=== PATIENT | female | born 1985 | race Caucasian/White ===

== ENCOUNTER → 2025-03-11 | Outpatient (CLI) | payer OTHER, SELFPAY ==
--- OUTSIDE RECORDS SUMMARY | 2025-03-11 12:30 | XMS RPT_ITS | CCD ---
Author Organization [facility] Care Team Providers Care Rating Examiner Name Role Phone STAINBROOK JR., AURORA Unavailable Unavailabl e ROYAL, ANETA S Unavailable Unavailable STAINBROOK JR., [place] Unavailable Unavailabl e STAINBROOK JR., [place]A Unavailable Unavailabl e STAINBROOK JR., [place]UR[place]A Unavailable Unavailabl e STAINBROOK JR., AURORA Unavailable Unavailabl e STAINBROOK JR., [place]UR[place]A Unavailable Unavailabl e STAINBROOK JR., AURORA Unavailable Unavailabl e STAINBROOK JR., AUR[place]A Unavailable Unavailabl e STAINBROOK JR., AURORA Unavailable Unavailabl e STAINBROOK JR., AURORA Unavailable Unavailabl e STAINBROOK JR., AURORA Unavailable Unavailabl e STAINBROOK JR., AURORA Unavailable Unavailabl e STAINBROOK JR., AURORA Unavailable Unavailabl e STAINBROOK JR., AURORA Unavailable Unavailabl e STAINBROOK JR., AUR[place]A Unavailable Unavailabl e Samuel Gamez Unavailable Unavailable [place], Aneta Unavailable Unavailable [place], Aneta S Unavailable Unavailable [place], Aneta Unavailable Libby Frias Unavailable Samuel Gamez Unavailable [place], Aneta S Unavailable Unavailable Unavailable Everett Cutler Unavailable [phone] Derik DEAN, Everett Tirado Primary Care Provider Derik, Dr. Everett Tirado Attending Unav ailable Derik, Dr. Everett Tirado Referring Unav ailcheri Cutler, Dr. Everett Tirado Primary Care Unav ailable Derik, Dr. Everett Tirado Attending Unav ailable Derik, Dr. Everett Tirado Referring Unav ailable Derik, Dr. Everett Tirado Primary Care Unav ailable Cutler, Dr. Everett Tirado Attending Unav ailable Cutler, Dr. Everett Tirado Referring Unav ailable Cutler, Dr. Everett Tirado Primary Care Unav ailable Cutler, Dr. Everett Tirado Primary Care Unav ailable Cutler, Dr. Everett Tirado Referring Unav ailable Cutler, Dr. Everett Tirado Attending Unav ailable Cutler, Dr. Everett Tirado Primary Care Unav ailable Cutler, Dr. Everett Tirado Referring Unav ailable Cutler, Dr. Everett Tirado Attending Unav ailable Cutler, Dr. Everett Tirado Primary Care Unav ailable Cutler, Dr. Everett Tirado Referring Unav ailable Cutler, Dr. Everett Tirado Attending Unav ailable Cutler, Dr. Everett Tirado Primary Care Unav ailable Samuel Gamez Referring Unavailable Franco, Samuel Attending Unavailable Cutler, Dr. Everett Tirado Primary Care Unav ailable Samuel Gamez Attending Unavailable Cutler, Dr. Everett Tirado Primary Care Unav ailable Cutler, Dr. Everett Tirado Referring Unav ailable Cutler, Dr. Everett Tirado Attending Unav ailable Cutler, Dr. Everett Tirado Attending Unav ailable Cutler, Dr. Everett Tirado Primary Care Unav ailable Cutler, Dr. Everett Tirado Referring Unav ailable Cutler, Dr. Everett Tirado Attending Unav ailable Cutler, Dr. Everett Tirado Primary Care Unav ailable Cutler, Dr. Everett Tirado Referring Unav ailable Cutler, Dr. Everett Tirado Attending Unav ailable Cutler, Dr. Everett Tirado Primary Care Unav ailable Cutler, Dr. Everett Tirado Referring Unav ailable Cutler Everett DEAN Primary Care Provider [phone] Aneta Collins DO Unavailable Everett Cutler MD Unavailable Everett Cutler MD Primary Care Provider [phone] EVERETT CUTLER Primary Care Unavaila KIMBERLY Lynn Attending Unava ilable CUTLER, CHRISTOPHER AURORA Primary Care UnavailKIMBERLY Gonzalez Attending Unava ilable Everett Cutler MD Primary Care Provider LUZ MARIA CUTLERER Stalin Primary Care Unavailable CUTLER, CHRISTOPHER D Primary Care Unavailable CUTLER, CHRISTOPHER D Primary Care Unavailable Everett Cutler MD Unavailable Everett Cutler MD Unavailable GEOVANY YORK Referring Unavailable CUTLER, CHRISTOPHER D Primary Care Unavailable GEOVANY YORK Referring Unavailable CUTLER, CHRISTOPHER D Primary Care Unavailable BEV ENRIQUEZ Referring Unavailable CUTLER, MARCYOPHER Stalin Primary Care Unavailable VIRGINIA JOAQUIN Attending Unavailable VIRGINIA JOAQUIN Referring Unavailable CUTLER, CHRISTOPHER D Primary Care Unavailable VIRGINIA JOAQUIN Attending Unavailable VIRGINIA JOAQUIN R Referring Unavailable CUTLER, CHRISTOPHER Stalin Primary Care Unavailable Derik DEAN, Dr. Luther Primary Care Physician Dr. Ashkan Cutler MD Referring Provider Dr. Katharina Rubio MD Attending Physician Everett Cutler MD Primary Care Provider [phone] Everett Cutler MD Unavailable [phone] EVERETT CUTLER Attending Unavailable CUTLER, CHRISTOPHER D Primary Care Unavailable TRI SUAREZ Attending Unavailable CUTLER, CHRISTOPHER Stalin Primary Care Unavailable CUTLERMARCYOPHER Stalin Attending Unavailable CUTLER, CHRISTOPHER D Primary Care Unavailable CUTLER, CHRISTOPHER D Attending Unavailable CUTLER, CHRISTOPHER D Primary Care Unavailable CUTLER, CHRISTOPHER D Attending Unavailable CUTLER, CHRISTOPHER D Primary Care Unavailable VIRGINIA JOAQUIN Attending Unavailable CUTLER, CHRISTOPHER D Primary Care Unavailable SAMUEL GAMEZ Attending Unavailable CUTLER, CHRISTOPHER D Primary Care Unavailable SAMUEL GAMEZ Attending Unavailable CUTLER, CHRISTOPHER D Primary Care Unavailable GEOVANY YORK Attending Unavailable CUTLER, CHRISTOPHER D Primary Care Unavailable Kathairna Rubio Attending Unavailable Cutler, Ashkan Primary Care Unavailable Cutler, Ashkan Referring Unavailable Cutler, Ashkan Primary Care Unavailable Ashkan Cutler Attending Unavailable Katharina Rubio Attending Unavailable Ashkan Cutler Primary Care Unavailable Allergies Allergy Classification Reported Allergen(s) Allergy Type Date of Onset Reaction(s) Facility Cephalosporins (antibiotic) (1 source) ceFAZolin Drug Allergy Unknown [facility] Nitroimidazoles (antibiotic) (1 source) metroNIDAZOLE Drug Allergy Unknown [facility] (19 sources) ceFAZolin; Translations: [Ancef] Drug Allergy Hives [facility] Work Phone: (19 sources) metroNIDAZOLE; Translations: [Flagyl] Drug Allergy Nausea, Palpitations, Vomiting [facility] Work Phone: (20 sources) ceFAZolin; Translations: [CEFAZOLIN] Drug Allergy 3 Hives, Unknown [facility] (20 sources) metroNIDAZOLE; Translations: [METRONIDAZOLE] Drug Allergy 3 Nausea Only, Palpitations, Unknown, Other [facility] Work Phone: (1 source) ceFAZolin Drug Allergy 5 [facility] (1 source) metroNIDAZOLE Drug Allergy 5 [facility] Medications Current Medications Medication Drug Class(es) Dates Sig (Normalized) Sig (Original) dicyclomine hydrochloride 10 mg oral capsule (12 sources) Anticholinergic Start: 05-01-2024 take 1 capsule by mouth every six hours dicyclomine (Bentyl) 10 mg capsule 1 CAPSULE BY MOUTH EVERY 6 HOURS X 10 DAYS 05/01/2024 Active drospirenone, contraceptive, (Slynd) 4 mg (28) tablet (1 source) Start: 07-19-2022 End: 07-23-2023 take 1 tablet by mouth once daily drospirenone, contraceptive, (Slynd) 4 mg (28) tablet Take 1 tablet by mouth once daily. 0 07/19/2022 07/23/2023 Discontinued (Duplicate order) Ethinyl Estradiol / Levonorgestrel (9 sources) Progestin, Estrogen, Progestin-containing Intrauterine Device Start: 06-15-2020 End: 04-10-2024 take 1 tablet by mouth once daily levonorgestreL-et hinyl estrad (Seasonale) 0.15 mg-30 mcg (91) tablet Take 1 tablet by mouth once daily. 06/15/2020 04/10/2024 Discontinued (Med List Cleanup) Start: 06-15-2020 take 1 tablet by porfirio th once daily levonorgestreL-ethinyl estrad (Seasonale ) 0.15 mg-30 mcg (91) tablet Take 1 tablet by mouth once daily. 0 06/15/2020 Active End: 06-18-2024 take 1 tablet by mouth once daily levonorgestreL-ethinyl estrad (Jolessa) 0.15 mg-30 mcg (91) tablet Take by mouth once daily. 06/18/2024 Discontinued (Med List Cleanup) take 1 tablet by porfirio th once daily levonorgestreL-ethinyl estrad (Jolessa) 0.15 mg-30 mcg (91) tablet Take by mouth once daily. Active take 1 tablet by porfirio th once daily Jolessa 0.15-0.03 MG Oral Tablet TAKE 1 TABLET DAILY. Quantity: 1 Refills: 3 Franco DEAN, Samuel Active 91 Tablet Pack nitrofurantoin, macrocrystals 25 mg / nitrofurantoin, monohydrate 75 mg oral capsule (1 source) Nitrofuran Antibacterial Start: 02-25-2025 End: 03-02-2025 take 1 capsule by mouth twice daily nitrofurantoin, macrocrystal-monohydrate, (Macrobid) 100 mg capsule Indications: Acute cystitis with hematuria Take 1 capsule (100 mg) by mouth 2 times a day for 5 days. 10 capsule 02/25/2025 03/02/2025 Active Linthicum (Nk) (1 source) Start: 01-26-2025 Linthicum (Nk) Active January 26, 2025 12:00am rifAXIMin 550 mg oral tablet (3 sources) Rifamycin Antibacterial Start: 01-26-2025 take 1 tablet by mouth three times daily Rifaximin (Xifaxan) 550 mg tablet Active 550 mg PO THREE TIMES A DAY 42 14 0 January 26, 2025 12:00am February 08, 2025 12:00am Complies with drug therapy Start: 06-05-2024 End: 07-03-2024 take 1 tablet by mouth three times daily rifAXIMin (Xifaxan) 550 mg tablet Indications: Irritable bowel syndrome with diarrhea Take 1 tablet (550 mg) by mouth 3 times a day for 28 days. 42 tablet 1 06/05/2024 07/03/2024 Active Completed/Discontinued Medications Medication Drug Class(es) Dates Sig (Normalized) Sig (Original) cholestyramine resin 4000 mg powder for oral suspension (3 sources) Bile Acid Sequestrant Start: 05-20-2024 End: 05-20-2025 cholestyramine (Questran) 4 gram powder Indications: Functional diarrhea Take 0.5 packets (2 g) by mouth 2 times daily (morning and late afternoon). Dissolve in 8 oz of liquid and drink before a meal 30 packet 5 05/20/2024 05/26/2024 Discontinued (Therapy completed) colestipol hydrochloride 5000 mg granules for oral suspension (2 sources) Bile Acid Sequestrant Start: 05-26-2024 End: 06-05-2024 colestipol (Colestid) 5 gram granules Indications: Chronic fatigue , Diarrhea, unspecified type Take at least 1 hour after or 4 hours before other medications. 30 g 11 05/26/2024 06/05/2024 Discontinued (Other) diclofenac sodium 0.01 mg/mg topical gel (10 sources) Nonsteroidal Anti-inflammatory Drug Start: 08-19-2021 Diclofenac Sodium 1 % External Gel 1 CAMELIA, TOPICAL, QID FOR PAIN Quantity: 1 Refills: 11 Ordered: 19-Aug-2021 Everett Cutler MD Start : 19-Aug-2021 Active diphenhydrAMINE (2 sources) Histamine-1 Receptor Antagonist Start: 05-20-2024 End: 05-20-2024 intravenous, As needed, Starting on Sun05/20/24 at 1419, Intraprocedure glucagon (rdna) 1 mg injection (2 sources) Antihypoglycemic Agent Start: 05-20-2024 End: 05-20-2024 intravenous, As needed, Starting on Sun05/20/24 at 1414, Intraprocedure Levonorgest-Eth Estrad 91-Day 0.15-0.03 MG Oral Tablet (17 sources) Start: 06-15-2020 take 1 tablet by mouth once daily Levonorgest-Eth Estrad 91-Day 0.15-0.03 MG Oral Tablet TAKE 1 TABLET BY MOUTH EVERY DAY Quantity: 91 Refills: 3 Ordered: 27-Jul-2022 Samuel Gamez MD Start : 15-Jun-2020 Active Start: 06-15-2020 take 1 tablet by porfirio th once daily Levonorgest-Eth Estrad 91-Day 0.15-0.03 MG Oral Tablet TAKE 1 TABLET BY MOUTH EVERY DAY Quantity: 91 Refills: 3 Ordered: 18-Jul-2021 Samuel Gamez MD Start : 15-Jun-2020 Active Meperidine (2 sources) Opioid Agonist Start: 05-20-2024 End: 05-20-2024 intravenous, As needed, Starting on Sun05/20/24 at 1412, Intraprocedure 5 ml midazolam 1 mg/ml injection (2 sources) Benzodiazepine Start: 05-20-2024 End: 05-20-2024 intravenous, As needed, Starting on Sun05/20/24 at 1412, Intraprocedure norethindrone 0.35 mg oral tablet (14 sources) Start: 08-26-2024 End: 01-26-2025 take 1 tablet by mouth once daily Norethindrone (Contraceptive) (Jencycla) 0.35 mg tablet Discontinued 0.35 mg PO daily August 26, 2024 12:00am January 26, 2025 2:29pm Start: 07-23-2023 End: 07-28-2025 norethindrone (Micronor) 0.3 5 mg tablet Indications: Encounter for surveillance of contraceptive pills Take 1 tablet (0.35 mg) over 28 days by mouth once daily. 28 tablet 11 07/28/2024 02/17/2025 Discontinued (Therapy completed) predniSONE 10 mg oral tablet (6 sources) Start: 08-19-2021 predniSONE 10 MG Oral Tablet TAKE 4 TABLETS DAILY FOR 3 DAYS,3 TABLETS DAILY FOR 3 DAYS, 2 TABLETS DAILY FOR 3 DAYS AND 1 TABLET DAILY FOR 3 DAYS, THEN STOP. Quantity: 30 Refills: 0 Ordered: 19-Aug-2021 Everett Cutler MD Start : 19-Aug-2021 Active Start: 11-25-2020 End: 11-29-2020 take 2 tablets by mouth once daily at mealtime predniSONE 20 mg oral tablet ; 2 tab(s) orally once a day Quantity: 10 Refills: 0 Ordered: 24-Nov-2020 RodriguezLexie gomezstalin Li Start: 24-Nov-2020 End: 28-Nov-2020 Generic Substitution Allowed Comments: It is very important that you take or use this exactly as directed. Do not skip doses or discontinue unless directed by your doctor.Obtain medical advice before taking any non-prescription drugs as some may affect the action of this medication.Take with food or milk. Comment on above: It is very important that you take or use this exactly as directed. Do not skip doses or discontinue unless directed by your doctor.Obtain medical advice before taking any non-prescription drugs as some may affect the action of this medication.Take with food or milk. Slynd 4 MG Oral Tablet (2 sources) Start: 2022 take 1 tablet by mouth once daily Slynd 4 MG Oral Tablet 1 TABLET BY MOUTH DAILY Quantity: 1 Refills: 11 Ordered: 19-Jul-2022 Samuel Gamez MD Start : 19-Jul-2022 Active vitamin b12 1 mg/ml injectable solution (9 sources) Vitamin B12 Start: 2021 inject 1 mL by intramuscular injection every month Cyanocobalamin 1000 MCG/ML Injection Solution INJECT 1 ML INTRAMUSCULARLY ONCE A MONTH Quantity: 0 Refills: 0 Ordered: 21-Mar-2022 Everett Cutler MD Start : 21-Mar-2022 Complete Start: 12-29-2021 inject 1 mL by intra muscular injection every month Cyanocobalamin 1000 MCG/ML Injection Solution INJECT 1 ML INTRAMUSCULARLY ONCE A MONTH Quantity: 0 Refills: 0 Ordered: 30-Jan-2022 Everett Cutler MD Start : 30-Jan-2022 Complete Start: 10-18-2021 inject 1 mL by intra muscular injection every month Cyanocobalamin 1000 MCG/ML Injection Solution INJECT 1 ML INTRAMUSCULARLY ONCE A MONTH Quantity: 0 Refills: 0 Ordered: 18-Oct-2021 Everett Cutler MD Start : 18-Oct-2021 Complete Start: 09-09-2021 inject 1 mL by intra muscular injection every week Cyanocobalamin 1000 MCG/ML Injection Solution INJECT 1ML INTRAMUSCULARLY WEEKLY. Quantity: 0 Refills: 0 Ordered: 09-Sep-2021 Everett Cutler MD Start : 09-Sep-2021 Complete Start: 09-02-2021 inject 1 mL by intra muscular injection every week Cyanocobalamin 1000 MCG/ML Injection Solution INJECT 1ML INTRAMUSCULARLY WEEKLY. Quantity: 0 Refills: 0 Ordered: 02-Sep-2021 Everett Cutler MD Start : 02-Sep-2021 Complete Start: 08-26-2021 inject 1 mL by intra muscular injection every week Cyanocobalamin 1000 MCG/ML Injection Solution INJECT 1ML INTRAMUSCULARLY WEEKLY. Quantity: 0 Refills: 0 Ordered: 26-Aug-2021 Everett Cutler MD Start : 26-Aug-2021 Complete Problems Active Problems Problem Classification Problem Date Documented Da te Episodic/Chronic Conditions associated with dizziness or vertigo (2 sources) Dizziness and giddiness; Translations: [Dizziness and giddiness] Onset: 8 Episodic Esophageal disorders (20 sources) Gastroesophageal reflux disease; Translations: [Esophageal reflux] Onset: 3 09-14-2022 Chronic Fluid and electrolyte disorders (2 sources) Hypo-osmolality and hyponatremia; Translations: [Hypo-osmolality and hyponatremia] Onset: 8 Episodic Genitourinary symptoms and ill-defined conditions (9 sources) Microscopic hematuria; Translations: [Other microscopic hematuria] Onset: 5 08-21-2024 Episodic Immunizations and screening for infectious disease (2 sources) Other specified abnormal immunological findings in serum; Translations: [Other specified abnormal immunological findings in serum] Onset: 8 Episodic Malaise and fatigue (6 sources) Fatigue; Translations: [Chronic fatigue, unspecified] Onset: 3 04-10-2024 Chronic Menstrual disorders (20 sources) Menorrhagia; Translations: [Excessive or frequent menstruation] Onset: 3 09-14-2022 Chronic Comment on above: plan diagnostic lapa rosocpy. obtain us report from [facility]. failed progestin pill. 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 non-steroidal anti-inflammatories (NSAID); Translations: [care home (current) use of non-steroidal anti-inflammatories (nsaid)] Onset: 8 Episodic Other bone disease and musculoskeletal deformities (4 sources) Disorder of bone, unspecified; Translations: [Disorder of cartilage, unspecified] Onset: 8 Episodic Other bone disease and musculoskeletal deformities (2 sources) Hypertrophy of bone; Translations: [Osteophyte of hip] Episodic Other circulatory disease (2 sources) Other specified symptoms and signs involving the circulatory and respiratory systems; Translations: [Other specified symptoms and signs involving the circulatory and respiratory systems] Onset: 8 Episodic Other complications of ; puerperium affecting management of mother (17 sources) Deliveries by ; Translations: [ delivery, without mention of indication, unspecified as to episode of care or not applicable] Episodic Comment on above: 05/2011; 38 WEEKS; C- SECTION; MALE; 6LBS 12OZ; Other connective tissue disease (20 sources) Trochanteric bursitis, left hip; Translations: [Pain in right foot] Onset: 8 Episodic Other connective tissue disease (4 sources) Pain in right foot; Translations: [Pain in right foot] 04-10-2024 Episodic Other endocrine disorders (6 sources) Polycystic ovarian syndrome; Translations: [Polycystic ovarian syndrome] Onset: 8 Chronic Other endocrine disorders (2 sources) Menarche; Translations: [History of Menarche] Chronic Other endocrine disorders (20 sources) Polycystic ovary syndrome; Translations: [Polycystic ovaries] Onset: 3 09-14-2022 Chronic Other endocrine disorders (2 sources) Carcinoid syndrome; Translations: [Carcinoid syndrome] 05-20-2024 Chronic Other female genital disorders (2 sources) Abnormal uterine bleeding; Translations: [Abnormal uterine and vaginal bleeding, unspecified] 01-26-2025 Chronic Comment on above: obtain records from [facility]. plan d ad c hysteroscopy Other female genital disorders (2 sources) Vaginal bleeding; Translations: [Vaginal Bleeding] Onset: 5 Chronic Other female genital disorders (2 sources) Chronic pelvic pain of female; Translations: [Chronic pelvic pain in female] 01-26-2025 Episodic Comment on above: nl cystoscopy with Isabela pérez. d and c hysteroscopy diagnostic laparoscopy. trial of Xifaxan for IBS D Other gastrointestinal disorders (20 sources) Irritable bowel syndrome; Translations: [Irritable bowel syndrome] Onset: 3 09-14-2022 Chronic Comment on above: Xifaxin trial. Other gastrointestinal disorders (5 sources) Irritable bowel syndrome with diarrhea; Translations: [Irritable bowel syndrome with diarrhea] Onset: 5 05-05-2024 Chronic Other gastrointestinal disorders (1 source) Irritable bowel syndrome with diarrhea; Translations: [Irritable bowel syndrome with diarrhea] Onset: 3 Chronic Other gastrointestinal disorders (4 sources) Functional diarrhea; Translations: [Functional diarrhea] 05-20-2024 Episodic Other gastrointestinal disorders (1 source) Diarrhea; Translations: [Diarrhea, unspecified] 05-26-2024 Episodic Other nervous system disorders (4 sources) Other chronic pain; Translations: [Brachial plexus disorders] Onset: 8 Chronic Other nervous system disorders (2 sources) Paresthesia of skin; Translations: [Paresthesia of skin] Onset: 8 Episodic Other non-traumatic joint disorders (8 sources) Pain in right shoulder; Translations: [Pain in left shoulder] Onset: 8 Episodic Other skin disorders (2 sources) Rash and other nonspecific skin eruption; Translations: [Rash and other nonspecific skin eruption] Onset: 8 Episodic Peripheral and visceral atherosclerosis (2 sources) Peripheral vascular disease, unspecified; Translations: [Peripheral vascular disease, unspecified] Onset: 8 Chronic Residual codes; unclassified (2 sources) H/O: ; Translations: [History of ] Episodic Residual codes; unclassified (17 sources) Finding of menstrual bleeding; Translations: [Other specified conditions influencing health status] Episodic Comment on above: 09/17/2017; Residual codes; unclassified (4 sources) Flushing; Translations: [Flushing] Onset: 5 05-20-2024 Episodic Spondylosis; intervertebral disc disorders; other back problems (20 sources) Sacroiliitis, not elsewhere classified; Translations: [Inflammation of sacroiliac joint] Onset: 8 09-14-2022 Chronic Unclassified (2 sources) Other general symptoms and signs; Translations: [Other general symptoms and signs] Onset: 8 Episodic Unclassified (1 source) New Patient / [id number]() Onset: 8 Unclassified (2 sources) COUGH SNEEZE RUNNY NOSE 11-24-2020 Comment on above: COUGH SNEEZE RUNNY N OSE Unclassified (1 source) Viral illness 11-25-2020 Unclassified (2 sources) Carcinoid syndrome, unspecified; Translations: [Carcinoid syndrome, unspecified] Onset: 5 Urinary tract infections (5 sources) Acute cystitis with hematuria; Translations: [Acute cystitis] Onset: 4 Episodic Viral infection (1 source) Viral disease; Translations: [Unspecified viral infection] 11-25-2020 Episodic Past or Other Problems Problem Classification Problem Date Documented Da te Episodic/Chronic Abdominal pain (16 sources) Left lower quadrant pain; Translations: [Lower abdominal pain] Onset: 5 Episodic Contraceptive and procreative management (20 sources) Patient encounter status; Translations: [Unspecified contraceptive management] Onset: 5 07-23-2023 Episodic Diabetes mellitus without complication (20 sources) Hyperglycemia; Translations: [Other abnormal glucose] Onset: 3 09-14-2022 Episodic Gastrointestinal hemorrhage (20 sources) Rectal hemorrhage; Translations: [Hemorrhage of rectum and anus] Onset: 3 09-14-2022 Episodic Intestinal infection (20 sources) Diarrhea of presumed infectious origin; Translations: [Clostridium difficile colitis] Onset: 3 Resolved: 3 09-14-2022 Episodic Malaise and fatigue (20 sources) Other fatigue; Translations: [Fatigue] Onset: 8 09-14-2022 Episodic Nausea and vomiting (20 sources) Nausea; Translations: [Nausea and vomiting] Onset: 07-18-201 8 Resolved: 3 09-14-2022 Episodic Other and unspecified benign neoplasm (20 sources) Adenomyoma of gallbladder; Translations: [Benign neoplasm of liver and biliary passages] Onset: 3 09-14-2022 Episodic Other connective tissue disease (20 sources) Fibromyalgia; Translations: [Myalgia and myositis, unspecified] Onset: 3 09-14-2022 Episodic Other connective tissue disease (3 sources) Pain in left foot; Translations: [Pain in left foot] Onset: 4 04-14-2024 Episodic Other connective tissue disease (1 source) Pain in left foot; Translations: [Pain in left foot] Onset: 4 Episodic Other connective tissue disease (4 sources) Pain in right foot; Translations: [Pain in right foot] Onset: 4 Episodic Other gastrointestinal disorders (19 sources) H/O: gastrointestinal disease; Translations: [Personal history of other diseases of digestive system] Resolved: 0 Episodic Comment on above: C. DIff; Other gastrointestinal disorders (6 sources) Diarrhea, unspecified; Translations: [Diarrhea, unspecified] Onset: 5 Episodic Other gastrointestinal disorders (2 sources) Functional diarrhea; Translations: [Functional diarrhea] Onset: 5 Episodic Other nervous system disorders (20 sources) Paresthesia of upper limb; Translations: [Disturbance of skin sensation] Onset: 3 Episodic Other non-traumatic joint disorders (20 sources) Hip pain; Translations: [Pain in joint, pelvic region and thigh] Onset: 3 09-14-2022 Episodic Other non-traumatic joint disorders (20 sources) Disorder of hip; Translations: [Enthesopathy of hip region] Onset: 3 09-14-2022 Episodic Other non-traumatic joint disorders (20 sources) Joint pain; Translations: [Pain in joint, site unspecified] Onset: 3 09-14-2022 Episodic Other skin disorders (20 sources) Sebaceous cyst of skin; Translations: [Sebaceous cyst] Onset: 3 09-14-2022 Episodic Residual codes; unclassified (20 sources) Insomnia; Translations: [Insomnia, unspecified] Onset: 3 09-14-2022 Episodic Residual codes; unclassified (2 sources) Flushing; Translations: [Flushing] Onset: 5 Episodic Spondylosis; intervertebral disc disorders; other back problems (20 sources) Dorsalgia, unspecified; Translations: [Chronic low back pain] Onset: 8 09-14-2022 Episodic Unclassified (20 sources) Elevated C-reactive protein (CRP); Translations: [Cancer cervix - screening done] Onset: 8 Episodic Unclassified (1 source) New Patient; Translations: [New Patient] Onset: 8 Unclassified (19 sources) Finding of menstrual bleeding; Translations: [Menstruation] Comment on above: 1995-AGE 12; Unclassified (6 sources) Patient encounter status; Translations: [Contraception management] Unclassified (2 sources) Sebaceous cyst of skin; Translations: [Sebaceous cyst] Unclassified (2 sources) Carcinoid syndrome, unspecified; Translations: [Carcinoid syndrome, unspecified] Onset: 5 Unclassified (6 sources) Onset: 5 Resolved: 5 07-28-2024 NEGATED: Highlighted row has not occurred!Residual codes; unclassified (16 sources) Disease Episodic Results Test Name Value Interpretation Reference Range Facility POCT UA Automated manually r esultedon 02-25-2025 Appearance (U) Clear Clear [facility] Work Phone: Glucose Test strip (U) [Mass/Vol] Negative NEGATIVE mg/dl [facility] Work Phone: Hemoglobin Ql (U) LARGE (3+) Abnormal NEGATIVE [facility] Work Phone: Interpretation and review of laboratory results Abnormal [facility] Work Phone: Leukocyte esterase Test strip Ql (U) LARGE (3+) Abnormal NEGATIVE [facility] Work Phone: Nitrite Ql (U) Negative NEGATIVE [facility] Work Phone: pH (U) 6.5 [pH] No Reference Range Established [facility] Work Phone: POC Bilirubin, Urine SMALL (1+) Abnormal NEGATIVE [facility] Work Phone: POC Color, Urine Yellow Straw, Yellow, Light-Yellow [facility] Work Phone: POC Ketones, Urine Negative NEGATIVE mg/dl [facility] Work Phone: POC Protein, Urine 30 (1+) Abnormal NEGATIVE mg/dl [facility] Work Phone: POC Specific Flora, Urine 1.020 1.005 - 1.035 [facility] Work Phone: POC Urobilinogen, Urine 0.2 0.2, 1.0 EU/DL [facility] Work Phone: [facility] Work Phone: [facility] Office Visit Reporton 01-26-2025 [facility] Office Visit Report [facility] [address], [address] [place] [address] OFFICE VISIT Date of Service: 01/26/25 MR#: [id number] Acct: [id number] Name: PAULA MCCORMICK [facility] Rep #: [id number] : 1985 Provider: Dr. Katharina underwood MD Age/Sex: 39/F [place] [facility] Status: Signed Intake Vital Signs 01/26/25 14:26 01/26/25 14:54 Height 5 ft 10 in 5 ft 10 in Weight: 199 lb BMI 28.5 BP 116/77 Intake Visit Reasons: IRREGULAR CYCLES/ARON-MENOPAUSE CONCERNS Allergies cefazolin (From Ancef) Allergy (Severe, Verified 01/26/25 14:29) Hives metronidazole (From Flagyl) Allergy (Intermediate, Verified 01/26/25 14:29) heart palpitations Medications ???Medication ???Instructions ???Recorded ???Confirmed ???Type NK 01/26/25 01/26/25 History rifaximin 550 mg tablet (Xifaxan) 550 mg PO TID 14 days #42 tabs 01/26/25 Rx PFSH Medical History (Updated 01/26/25 @ 15:[address] Katharina Rubio MD) Fibromyalgia Cyst of right breast PCOS (polycystic ovarian syndrome) Osteoarthritis IBS (irritable bowel syndrome) Gastrointestinal problem Bone fracture History of back problems Arthritis Surgical History (Updated 01/26/25 @ 15:[address] Katharina Rubio MD) H/O section Family History Sister Asthma Cervical cancer Seizures Mother Arthritis Father Arthritis Diabetes Myocardial infarction, Onset Age: 59 Heart disease Brother Seizures Colon cancer Social History (Updated 01/26/25 @ 14:32 by Bhavana Ray) household members: spouse and children housing: house number of children: 1 current occupational status: employed current occupation: [employer] Smoking Status: Current every day smoker tobacco type: cigarettes Smoking packs per day: 4 Smoking cigarettes per day: 80.0 alcohol intake: never substance use type: does not use what type of physical activity do you participate in: none seatbelt use: always do you feel safe at home: Yes additional social history: Maurice GERARDO IRREGULAR CYCLES/ARON-MENOPAUSE CONCERNS Details: The patient is a 39-year-old female presenting with severe abdominal pain, bowel irregularities, and abnormal menstrual bleeding. Following a section, the patient contracted Clostridioides difficile infection, which remained undiagnosed for a year and a half, causing significant bowel damage. Despite treatment, she continues to experience bowel issues, including frequent bowel movements, abdominal pain, and rectal bleeding. The patient reports daily hot flashes, vomiting, and severe bowel pain, which significantly impacts her ability to work. She has attempted various interventions, including dietary changes and cessation of medications, without relief. The patient has a history of fibromyalgia, contributing to her chronic pain symptoms. She also reports abnormal Pap tests for the past five years and microhematuria. The patient suspects endometriosis due to her symptoms and has not responded to previous hormonal treatments. She has a history of polycystic ovarian syndrome diagnosed at age 24. Attestation: Documentation on this patient encounter was supported using ambient scribe technology/ voice AI technology. The patient consented to recording for the purpose of documenting the encounter. Provider reviewed content of the generated note prior to signature. History 1 Elective abortions Hx Para 1 Spontaneous abortions Hx # Term Pregnancies Ectopic pregnancies Hx # Pregnancies Multiple births # of living children 1 Past Pregnancies Del. Date Name GA/Weeks Outcome Route Bth Weight Infant Gen Labor Lgth Anesthesia Del Locatn Provider FOB Unknown 2011 Luke live - full term ROS Const Constitutional: Reports fatigue; Denies weight gain or weight loss ENT ENT: Reports system reviewed and no additional complaints, except as documented Cardio Card: Denies chest pain Resp Resp: Denies cough or dyspnea GI GI: Reports as per HPI and nausea; Denies constipation or vomiting : Reports as per HPI and vaginal discharge; Denies nipple discharge, vaginal dryness, vaginal odor or vaginal pruritus Musc Musc: Reports arthralgias and back pain; Denies muscle weakness Skin Skin/Breast: Denies alopecia, change in hair, dry skin, breast mass, breast pain, breast skin changes or nipple discharge Neuro Neuro: Reports system reviewed and no additional complaints, except as documented Psych Psych: Reports system reviewed and no additional complaints, except as documented Endo Endo: Reports cold intolerance; Denies excessive sweating, heat intolerance or polydipsia Harvey/Lymph Hematologic/Lym (more content not included)... Normal [facility] CULTURE, URINE, ROUTINEon CULTURE, URINE, ROUTINE SEE NOTE Normal [facility] Comment on above: Result Comment: CULTURE, URINE, ROUTINE Micro Number: [id number] Test Status: Final Specimen Source: Urine Specimen Quality: Adequate Result: No Growth Performed By: #### 3 95 #### [facility] [address], [address] [place] [id number] Relationship Assoc: Austyn Dunbar MD US PELVIS TRANSABDOMINAL WIT H TRANSVAGINALon 08-22-2024 US PELVIS TRANSABDOMINAL WITH TRANSVAGINAL Interpreted By: Judd Mckee, STUDY: US PELVIS TRANSABDOMINAL WITH TRANSVAGINAL; 08/22/2024 12:06 pm INDICATION: Signs/Symptoms:lower abd pain. COMPARISON: None. ACCESSION NUMBER(S): [id number] ORDERING CLINICIAN: GEOVANY YORK TECHNIQUE: Multiple multiplanar static latif scale, color and spectral waveform sonographic images of the pelvis were obtained. Transabdominal and transvaginal ultrasound was performed. FINDINGS: Limited assessment due to body habitus and overlying bowel gas. UTERUS: The uterus measures 8 x 3.1 x 5.3 cm. No uterine masses. ENDOMETRIUM: The endometrium measures 0.9 cm. There is a 1 x 3 mm echogenic focus in the central aspect of the uterus potentially an endometrial calcification. RIGHT OVARY: 2.2 x 2.4 x 2.2 cm. No solid mass. Arterial and venous flow present. LEFT OVARY: 3.3 x 2.3 x 2.4 cm. No solid mass. Arterial and venous flow present. OTHER: No significant pelvic free fluid. IMPRESSION: No worrisome abnormality. Signed by: Judd Mckee 08/23/2024 1:50 PM Dictation workstation: [id number] [facility] XR ABDOMEN 2 VIEWS SUPINE AN D ERECT OR DECUBon 08-22-2024 XR ABDOMEN 2 VIEWS SUPINE AND ERECT OR DECUB Interpreted By: Aden Morales, STUDY: XR ABDOMEN 2 VIEWS SUPINE AND ERECT OR DECUB INDICATION: Signs/Symptoms:lower abd pain. COMPARISON: None ACCESSION NUMBER(S): [id number] ORDERING CLINICIAN: GEOVANY YORK FINDINGS: Moderate stool in the colon. Bowel-gas pattern unremarkable. No air-fluid levels or free air. No pathologic calcifications. IMPRESSION: No acute abdominal radiographic findings. Signed by: Aden Morales 08/23/2024 9:39 AM Dictation workstation: [id number] [facility] POCT UA Automated manually r esultedon 08-21-2024 Appearance (U) Clear Clear [facility] Work Phone: Glucose Test strip (U) [Mass/Vol] Negative NEGATIVE mg/dl [facility] Work Phone: Hemoglobin Ql (U) SMALL (1+) Abnormal NEGATIVE [facility] Work Phone: Interpretation and review of laboratory results Abnormal [facility] Work Phone: Leukocyte esterase Test strip Ql (U) Negative NEGATIVE [facility] Work Phone: Nitrite Ql (U) Negative NEGATIVE [facility] Work Phone: pH (U) 7.5 [pH] No Reference Range Established [facility] Work Phone: POC Bilirubin, Urine Negative NEGATIVE [facility] Work Phone: POC Color, Urine Yellow Straw, Yellow, Light-Yellow [facility] Work Phone: POC Ketones, Urine Negative NEGATIVE mg/dl [facility] Work Phone: [phone] POC Protein, Urine Negative NEGATIVE mg/dl [facility] Work Phone: [phone] POC Specific Flora, Urine 1.020 1.005 - 1.035 [facility] Work Phone: POC Urobilinogen, Urine 0.2 0.2, 1.0 EU/DL [facility] Work Phone: [facility] Work Phone: Cervicalon 07-28-2024 Cytology Cervical or vaginal smear or scraping study Pathology report.total SEE COMMENT Gynecologic Cytology Case: [id number] Authorizing Provider: Samuel Gamez MD Collected: 07/28/2024916 Ordering Location: [facility] Received: 07/28/2024916 First Screen: STACY Puentes Rescreen: STACY Vázquez Specimen: ThinPrep Liquid-Based Pap-Imaging System Screen, CERVIX, SCREENING Cytology study comment SEE COMMENT A. THINPREP PAP CERVIX, SCREENING - Specimen Adequacy Satisfactory for evaluation; endocervical/transformation zone component is present General Categorization Negative for intraepithelial lesion or malignancy. Descriptive Interpretation Negative for intraepithelial lesion or malignancy Specimen does not meet the requisition-stated criteria for HPV testing. See Pap test interpretation above. at 0844 EDT Laboratory comment SEE COMMENT Slide(s) initially screened by STACY Puentes at [facility] [address] [facility] [id number] QC review performed by STACY Vázquez at [facility] [address] [facility] [id number] By the signature on this report, the individual or group listed as making the Final Interpretation/Diagnosis certifies that they have reviewed this case. This specimen has been analyzed by the [employer] Imaging System ([employer] an automated imaging and review system, which assists the laboratory in evaluating cells on ThinPrep Pap tests. Following automated imaging, selected ramos from every slide were reviewed by a sales correspondent and/or pathologist. Cervical cytology is a screening procedure primarily for squamous cancers and precursors and has associated false-negative and false-positives results as evidenced by published data. Your patient's test should be interpreted in this context, together with the patient's history and clinical findings. Regular sampling and follow-up of unexplained clinical signs and symptoms are recommended to minimize false negative results. LAB AP HPV HR Reflex if ASCUS only LAB AP HPV GENOTYPE QUESTION Yes Date last menstrual period 07/24/2024 LAB AP CONTRACEPTIVE HISTORY Oral Contraceptives Normal [facility] 5 HIAA, 24 HOUR URINE, W/O C REATININEon 06-11-2024 5 HIAA, 24 HOUR URINE 2.2 mg/24 h Normal < OR = 6.0 [facility] Comment on above: Order Comment: URINE VOLUME: 1450/24 Result Comment: This test was developed and its analytical performance characteristics have been determined by [facility]. It has not been cleared or approved by FDA. This assay has been validated pursuant to the CLIA regulations and is used for clinical purposes. Performed By: #### 5 23 #### [facility], [address] [place] [address] Relationship Assoc: Kala Hawkins MD,PhD,KAYA TOTAL VOLUME 1450 mL Normal [facility] Comment on above: Order Comment: URINE VOLUME: 1450/24 Performed By: #### 5 23 #### [facility], [address] [place] [address] Relationship Assoc: Kala Hawkins MD,PhD,KAYA CBC (INCLUDES DIFF/PLT)on Basophils (Bld) [#/Vol] 0.051 10*3/uL Normal 0-200 [facility] Comment on above: Performed By: #### 6 399, 69958, 809 #### [facility] [address], [address] [place] [address] Relationship Assoc: Austyn Dunbar MD #### [id number] #### [facility], [facility] [place] [address] Relationship Assoc: Kala Hawkins MD,PhD,KAYA Basophils/100 WBC (Bld) 0.8 % Normal [facility] Comment on above: Performed By: #### 6 399, 94830, 809 #### [facility] of [facility] [address], [address] [place] [address] Relationship Assoc: Austyn Dunbar MD #### [id number] #### [facility], [address] [place] [address] Relationship Assoc: Kala Hawkins MD,PhD,KAYA Eosinophils (Bld) [#/Vol] 0.051 10*3/uL Normal 15-500 [facility] Comment on above: Performed By: #### 6 399, 63639, 809 #### [facility] of [facility] [address], [address] [place] [address] Relationship Assoc: Austyn Dunbar MD #### [id number] #### [facility], [facility] [place] [address] Relationship Assoc: Kala Hawkins MD,PhD,KAYA Eosinophils/100 WBC (Bld) 0.8 % Normal [facility] Comment on above: Performed By: #### 6 399, 68081, 809 #### [facility] of [facility] [address], [address] [place] [address] Relationship Assoc: Austyn Dunbar MD #### [id number] #### [facility], [address] [place] [address] Relationship Assoc: Kala Hawkins MD,PhD,KAYA Erythrocyte distribution width (RBC) [Ratio] 11.9 % Normal 11.0-15.0 [facility] Comment on above: Performed By: #### 6 399, 11419, 809 #### [facility] of [place] [address] [address] , [address] [place] [address] Relationship Assoc: Austyn Dunbar MD #### [id number] #### [facility], [address] [place] [address] Relationship Assoc: Kala Hawkins MD,PhD,KAYA Hematocrit (Bld) [Volume fraction] 44.6 % Normal 35.0-45.0 [facility] Comment on above: Performed By: #### 6 399, 03080, 809 #### [facility] of [address], [address] [place] [address] Relationship Assoc: Austyn Dunbar MD #### [id number] #### [facility], [address] [place] [address] Relationship Assoc: Kala Hawkins MD,PhD,KAYA Hemoglobin (Bld) [Mass/Vol] 15.5 g/dL Normal 11.7-15.5 [facility] Comment on above: Performed By: #### 6 399, 66712, 809 #### [facility] of [address] , [address] [place] [address] Relationship Assoc: Austyn Dunbar MD #### [id number] #### [facility], [address] [place] [address] Relationship Assoc: Kala Hawkins MD,PhD,KAYA Lymphocytes (Bld) [#/Vol] 1.702 10*3/uL Normal 850-3900 [facility] Comment on above: Performed By: #### 6 399, 27048, 809 #### [facility] of [address], [address] [place] [address] Relationship Assoc: Austyn Dunbar MD #### [id number] #### [facility], [address] [place] [address] Relationship Assoc: Kala Hawkins MD,PhD,KAYA Lymphocytes/100 WBC (Bld) 26.6 % Normal [facility] Comment on above: Performed By: #### 6 399, 88379, 809 #### [facility] [address], [address] [place] [address] Relationship Assoc: Austyn Dunbar MD #### [id number] #### [facility], [address] [place] [address] Relationship Assoc: Kala Hawkins MD,PhD,KAYA MCH (RBC) [Entitic mass] 34.1 pg High 27.0-33.0 [facility] Comment on above: Performed By: #### 6 399, 24594, 809 #### [facility] [address], [address] [place] [address] Relationship Assoc: Austyn Dunbar MD #### [id number] #### [facility], [address] [place] [address] Relationship Assoc: Kala Hawkins MD,PhD,KAYA MCHC (RBC) [Mass/Vol] 34.8 g/dL Normal 32.0-36.0 [facility] Comment on above: Result Comment: For adults, a slight decrease in the calculated MCHC value (in the range of 30 to 32 g/dL) is most likely not clinically significant; however, it should be interpreted with caution in correlation with other red cell parameters and the patient's clinical condition. Performed By: #### 6 399, 42565, 809 #### [facility] [address], [address] [place] [address] Relationship Assoc: Austyn Dunbar MD #### [id number] #### [facility], [address] [place] [address] Relationship Assoc: Kala Hawkins MD,PhD,KAYA MCV (RBC) [Entitic vol] 98.0 fL Normal 80.0-100.0 [facility] Comment on above: Performed By: #### 6 399, 17134, 809 #### [facility] [address], [address] [place] [address] Relationship Assoc: Austyn Dunbar MD #### [id number] #### [facility], [address] [place] [address] Relationship Assoc: Kala Hawkins MD,PhD,KAYA Monocytes (Bld) [#/Vol] 0.518 10*3/uL Normal 200-950 [facility] Comment on above: Performed By: #### 6 399, 37719, 809 #### [facility] [address], [address] [place] [address] Relationship Assoc: Austyn Dunbar MD #### [id number] #### [facility], [address] [place] [address] Relationship Assoc: Kala Hawkins MD,PhD,KAYA Monocytes/100 WBC (Bld) 8.1 % Normal [facility] Comment on above: Performed By: #### 6 399, 93223, 809 #### [facility] [place] [address] [address] [place] [address] Relationship Assoc: Austyn Dunbar MD #### [id number] #### [facility], [address] [place] Relationship Assoc: Kala Hawkins MD,PhD,KAYA Neutrophils (Bld) [#/Vol] 4.077 10*3/uL Normal 1976-6806 [facility] Comment on above: Performed By: #### 6 399, 22095, 809 #### [facility] of [place] [address], [address] [place] [address] Relationship Assoc: Austyn Dunbar MD #### [id number] #### [facility], [address] [place] [address] Relationship Assoc: Kala Hawkins MD,PhD,KAYA Neutrophils/100 WBC (Bld) 63.7 % Normal [facility] Comment on above: Performed By: #### 6 399, 38004, 809 #### [facility] of [place] [address] , [address] [place] [address] Relationship Assoc: Austyn Dunbar MD #### [id number] #### [facility], [facility] [address] Relationship Assoc: Kala Hawkins MD,PhD,KAYA Platelet mean volume (Bld) [Entitic vol] 9.9 fL Normal 7.5-12.5 [facility] Comment on above: Performed By: #### 6 399, 00725, 809 #### [facility] of [place] [address] [address] , [address] [place] [address] Relationship Assoc: Austyn Dunbar MD #### [id number] #### [facility], [address] [place] [address] Relationship Assoc: Kala Hawkins MD,PhD,KAYA Platelets (Bld) [#/Vol] 292 10*3/uL Normal 140-400 [facility] Comment on above: Performed By: #### 6 399, 51804, 809 #### [facility] of [place] [address] [address] , [address] [place] [address] Relationship Assoc: Austyn Dunbar MD #### [id number] #### [facility], [address] [place] Relationship Assoc: Kala Hawkins MD,PhD,KAYA RBC (Bld) [#/Vol] 4.55 10*6/uL Normal 3.80-5.10 [facility] Comment on above: Performed By: #### 6 399, 83120, 809 #### [facility] of [address], [address] [place] [address] Relationship Assoc: Austyn Dunbar MD #### [id number] #### [facility], [address] [place] Relationship Assoc: Kala Hawkins MD,PhD,KAYA WBC (Bld) [#/Vol] 6.4 10*3/uL Normal 3.8-10.8 [facility] Comment on above: Performed By: #### 6 399, 14441, 809 #### [facility] [address], [address] [place] [address] Relationship Assoc: Austyn Dunbar MD #### [id number] #### [facility], [address] [place] Relationship Assoc: Kala Hawkins MD,PhD,KAYA COMPREHENSIVE METABOLIC PANE L W/ANION GAPon 06-01-2024 Albumin [Mass/Vol] 4.7 g/dL Normal 3.6-5.1 [facility] Comment on above: Order Comment: FASTI NG:NO FASTING: NO Performed By: #### 6 399, 50722, 809 #### [facility] [address], [address] [place] [address] Relationship Assoc: Austyn Dunbar MD #### [id number] #### [facility], [address] [place] Relationship Assoc: Kala Hawkins MD,PhD,KAYA ALP [Catalytic activity/Vol] 65 U/L Normal 31-125 [facility] Comment on above: Order Comment: FASTI NG:NO FASTING: NO Performed By: #### 6 399, 04390, 809 #### [facility] [address], [address] [place] [address] Relationship Assoc: Austyn Dunbar MD #### [id number] #### [facility], [address] [place] [address] Relationship Assoc: Kala Hawkins MD,PhD,KAYA ALT [Catalytic activity/Vol] 9 U/L Normal 6-29 [facility] Comment on above: Order Comment: FASTI NG:NO FASTING: NO Performed By: #### 6 399, 96176, 809 #### [facility] [address], [address] [place] [address] Relationship Assoc: Austyn Dunbar MD #### [id number] #### [facility], [address] [place] [address] Relationship Assoc: Kala Hawkins MD,PhD,KAYA AST [Catalytic activity/Vol] 12 U/L Normal 10-30 [facility] Comment on above: Order Comment: FASTI NG:NO FASTING: NO Performed By: #### 6 399, 32292, 809 #### [facility] [address], [address] [place] [address] Relationship Assoc: Austyn Dunbar MD #### [id number] #### [facility], [address] [place] [address] Relationship Assoc: Kala Hawkins MD,PhD,KAYA Bilirubin [Mass/Vol] 0.5 mg/dL Normal 0.2-1.2 [facility] Comment on above: Order Comment: FASTI NG:NO FASTING: NO Performed By: #### 6 399, 39712, 809 #### [facility] [address], [address] [place] [address] Relationship Assoc: Austyn Dunbar MD #### [id number] #### [facility], [address] [place] [address] Relationship Assoc: Kala Hawkins MD,PhD,KAYA Calcium [Mass/Vol] 9.1 mg/dL Normal 8.6-10.2 [facility] Comment on above: Order Comment: FASTI NG:NO FASTING: NO Performed By: #### 6 399, 89004, 809 #### [facility] [place] [id number] , [address] [place] [address] Relationship Assoc: Austyn Dunbar MD #### [id number] #### [facility], [address] [place] [address] Relationship Assoc: Kala Hawkins MD,PhD,KAYA Chloride [Moles/Vol] 106 mmol/L Normal 98-110 [facility] Comment on above: Order Comment: FASTI NG:NO FASTING: NO Performed By: #### 6 399, 19784, 809 #### [facility] [address], [address] [place] [address] Relationship Assoc: Austyn Dunbar MD #### [id number] #### [facility], [facility] [place] [address] Relationship Assoc: Kala Hawkins MD,PhD,KAYA CO2 [Moles/Vol] 29 mmol/L Normal 20-32 [facility] Comment on above: Order Comment: FASTI NG:NO FASTING: NO Performed By: #### 6 399, 13309, 809 #### [facility] [address], [address] [place] [address] Relationship Assoc: Austyn Dunbar MD #### [id number] #### [facility], [address] [place] [address] Relationship Assoc: Kala Hawkins MD,PhD,KAYA Creatinine [Mass/Vol] 0.65 mg/dL Normal 0.50-0.97 [facility] Comment on above: Order Comment: FASTI NG:NO FASTING: NO Performed By: #### 6 399, 61398, 809 #### [facility] [address], [address] [place] [address] Relationship Assoc: Austyn Dunbar MD #### [id number] #### [facility], [address] [place] [address] Relationship Assoc: Kala Hawkins MD,PhD,KAYA ELECTROLYTE BALANCE 5 mmol/L (calc) Low 7-17 [facility] Comment on above: Order Comment: FASTI NG:NO FASTING: NO Performed By: #### 6 399, 51086, 809 #### [facility] [address], [address] [place] [address] Relationship Assoc: Austyn Dunbar MD #### [id number] #### [facility], [address] [place] [address] Relationship Assoc: Kala Hawkins MD,PhD,KAYA GFR/1.73 sq M.predicted among non-blacks MDRD (S/P/Bld) [Vol rate/Area] 117 mL/min/{1.73_m2} Normal > OR = 60 [facility] Comment on above: Order Comment: FASTI NG:NO FASTING: NO Performed By: #### 6 399, 50753, 809 #### [facility] [address], [address] [place] [address] Relationship Assoc: Austyn Dunbar MD #### [id number] #### [facility], [address] [place] [address] Relationship Assoc: Kala Hawkins MD,PhD,KAYA Glucose [Mass/Vol] 95 mg/dL Normal 65-139 [facility] Comment on above: Order Comment: FASTI NG:NO FASTING: NO Result Comment: Non-fasting reference interval Performed By: #### 6 399, 96020, 809 #### [facility] [address], [address] [place] [address] Relationship Assoc: Austyn Dunbar MD #### [id number] #### [facility], [address] [place] [phone] Relationship Assoc: Kala Hawkins MD,PhD,KAYA Potassium [Moles/Vol] 4.4 mmol/L Normal 3.5-5.3 [facility] Comment on above: Order Comment: FASTI NG:NO FASTING: NO Performed By: #### 6 399, 53453, 809 #### [facility] [address], [address] [place] [address] Relationship Assoc: Austyn Dunbar MD #### [id number] #### [facility], [address] [place] [address] Relationship Assoc: Kala Hawkins MD,PhD,KAYA Protein [Mass/Vol] 6.9 g/dL Normal 6.1-8.1 [facility] Comment on above: Order Comment: FASTI NG:NO FASTING: NO Performed By: #### 6 399, 36985, 809 #### [facility] [address], [address] [place] [address] Relationship Assoc: Austyn Dunbar MD #### [id number] #### [facility], [address] [place] [phone] Relationship Assoc: Kala Hawkins MD,PhD,KAYA Sodium [Moles/Vol] 140 mmol/L Normal 135-146 [facility] Comment on above: Order Comment: FASTI NG:NO FASTING: NO Performed By: #### 6 399, 94289, 809 #### [facility] [address], [address] [place] [address] Relationship Assoc: Austyn Dunbar MD #### [id number] #### [facility], [address] [place] [address] Relationship Assoc: Kala Hawkins MD,PhD,KAYA Urea nitrogen [Mass/Vol] 6 mg/dL Low 7-25 [facility] Comment on above: Order Comment: FASTI NG:NO FASTING: NO Performed By: #### 6 399, 94492, 809 #### [facility] [address], [address] [place] [address] Relationship Assoc: Austyn Dunbar MD #### [id number] #### [facility], [address] [place] [address] Relationship Assoc: Kala Hawkins MD,PhD,KAYA SED RATE BY MODIFIED WESTERG RENon 06-01-2024 SED RATE BY MODIFIED WESTERGREN 2 mm/h Normal < OR = 20 [facility] Comment on above: Performed By: #### 6 399, 22468, 809 #### [facility] [address], [address] [place] [address] Relationship Assoc: Austyn Dunbar MD #### [id number] #### [facility], [address] [place] [address] Relationship Assoc: Kala Hawkins MD,PhD,KAYA SEROTONIN, SERUMon 5 SEROTONIN, SERUM 126 ng/mL Normal 56-244 [facility] Comment on above: Order Comment: FASTI NG:NO FASTING: NO Result Comment: This test was developed and its analytical performance characteristics have been determined by [facility]. It has not been cleared or approved by FDA. This assay has been validated pursuant to the CLIA regulations and is used for clinical purposes. Performed By: #### 2 9851 #### [facility], [address] [facility] [place] [address] Relationship Assoc: Kala Hawkins MD,PhD,KAYA SEROTONIN, SERUM 112 ng/mL Normal 56-244 [facility] Comment on above: Result Comment: This test was developed and its analytical performance characteristics have been determined by [facility]. It has not been cleared or approved by FDA. This assay has been validated pursuant to the CLIA regulations and is used for clinical purposes. Performed By: #### 6 399, 21238, 809 #### [facility] [place] [address] [facility], [address] [place] [address] Relationship Assoc: Austyn Dunbar MD #### [id number] #### [facility], [address] [place], [place] Relationship Assoc: Kala Hawkins MD,PhD,KAYA Serotonin (S) [Mass/Vol]on 0 06-01-2024 FASTING:NO FASTING: NO [facility] Serotonin, Serumon 5 Serotonin (S) [Mass/Vol] 126 ng/mL 56 - 244 ng/mL [facility] Comment on above: This test was developed and its analytical performance characteristics have been determined by [facility]. It has not been cleared or approved by FDA. This assay has been validated pursuant to the CLIA regulations and is used for clinical purposes. TSH W/REFLEX TO FT4on 2024 TSH W/REFLEX TO FT4 0.83 mIU/L Normal [facility] Comment on above: Result Comment: Refe rence Range > or = 20 Years 0.40-4.50 Ranges First trimester 0.26-2.66 Second trimester 0.55-2.73 Third trimester 0.43-2.91 Performed By: #### 6 399, 33644, 809 #### [facility] [place] [id number] , [address] [place] [phone] Relationship Assoc: Austyn Dunbar MD #### [id number] #### [facility], [address] [place] [address] Relationship Assoc: Kala Hawkins MD,PhD,KAYA Surgical pathology studyOrde red By: Elsy Barrera on 05-30-2024 Laboratory comment Lexa (Report) z1yvzLUbJMXmx8iwBWYvrTWiDoZ wMzNcZnRuYmpcdWMxIHtccnRmMV tjw0WqH7RwRwLuMIayfoByPVPmC xeyruneWRNrBQM3eqCwGOLaWRrb SMZyZGuyQv5oqGSvrLiaRcAvPFC pm1jzwvABDLehJWKOMGx2c5qeUB LtQuS2qUBoBEkyL7cdbxSklXEkA 4Vda7AfRTg1oJ55MMAkvT1biSBw LFysitJoUrQ8YAdzGHFeFcA5OOB vcDZkXVWwW8phOZQsKPbfSLJpFS yujFVaXYD6mOmnl4V6fXFpcLLbo UorAgHxGqKvLkGXm0MqBLd3eFvq O7FrOTYvSqC8nZZdYWYoHOpxIWX hPTJwpzM2xV79CJeayxI1oLPwe9 Vym56fz091sR2krJKwCGD3EFVkZ EWaiWOvYQFqZUA0UVUgbKPkE7bc MkLqpAFwJ4SvOqScvWKiK3RnFmP ecEFzV2XhCvBoiXUyNTQydTL9WR gkz872LJP6HaIgZF7hH5Bce4I2c R3mrAQlMZCdvYObPlSfMOPpyc2c dSJhXEoef0EkDSG9qjH2uSLwnML pCZTfXZ79Rmctd3AbTstmJBT2OM XrbrRmy7Jiu0epJoYrusAeX3jeD 3CuUXGdPCTsDQQfZbCiqrHzi9Xy t2EwjYDyuUh0v4vgEFQtFTLkvIq ej3naPJK0YIMbX7Q9iPFvx3dtYG sbMHCtiSI9cgS8PDthEPFadaN6m tW5GEqePLGasEC7wfG9NTdiXSFc ZgB0djW3VQyuCJUjEOY2LzRcOHJ pp1CwzskqTdJoq1DniIRqRBouO5 6tl664BPBgaiEcN6eshDNkmawef NUoebfoNIiwzxY1QPXrUTRpISoh XGYxXGZzMjBcbGFuZzEwMzNcaGl fgGasFMxyVxLnYUQrOZckF8xjAj FaBaYyBMBQvHH6vJBqc5xpzhT1q TAjWW2nPVAbcGOcwzFyp5G8ZSL9 cFUqjK1deIPfPQCrfFEwhcQkdm3 6gYFwuYZ9VJSvAMYbcOOqbJ6iQM YaVBXXgE7thBAUogNxmzOpZFBhy Yoizz6HiBGiky8pzCSsX1ZgjHva aWVzIHRoYXQgdGhleSBoYXZlIHJ ejtfoj5UsGDXliZAlY4KyDR1sLS Bhcn19 [facility] Work Phone: Pathology report Cancer Narrative Surgical Pathology Case: [id number] Authorizing Provider: [place] Joaquin DO Collected: 05/20/2024 1424 Ordering Location: [facility] Received: 05/20/[address] [place] [address] Pathologist: Elsy Barrera MD PhD Specimens: A) - COLON - RANDOM BIOPSY B) - ILEUM BIOPSY [facility] Work Phone: Pathology report final diagnosis Narrative f8gzoKKaJISlbPVhMMrjLeacuqH vPGFkrYXvG2WbflvmAIezPR4yXY 3gbZizeWKymJGkZRTfUjQwv5ehy 862wEIxc0wdWFFInyrpuCi6uAxp A14xp6R8VuoiB6lnZLHkPJmjGCG yJAiloSGhNPd4DNNqsBMmhaYqKp GlUPCcdGShhEQ1NJWjRT0fynvhA LlhCZzjHZEecrD6JBGcbNGuS6Mb SLIfVO5lrjwkWPS0FWbbBIXfPOJ 4QpPuCDPso0Jpkom0HoDnfWp1z5 nvPQFfLRZtnBqqq5hsJCK5YSEnj OVsR3hyhP7jPUBjYR5upumou0xc APieYFnyMDKhaUP9idE1LTJmuRK nF0QgvB9xVFQxPRAglqHhkWzgaG 4oOgczdkXwRQJtZTKYVT9JPHLmI PFDXmWWKORXCA1OG4j0UCWkUTIr dUPiTM1Ul8gpgkgzPB11I71pXAv jil4er1aknrkraIJxkzPteYV6eR 3yw5kwFhRqoE9lkD7mo6qcJDKdg YGlNJZnGz8nBJxGDM4lSepXVFFI OlxiMCAgXHBhclxwYXJkXGNmMSA bTUvcVCjnjCOwi0MnTUHnwzVhrW rjjGFkM0CxaSVoXEZjd3lhH9cnK GZpbmRpbmdzXHBhcn0= [facility] Work Phone: Pathology report gross observation Narrative k6viuTJdEUBgrEYQLAS8PFOtNT5 cpOmbuYt7qFpvYCMvjuH3mWHcGE sgc5qoTRF4i1wmicNWUcsyVJQaJ K1xRJerUWPmNZ0rXiLoTWKlZwZt XHBhcGVydzEyMjQwXHBhcGVyaDE 1DRXaNP6lzivmIMxqSZeqFYHbxm C4EIAktKTeI6UuSJNuZY7erkqwV VU5VSTWUwemRv8uoAGdaHNTDhos UeGkReTnTGAtWGYsUVGih6lfvkI NUTniJVFXKVu7NHw1HENrYDWbdP Jeb4H9HRcpq0hpl0DcJVOoUGf7p H2GRpzlXNL7CXUNFohyDnlvpNcw j9ZxjXUqUKPcSZtplBIhQMGfKJU yELclWlPMCsUsNdZkZqllEBm9NH TcNSq0ZUcvTmEKXXDcGzr4EXBwB Du0XPdrOUkdcMUeRDDvIRMvAERk MAgdrnM3a1qzYGUpoUMiOVA5WKo ev7hiZUnlPMQ6CWByJaVcOZEiNJ 8DSzQfMFFtOgDmGFIfLtY0UBf0D XLVJhFrRsEfOEzdAXD9KTDhALe6 MJq7NGzISwWbZhS1KIt4VVM4ILT 9Vly0SXopivwbXBf3FSYcUWimis PeLTjeKfriSHfxR77ewTUrNPMRL lxwbGFpblxlcGljTmVzdERvYzEg FUqjbDFrlALlCX9SNIy5jgKyOAW pXVWsYoLnIQtgEjByCSk9KYYywF 8sMm2otNKgmH1pYXjyJrRvLOKjw 5r2mFV9bAWtxDM2hXKelBprIR7b pYTaBK4qSNzcx4BpcHQuIX83pHF knzryNBUqMC65bWFahVfsRGMpAN baGP00rxImVxG6UK9eFJFaPgUok Dsqk0CyTFQhX8OeE9C4lK1vZSOg TUTyInM3OZCtPqK7QHZwTaQcuI1 cJHfgQDIzEKTbkSEsXPgsDOY6Uh 6iiXMiZPAgyuE6y0EgGQmhEUU5x qZdDUIdAUM3LAMnGCLzpkVVHhkm JMWhYHLagPPXf3OoDJHGFftQOyU NIgzlqGlgAqTshGUeLnN3STEuxC TmCLW1OJ7fwHwhXARdBUz8ZRprX RXhX0QwA5WgLOhkWcFmVMjcXMUr YPUlDKpaJBVlQ7TTUMMqHuP5TxH 0BRAzMPl9FKa5MW1EZlGzXFYoAc K6HZfwAWTvSVu3NAovQZ8HURNcL OO1WQpiHTJmJOZgHEIxHMfacYQu XHQgMiBcXHNzIDMgXFxmbCBcXG5 qkUloWTQwVM4WTXMnJZjvKXKmmP AIFMJ2ZW0xZMCDRnxdfFEmKQUzn 9TnWfBtNJIfI1ciYqLnTYNNVejh yKMzuUgwGdzpqsNaBYM1WZJvR0L xvqEkYPrmTAGevj8goOawGPHoEH JlbGVkIHdpdGggdGhlIHBhdGllb iPbhpWhJB6wNSDxQTEre7HfbRVj vWNezL5yTZIfMGodUIRaQeMjU45 nzhGhq9EtmVBiFRQic1Q5SNMzt7 E8PQIxAXGdlDGpakjgZR19HFllU S8qMBvwZF6sHSIsHpXCvTKuy8La G4umCZ9rpYCmr3TjwBg4wIMzLTe oJYNnhQ0ajK5cu57sNJIvz3YweE RlLlxwYXIgDQpccGFyZFxsdHJwY ETty7GfOSiftQijHPKqVgHnEVuL IBfnOGglUQIrT58wx5GSh4Jvb5a qwZrgo2ZnfKDrKE25ZGWeaTJxLP E6NQ7apTbiRKMhMCennUBbMOHHY lxwbGFpbiANCn0= [facility] Work Phone: Pathology report relevant history Narrative w5lxbOIcFLSpfLGlPZrjWnxdhcW yEPObjRZhJ8AmktxmOUimOM4qZL 1doEoxuICoaNZgOVVePpKmg8qbk 409lDZkf3twJEQQhqxzmWl3iTfy Z43ld7H4XcrfW66hqSLiVPA9DAX wVUPufEJcOAQbOHN4XAUsnOXlY0 khMRFhPK3vvsoiPGznQEgmVOLvx QW3VUBfqKOlP0KgGJEsWJsfTMEa jrv1TgWqJd5xlGOlzFocMXdsCMR zJTYhXQfgYOLoNkBoEMlnX28ek6 ukJbg8LVUiDeD2HlmuGWQXiGAhd hoaXAhceA6hpYDwhLRvMEPanNjb ZSBbSUNELTEwLUNNXSBLNjIuNSA vVTPpR3AjpWBnoTFxUHirEeMcWJ NELTEwLUNNXVxwYXJ9 [facility] Work Phone: [facility] Work Phone: COLONOSCOPYon 05-20-2024 Colonoscopy Table formatting fro m the original result was not included. Impression Normal. Performed random biopsy using biopsy forceps. Medium, protruding (grade 2) hemorrhoid Findings All observed locations appeared normal. Performed random biopsy using biopsy forceps. Random biopsies were taken throughout the terminal ileum and random colon to exclude microscopic colitis or IBD. One left anterior internal medium, protruding (grade 2) hemorrhoid observed during retroflexion; no bleeding was observed Recommendation Follow up with PCP Repeat colonoscopy in 5 years, due: 05/19/2029 Indication Rectal bleeding, Diarrhea, unspecified type Staff Staff Role No Staff Documented Medications meperidine PF (Demerol) injection 50 mg midazolam (Versed) injection 10 mg glucagon (Glucagen) injection 1 mg diphenhydrAMINE (BENADryl) injection 50 mg (Totals for administrations occurring from 1407 to 1438 on 05/20/24) Preprocedure A history and physical has been performed, and patient medication allergies have been reviewed. The patient's tolerance of previous anesthesia has been reviewed. The risks and benefits of the procedure and the sedation options and risks were discussed with the patient and patient's partner. All questions were answered and informed consent obtained. Details of the Procedure The patient underwent moderate sedation, which was administered by the procedural nurse. The patient's blood pressure, ECG, ETCO2, heart rate, level of consciousness, oxygen and respirations were monitored throughout the procedure. A digital rectal exam was performed. A perianal exam was performed. The scope was introduced through the anus and advanced to the terminal ileum. Retroflexion was performed in the rectum. The quality of bowel preparation was evaluated using the Orient Bowel Preparation Scale with scores of: right colon = 3, transverse colon = 3, left colon = 3. The total BBPS score was 9. Bowel prep was adequate. The patient experienced no blood loss. The procedure was not difficult. The patient tolerated the procedure well. There were no apparent adverse events. Events Procedure Events Event Event Time ENDO SCOPE IN TIME 05/20/2024 2:23 PM ENDO CECUM REACHED 05/20/2024 2:27 PM ENDO SCOPE OUT TIME 05/20/2024 2:36 PM Specimens ID Type Source Tests Collected by Time 1 : Tissue COLON - RANDOM BIOPSY SURGICAL PATHOLOGY EXAM Pietro Kauffman RN 05/20/2024 1424 2 : Tissue ILEUM BIOPSY SURGICAL PATHOLOGY EXAM Pietro Kauffman RN 05/20/2024 1430 Procedure Location [address] [address] Referring Provider [place] Joaquin DO Procedure Provider Virginia Joaquin DO Table formatting from the original result was not included. Impression Normal. Performed random biopsy using biopsy forceps. Medium, protruding (grade 2) hemorrhoid Findings All observed locations appeared normal. Performed random biopsy using biopsy forceps. Random biopsies were taken throughout the terminal ileum and random colon to exclude microscopic colitis or IBD. One left anterior internal medium, protruding (grade 2) hemorrhoid observed during retroflexion; no bleeding was observed Recommendation Follow up with PCP Repeat colonoscopy in 5 years, due: 05/19/2029 Indication Rectal bleeding, Diarrhea, unspecified type Staff Staff Role No Staff Documented Medications meperidine PF (Demerol) injection 50 mg midazolam (Versed) injection 10 mg glucagon (Glucagen) injection 1 mg diphenhydrAMINE (BENADryl) injection 50 mg (Totals for administrations occurring from 1407 to 1438 on 05/20/24) Preprocedure A history and physical has been performed, and patient medication allergies have been reviewed. The patient's tolerance of previous anesthesia has been reviewed. The risks and benefits of the procedure and the sedation options and risks were discussed with the patient. All questions were answered and informed consent obtained. Details of the Procedure The patient underwent moderate sedation, which was administered by the procedural nurse. The patient's blood pressure, ECG, ETCO2, heart rate, level of consciousness, oxygen and respirations were monitored throughout the procedure. A digital rectal exam was performed. A perianal exam was performed. The scope was introduced through the anus and advanced to the terminal ileum. Retroflexion was performed in the rectum. The quality of bowel preparation was evaluated using the Orient Bowel Preparation Scale with scores of: right colon = 3, transverse colon = 3, left colon = 3. The total BBPS score was 9. Bowel prep was adequate. The patient experienced no blood loss. The procedure was not difficult. The patient tolerated the procedure well. There were no apparent adverse events. Events Procedure Events Event Event Time ENDO SCOPE IN TIME 05/20/2024 2:23 PM ENDO CECUM REACHED 05/20/2024 2:27 PM ENDO SCOPE OUT TIME 05/20/2024 2:36 PM Specimens (more content not included)... [facility] Comment on above: Order Comment: May 20 Surgical pathology studyon 0 05-20-2024 Surgical pathology study Pathology report.total SEE COMMENT Surgical Pathology Case: [id number] Authorizing Provider: [place] Joaquin DO Collected: 05/20/2024 1424 Ordering Location: [facility] Received: 05/20/[address] [place] [address] Pathologist: Elsy Barrera MD PhD Specimens: A) - COLON - RANDOM BIOPSY B) - ILEUM BIOPSY Path report.final diagnosis SEE COMMENT A. COLON - RANDOM BIOPSY: -Colonic mucosa, no significant pathologic findings B. ILEUM BIOPSY: -Ileal mucosa, no significant pathologic findings Laboratory comment By the signature on this report, the individual or group listed as making the Final Interpretation/Diagnosis certifies that they have reviewed this case. Path report.relevant Hx Diagnosis: R19.7 - Diarrhea, unspecified type [ICD-10-CM] K62.5 - Rectal bleeding [ICD-10-CM] Path report.gross observation SEE COMMENT A: Received in formalin, labeled with the patient's name and hospital number, are multiple fragments of lopez, soft tissue aggregating to 2.2 x 0.2 x 0.2 cm. The specimen is submitted in toto in two cassettes. ISMAEL B: Received in formalin, labeled with the patient's name and hospital number, is 1 fragment of lopez, soft tissue measuring 0.5 x 0.2 x 0.2 cm. The specimen is submitted in toto in one cassette. [facility] CLOSTRIDIOIDES DIFFICILE KEREN TINGon 05-01-2024 CLOSTRIDIOIDES DIFFICILE TESTING SPECIMEN ACCEPTABILITY Not Acceptable Test not performed on formed stool according to current guidelines [facility] Comment on above: Performed By: #### 4 [id number] ####[facility] [address] [place], [place] [address] Zachery Kauffman M.D. [id number] CT ABDOMEN PELVIS WITH IV CO NTRAST ONLYon 04-30-2024 CT ABDOMEN PELVIS WITH IV CONTRAST ONLY EXAMINATION: CT ABDOMEN PELVIS WITH IV CONTRAST ONLY HISTORY: ORDERING SYSTEM PROVIDED HISTORY: Abdominal pain, TECHNOLOGIST PROVIDED HISTORY: Illness/Other Reason for exam: pain Encounter Type: Initial Additional signs and symptoms: pain ORDERING SYSTEM PROVIDED DIAGNOSIS CODES: COMPARISON: CT abdomen and pelvis without contrast, 01/30/2024. TECHNIQUE: Dose reduction techniques were achieved by using automated exposure control and/or adjustment of mA and/or kV according to patient size and/or use of iterative reconstruction technique. Postcontrast axial CT images obtained through the abdomen and pelvis. Reconstructions obtained in the sagittal and coronal planes. CONTRAST: IOPAMIDOL 370 MG IODINE/ML (76 %) INTRAVENOUS SOLUTION - 75 mL, FINDINGS: Lung bases clear. No pleural effusion. Heart size normal. Liver unremarkable. Gallbladder is unremarkable. No abnormal bile duct dilatation. The pancreas appears normal. Spleen normal. The adrenal glands are normal. Kidneys are normal. No hydronephrosis. Stomach normal. Duodenum normal. No bowel obstruction. No bowel wall thickening. Normal appendix. No abnormal thickening or inflammation of the colon. Abdominal aorta normal. Inferior vena cava normal. No lymphadenopathy. No ascites. No free air. In the pelvis, the bladder is normal. Uterus normal. Ovaries normal. Rectum normal. No free fluid in the pelvis. No pelvic lymphadenopathy. No acute compression fracture. No suspicious osseous lesions. IMPRESSION: 1. No acute findings in the abdomen or pelvis. 2. Previously seen bladder wall thickening has improved. 3. No hydronephrosis. [employer] Workstation ID: [id number] Dictated by: FANTA DUMONT on SunApr 30, 2024 12:55:55 PM EST Transcribed by: SCOTT MCCLAIN on SunApr 30, 2024 1:26:18 PM EST Finalized by: FANTA DUMONT on SunApr 30, 2024 3:59:27 PM EST [facility] Comment on above: Order Comment: Injur y/Trauma or Illness?:Illness/Other How long have you had these symptoms (acute/chronic)?:Acute Reason for exam?:pain Type of Exam?:Initial Additional signs and symptoms?:pain ED Prov Noteon 04-30-2024 ED Prov Note ED PROVIDER NOTE [facility] EM[facility] NAME: Paula Mccormick AGE: 38 y.o. : 1985 VISIT DATE: 04/30/2024 CSN: [id number] PCP: Everett Cutler MD Chief Complaint Patient presents with Abdominal Pain Patient is a 38-year-old female with a past medical history of-year-old bowel syndrome, history of C. difficile and arthritis who presents today for concern of abdominal pain. Patient states she was placed on antibiotics in January for urinary tract infection and since has had frequent diarrhea. Patient states over the last 10 days she has developed significant left lower quadrant abdominal pain which is currently at 10 out of 10 with associated nausea and vomiting. Patient states her last 2 days she has developed bloody bright red diarrhea but denies any dark tarry stools. Patient states she typically has 6-8 episodes of copious diarrhea per day which is foul-smelling and similar in smell to her previous episodes of C. difficile. Patient is concerned about C. difficile after recent antibiotics. Patient denies any chest pain, shortness of breath, lightheadedness, dizziness or syncope. Patient denies sick contacts. Past Medical History: Diagnosis Date Arthritis C. difficile diarrhea IBS (irritable bowel syndrome) Past Surgical History: Procedure Laterality Date BREAST SURGERY Right History reviewed. No pertinent family history. Social History Socioeconomic History Marital status: Tobacco Use Smoking status: Every Day Current packs/day: 1.00 Types: Cigarettes Smokeless tobacco: Never Substance and Sexual Activity Alcohol use: Not Currently Drug use: Not Currently Previous Medications Medication Sig albuterol 90 mcg/actuation inhaler Inhale 2 (two) puffs every 6 (six) hours as needed for wheezing . ketorolac (TORADOL) 10 mg tablet Take 1 (one) tablet (10 mg total) by mouth 3 (three) times a day as needed for pain . Allergies Allergen Reactions Ancef [Cefazolin] Hives Flagyl [Metronidazole] Other (See Comments) palpitations Review of Systems Constitutional: Negative for chills and fever. Eyes: Negative for pain. Respiratory: Negative for cough, chest tightness and shortness of breath. Cardiovascular: Negative for chest pain and palpitations. Gastrointestinal: Positive for abdominal pain, blood in stool, nausea and vomiting. Genitourinary: Negative for flank pain. Musculoskeletal: Negative for arthralgias and myalgias. Skin: Negative for rash. Neurological: Negative for dizziness, syncope, light-headedness and headaches. Psychiatric/Behavioral: Negative for agitation. All other systems reviewed and are negative. Patient Vitals for the past 24 hrs: BP Temp Pulse Resp SpO2 Height Weight 04/30/24 1146 -- -- -- 18 -- -- -- 04/30/24 1101 (!) 126/92 97.8 degrees F (36.6 degrees C) (!) 100 18 100 % 5' 10 90.7 kg (200 lb) Physical Exam Vitals and nursing note reviewed. Constitutional: Appearance: Normal appearance. HENT: Head: Normocephalic. Eyes: Pupils: Pupils are equal, round, and reactive to light. Cardiovascular: Rate and Rhythm: Normal rate and regular rhythm. Pulses: Normal pulses. Heart sounds: Normal heart sounds. Musculoskeletal: Cervical back: Normal range of motion. Pulmonary: Effort: Pulmonary effort is normal. Breath sounds: Normal breath sounds. Abdominal: General: Abdomen is flat. Palpations: Abdomen is soft. Tenderness: There is abdominal tenderness in the left lower quadrant. There is no right CVA tenderness, left CVA tenderness, guarding or rebound. Negative signs include Rodríguez's sign, Rovsing's sign, McBurney's sign, psoas sign and obturator sign. Skin: General: Skin is warm. Capillary Refill: Capillary refill takes less than 2 seconds. Neurological: General: No focal deficit present. Mental Status: She is alert. Psychiatric: Mood and Affect: Mood normal. Laboratory & Radiographic Imaging (if done): Results for orders placed or performed during the hospital encounter of 04/30/24 POC CBC and Differential Result Value Ref Range WBC 8.74 4.50 - 11.00 K/mcL RBC 4.54 4.00 - 5.20 M/mcL Hemoglobin 15.5 12.0 - 16.0 g/dL Hematocrit 45.3 36.0 - 46.0 % MCV 99.8 80.0 - 100.0 fL MCH 34.1 (H) 26.0 - 34.0 pg MCHC 34.2 31.0 - 37.0 g/dL RDW - CV 12.6 11.6 - 14.8 % Platelets 294 150 - 400 K/mcL MPV 8.6 (L) 9.4 - 12.4 fL Neutrophils 66.2 % Lymphocytes 25.5 % Monocytes 7.6 % Eosinophils 0.3 % Basophils 0.3 % IG Percent 0.10 % Neutrophils Abs 5.78 1.70 - 7.00 K/mcL Lymphocytes Abs 2.23 0.90 - 4.00 K/mcL Monocytes Abs 0.66 0.30 - 0.90 K/mcL Eosinophils Abs 0.03 0.00 - 0.50 K/mcL Basophils Abs 0.03 0.00 - 0.30 K/mcL IG Absolute 0.01 0.00 - 0.30 K/mcL POC Basic Metabolic Panel Result Value Ref Range Glucose 101 (H) 65 - 99 mg/dL BUN 6 (L) 8 - 25 mg/dL Creatinine 0.67 0.40 - 1.10 mg/dL GFR 116 >=60 mL/min/1.73 m (more content not included)... Normal [facility] POC BASIC METABOLIC PANEL - Shahzad 04-30-2024 Chloride [Moles/Vol] 105 mmol/L Normal 98-108 [facility] Comment on above: Order Comment: [facility] has implemented the eGFR calculation approach that does not have a coefficient for race that conforms to the NKF-ASN Task Force Recommendations. CO2 [Moles/Vol] 27 mmol/L Normal 21-32 [facility] Comment on above: Order Comment: [facility] has implemented the eGFR calculation approach that does not have a coefficient for race that conforms to the NKF-ASN Task Force Recommendations. Creatinine [Mass/Vol] 0.67 mg/dL Normal 0.40-1.10 [facility] Comment on above: Order Comment: [facility] has implemented the eGFR calculation approach that does not have a coefficient for race that conforms to the NKF-ASN Task Force Recommendations. Glucose [Mass/Vol] 101 mg/dL High 65-99 [facility] Comment on above: Order Comment: [facility] has implemented the eGFR calculation approach that does not have a coefficient for race that conforms to the NKF-ASN Task Force Recommendations. POC GFR 116 mL/min/1.73 m2 Normal >=60 [facility] Comment on above: Order Comment: [facility] has implemented the eGFR calculation approach that does not have a coefficient for race that conforms to the NKF-ASN Task Force Recommendations. Result Comment: Raudel mated GFR was calculated using the 2020 CKD-EPI creatinine equation. POC IONIZED CALCIUM 4.8 mg/dL Normal 4.5-5.3 [facility] Comment on above: Order Comment: [facility] has implemented the eGFR calculation approach that does not have a coefficient for race that conforms to the NKF-ASN Task Force Recommendations. Potassium [Moles/Vol] 3.7 mmol/L Normal 3.5-5.1 [facility] Comment on above: Order Comment: [facility] has implemented the eGFR calculation approach that does not have a coefficient for race that conforms to the NKF-ASN Task Force Recommendations. Sodium [Moles/Vol] 142 mmol/L Normal 135-145 [facility] Comment on above: Order Comment: [facility] has implemented the eGFR calculation approach that does not have a coefficient for race that conforms to the NKF-ASN Task Force Recommendations. Urea nitrogen [Mass/Vol] 6 mg/dL Low 8-25 [facility] Comment on above: Order Comment: [facility] has implemented the eGFR calculation approach that does not have a coefficient for race that conforms to the NKF-ASN Task Force Recommendations. POC CBC AND DIFFERENTIALon 0 04-30-2024 BASOPHILS ABSOLUTE COUNT 0.03 K/mcL Normal 0.00-0.30 [facility] Basophils/100 WBC (Bld) 0.3 % Normal [facility] Eosinophils (Bld) [#/Vol] 0.03 10*3/uL Normal 0.00-0.50 [facility] Eosinophils/100 WBC (Bld) 0.3 % Normal [facility] Erythrocyte distribution width (RBC) [Ratio] 12.6 % Normal 11.6-14.8 [facility] Hematocrit (Bld) [Volume fraction] 45.3 % Normal 36.0-46.0 [facility] Hemoglobin (Bld) [Mass/Vol] 15.5 g/dL Normal 12.0-16.0 [facility] IG ABSOLUTE 0.01 K/mcL Normal 0.00-0.30 [facility] IG PERCENT 0.10 % Normal [facility] Comment on above: Result Comment: The IG parameter is the percentage of metamyelocytes, myelocytes and promyelocytes. An immature granulocyte count (IG) of 1% or more suggests the possibility of infection, an IG count of 3% is very likely related to an infection. Lymphocytes (Bld) [#/Vol] 2.23 10*3/uL Normal 0.90-4.00 [facility] Lymphocytes/100 WBC (Bld) 25.5 % Normal [facility] MCH (RBC) [Entitic mass] 34.1 pg High 26.0-34.0 [facility] MCV (RBC) [Entitic vol] 99.8 fL Normal 80.0-100.0 [facility] MEAN CORPUSCULAR HEMOGLOBIN CONC 34.2 g/dL Normal 31.0-37.0 [facility] Monocytes (Bld) [#/Vol] 0.66 10*3/uL Normal 0.30-0.90 [facility] Monocytes/100 WBC (Bld) 7.6 % Normal [facility] NEUTROPHILS ABSOLUTE COUNT 5.78 K/mcL Normal 1.70-7.00 [facility] Neutrophils/100 WBC (Bld) 66.2 % Normal [facility] Platelet mean volume (Bld) [Entitic vol] 8.6 fL Low 9.4-12.4 [facility] Platelets (Bld) [#/Vol] 294 10*3/uL Normal 150-400 [facility] RBC (Bld) [#/Vol] 4.54 10*6/uL Normal 4.00-5.20 [facility] WBC (Bld) [#/Vol] 8.74 10*3/uL Normal 4.50-11.00 [facility] POC LIVER PANEL PLUS [facility] 04-30-2024 Albumin [Mass/Vol] 4.3 g/dL Normal 3.2-5.2 [facility] ALP [Catalytic activity/Vol] 71 U/L Normal 40-140 [facility] ALT [Catalytic activity/Vol] 15 U/L Normal 0-40 [facility] Amylase [Catalytic activity/Vol] 58 U/L Normal 25-115 [facility] Amylase [Catalytic activity/Vol] 22 U/L Normal 7-33 [facility] AST [Catalytic activity/Vol] 21 U/L Normal 0-45 [facility] Bilirubin [Mass/Vol] 0.8 mg/dL Normal 0.0-1.3 [facility] Protein [Mass/Vol] 7.3 g/dL Normal 6.0-8.0 [facility] POC , URINE - [facility] 04-30-2024 Beta HCG ( test) Ql (U) Negative Normal Negative [facility] Comment on above: Order Comment: Negat cassandra: Dilute urine specimens, as indicated by a low specific gravity (<1.010) may not contain representitive levels of hCG. If is still suspected, a serum test or repeat urine test using a first morning urine specimen should be considered. POC URINALYSIS DIPSTICK,AUTO - [facility] 04-30-2024 POC BILIRUBIN, URINE Negative Normal Negative [facility] POC BLOOD, URINE Small Abnormal Negative [facility] POC GLUCOSE, URINE Negative Normal Negative [facility] POC KETONES, URINE Negative Normal Negative [facility] POC LEUKOCYTE ESTERASE, URINE Negative Normal Negative [facility] POC NITRITE, URINE Negative Normal Negative [facility] POC PH, URINE 7.0 Normal 5.0-7.0 [facility] POC PROTEIN, URINE Negative Normal Negative [facility] POC SPECIFIC GRAVITY 1.015 Normal 1.005-1.025 [facility] POC UROBILINOGEN 0.2 mg/dL Normal < 2.0 [facility] XR FOOT LEFT 3+ VIEWSon 12-2 XR FOOT LEFT 3+ VIEWS Interpreted By: Jade Keita, STUDY: Left foot, 3 views INDICATION: Signs/Symptoms:left foot pain COMPARISON: 06/27/2017. ACCESSION NUMBER(S): [id number] ORDERING CLINICIAN: BEV ENRIQUEZ FINDINGS: No acute fracture or malalignment. No significant degenerative changes. Soft tissues are within normal limits. Os peroneum noted. Plantar calcaneal spur and Achilles insertional enthesophyte which can be associated with plantar fasciitis and Achilles tendinosis respectively. These are unchanged since prior. IMPRESSION: 1. Plantar calcaneal spur and Achilles insertional enthesophyte which can be associated with plantar fasciitis and Achilles tendinosis respectively. MACRO: None. Signed by: Jade Keita 04/19/2024 12:41 PM Dictation workstation: [id number] [facility] Comment on above: Order Comment: stand ing CBC W Auto Differential pane l (Bld)on 04-10-2024 Basophils (Bld) [#/Vol] 0.05 x10*3/uL Normal 0.00-0.10 [facility] Comment on above: Performed By: #### 5 7021-8 #### JOSE F BILLINGS ([id number]) [facility] ([facility]) [address] [place] [address] 62957 Basophils/100 WBC (Bld) 0.6 % Normal 0.0-2.0 [facility] Comment on above: Performed By: #### 5 7021-8 #### JOSE F BILLINGS ([id number]) [facility] ([facility]) [address] [place] [address] 23862 Eosinophils (Bld) [#/Vol] 0.06 x10*3/uL Normal 0.00-0.70 [facility] Comment on above: Performed By: #### 5 7021-8 #### JOSE F BILLINGS ([id number]) [facility] ([facility]) [address] [place] [address] 65982 Eosinophils/100 WBC (Bld) 0.7 % Normal 0.0-6.0 [facility] Comment on above: Performed By: #### 5 7021-8 #### JOSE F BILLINGS ([id number]) [facility] ([facility]) [address] [place] [address] 72746 Erythrocyte distribution width (RBC) [Ratio] 13.0 % Normal 11.5-14.5 [facility] Comment on above: Performed By: #### 5 7021-8 #### JOSE F BILLINGS ([id number]) [facility] ([facility]) [address] [place] [address] 51412 Hematocrit (Bld) [Volume fraction] 46.7 % High 36.0-46.0 [facility] Comment on above: Performed By: #### 5 7021-8 #### JOSE F BILLINGS ([id number]) [facility] ([facility]) [address] [place] [address] 67085 Hemoglobin (Bld) [Mass/Vol] 15.5 g/dL Normal 12.0-16.0 [facility] Comment on above: Performed By: #### 5 7021-8 #### JOSE F BILLINGS ([id number]) [facility] ([facility]) [address] [place] [address] Immature granulocytes (Bld) [#/Vol] 0.02 x10*3/uL Normal 0.00-0.70 [facility] Comment on above: Performed By: #### 5 7021-8 #### JOSE F BILLINGS ([id number]) [facility] ([facility]) [address] [place], [place] [id number] Immature granulocytes/100 WBC (Bld) 0.2 % Normal 0.0-0.9 [facility] Comment on above: Result Comment: Bety ture Granulocyte Count (IG) includes promyelocytes, myelocytes and metamyelocytes but does not include bands. Percent differential counts (%) should be interpreted in the context of the absolute cell counts (cells/UL). Performed By: #### 5 7021-8 #### JOSE F BILLINGS ([id number]) [facility] ([facility]) [address] [place] [address] 91204 Lymphocytes (Bld) [#/Vol] 2.08 x10*3/uL Normal 1.20-4.80 [facility] Comment on above: Performed By: #### 5 7021-8 #### JOSE F BILLINGS ([id number]) [facility] ([facility]) [address] [place] [address] 00281 Lymphocytes/100 WBC (Bld) 23.0 % Normal 13.0-44.0 [facility] Comment on above: Performed By: #### 5 7021-8 #### JOSE F BILLINGS ([id number]) [facility] ([facility]) [address] [place] [address] 51923 MCH (RBC) [Entitic mass] 33.2 pg Normal 26.0-34.0 [facility] Comment on above: Performed By: #### 5 7021-8 #### JOSE F BILLINGS ([id number]) [facility] ([facility]) [address] [place] [address] 41917 MCHC (RBC) [Mass/Vol] 33.2 g/dL Normal 32.0-36.0 [facility] Comment on above: Performed By: #### 5 7021-8 #### JOSE F BILLINGS ([id number]) [facility] ([facility]) [address] [place] [address] 53925 MCV (RBC) [Entitic vol] 100 fL Normal 80-100 [facility] Comment on above: Performed By: #### 5 7021-8 #### JOSE F BILLINGS ([id number]) [facility] ([facility]) [address] [place] [address] 44226 Monocytes (Bld) [#/Vol] 0.60 x10*3/uL Normal 0.10-1.00 [facility] Comment on above: Performed By: #### 5 7021-8 #### JOSE F BILLINGS ([id number]) [facility] ([facility]) [address] [place] [address] 45630 Monocytes/100 WBC (Bld) 6.6 % Normal 2.0-10.0 [facility] Comment on above: Performed By: #### 5 7021-8 #### JOSE F BILLINGS ([id number]) [facility] ([facility]) [address] [place] [address] 28520 Neutrophils (Bld) [#/Vol] 6.25 x10*3/uL Normal 1.20-7.70 [facility] Comment on above: Result Comment: Perc ent differential counts (%) should be interpreted in the context of the absolute cell counts (cells/uL). Performed By: #### 5 7021-8 #### JOSE F BILLINGS ([id number]) [facility] ([facility]) [address] [place] [address] 52398 Neutrophils/100 WBC (Bld) 68.9 % Normal 40.0-80.0 [facility] Comment on above: Performed By: #### 5 7021-8 #### JOSE F BILLINGS ([id number]) [facility] ([facility]) [address] [place] [address] 45057 Nucleated RBC/100 WBC (Bld) [Ratio] 0.0 /100 WBCs Normal 0.0-0.0 [facility] Comment on above: Performed By: #### 5 7021-8 #### JOSE F BILLINGS ([id number]) [facility] ([facility]) [address] [place] [address] 46168 Platelets (Bld) [#/Vol] 324 x10*3/uL Normal 150-450 [facility] Comment on above: Performed By: #### 5 7021-8 #### JOSE F BILLINGS ([id number]) [facility] ([facility]) [address] [place] [address] 40301 RBC (Bld) [#/Vol] 4.67 x10*6/uL Normal 4.00-5.20 [facility] Comment on above: Performed By: #### 5 7021-8 #### JOSE F BILLINGS ([id number]) [facility] ([facility]) [address] [place] [address] 90416 WBC (Bld) [#/Vol] 9.1 x10*3/uL Normal 4.4-11.3 [facility] Comment on above: Performed By: #### 5 7021-8 #### JOSE F BILLINGS ([id number]) [facility] ([facility]) [address] [place] [address] 50692 Cobalaminson 04-10-2024 Cobalamin (Vitamin B12) [Mass/Vol] 353 pg/mL Normal 211-911 [facility] Comment on above: Performed By: #### 2 132-9 #### JOSE F BILLINGS ([id number]) [facility] ([facility]) [address] [place] [address] Comprehensive metabolic 2000 panelon 04-10-2024 Albumin BCP dye [Mass/Vol] 4.7 g/dL Normal 3.4-5.0 [facility] Comment on above: Performed By: #### 2 4323-8 #### JOSE F BILLINGS ([id number]) [facility] ([facility]) [address] [place], [place] [address] ALP [Catalytic activity/Vol] 63 U/L Normal 33-110 [facility] Comment on above: Performed By: #### 2 4323-8 #### JOSE F BILLINGS ([id number]) [facility] ([facility]) [address] [place] [address] 89738 ALT With P-5'-P [Catalytic activity/Vol] 16 U/L Normal 7-45 [facility] Comment on above: Result Comment: Manuela ents treated with Sulfasalazine may generate falsely decreased results for ALT. Performed By: #### 2 4323-8 #### JOSE F BILLINGS ([id number]) [facility] ([facility]) [address] [place] [address] 30956 Anion gap [Moles/Vol] 11 mmol/L Normal 10-20 [facility] Comment on above: Performed By: #### 2 4323-8 #### JOSE F BILLINGS ([id number]) [facility] ([facility]) [address] [place] [address] 88604 AST With P-5'-P [Catalytic activity/Vol] 16 U/L Normal 9-39 [facility] Comment on above: Performed By: #### 2 4323-8 #### JOSE F BILLINGS ([id number]) [facility] ([facility]) [address] [place] [address] 79365 Bilirubin [Mass/Vol] 0.6 mg/dL Normal 0.0-1.2 [facility] Comment on above: Performed By: #### 2 4323-8 #### JOSE F BILLINGS ([id number]) [facility] ([facility]) [facility] [place] [address] Calcium [Mass/Vol] 9.2 mg/dL Normal 8.6-10.3 [facility] Comment on above: Performed By: #### 2 4323-8 #### JOSE F BILLINGS ([id number]) [facility] ([facility]) [address] [place] [address] 23974 Chloride [Moles/Vol] 105 mmol/L Normal 98-107 [facility] Comment on above: Performed By: #### 2 4323-8 #### JOSE F BILLINGS ([id number]) [facility] ([facility]) [address] [place] [address] 84727 CO2 [Moles/Vol] 28 mmol/L Normal 21-[address] [facility] Comment on above: Performed By: #### 2 4323-8 #### JOSE F BILLINGS ([id number]) [facility] ([facility]) [address] [place] [address] 39240 Creatinine [Mass/Vol] 0.66 mg/dL Normal 0.50-1.05 [facility] Comment on above: Performed By: #### 2 4323-8 #### JOSE F BILLINGS ([id number]) [facility] ([facility]) [address] [place] [address] 36917 GFR/1.73 sq M.predicted MDRD (S/P/Bld) [Vol rate/Area] mL/min/{1.73_m2} Normal >60 [facility] Comment on above: Result Comment: Calc ulations of estimated GFR are performed using the 2020 CKD-EPI Study Refit equation without the race variable for the IDMS-Traceable creatinine methods. https://jasn.asnjournals.org/content//ASN.016491357 8 Performed By: #### 2 4323-8 #### JOSE F BILLINGS ([id number]) [facility] ([facility]) [address] [place] [address] 73946 Glucose [Mass/Vol] 87 mg/dL Normal 74-99 [facility] Comment on above: Performed By: #### 2 4323-8 #### JOSE F BILLINGS ([id number]) [facility] ([facility]) [facility] [place] [address] Potassium [Moles/Vol] 4.1 mmol/L Normal 3.5-5.3 [facility] Comment on above: Performed By: #### 2 4323-8 #### JOSE F BILLINGS ([id number]) [facility] ([facility]) [address] [place] [address] 98194 Protein [Mass/Vol] 6.7 g/dL Normal 6.4-8.2 [facility] Comment on above: Performed By: #### 2 4323-8 #### JOSE F BILLINGS ([id number]) [facility] ([facility]) [address] [place] [address] 25302 Sodium [Moles/Vol] 140 mmol/L Normal 136-145 [facility] Comment on above: Performed By: #### 2 4323-8 #### JOSE F BILLINGS ([id number]) [facility] ([facility]) [address] [place] [address] 83464 Urea nitrogen [Mass/Vol] 8 mg/dL Normal 6-23 [facility] Comment on above: Performed By: #### 2 4323-8 #### JOSE F BILLINGS ([id number]) [facility] ([facility]) [address] [place] [address] KIDNEY STONEon 01-30-2024 CT KIDNEY STONE EXAMINATION: CT KIDNEY STONE HISTORY: ORDERING SYSTEM PROVIDED HISTORY: Flank pain. TECHNOLOGIST PROVIDED HISTORY: Illness/Other. Reason for exam: Pt as left flank pain with painful urinating and nausea for several days and worsening, hematuria upon testing today in ED. Encounter Type: Initial. Additional signs and symptoms: N/A. COMPARISON: None. TECHNIQUE: Dose reduction techniques were achieved by using automated exposure control and/or adjustment of mA and/or kV according to patient size and/or use of iterative reconstruction technique. Noncontrast axial CT images obtained through the abdomen and pelvis. Reconstructions obtained in the sagittal and coronal planes. FINDINGS: The lung bases are clear. No pleural effusion. The liver is normal. Gallbladder normal. The pancreas is normal. Spleen normal. Adrenal glands are normal. There is a punctate 1-2 mm nonobstructing stone in the right kidney. No hydronephrosis on the right. No kidney stones on the left. No hydronephrosis on the left. No ureteral stone. No gastric wall thickening. Duodenum normal. Small bowel normal. Normal appendix. No abnormal thickening or inflammation of the colon. Abdominal aorta normal in size. Inferior vena cava normal. No lymphadenopathy. No ascites. No free air. In the pelvis, there is moderate diffuse bladder wall thickening as well as some mild stranding in the fat around the bladder. Uterus normal. Ovaries are normal. The rectum is normal. No pelvic lymphadenopathy or free fluid in the pelvis. Osseous structures are unremarkable. No acute compression fracture. IMPRESSION: 1. There is diffuse bladder wall thickening as well as mild hazy stranding in the fat around the bladder suggesting acute cystitis. Recommend correlating with urinalysis. 2. No obstructing kidney stones. No hydronephrosis. There is a punctate 1-2 mm nonobstructing stone in the right kidney. DMG/pji Workstation ID: [id number] Dictated by: FANTA DUMONT on SunJan 30, 2024 8:49:52 AM EDT Transcribed by: TONYA BRAY on SunJan 30, 2024 9:18:34 AM EDT Finalized by: FANTA DUMONT on SunJan 30, 2024 4:11:18 PM EDT Normal [facility] Comment on above: Order Comment: Injur y/Trauma or Illness?:Illness/Other How long have you had these symptoms (acute/chronic)?:Acute Reason for exam?:pain Type of Exam?:Initial Additional signs and symptoms?:pain ED Prov Noteon 01-30-2024 ED Prov Note ED PROVIDER NOTE [facility] EM[facility] NAME: Paula Mccormick AGE: 38 y.o. : 1985 VISIT DATE: 01/30/2024 CSN: [id number] PCP: Everett Cutler MD Chief Complaint Patient presents with Flank Pain Dysuria Patient is a 38-year-old female with a past medical history of-year-old bowel syndrome, C. difficile and arthritis who presents today for concern of flank pain and dysuria. Patient states the last days she has had decreased urinary output and left-sided flank pain. Patient denies additional urinary symptoms, vaginal symptoms, chest pain, shortness of breath, lightheadedness, dizziness or syncope. Patient denies additional constitutional symptoms. Patient denies fevers Past Medical History: Diagnosis Date Arthritis C. difficile diarrhea IBS (irritable bowel syndrome) Past Surgical History: Procedure Laterality Date BREAST SURGERY Right History reviewed. No pertinent family history. Social History Socioeconomic History Marital status: Tobacco Use Smoking status: Every Day Current packs/day: 1.00 Types: Cigarettes Smokeless tobacco: Never Substance and Sexual Activity Alcohol use: Not Currently Drug use: Not Currently Previous Medications Medication Sig albuterol 90 mcg/actuation inhaler Inhale 2 (two) puffs every 6 (six) hours as needed for wheezing . ketorolac (TORADOL) 10 mg tablet Take 1 (one) tablet (10 mg total) by mouth 3 (three) times a day as needed for pain . Allergies Allergen Reactions Ancef [Cefazolin] Hives Flagyl [Metronidazole] Other (See Comments) palpitations Review of Systems Constitutional: Negative for chills and fever. Eyes: Negative for pain. Respiratory: Negative for cough, chest tightness and shortness of breath. Cardiovascular: Negative for chest pain and palpitations. Gastrointestinal: Negative for abdominal pain, nausea and vomiting. Genitourinary: Positive for dysuria and flank pain. Musculoskeletal: Negative for arthralgias and myalgias. Skin: Negative for rash. Neurological: Negative for dizziness, syncope, light-headedness and headaches. Psychiatric/Behavioral: Negative for agitation. All other systems reviewed and are negative. Patient Vitals for the past 24 hrs: BP Temp Pulse Resp SpO2 Height Weight 01/30/24 0803 (!) 135/95 98.3 degrees F (36.8 degrees C) (!) 105 18 99 % 5' 10 88.5 kg (195 lb) Physical Exam Vitals and nursing note reviewed. Constitutional: Appearance: Normal appearance. HENT: Head: Normocephalic. Eyes: Pupils: Pupils are equal, round, and reactive to light. Cardiovascular: Rate and Rhythm: Normal rate and regular rhythm. Pulses: Normal pulses. Heart sounds: Normal heart sounds. Musculoskeletal: Cervical back: Normal range of motion. Pulmonary: Effort: Pulmonary effort is normal. Breath sounds: Normal breath sounds. Abdominal: General: There is no distension. Tenderness: There is no abdominal tenderness. There is left CVA tenderness. There is no right CVA tenderness, guarding or rebound. Hernia: No hernia is present. Skin: General: Skin is warm. Capillary Refill: Capillary refill takes less than 2 seconds. Neurological: General: No focal deficit present. Mental Status: She is alert. Psychiatric: Mood and Affect: Mood normal. Laboratory & Radiographic Imaging (if done): Results for orders placed or performed during the hospital encounter of 01/30/24 POC CBC and Differential Result Value Ref Range WBC 10.55 4.50 - 11.00 K/mcL RBC 4.63 4.00 - 5.20 M/mcL Hemoglobin 15.7 12.0 - 16.0 g/dL Hematocrit 45.6 36.0 - 46.0 % MCV 98.5 80.0 - 100.0 fL MCH 33.9 26.0 - 34.0 pg MCHC 34.4 31.0 - 37.0 g/dL RDW - CV 12.6 11.6 - 14.8 % Platelets 284 150 - 400 K/mcL MPV 8.8 (L) 9.4 - 12.4 fL Neutrophils 72.3 % Lymphocytes 19.1 % Monocytes 7.5 % Eosinophils 0.6 % Basophils 0.3 % IG Percent 0.20 % Neutrophils Abs 7.64 (H) 1.70 - 7.00 K/mcL Lymphocytes Abs 2.01 0.90 - 4.00 K/mcL Monocytes Abs 0.79 0.30 - 0.90 K/mcL Eosinophils Abs 0.06 0.00 - 0.50 K/mcL Basophils Abs 0.03 0.00 - 0.30 K/mcL IG Absolute 0.02 0.00 - 0.30 K/mcL POC Urinalysis Dipstick, Auto Result Value Ref Range Spec Grav, UA 1.020 1.005 - 1.025 pH, UA 8.5 (H) 5.0 - 7.0 Protein, UA 100 (A) Negative mg/dL Glucose, UA Negative Negative mg/dL Ketones, UA Negative Negative mg/dL Bilirubin, UA Negative Negative Urobilinogen, UA 0.2 <2.0 mg/dL Blood, UA Large (A) Negative Nitrite, UA Positive (A) Negative Leukocyte Esterase, UA Small (A) Negative POC , Urine Result Value Ref Range POC Preg Test, Urine Negative Negative POC Basic Metabolic Panel Result Value Ref Range Glucose 115 (H) 65 - 99 mg/dL BUN 5 (L) 8 - 25 mg/dL Creatinine 0.67 0.40 - 1.10 mg/dL GFR 116 >=60 mL/min/1.73 m2 Sodium 142 135 - 145 mmol/L Potassium 4.0 3.5 - 5.1 mmol/L Chloride 106 98 - 108 mmol/L TCO2 25 21 - 32 (more content not included)... Normal [facility] POC BASIC METABOLIC PANEL - Shahzad 01-30-2024 Chloride [Moles/Vol] 106 mmol/L Normal 98-108 [facility] Comment on above: Order Comment: [facility] has implemented the eGFR calculation approach that does not have a coefficient for race that conforms to the NKF-ASN Task Force Recommendations. CO2 [Moles/Vol] 25 mmol/L Normal 21-32 [facility] Comment on above: Order Comment: [facility] has implemented the eGFR calculation approach that does not have a coefficient for race that conforms to the NKF-ASN Task Force Recommendations. Creatinine [Mass/Vol] 0.67 mg/dL Normal 0.40-1.10 [facility] Comment on above: Order Comment: [facility] has implemented the eGFR calculation approach that does not have a coefficient for race that conforms to the NKF-ASN Task Force Recommendations. Glucose [Mass/Vol] 115 mg/dL High 65-99 [facility] Comment on above: Order Comment: [facility] has implemented the eGFR calculation approach that does not have a coefficient for race that conforms to the NKF-ASN Task Force Recommendations. POC GFR 116 mL/min/1.73 m2 Normal >=60 [facility] Comment on above: Order Comment: [facility] has implemented the eGFR calculation approach that does not have a coefficient for race that conforms to the NKF-ASN Task Force Recommendations. Result Comment: Raudel mated GFR was calculated using the 2020 CKD-EPI creatinine equation. POC IONIZED CALCIUM 4.6 mg/dL Normal 4.5-5.3 [facility] Comment on above: Order Comment: [facility] has implemented the eGFR calculation approach that does not have a coefficient for race that conforms to the NKF-ASN Task Force Recommendations. Potassium [Moles/Vol] 4.0 mmol/L Normal 3.5-5.1 [facility] Comment on above: Order Comment: [facility] has implemented the eGFR calculation approach that does not have a coefficient for race that conforms to the NKF-ASN Task Force Recommendations. Sodium [Moles/Vol] 142 mmol/L Normal 135-145 [facility] Comment on above: Order Comment: [facility] has implemented the eGFR calculation approach that does not have a coefficient for race that conforms to the NKF-ASN Task Force Recommendations. Urea nitrogen [Mass/Vol] 5 mg/dL Low 8-25 [facility] Comment on above: Order Comment: [facility] has implemented the eGFR calculation approach that does not have a coefficient for race that conforms to the NKF-ASN Task Force Recommendations. POC CBC AND DIFFERENTIALon 1 BASOPHILS ABSOLUTE COUNT 0.03 K/mcL Normal 0.00-0.30 [facility] Basophils/100 WBC (Bld) 0.3 % Normal [facility] Eosinophils (Bld) [#/Vol] 0.06 10*3/uL Normal 0.00-0.50 [facility] Eosinophils/100 WBC (Bld) 0.6 % Normal [facility] Erythrocyte distribution width (RBC) [Ratio] 12.6 % Normal 11.6-14.8 [facility] Hematocrit (Bld) [Volume fraction] 45.6 % Normal 36.0-46.0 [facility] Hemoglobin (Bld) [Mass/Vol] 15.7 g/dL Normal 12.0-16.0 [facility] IG ABSOLUTE 0.02 K/mcL Normal 0.00-0.30 [facility] IG PERCENT 0.20 % Normal [facility] Comment on above: Result Comment: The IG parameter is the percentage of metamyelocytes, myelocytes and promyelocytes. An immature granulocyte count (IG) of 1% or more suggests the possibility of infection, an IG count of 3% is very likely related to an infection. Lymphocytes (Bld) [#/Vol] 2.01 10*3/uL Normal 0.90-4.00 [facility] Lymphocytes/100 WBC (Bld) 19.1 % Normal [facility] MCH (RBC) [Entitic mass] 33.9 pg Normal 26.0-34.0 [facility] MCV (RBC) [Entitic vol] 98.5 fL Normal 80.0-100.0 [facility] MEAN CORPUSCULAR HEMOGLOBIN CONC 34.4 g/dL Normal 31.0-37.0 [facility] Monocytes (Bld) [#/Vol] 0.79 10*3/uL Normal 0.30-0.90 [facility] Monocytes/100 WBC (Bld) 7.5 % Normal [facility] NEUTROPHILS ABSOLUTE COUNT 7.64 K/mcL High 1.70-7.00 [facility] Neutrophils/100 WBC (Bld) 72.3 % Normal [facility] Platelet mean volume (Bld) [Entitic vol] 8.8 fL Low 9.4-12.4 [facility] Platelets (Bld) [#/Vol] 284 10*3/uL Normal 150-400 [facility] RBC (Bld) [#/Vol] 4.63 10*6/uL Normal 4.00-5.20 [facility] WBC (Bld) [#/Vol] 10.55 10*3/uL Normal 4.50-11.00 [facility] POC , URINE - [facility] n 01-30-2024 Beta HCG ( test) Ql (U) Negative Normal Negative [facility] Comment on above: Order Comment: Negat cassandra: Dilute urine specimens, as indicated by a low specific gravity (<1.010) may not contain representitive levels of hCG. If is still suspected, a serum test or repeat urine test using a first morning urine specimen should be considered. POC URINALYSIS DIPSTICK,AUTO - RALSon 01-30-2024 POC BILIRUBIN, URINE Negative Normal Negative [facility] POC BLOOD, URINE Large Abnormal Negative [facility] POC GLUCOSE, URINE Negative Normal Negative [facility] POC KETONES, URINE Negative Normal Negative [facility] POC LEUKOCYTE ESTERASE, URINE Small Abnormal Negative [facility] POC NITRITE, URINE Positive Abnormal Negative [facility] POC PH, URINE 8.5 High 5.0-7.0 [facility] POC SPECIFIC GRAVITY 1.020 Normal 1.005-1.025 [facility] POC UROBILINOGEN 0.2 mg/dL Normal < 2.0 [facility] Protein (U) [Mass/Vol] 100 mg/dL Abnormal Negative [facility] Laboratory - Cytologyon 06-22 Cytology report Cyto stain.thin prep Doc (Cvx/Vag) [facility] [address] Work Phone: [employer] - Office Visiton 06-22 [employer] - Office Visit Diagnoses/Problems Assessed Encounter for Papanicolaou smear of cervix (V76.2) (Z12.4) Women's annual routine gynecological examination (V72.31) (Z01.419) Contraception management (V25.9) (Z30.9) Orders Start: Slynd 4 MG Oral Tablet; 1 TABLET BY MOUTH DAILY PAP [employer], Cytology; Status:In Progress - Specimen/Data Collected,Retrospective Authorization; Done: 19Jul2022 Last Menstrual Period (LMP): : 05/23/2022 PAP - Site : CERVICAL Cytology Order : ThinPrep PAP, Screening, HPV CoTest - Include Genotyping Provider Impressions 1. Annual 2. Contraceptive counseling Since patient will be turning 37 years old in several months and that she smokes less than half a pack a day, recommend switching her to a progesterone only control pill formulation. Follow-up in 1 year or as needed. Chief Complaint Patient is here for her yearly exam and pap test. LMP: 05/23/2022. Patient does self breast exams and has no concerns at this time. History of Present IllnessPresents for annual exam. She voices no complaints and is doing well. Denies any bowel or bladder problems. Denies any breast problems. She has been doing well on the control pill formulation and having a flow every 3 months. She smokes less than a pack a day. 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) Arthralgia (719.40) (M25.50) Chronic low back pain (724.2,338.29) (M54.50,G89.29) Contraception management (V25.9) (Z30.9) Diarrhea of presumed infectious origin (009.3) (R19.7) DJD (degenerative joint disease) (715.90) (M19.90) Encounter for Papanicolaou smear of cervix (V76.2) (Z12.4) Fatigue (780.79) (R53.83) Fibromyalgia (729.1) (M79.7) GERD (gastroesophageal reflux disease) (530.81) (K21.9) Hip pain, left (719.45) (M25.552) Hyperglycemia (790.29) (R73.9) IBS (irritable bowel syndrome) (564.1) (K58.9) Inflammation of left sacroiliac joint (720.2) (M46.1) Insomnia (780.52) (G47.00) Low vitamin B12 level (266.2) (E53.8) Menorrhagia (626.2) (N92.0) Nausea and vomiting (787.01) (R11.2) Numbness and tingling of right arm (782.0) (R20.0,R20.2) Osteoarthritis (715.90) (M19.90) Osteophyte of hip (726.5) (M25.759) PCOD (polycystic ovarian disease) (256.4) (E28.2) Rectal bleeding (569.3) (K62.5) 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 DIff History of Menstruation 1995-AGE 12 History of Pap test, as part of routine gynecological examination (V76.2) (Z01.419) 07/18/2021; ASCUS, HPV NEGATIVE 07/16/2020: Negative 05/30/2019-ASCUS HPV - 11/20/2017 13:53 - Inocencia Palmer LPN Negative Surgical History Problems History of Breast biopsy 09/11/2016 (cyst) History of section 06/07/11 History of Colonoscopy 09/21/2015 Family History Mother Family history of diabetes mellitus (V18.0) (Z83.3) Father Family history of diabetes mellitus (V18.0) (Z83.3) Family history of myocardial infarction (V17.3) (Z82.49) Sister Family history of cervical cancer (V16.49) (Z80.49) Brother Family history of colonic polyps (V18.51) (Z83.71) Social History Problems Current every day smoker (305.1) (F17.200) 3/4 ppd since 17 yo Denies alcohol consumption (V49.89) (Z78.9) Does not have living will Does not use illicit drugs (V49.89) (Z78.9) Feels safe at home Sexually active Allergies Medication Ancef Hives; Hives;; Recorded By: Aneta Groves; 02/01/2019 8:55:52 AM Flagyl Nausea; Palpitations; Vomiting; Recorded By: Verona Hyde; 05/12/2019 9:36:24 AM Current Meds Medication NameInstruction Levonorgest-Eth Estrad 91-Day 0.15-0.03 MG Oral TabletTAKE 1 TABLET BY MOUTH EVERY DAY Vitals Vital Signs Recorded: 19Jul2022 10:01AM Degobinn860 Jfxxobsjc36 Height5 ft 10 in Znutti87.3 kg BMI Yqjgwnxomv81.25 kg/m2 BSA Calculated2.07 Tobacco Usea) Yes Patient encouraged to stop using tobacco productsYes PHQ-2 #1. Over the last 2 weeks have you felt down, depressed or hopeless? (If yes, answer PHQ-9 below)No PHQ-2 #2. Over the last 2 weeks have you felt little interes (more content not included)... Normal [employer] Tobacco Screening.on 023 Adult depression screening assessment No [facility] [address] Work Phone: Fall risk assessment b) One or more falls in the last year [facility] [address] Work Phone: [phone] Last menstrual period start date 23May2022 [facility] [address] Work Phone: [phone] Tobacco use status [facility] a) Yes [facility] [address] Work Phone: [phone] Tobacco Screening. Yes [facility] [address] Work Phone: [phone] CBC AND DIFFERENTIALon 03-21 % AUTOMATED IMMATURE GRAN 0.1 % Normal 0.0 - 0.9 [facility] Comment on above: Result Comment: Bety ture Granulocyte Count (IG) includes promyelocytes, myelocytes and metamyelocytes but does not include bands. Percent differential counts (%) should be interpreted in the context of the absolute cell counts (cells/L). Performed By: #### C BCDF #### [address] [address] Basophils (Bld) [#/Vol] 0.04 10*3/uL Normal 0.00 - 0.10 [facility] Comment on above: Performed By: #### C BCDF #### [address] [address] Basophils/100 WBC (Bld) 0.5 % Normal 0.0 - 2.0 [facility] Comment on above: Performed By: #### C BCDF #### [address] [address] Eosinophils (Bld) [#/Vol] 0.08 10*3/uL Normal 0.00 - 0.70 [facility] Comment on above: Performed By: #### C BCDF #### [address] [address] Eosinophils/100 WBC (Bld) 1.1 % Normal 0.0 - 6.0 [facility] Comment on above: Performed By: #### C BCDF #### [address] [address] Erythrocyte distribution width (RBC) [Ratio] 12.5 % Normal 11.5 - 14.5 [facility] Comment on above: Performed By: #### C BCDF #### [address] [address] Hematocrit (Bld) [Volume fraction] 46.1 % High 36.0 - 46.0 [facility] Comment on above: Performed By: #### C BCDF #### [address] [address] Hemoglobin (Bld) [Mass/Vol] 15.3 g/dL Normal 12.0 - 16.0 [facility] Comment on above: Performed By: #### C BCDF #### [address] [address] Lymphocytes (Bld) [#/Vol] 2.65 10*3/uL Normal 1.20 - 4.80 [facility] Comment on above: Performed By: #### C BCDF #### [address] [address] Lymphocytes/100 WBC (Bld) 35.7 % Normal 13.0 - 44.0 [facility] Comment on above: Performed By: #### C BCDF #### [address] [address] MCHC (RBC) [Mass/Vol] 33.2 g/dL Normal 32.0 - 36.0 [facility] Comment on above: Performed By: #### C BCDF #### [address] [address] MCV (RBC) [Entitic vol] 100 fL Normal 80 - 100 [facility] Comment on above: Performed By: #### C BCDF #### [address] [address] Monocytes (Bld) [#/Vol] 0.47 10*3/uL Normal 0.10 - 1.00 [facility] Comment on above: Performed By: #### C BCDF #### [address] [address] Monocytes/100 WBC (Bld) 6.3 % Normal 2.0 - 10.0 [facility] Comment on above: Performed By: #### C BCDF #### [address] [address] Neutrophils (Bld) [#/Vol] 4.18 10*3/uL Normal 1.20 - 7.70 [facility] Comment on above: Result Comment: Perc ent differential counts (%) should be interpreted in the context of the absolute cell counts (cells/L). Performed By: #### C BCDF #### [address] [address] Neutrophils/100 WBC (Bld) 56.3 % Normal 40.0 - 80.0 [facility] Comment on above: Performed By: #### C BCDF #### [address] [address] Platelets (Bld) [#/Vol] 342 10*3/uL Normal 150 - 450 [facility] Comment on above: Performed By: #### C BCDF #### [address] [address] RBC 4.61 x10E12/L Normal 4.00 - 5.20 [facility] Comment on above: Performed By: #### C BCDF #### [address] [address] WBC (Bld) [#/Vol] 7.4 10*3/uL Normal 4.4 - 11.3 [facility] Comment on above: Performed By: #### C BCDF #### [address] [address] COMPREHENSIVE PANELon 2021 Albumin [Mass/Vol] 4.4 g/dL Normal 3.4 - 5.0 [facility] Comment on above: Performed By: #### C MP #### [address] [address] ALP [Catalytic activity/Vol] 46 U/L Normal 33 - 110 [facility] Comment on above: Performed By: #### C MP #### [address] [address] ALT [Catalytic activity/Vol] 12 U/L Normal 7 - 45 [facility] Comment on above: Result Comment: Manuela ents treated with Sulfasalazine may generate falsely decreased results for ALT. Performed By: #### C MP #### [address] [address] Anion gap [Moles/Vol] 11 mmol/L Normal 10 - 20 [facility] Comment on above: Performed By: #### C MP #### [address] [address] AST [Catalytic activity/Vol] 14 U/L Normal 9 - 39 [facility] Comment on above: Performed By: #### C MP #### [address] [address] Bilirubin [Mass/Vol] 0.5 mg/dL Normal 0.0 - 1.2 [facility] Comment on above: Performed By: #### C MP #### [address] [address] Calcium [Mass/Vol] 9.3 mg/dL Normal 8.6 - 10.3 [facility] Comment on above: Performed By: #### C MP #### [address] [address] Chloride [Moles/Vol] 104 mmol/L Normal 98 - 107 [facility] Comment on above: Performed By: #### C MP #### [address] [address] Creatinine [Mass/Vol] 0.75 mg/dL Normal 0.50 - 1.05 [facility] Comment on above: Performed By: #### C MP #### [address] [address] eGFR FEMALE >90 Normal >90 [facility] Comment on above: Result Comment: CALC ULATIONS OF ESTIMATED GFR ARE PERFORMED USING THE 2020 CKD-EPI STUDY REFIT EQUATION WITHOUT THE RACE VARIABLE FOR THE IDMS-TRACEABLE CREATININE METHODS. https://jasn.asnjournals.org/content//ASN.541506447 8 Performed By: #### C MP #### [address] [address] Glucose [Mass/Vol] 81 mg/dL Normal 74 - 99 [facility] Comment on above: Performed By: #### C MP #### [address] [address] HCO3 (Bld) [Moles/Vol] 29 mmol/L Normal 21 - 32 [facility] Comment on above: Performed By: #### C MP #### [address] [address] Potassium [Moles/Vol] 3.9 mmol/L Normal 3.5 - 5.3 [facility] Comment on above: Performed By: #### C MP #### [address] [address] Protein [Mass/Vol] 6.6 g/dL Normal 6.4 - 8.2 [facility] Comment on above: Performed By: #### C MP #### [address] [address] Sodium [Moles/Vol] 140 mmol/L Normal 136 - 145 [facility] Comment on above: Performed By: #### C MP #### [address] [address] Urea nitrogen [Mass/Vol] 7 mg/dL Normal 6 - 23 [facility] Comment on above: Performed By: #### C MP #### [address] [address] Complete Blood Count + Diffsunny sher 03-21-2022 Basophils/100 WBC (Bld) 0.5 % 0.0 - 2.0 -[facility] Work Phone: [phone] Erythrocyte distribution width (RBC) [Ratio] 12.5 % See Below [facility] Work Phone: [phone] Comment on above: Reference Range: 11. 5 - 14.5 Hematocrit (Bld) [Volume fraction] 46.1 % above high threshold See Below [facility] Work Phone: [phone] Comment on above: Reference Range: 36. 0 - 46.0 Hemoglobin (Bld) [Mass/Vol] 15.3 g/dL See Below [facility] Work Phone: [phone] Comment on above: Reference Range: 12. 0 - 16.0 Lymphocytes/100 WBC (Bld) 35.7 % See Below [facility] [place] [facility] Work Phone: [phone] Comment on above: Reference Range: 13. 0 - 44.0 MCHC (RBC) [Mass/Vol] 33.2 g/dL See Below [facility] Work Phone: [phone] Comment on above: Reference Range: 32. 0 - 36.0 MCV (RBC) [Entitic vol] 100 fL 80 - 100 [facility] Work Phone: [phone] Monocytes/100 WBC (Bld) 6.3 % 2.0 - 10.0 [facility] [place] [facility] Work Phone: [phone] Neutrophils/100 WBC (Bld) 56.3 % See Below [facility] [place] [facility] Work Phone: [phone] Comment on above: Reference Range: 40. 0 - 80.0 Platelets (Bld) [#/Vol] 342 10*3/uL 150 - 450 [facility] [place] [facility] Work Phone: [phone] RBC (Bld) [#/Vol] 4.61 {x10E12/L} See Below [facility] Work Phone: [phone] Comment on above: Reference Range: 4.0 0 - 5.20 WBC (Bld) [#/Vol] 7.4 10*3/uL 4.4 - 11.3 [facility] Work Phone: Complete Blood Count + Differential 0.04 {x10E9/L} See Below [facility] Work Phone: Comment on above: Reference Range: 0.0 0 - 0.10 Complete Blood Count + Differential 0.08 {x10E9/L} See Below [facility] [place] [facility] Work Phone: [phone] Comment on above: Reference Range: 0.0 0 - 0.70 Complete Blood Count + Differential 0.47 {x10E9/L} See Below [facility] Work Phone: [phone] Comment on above: Reference Range: 0.1 0 - 1.00 Complete Blood Count + Differential 2.65 {x10E9/L} See Below [facility] Work Phone: [phone] Comment on above: Reference Range: 1.2 0 - 4.80 Complete Blood Count + Differential 4.18 {x10E9/L} See Below [facility] Work Phone: [phone] Comment on above: Reference Range: 1.2 0 - 7.70 Percent differential counts (%) should be interpreted in the context of the absolute cell counts (cells/L). Complete Blood Count + Differential 1.1 % 0.0 - 6.0 [facility] Work Phone: [phone] Complete Blood Count + Differential 0.1 % 0.0 - 0.9 [facility] Work Phone: [phone] Comment on above: Immature Granulocyte Count (IG) includes promyelocytes, myelocytes and metamyelocytes but does not include bands. Percent differential counts (%) should be interpreted in the context of the absolute cell counts (cells/L). Laboratory - Chemistry and C hemistry - challengeon 03-21-2022 Albumin BCP dye [Mass/Vol] 4.4 g/dL 3.4 - 5.0 [facility] Work Phone: [phone] ALP [Catalytic activity/Vol] 46 U/L 33 - 110 [facility] Work Phone: [phone] ALT With P-5'-P [Catalytic activity/Vol] 12 U/L 7 - 45 [facility] Work Phone: [phone] Comment on above: Patients treated wit h Sulfasalazine may generate falsely decreased results for ALT. Anion gap [Moles/Vol] 11 mmol/L 10 - 20 [facility] Work Phone: [phone] AST With P-5'-P [Catalytic activity/Vol] 14 U/L 9 - 39 [facility] Work Phone: Bilirubin [Mass/Vol] 0.5 mg/dL 0.0 - 1.2 [facility] Work Phone: Calcium [Mass/Vol] 9.3 mg/dL 8.6 - 10.3 [facility] [place] [facility] Work Phone: Chloride [Moles/Vol] 104 mmol/L 98 - 107 [facility] Work Phone: CO2 [Moles/Vol] 29 mmol/L 21 - [address] [facility] [place] [facility] Work Phone: Creatinine [Mass/Vol] 0.75 mg/dL See Below [facility] Work Phone: Comment on above: Reference Range: 0.5 0 - 1.05 Glucose [Mass/Vol] 81 mg/dL 74 - 99 [facility] Work Phone: Potassium [Moles/Vol] 3.9 mmol/L 3.5 - 5.3 [facility] Work Phone: Protein [Mass/Vol] 6.6 g/dL 6.4 - 8.2 [facility] Work Phone: Sodium [Moles/Vol] 140 mmol/L 136 - 145 [facility] [place] [facility] Work Phone: Urea nitrogen [Mass/Vol] 7 mg/dL 6 - 23 -[facility] [place] [facility] Work Phone: No Panel Informationon 03-21 >90 >90 [facility] Work Phone: Comment on above: CALCULATIONS OF RAUDEL MATED GFR ARE PERFORMED USING THE 2020 CKD-EPI STUDY REFIT EQUATION WITHOUT THE RACE VARIABLE FOR THE IDMS-TRACEABLE CREATININE METHODS.https://jasn.asnjournals.org/content/early/ASN.2 803126119 Office Visit (Primary Care T xt/Forms)on 03-21-2022 Follow-up visit Diagnoses/Problems Assessed Low vitamin B12 level (266.2) (E53.8) GERD (gastroesophageal reflux disease) (530.81) (K21.9) IBS (irritable bowel syndrome) (564.1) (K58.9) Orders Low vitamin B12 level Complete Blood Count + Differential; Status:Active; Requested for:21Mar2022; Comprehensive Metabolic Panel; Status:Active; Requested for:21Mar2022; Vitamin B12, Serum; Status:Active; Requested for:21Mar2022; Patient Discussion/Summary Follow-up in 6 months, get blood testing today Provider Impressions Provider Impressions Free Text Note Form: Patient presents to the office today with for 6-month follow-up for chronic medical issues, patient did not get blood testing done before today's office visit, will get blood testing today while she is here to check on B12 levels. Patient does have intermittent irritable bowel syndrome which sometimes will cause her to miss about 1 to 2 days of work a month, bowel movements range from anywhere from 6 up to 15 bowel movements per day. Patient was asking about [employer] papers to be filed for missing intermittent work, told the patient to drop the papers off by the office and we will fill these out for her. Otherwise follow-up again in 6 months. Chief Complaint 6 MO CK History of Present Illness No headache, chest pain, shortness of breath, dizziness, lightheadedness, or edema Did not get blood testing done prior to OV Feeling OK diarrhea improved Review of Systems Constitutional: feeling tired, but no fever and no chills. Cardiovascular: no chest pain, no palpitations, no lower extremity edema and no shortness of breath. Gastrointestinal: diarrhea and bloating, but no abdominal pain, no constipation, no heartburn, no nausea, no rectal pain, no blood in stools, no dysphagia and no vomiting. Neurological: no headache, no dizziness and no numbness or tingling. 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) Arthralgia (719.40) (M25.50) Chronic low back pain (724.2,338.29) (M54.50,G89.29) Contraception management (V25.9) (Z30.9) Diarrhea of presumed infectious origin (009.3) (R19.7) DJD (degenerative joint disease) (715.90) (M19.90) Encounter for Papanicolaou smear of cervix (V76.2) (Z12.4) Fatigue (780.79) (R53.83) Fibromyalgia (729.1) (M79.7) GERD (gastroesophageal reflux disease) (530.81) (K21.9) Hip pain, left (719.45) (M25.552) Hyperglycemia (790.29) (R73.9) IBS (irritable bowel syndrome) (564.1) (K58.9) Inflammation of left sacroiliac joint (720.2) (M46.1) Insomnia (780.52) (G47.00) Low vitamin B12 level (266.2) (E53.8) Menorrhagia (626.2) (N92.0) Nausea and vomiting (787.01) (R11.2) Numbness and tingling of right arm (782.0) (R20.0,R20.2) Osteoarthritis (715.90) (M19.90) Osteophyte of hip (726.5) (M25.759) PCOD (polycystic ovarian disease) (256.4) (E28.2) Rectal bleeding (569.3) (K62.5) 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) Sebaceous cyst (706.2) (L72.3) Women's annual routine gynecological examination (V72.31) (Z01.419) Past Medical History Problems History of Date of last menstrual period (LMP) unknown (V49.89) (Z78.9) History of Delivery of by section (669.70) (O82) History of diarrhea (V12.79) (Z87.898) History of Menstruation History of Pap test, as part of routine gynecological examination (V76.2) (Z01.419) Surgical History Problems History of Breast biopsy History of section History of Colonoscopy Family History Mother Family history of diabetes mellitus (V18.0) (Z83.3) Father Family history of diabetes mellitus (V18.0) (Z83.3) Family history of myocardial infarction (V17.3) (Z82.49) Sister Family history of Primary malignant neoplasm of female genital organ Brother Family history of colonic polyps (V18.51) (Z83.71) Social History Problems Current every day smoker (305.1) (F17.200) Denies alcohol consumption (V49.89) (Z78.9) Does not have living will Does not use illicit drugs (V49.89) (Z78.9) Feels safe at home Sexually active Current Meds Medication NameInstruction Levonorgest-Eth Estrad 91-Day 0.15-0.03 MG Oral TabletTAKE 1 TABLET BY MOUTH EVERY DAY Allergies Medication Ancef Flagyl Vitals Vital Signs Recorded: 21Mar2022 02:55PM Heart Rate: 71 Systolic: 108 Diastolic: 70 Height: 5 ft 10 in Weight: 199 lb 9 oz BMI Calculated: 28.63 kg/m2 BSA Calculated: 2.09 Tobacco Use: a) Yes Patient encouraged to stop using tobacco products: Yes PHQ-2 #1. Over the last 2 weeks have you felt down, depressed or hopeless? (If yes, answer PHQ-9 below): No PHQ-2 #2. Over the last 2 weeks have you felt little interest or pleasure in doing things? (If yes, answer PHQ-9 below): No Falls Screening (Age 18+): b) One or more falls in the last year O2 Saturation: 98 Physical Exam Constitutional - Well developed, well nourished, well hydrated and no acute distress. Vital signs revie (more content not included)... Normal [facility] Tobacco Screening.on 022 Adult depression screening assessment No [facility] Work Phone: Fall risk assessment b) One or more falls in the last year [employer] [facility] [employer] Phone: [phone] Tobacco use status CPHS a) Yes [facility] Work Phone: [phone] Tobacco Screening. Yes [employer] [facility] Work Phone: VITAMIN B12on 03-21-2022 Cobalamin (Vitamin B12) [Mass/Vol] 529 pg/mL Normal 211 - 911 [facility] Comment on above: Performed By: #### C ITAB #### [facility] [address] [place] [address] Vitamin B12, Serumon 03-21-2 022 Cobalamin (Vitamin B12) [Mass/Vol] 529 pg/mL 211 - 911 -[facility] Work Phone: GIARDIA/CRYPTOSPORIDIUM ANTI GENon 01-04-2022 CRYPTOSPORIDIUM ANTIGEN Negative Normal Negative [facility] Comment on above: Result Comment: Perf ormed By: [address] [place] [address] [employer] Operator: Zachery Foss MD, PhD Performed By: #### C ITAB #### [facility] [address] [place] [address] GIARDIA ANTIGEN Negative Normal Negative [facility] Comment on above: Result Comment: Perf ormed By: [address] [place] [address] [employer] Operator: Zachery Foss MD, PhD Performed By: #### C ITAB #### [facility] [address] [place] [address] STOOL PATHOGEN PCR PANELon 0 01-02-2022 CAMPYLOBACTER GP. Not detected Normal NOT DETECTED [facility] Comment on above: Performed By: #### S TLPP #### [facility] [address] [place] [address] NOROVIRUS GI/GII Not detected Normal NOT DETECTED [facility] Comment on above: Performed By: #### S TLPP #### [facility] [address] [place] [address] ROTAVIRUS A Not detected Normal NOT DETECTED [facility] Comment on above: Result Comment: The enteric PCR panel is a panel of sensitive and specific amplified nucleic acid tests indicated as an aid in the diagnosis of specific bacterial and viral agents of gastrointestinal illness, in conjunction with other clinical, laboratory, and epidemiological information. This test is not approved for monitoring these infections. Monitoring is available for Salmonella and Shigella infections-request test Stool PCR Follow-Up (STLPF). Monitoring tests are not available at this time for other enteric agents in this panel. Performed By: #### S TLPP #### [facility] [address] [place] [address] SALMONELLA SP. Not detected Normal NOT DETECTED [facility] Comment on above: Performed By: #### S TLPP #### [facility] [address] [place] [address] SHIGA TOXIN 1 Not detected Normal NOT DETECTED [facility] [place] Comment on above: Performed By: #### S TLPP #### [facility] [address] [place] [address] SHIGA TOXIN 2 Not detected Normal NOT DETECTED [facility] [place] Comment on above: Performed By: #### S TLPP #### [facility] [address] [place] [address] SHIGELLA SP. Not detected Normal NOT DETECTED [facility] Comment on above: Performed By: #### S TLPP #### [facility] [address] [place] [address] [employer] Not detected Normal NOT DETECTED [facility] Comment on above: Performed By: #### S TLPP #### [facility] [address] [place] [address] YERSINIA ENTEROCOLITICA Not detected Normal NOT DETECTED [facility] Comment on above: Performed By: #### S TLPP #### [facility] [address] [place] [address] C Reactive Protein, Serumon 12-31-2021 CRP [Mass/Vol] 0.45 mg/dL [facility] Work Phone: Comment on above: REF VALUE< 1.00 C-REACTIVE PROTEINon 022 C-REACTIVE PROTEIN 0.45 mg/dL Normal [facility] Comment on above: Result Comment: REF VALUE < 1.00 Performed By: #### C RP #### [address] [place] [address] CBC AND DIFFERENTIALon 12-31 Basophils (Bld) [#/Vol] 0.00 10*3/uL Normal 0.00 - 0.10 [facility] Comment on above: Performed By: #### C BCDF #### [address] [address] Basophils/100 WBC (Bld) 0.6 % Normal 0.0 - 2.0 [facility] Comment on above: Performed By: #### C BCDF #### [address] [address] Eosinophils (Bld) [#/Vol] 0.10 10*3/uL Normal 0.00 - 0.70 [facility] Comment on above: Performed By: #### C BCDF #### [address] [address] Eosinophils/100 WBC (Bld) 2.1 % Normal 0.0 - 6.0 [facility] Comment on above: Performed By: #### C BCDF #### [address] [address] Erythrocyte distribution width (RBC) [Ratio] 13.0 % Normal 11.5 - 14.5 [facility] Comment on above: Performed By: #### C BCDF #### [address] [address] Hematocrit (Bld) [Volume fraction] 44.7 % Normal 36.0 - 46.0 [facility] Comment on above: Performed By: #### C BCDF #### [address] [address] Hemoglobin (Bld) [Mass/Vol] 15.2 g/dL Normal 12.0 - 16.0 [facility] Comment on above: Performed By: #### C BCDF #### [address] [address] Lymphocytes (Bld) [#/Vol] 2.20 10*3/uL Normal 1.20 - 4.80 [facility] Comment on above: Performed By: #### C BCDF #### [address] [address] Lymphocytes/100 WBC (Bld) 36.9 % Normal 13.0 - 44.0 [facility] Comment on above: Performed By: #### C BCDF #### [address] [address] MCHC (RBC) [Mass/Vol] 34.0 g/dL Normal 32.0 - 36.0 [facility] Comment on above: Performed By: #### C BCDF #### [address] [address] MCV (RBC) [Entitic vol] 100 fL Normal 80 - 100 [facility] Comment on above: Performed By: #### C BCDF #### [address] [address] Monocytes (Bld) [#/Vol] 0.50 10*3/uL Normal 0.10 - 1.00 [facility] Comment on above: Performed By: #### C BCDF #### [address] [address] Monocytes/100 WBC (Bld) 8.9 % Normal 2.0 - 10.0 [facility] Comment on above: Performed By: #### C BCDF #### [address] [address] Neutrophils (Bld) [#/Vol] 3.10 10*3/uL Normal 1.20 - 7.70 [facility] Comment on above: Result Comment: Perc ent differential counts (%) should be interpreted in the context of the absolute cell counts (cells/L). Performed By: #### C BCDF #### [address] [address] Neutrophils/100 WBC (Bld) 51.5 % Normal 40.0 - 80.0 [facility] Comment on above: Performed By: #### C BCDF #### [address] [address] NUCLEATED RBC 0.1 /100 WBC Normal [facility] Comment on above: Performed By: #### C BCDF #### [address] [address] Platelets (Bld) [#/Vol] 342 10*3/uL Normal 150 - 450 [facility] Comment on above: Performed By: #### C BCDF #### [address] [address] RBC 4.48 x10E12/L Normal 4.00 - 5.20 [facility] Comment on above: Performed By: #### C BCDF #### [address] [address] WBC (Bld) [#/Vol] 6.0 10*3/uL Normal 4.4 - 11.3 [facility] Comment on above: Performed By: #### C BCDF #### [address] [address] CLOST DIFF. TOXIN, PCRon CLOST.DIFF.TOXIN,P CR Not detected Normal Not Detected [facility] Comment on above: Result Comment: This assay detects the presence of the tcdB (toxin B) gene via DNA amplification, and results should be interpreted in the context of the patients history and clinical findings. This test cannot be performed on formed stools or used as a test of cure, and should not be performed more than once per 7 days. Performed By: #### C ITAB #### [facility] [address] [place] [address] C. difficile toxin genes ORLY+probe Ql (Stl) Not detected See Below [facility] Work Phone: Comment on above: Reference Range: Not Detected This assay detects the presence of the tcdB (toxin B) gene via DNA amplification, and results should be interpreted in the context of the patients history and clinical findings. This test cannot be performed on formed stools or used as a test of cure, and should not be performed more than once per 7 days. COMPREHENSIVE PANELon 2021 Albumin [Mass/Vol] 4.2 g/dL Normal 3.4 - 5.0 [facility] Comment on above: Performed By: #### C MP #### [address] [address] ALP [Catalytic activity/Vol] 42 U/L Normal 33 - 110 [facility] Comment on above: Performed By: #### C MP #### [address] [place] [address] ALT [Catalytic activity/Vol] 7 U/L Normal 7 - 45 [facility] Comment on above: Result Comment: Manuela ents treated with Sulfasalazine may generate falsely decreased results for ALT. Performed By: #### C MP #### [address] [address] Anion gap [Moles/Vol] 11 mmol/L Normal 10 - 20 [facility] Comment on above: Performed By: #### C MP #### [address] [address] AST [Catalytic activity/Vol] 10 U/L Normal 9 - 39 [facility] Comment on above: Performed By: #### C MP #### [address] [address] Bilirubin [Mass/Vol] 0.6 mg/dL Normal 0.0 - 1.2 [facility] Comment on above: Performed By: #### C MP #### [address] [address] Calcium [Mass/Vol] 8.9 mg/dL Normal 8.6 - 10.3 [facility] Comment on above: Performed By: #### C MP #### [address] [address] Chloride [Moles/Vol] 106 mmol/L Normal 98 - 107 [facility] Comment on above: Performed By: #### C MP #### [address] [address] Creatinine [Mass/Vol] 0.80 mg/dL Normal 0.50 - 1.05 [facility] Comment on above: Performed By: #### C MP #### [address] [address] eGFR FEMALE >90 Normal >90 [facility] Comment on above: Result Comment: CALC ULATIONS OF ESTIMATED GFR ARE PERFORMED USING THE 2020 CKD-EPI STUDY REFIT EQUATION WITHOUT THE RACE VARIABLE FOR THE IDMS-TRACEABLE CREATININE METHODS. https://jasn.asnjournals.org/content//ASN.488851130 8 Performed By: #### C MP #### [address] [address] Glucose [Mass/Vol] 90 mg/dL Normal 74 - 99 [facility] Comment on above: Performed By: #### C MP #### [address] [address] HCO3 (Bld) [Moles/Vol] 27 mmol/L Normal 21 - 32 [facility] Comment on above: Performed By: #### C MP #### [address] [address] Potassium [Moles/Vol] 4.0 mmol/L Normal 3.5 - 5.3 [facility] Comment on above: Performed By: #### C MP #### [address] [address] Protein [Mass/Vol] 6.8 g/dL Normal 6.4 - 8.2 [facility] Comment on above: Performed By: #### C MP #### [address] [address] Sodium [Moles/Vol] 140 mmol/L Normal 136 - 145 [facility] Comment on above: Performed By: #### C MP #### [address] [address] Urea nitrogen [Mass/Vol] 6 mg/dL Normal 6 - 23 [facility] Comment on above: Performed By: #### C MP #### [address] [address] Complete Blood Count + Sandro sher 12-31-2021 Basophils/100 WBC (Bld) 0.6 % 0.0 - 2.0 -[facility] Work Phone: [phone] Erythrocyte distribution width (RBC) [Ratio] 13.0 % See Below [facility] Work Phone: [phone] Comment on above: Reference Range: 11. 5 - 14.5 Hematocrit (Bld) [Volume fraction] 44.7 % See Below [facility] Work Phone: [phone] Comment on above: Reference Range: 36. 0 - 46.0 Hemoglobin (Bld) [Mass/Vol] 15.2 g/dL See Below [facility] Work Phone: [phone] Comment on above: Reference Range: 12. 0 - 16.0 Lymphocytes/100 WBC (Bld) 36.9 % See Below [facility] [place] [facility] Work Phone: [phone] Comment on above: Reference Range: 13. 0 - 44.0 MCHC (RBC) [Mass/Vol] 34.0 g/dL See Below [facility] [place] [facility] Work Phone: [phone] Comment on above: Reference Range: 32. 0 - 36.0 MCV (RBC) [Entitic vol] 100 fL 80 - 100 [facility] [place] [facility] Work Phone: [phone] Monocytes/100 WBC (Bld) 8.9 % 2.0 - 10.0 [facility] [place] [facility] Work Phone: Neutrophils/100 WBC (Bld) 51.5 % See Below [facility] Work Phone: [phone] Comment on above: Reference Range: 40. 0 - 80.0 Platelets (Bld) [#/Vol] 342 10*3/uL 150 - 450 [facility] [place] [facility] Work Phone: [phone] RBC (Bld) [#/Vol] 4.48 {x10E12/L} See Below [facility] Work Phone: [phone] Comment on above: Reference Range: 4.0 0 - 5.20 WBC (Bld) [#/Vol] 6.0 10*3/uL 4.4 - 11.3 [facility] Work Phone: Complete Blood Count + Differential 0.00 {x10E9/L} See Below [facility] Work Phone: Comment on above: Reference Range: 0.0 0 - 0.10 Complete Blood Count + Differential 0.10 {x10E9/L} See Below [facility] Work Phone: [phone] Comment on above: Reference Range: 0.0 0 - 0.70 Complete Blood Count + Differential 0.50 {x10E9/L} See Below [facility] Work Phone: [phone] Comment on above: Reference Range: 0.1 0 - 1.00 Complete Blood Count + Differential 2.20 {x10E9/L} See Below [facility] Work Phone: [phone] Comment on above: Reference Range: 1.2 0 - 4.80 Complete Blood Count + Differential 3.10 {x10E9/L} See Below [facility] [place] [facility] Work Phone: [phone] Comment on above: Reference Range: 1.2 0 - 7.70 Percent differential counts (%) should be interpreted in the context of the absolute cell counts (cells/L). Complete Blood Count + Differential 2.1 % 0.0 - 6.0 [facility] Work Phone: [phone] Complete Blood Count + Differential 0.1 {/100_WBC} [facility] Work Phone: [phone] Laboratory - Chemistry and C hemistry - challengeon 12-31-2021 Albumin BCP dye [Mass/Vol] 4.2 g/dL 3.4 - 5.0 [facility] Work Phone: [phone] ALP [Catalytic activity/Vol] 42 U/L 33 - 110 [facility] Work Phone: ALT With P-5'-P [Catalytic activity/Vol] 7 U/L 7 - 45 [facility] Work Phone: [phone] Comment on above: Patients treated wit h Sulfasalazine may generate falsely decreased results for ALT. Anion gap [Moles/Vol] 11 mmol/L 10 - 20 [facility] Work Phone: AST With P-5'-P [Catalytic activity/Vol] 10 U/L 9 - 39 [facility] Work Phone: Bilirubin [Mass/Vol] 0.6 mg/dL 0.0 - 1.2 [facility] Work Phone: Calcium [Mass/Vol] 8.9 mg/dL 8.6 - 10.3 [employer] [place] [facility] Work Phone: Chloride [Moles/Vol] 106 mmol/L 98 - 107 [facility] [place] [facility] Work Phone: CO2 [Moles/Vol] 27 mmol/L 21 - [address] [facility] [place] [facility] Work Phone: Creatinine [Mass/Vol] 0.80 mg/dL See Below [facility] [place] [facility] Work Phone: Comment on above: Reference Range: 0.5 0 - 1.05 Glucose [Mass/Vol] 90 mg/dL 74 - 99 [facility] Work Phone: Potassium [Moles/Vol] 4.0 mmol/L 3.5 - 5.3 [facility] Work Phone: Protein [Mass/Vol] 6.8 g/dL 6.4 - 8.2 [facility] Work Phone: Sodium [Moles/Vol] 140 mmol/L 136 - 145 [facility] Work Phone: Urea nitrogen [Mass/Vol] 6 mg/dL 6 - 23 [facility] Work Phone: No Panel Informationon 12-31 >90 >90 [facility] Work Phone: Comment on above: CALCULATIONS OF RAUDEL MATED GFR ARE PERFORMED USING THE 2020 CKD-EPI STUDY REFIT EQUATION WITHOUT THE RACE VARIABLE FOR THE IDMS-TRACEABLE CREATININE METHODS.https://jasn.asnjournals.org/content//ASN.2 865961922 Negative Negative [facility] Work Phone: Comment on above: Performed By: ELROY [address] [place], [place] [address]Ssqszodzaf Director: Zachery Foss MD, PhD SOURCE: Performed By : ELROY [address] [place], [place] [address]Ydfocotlqd Director: Zachery Foss MD, PhD SEDIMENTATION RATE, ERYTHROC YTEon 12-31-2021 SEDIMENTATION RATE, ERYTHROCYTE 13 mm/h Normal 0 - 20 [facility] Comment on above: Performed By: #### E SRWS #### [facility] [address] [place] [address] STOOL PATHOGEN PCR PANELon 0 12-31-2021 Lab Specimen Source Normal [facility] Comment on above: Performed By: #### S TLPP #### [facility] [address] [place] [address] Performed By: #### C ITAB #### [facility] [address] [place] [address] Campylobacter sp DNA.diarrheagenic ORLY+probe Ql (Stl) Not detected See Below [facility] Work Phone: [phone] Comment on above: Reference Range: NOT DETECTED E. coli stx1 gene ORLY+probe Ql (Unsp spec) Not detected See Below [facility] Work Phone: Comment on above: Reference Range: NOT DETECTED E. coli stx2 gene ORLY+probe Ql (Unsp spec) Not detected See Below [facility] Work Phone: Comment on above: Reference Range: NOT DETECTED Norovirus genogroup I and II RNA ORLY+probe Nom (Stl) Not detected See Below [facility] Work Phone: Comment on above: Reference Range: NOT DETECTED Rotavirus RNA ORLY+probe Nom (Stl) Not detected See Below [facility] Work Phone: Comment on above: Reference Range: NOT DETECTED The enteric PCR panel is a panel of sensitive and specific amplified nucleic acid tests indicated as an aid in the diagnosis of specific bacterial and viral agents of gastrointestinal illness, in conjunction with other clinical, laboratory, and epidemiological information. This test is not approved for monitoring these infections. Monitoring is available for Salmonella and Shigella infections-request test Stool PCR Follow-Up (STLPF). Monitoring tests are not available at this time for other enteric agents in this panel. Shigella sp DNA ORLY+probe Ql (Unsp spec) Not detected See Below [facility] Work Phone: [phone] Comment on above: Reference Range: NOT DETECTED Vibrio sp DNA ORLY+probe Nom (Unsp spec) Not detected See Below [facility] Work Phone: Comment on above: Reference Range: NOT DETECTED Yersinia sp DNA ORLY+probe Nom (Unsp spec) Not detected See Below [facility] Work Phone: [phone] Comment on above: SOURCE: Reference Ra nge: NOT DETECTED STOOL PATHOGEN PCR PANEL Not detected See Below [facility] Work Phone: Comment on above: Reference Range: NOT DETECTED Sedimentation Rate, Erythroc yteon 12-31-2021 ESR (Bld) [Velocity] 13 mm/h 0 - 20 [facility] Work Phone: [phone] Office Visit (Primary Care T xt/Forms)on 12-29-2021 Follow-up visit Diagnoses/Problems Assessed Low vitamin B12 level (266.2) (E53.8) Rectal bleeding (569.3) (K62.5) Diarrhea of presumed infectious origin (009.3) (R19.7) Nausea and vomiting (787.01) (R11.2) Orders Diarrhea of presumed infectious origin, Nausea and vomiting, Rectal bleeding C Reactive Protein, Serum; Status:Active; Requested for:29Dec2021; Gastroenterology Referral Evaluation and Treatment Evaluate AND Treat for bloody diarreha Status: Hold For - Scheduling Requested for: 29Dec2021 CLOST DIFF. TOXIN, PCR; Status:Active; Requested for:29Dec2021; Complete Blood Count + Differential; Status:Active; Requested for:29Dec2021; Comprehensive Metabolic Panel; Status:Active; Requested for:29Dec2021; Giardia/Cryptosporidium; Status:Active; Requested for:29Dec2021; Sedimentation Rate, Erythrocyte; Status:Active; Requested for:29Dec2021; STOOL PATHOGEN PCR PANEL; Status:Active; Requested for:[id number]; Low vitamin B12 level Administered: Cyanocobalamin 1000 MCG/ML Injection Solution Patient Discussion/Summary Follow-up as needed, get stool testing done and blood testing, we will have you see GI as well Provider Impressions Provider Impressions Free Text Note Form: Patient seen today for evaluation of a 1 month history of increasing abdominal pain in the left lower quadrant, frequent bloody stools that are watery and loose, bloating cramping nausea vomiting, trouble eating things. Some chills and sweats, does have a history of C. difficile in the past and not been on antibiotics in the past 2 months. Patient has been having a hard time going to work because she does not feel well, is having hard time eating things, weight seems to be stable, examination reveals some tenderness over the left lower quadrant with some mild guarding but no rebound. We will check stool studies, check CBC CMP inflammation markers refer to GI for possible colonoscopy need, advised about diet and fluids follow-up as needed. Chief Complaint ABD PAIN DIARRHEA X1MO History of Present Illness 4 weeks, worse in the past month, having loose stools, N/V, after eating, pain in LLQ, eating only once a day BM more than 6 a day, watery, + blood in stool, some chills and sweats, no ABX in the past 2 months, Hx of C.DIff in the past (8 years ago) + burping and belching, some refux, some bad taste in mouth some pain in low back having trouble working due to diarrhea and pain Review of Systems Constitutional: NAD, no fevers, chills, sweats or fatigue Rep: no cough or shortness of breath Cardio: no chest pain, edema, or palpitations GI: no nausea, vomiting, diarrhea, constipation, or heartburn : normal urine flow and stream, no nocturia or dysuria MS: no joint pain or significant limits of function Skin: no visible rashes or suspicious lesions Neuro: alert and oriented X4, no numbness, tingling or issues with balance Psych: no anxiety or depression 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) Arthralgia (719.40) (M25.50) Chronic low back pain (724.2,338.29) (M54.50,G89.29) Contraception management (V25.9) (Z30.9) Diarrhea of presumed infectious origin (009.3) (R19.7) DJD (degenerative joint disease) (715.90) (M19.90) Encounter for Papanicolaou smear of cervix (V76.2) (Z12.4) Fatigue (780.79) (R53.83) Fibromyalgia (729.1) (M79.7) GERD (gastroesophageal reflux disease) (530.81) (K21.9) Hip pain, left (719.45) (M25.552) Hyperglycemia (790.29) (R73.9) IBS (irritable bowel syndrome) (564.1) (K58.9) Inflammation of left sacroiliac joint (720.2) (M46.1) Insomnia (780.52) (G47.00) Low vitamin B12 level (266.2) (E53.8) Menorrhagia (626.2) (N92.0) Numbness and tingling of right arm (782.0) (R20.0,R20.2) Osteoarthritis (715.90) (M19.90) Osteophyte of hip (726.5) (M25.759) PCOD (polycystic ovarian disease) (256.4) (E28.2) Rectal bleeding (569.3) (K62.5) 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) Sebaceous cyst (706.2) (L72.3) Women's annual routine gynecological examination (V72.31) (Z01.419) Past Medical History Problems History of Date of last menstrual period (LMP) unknown (V49.89) (Z78.9) History of Delivery of by section (669.70) (O82) History of diarrhea (V12.79) (Z87.898) History of Menstruation History of Pap test, as part of routine gynecological examination (V76.2) (Z01.419) Surgical History Problems History of Breast biopsy History of section History of Colonoscopy Family History Mother Family history of diabetes mellitus (V18.0) (Z83.3) Father Family history of diabetes mellitus (V18.0) (Z83.3) Family history of myocardial infarction (V17.3) (Z82.49) Sister Family history of Primary malignant neoplasm of female genital organ Brother Family history of colonic polyps (V18.51) (Z83.71) Social History Problems Current every day smoker (305.1) (F17.200) Denies alcohol consumption (V49.89) (Z78.9) (more content not included)... Normal [facility] Tobacco Screening.on 022 Adult depression screening assessment No [facility] Work Phone: Fall risk assessment b) One or more falls in the last year [facility] Work Phone: Tobacco use status CPHS a) Yes [facility] Work Phone: Tobacco Screening. Yes [facility] Work Phone: Office Visit (Primary Care T xt/Forms)on 09-16-2021 Follow-up visit Diagnoses/Problems Assessed Low vitamin B12 level (266.2) (E53.8) Orders Low vitamin B12 level Administered: Cyanocobalamin 1000 MCG/ML Injection Solution Complete Blood Count + Differential; Status:Active; Requested for:[id number]; Comprehensive Metabolic Panel; Status:Active; Requested for:[id number]; Vitamin B12, Serum; Status:Active; Requested for:[id number]; Patient Discussion/Summary Follow-up in 6 months with blood testing prior for B12 deficiency Provider Impressions Provider Impressions Free Text Note Form: Patient arrives to the office today for follow-up and chronic medical issues. Laboratory testing was reviewed with patient, everything seems normal except very low vitamin B12 level. Patient is felt much much better since starting B12 replacement, will continue with B12 replacement and recheck in 6 months. Patient's joint pain, fatigue and GI issues have all since resolved. Some numbness and tingling in her right hand was advised to use a cock up wrist splint at night, she has an EMG test that is pending, x-ray of the cervical spine was negative. Patient was advised about smoking cessation follow-up in 6 months. Chief Complaint 1 MO F/U ELBOW PAIN FATIGUE History of Present Illness No headache, chest pain, shortness of breath, dizziness, lightheadedness, or edema B12 injections have helped reduce aches, pains, diarrhea has improved, right arm N/T improved, tolerable pain not needing to use diclofenac gel or NSAIDs Review of Systems Constitutional: NAD, no fevers, chills, sweats or fatigue Rep: no cough or shortness of breath Cardio: no chest pain, edema, or palpitations GI: no nausea, vomiting, diarrhea, constipation, or heartburn : normal urine flow and stream, no nocturia or dysuria MS: no joint pain or significant limits of function Skin: no visible rashes or suspicious lesions Neuro: alert and oriented X4, no numbness, tingling or issues with balance Psych: no anxiety or depression 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) Arthralgia (719.40) (M25.50) Chronic low back pain (724.2,338.29) (M54.50,G89.29) Contraception management (V25.9) (Z30.9) Diarrhea of presumed infectious origin (009.3) (R19.7) DJD (degenerative joint disease) (715.90) (M19.90) Encounter for Papanicolaou smear of cervix (V76.2) (Z12.4) Fatigue (780.79) (R53.83) Fibromyalgia (729.1) (M79.7) GERD (gastroesophageal reflux disease) (530.81) (K21.9) Hip pain, left (719.45) (M25.552) Hyperglycemia (790.29) (R73.9) IBS (irritable bowel syndrome) (564.1) (K58.9) Inflammation of left sacroiliac joint (720.2) (M46.1) Insomnia (780.52) (G47.00) Low vitamin B12 level (266.2) (E53.8) Menorrhagia (626.2) (N92.0) Numbness and tingling of right arm (782.0) (R20.0,R20.2) Osteoarthritis (715.90) (M19.90) Osteophyte of hip (726.5) (M25.759) PCOD (polycystic ovarian disease) (256.4) (E28.2) Rectal bleeding (569.3) (K62.5) 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) Sebaceous cyst (706.2) (L72.3) Women's annual routine gynecological examination (V72.31) (Z01.419) Past Medical History Problems History of Date of last menstrual period (LMP) unknown (V49.89) (Z78.9) History of Delivery of by section (669.70) (O82) History of diarrhea (V12.79) (Z87.898) History of Menstruation History of Pap test, as part of routine gynecological examination (V76.2) (Z01.419) Surgical History Problems History of Breast biopsy History of section History of Colonoscopy Family History Mother Family history of diabetes mellitus (V18.0) (Z83.3) Father Family history of diabetes mellitus (V18.0) (Z83.3) Family history of myocardial infarction (V17.3) (Z82.49) Sister Family history of Primary malignant neoplasm of female genital organ Brother Family history of colonic polyps (V18.51) (Z83.71) Social History Problems Current every day smoker (305.1) (F17.200) Denies alcohol consumption (V49.89) (Z78.9) Does not have living will Does not use illicit drugs (V49.89) (Z78.9) Feels safe at home Sexually active Current Meds Medication NameInstruction Diclofenac Sodium 1 % External Gel1 CAMELIA, TOPICAL, QID FOR PAIN Levonorgest-Eth Estrad -Day 0.15-0.03 MG Oral TabletTAKE 1 TABLET BY MOUTH EVERY DAY Allergies Medication Ancef Flagyl Vitals Vital Signs Recorded: 16Sep2021 02:48PM Heart Rate: 70 Systolic: 100 Diastolic: 60 Height: 5 ft 10 in Weight: 198 lb 2 oz BMI Calculated: 28.43 kg/m2 BSA Calculated: 2.08 O2 Saturation: 98 Physical Exam Gen: Alert and oriented, no acute distress HEENT: normal TMs/external ear, conjunctiva normal, PERRLA/EOMI, neck supple, no lymphadenopathy or thyromegaly Resp: clear to auscultation, no audible wheezes, rales, or rhonchi, normal chest movement Cardio: regular rate and rhythm, no murmur, clicks or gallops heard, normal peripheral pulses, no (more content not included)... Normal [facility] Radiologyon 09-12-2021 XR Cervical spine 4 Views Normal [facility] Work Phone: SPINE, CERVICAL MIN 4 VIEWSo n 09-12-2021 SPINE, CERVICAL MIN 4 VIEWS Patient Name: PAULA MCCORMICK STUDY: Cervical spine, 6 views. INDICATION: right arm pain R20.0: Numbness and tingling of right arm R20.2:. COMPARISON: Cervical spine CT dated 01/29/2020 2. ACCESSION NUMBER(S): [id number] ORDERING CLINICIAN: EVERETT CUTLER FINDINGS: Alignment is within normal limits. Disc heights are well preserved. Vertebral body heights are preserved. Posterior elements are intact. No significant osseous foraminal stenosis. Open-mouth odontoid views unremarkable. Prevertebral soft tissues are unremarkable. IMPRESSION: 1. Unremarkable cervical spine radiographs. Electronically signed by: JADE KEITA MD Normal [facility] MAIDA-WITH REFLEX TO ENAon MAIDA WITH REFLEX TO URSULA Negative Normal NEGATIVE [facility] Comment on above: Result Comment: The Antinuclear Antibody (MAIDA) test was performed using indirect immunofluorescence assay with HEp-2 cells slide. Performed By: #### C ITAB #### [facility] [address] [place] [address] CITRULLINE ANTIBODYon 2021 CITRULLINE ANTIBODY <1 Normal [facility] Comment on above: Result Comment: THE TEST FOR ANTIBODIES SPECIFIC FOR CYCLIC CITRULLINATED PEPTIDE (CCP) HAS SHOWN TO BE VALUABLE IN THE DIAGNOSIS OF RHEUMATOID ARTHRITIS. THE DIAGNOSTIC VALUE OF ANTIBODIES TO CCP IN JUVENILE RHEUMATOID ARTHRITIS PATIENTS HAS NOT BEEN DETERMINED. ANTIBODIES TO CENTROMERE OR SS-A AND MYELOMA IGG MAY BE REACTIVE IN THIS ASSAY. REF VALUES NEGATIVE < 3 U/ML POSITIVE >=3 U/ML Performed By: #### C ITAB #### [facility] [address] [place] [address] RHEUMATOID FACTORon 08-21-19 RHEUMATOID FACTOR <10 Normal 0 - 15 [facility] [place] Comment on above: Performed By: #### C ITAB #### [facility] [address] [place] [address] CBC AND DIFFERENTIALon 08-19 Basophils (Bld) [#/Vol] 0.00 10*3/uL Normal 0.00 - 0.10 [facility] Comment on above: Performed By: #### C ITAB #### [facility] [address] [place] [address] Basophils/100 WBC (Bld) 0.6 % Normal 0.0 - 2.0 [facility] Comment on above: Performed By: #### C ITAB #### [facility] [address] [place] [address] Eosinophils (Bld) [#/Vol] 0.10 10*3/uL Normal 0.00 - 0.70 [facility] Comment on above: Performed By: #### C ITAB #### [facility] [address] [place] [address] Eosinophils/100 WBC (Bld) 1.5 % Normal 0.0 - 6.0 [facility] Comment on above: Performed By: #### C ITAB #### [facility] [address] [place] [address] Erythrocyte distribution width (RBC) [Ratio] 13.3 % Normal 11.5 - 14.5 [facility] Comment on above: Performed By: #### C ITAB #### [facility] [address] [place] [address] Hematocrit (Bld) [Volume fraction] 45.9 % Normal 36.0 - 46.0 [facility] Comment on above: Performed By: #### C ITAB #### [facility] [address] [place] [address] Hemoglobin (Bld) [Mass/Vol] 15.3 g/dL Normal 12.0 - 16.0 [facility] Comment on above: Performed By: #### C ITAB #### [facility] [address] [place] [address] Lymphocytes (Bld) [#/Vol] 2.30 10*3/uL Normal 1.20 - 4.80 [facility] Comment on above: Performed By: #### C ITAB #### [facility] [address] [place] [address] Lymphocytes/100 WBC (Bld) 33.0 % Normal 13.0 - 44.0 [facility] Comment on above: Performed By: #### C ITAB #### [facility] [address] [place] [address] MCHC (RBC) [Mass/Vol] 33.4 g/dL Normal 32.0 - 36.0 [facility] Comment on above: Performed By: #### C ITAB #### [facility] [address] [place] [address] MCV (RBC) [Entitic vol] 100 fL Normal 80 - 100 [facility] Comment on above: Performed By: #### C ITAB #### [facility] [address] [place] [address] Monocytes (Bld) [#/Vol] 0.50 10*3/uL Normal 0.10 - 1.00 [facility] Comment on above: Performed By: #### C ITAB #### [facility] [address] [place] [address] Monocytes/100 WBC (Bld) 6.9 % Normal 2.0 - 10.0 [facility] Comment on above: Performed By: #### C ITAB #### [facility] [address] [place] [address] Neutrophils (Bld) [#/Vol] 4.00 10*3/uL Normal 1.20 - 7.70 [facility] Comment on above: Result Comment: Perc ent differential counts (%) should be interpreted in the context of the absolute cell counts (cells/L). Performed By: #### C ITAB #### [facility] [address] [place] [address] Neutrophils/100 WBC (Bld) 58.0 % Normal 40.0 - 80.0 [facility] Comment on above: Performed By: #### C ITAB #### [facility] [address] [place], [place] NUCLEATED RBC 0.1 /100 WBC Normal [facility] Comment on above: Performed By: #### C ITAB #### [facility] [address] [place] [address] Platelets (Bld) [#/Vol] 330 10*3/uL Normal 150 - 450 [facility] Comment on above: Performed By: #### C ITAB #### [facility] [address] [place] [address] RBC 4.61 x10E12/L Normal 4.00 - 5.20 [facility] Comment on above: Performed By: #### C ITAB #### [facility] [address] [place] [address] WBC (Bld) [#/Vol] 6.9 10*3/uL Normal 4.4 - 11.3 [facility] Comment on above: Performed By: #### C ITAB #### [facility] [address] [place] [address] COMPREHENSIVE PANELon 2021 Albumin [Mass/Vol] 4.5 g/dL Normal 3.4 - 5.0 [facility] Comment on above: Performed By: #### C ITAB #### [facility] [address] [place] [address] ALP [Catalytic activity/Vol] 42 U/L Normal 33 - 110 [facility] Comment on above: Performed By: #### C ITAB #### [facility] [address] [place] [address] ALT [Catalytic activity/Vol] 6 U/L Low 7 - 45 [facility] Comment on above: Result Comment: Manuela ents treated with Sulfasalazine may generate falsely decreased results for ALT. Performed By: #### C ITAB #### [facility] [address] [place] [address] Anion gap [Moles/Vol] 10 mmol/L Normal 10 - 20 [facility] Comment on above: Performed By: #### C ITAB #### [facility] [address] [place] [address] AST [Catalytic activity/Vol] 12 U/L Normal 9 - 39 [facility] Comment on above: Performed By: #### C ITAB #### [facility] [address] [place] [address] Bilirubin [Mass/Vol] 0.4 mg/dL Normal 0.0 - 1.2 [facility] Comment on above: Performed By: #### C ITAB #### [facility] [address] [place] [address] Calcium [Mass/Vol] 9.1 mg/dL Normal 8.6 - 10.3 [facility] Comment on above: Performed By: #### C ITAB #### [facility] [address] [place] [address] Chloride [Moles/Vol] 106 mmol/L Normal 98 - 107 [facility] Comment on above: Performed By: #### C ITAB #### [facility] [address] [place] [address] Creatinine [Mass/Vol] 0.66 mg/dL Normal 0.50 - 1.05 [facility] Comment on above: Performed By: #### C ITAB #### [facility] [address] [place] [address] eGFR FEMALE >90 Normal >90 [facility] Comment on above: Result Comment: CALC ULATIONS OF ESTIMATED GFR ARE PERFORMED USING THE 2020 CKD-EPI STUDY REFIT EQUATION WITHOUT THE RACE VARIABLE FOR THE IDMS-TRACEABLE CREATININE METHODS. https://jasn.asnjournals.org/content/early//ASN.500694296 8 Performed By: #### C ITAB #### [facility] [address] [place] [address] Glucose [Mass/Vol] 85 mg/dL Normal 74 - 99 [facility] Comment on above: Performed By: #### C ITAB #### [facility] [address] [place] [address] HCO3 (Bld) [Moles/Vol] 28 mmol/L Normal 21 - 32 [facility] Comment on above: Performed By: #### C ITAB #### [facility] [address] [place] [address] Potassium [Moles/Vol] 4.0 mmol/L Normal 3.5 - 5.3 [facility] Comment on above: Performed By: #### C ITAB #### [facility] [address] [place] [address] Protein [Mass/Vol] 6.9 g/dL Normal 6.4 - 8.2 [facility] Comment on above: Performed By: #### C ITAB #### [facility] [address] [place] [address] Sodium [Moles/Vol] 140 mmol/L Normal 136 - 145 [facility] Comment on above: Performed By: #### C ITAB #### [facility] [address] [place] [address] Urea nitrogen [Mass/Vol] 6 mg/dL Normal 6 - 23 [facility] Comment on above: Performed By: #### C ITAB #### [facility] [address] [place] [address] Citrulline Antibodyon 2021 Cyclic citrullinated peptide IgG Qn <1 -[facility] Work Phone: [phone] Comment on above: THE TEST FOR ANTIBOD IES SPECIFIC FOR CYCLICCITRULLINATED PEPTIDE (CCP) HAS SHOWN TO BEVALUABLE IN THE DIAGNOSIS OF RHEUMATOIDARTHRITIS. THE DIAGNOSTIC VALUE OFANTIBODIES TO CCP IN JUVENILE RHEUMATOIDARTHRITIS PATIENTS HAS NOT BEEN DETERMINED.ANTIBODIES TO CENTROMERE OR SS-A AND MYELOMA IGG MAY BE REACTIVE IN THIS ASSAY. REF VALUES NEGATIVE < 3 U/ML POSITIVE >=3 U/ML Complete Blood Count + Diffe rentialon 08-19-2021 Basophils/100 WBC (Bld) 0.6 % 0.0 - 2.0 [facility] Work Phone: [phone] Erythrocyte distribution width (RBC) [Ratio] 13.3 % See Below [facility] Work Phone: [phone] Comment on above: Reference Range: 11. 5 - 14.5 Hematocrit (Bld) [Volume fraction] 45.9 % See Below [facility] Work Phone: [phone] Comment on above: Reference Range: 36. 0 - 46.0 Hemoglobin (Bld) [Mass/Vol] 15.3 g/dL See Below [facility] Work Phone: [phone] Comment on above: Reference Range: 12. 0 - 16.0 Lymphocytes/100 WBC (Bld) 33.0 % See Below [facility] Work Phone: [phone] Comment on above: Reference Range: 13. 0 - 44.0 MCHC (RBC) [Mass/Vol] 33.4 g/dL See Below [facility] Work Phone: [phone] Comment on above: Reference Range: 32. 0 - 36.0 MCV (RBC) [Entitic vol] 100 fL 80 - 100 [facility] Work Phone: [phone] Monocytes/100 WBC (Bld) 6.9 % 2.0 - 10.0 [facility] [place] Work Phone: Neutrophils/100 WBC (Bld) 58.0 % See Below [facility] Work Phone: [phone] Comment on above: Reference Range: 40. 0 - 80.0 Platelets (Bld) [#/Vol] 330 10*3/uL 150 - 450 [facility] Work Phone: [phone] RBC (Bld) [#/Vol] 4.61 {x10E12/L} See Below [facility] [place] Work Phone: [phone] Comment on above: Reference Range: 4.0 0 - 5.20 WBC (Bld) [#/Vol] 6.9 10*3/uL 4.4 - 11.3 [facility] Work Phone: [phone] Complete Blood Count + Differential 0.00 {x10E9/L} See Below [facility] [place] [facility] Work Phone: [phone] Comment on above: Reference Range: 0.0 0 - 0.10 Complete Blood Count + Differential 0.10 {x10E9/L} See Below [facility] Work Phone: [phone] Comment on above: Reference Range: 0.0 0 - 0.70 Complete Blood Count + Differential 0.50 {x10E9/L} See Below [facility] [place] [facility] Work Phone: [phone] Comment on above: Reference Range: 0.1 0 - 1.00 Complete Blood Count + Differential 2.30 {x10E9/L} See Below [facility] Work Phone: [phone] Comment on above: Reference Range: 1.2 0 - 4.80 Complete Blood Count + Differential 4.00 {x10E9/L} See Below [facility] Work Phone: [phone] Comment on above: Reference Range: 1.2 0 - 7.70 Percent differential counts (%) should be interpreted in the context of the absolute cell counts (cells/L). Complete Blood Count + Differential 1.5 % 0.0 - 6.0 [facility] Work Phone: [phone] Complete Blood Count + Differential 0.1 {/100_WBC} [facility] Work Phone: [phone] Laboratory - Chemistry and C hemistry - challengeon 08-19-2021 Albumin BCP dye [Mass/Vol] 4.5 g/dL 3.4 - 5.0 [facility] Work Phone: [phone] ALP [Catalytic activity/Vol] 42 U/L 33 - 110 [facility] Work Phone: [phone] ALT With P-5'-P [Catalytic activity/Vol] 6 U/L below low threshold 7 - 45 [facility] Work Phone: [phone] Comment on above: Patients treated wit h Sulfasalazine may generate falsely decreased results for ALT. Anion gap [Moles/Vol] 10 mmol/L 10 - 20 [facility] Work Phone: AST With P-5'-P [Catalytic activity/Vol] 12 U/L 9 - 39 [facility] Work Phone: Bilirubin [Mass/Vol] 0.4 mg/dL 0.0 - 1.2 [facility] Work Phone: Calcium [Mass/Vol] 9.1 mg/dL 8.6 - 10.3 [facility] [place] [facility] Work Phone: Chloride [Moles/Vol] 106 mmol/L 98 - 107 [facility] Work Phone: CO2 [Moles/Vol] 28 mmol/L 21 - [address] [facility] Work Phone: Creatinine [Mass/Vol] 0.66 mg/dL See Below [facility] [place] [facility] Work Phone: [phone] Comment on above: Reference Range: 0.5 0 - 1.05 Glucose [Mass/Vol] 85 mg/dL 74 - 99 [facility] [place] [facility] Work Phone: [phone] Potassium [Moles/Vol] 4.0 mmol/L 3.5 - 5.3 [facility] [place] [facility] Work Phone: Protein [Mass/Vol] 6.9 g/dL 6.4 - 8.2 [facility] Work Phone: Sodium [Moles/Vol] 140 mmol/L 136 - 145 [facility] Work Phone: Urea nitrogen [Mass/Vol] 6 mg/dL 6 - 23 [facility] Work Phone: [phone] Laboratory - Serology - non- microon 08-19-2021 Nuclear Ab Hep2 substrate Ql (S) Negative NEGATIVE [facility] Work Phone: Comment on above: The Antinuclear Anti body (MAIDA) test was performed using indirect immunofluorescence assay with HEp-2 cells slide. No Panel Informationon 08-19 >90 >90 [facility] Work Phone: Comment on above: CALCULATIONS OF RAUDEL MATED GFR ARE PERFORMED USING THE 2020 CKD-EPI STUDY REFIT EQUATION WITHOUT THE RACE VARIABLE FOR THE IDMS-TRACEABLE CREATININE METHODS.https://jasn.asnjournals.org/content//ASN.2 151878229 Office Visit (Primary Care T xt/Forms)on 08-19-2021 Follow-up visit Diagnoses/Problems Assessed Numbness and tingling of right arm (782.0) (R20.0,R20.2) GERD (gastroesophageal reflux disease) (530.81) (K21.9) IBS (irritable bowel syndrome) (564.1) (K58.9) PCOD (polycystic ovarian disease) (256.4) (E28.2) Arthralgia (719.40) (M25.50) Fatigue (780.79) (R53.83) Orders Arthralgia, PCOD (polycystic ovarian disease) MAIDA-WITH REFLEX TO URSULA; Status:Active; Requested for:19Aug2021; Citrulline Antibody; Status:Active; Requested for:[id number]; Rheumatoid Factor, Serum or Plasma; Status:Active; Requested for:19Aug2021; Sedimentation Rate, Erythrocyte; Status:Active; Requested for:04Mhr2680; Fatigue, PCOD (polycystic ovarian disease) Complete Blood Count + Differential; Status:Active; Requested for:19Aug2021; Comprehensive Metabolic Panel; Status:Active; Requested for:[id number]; TSH - Thyroid Stimulating Hormone, Serum; Status:Active; Requested for:[id number]; Vitamin B12, Serum; Status:Active; Requested for:24Dfy0345; Numbness and tingling of right arm Start: Diclofenac Sodium 1 % External Gel; 1 CAMELIA, TOPICAL, QID FOR PAIN EMG and Nerve Conduction; Status:Hold For - Scheduling; Requested for:19Aug2021; Electrodiagnostic Physician to determine whether Neuromuscular Ultrasound to be performed for optimal study : Yes Electrodiagnostic Physician to determine optimal study : Yes Patient is unable to stand or is >300lbs? : No Additional Clinical Information: : right arm N/T Laterality : Right EMG Indication : Cervical Radiculopathy Start: predniSONE 10 MG Oral Tablet; TAKE 4 TABLETS DAILY FOR 3 DAYS,3 TABLETS DAILY FOR 3 DAYS, 2 TABLETS DAILY FOR 3 DAYS AND 1 TABLET DAILY FOR 3 DAYS, THEN STOP Xray Cervical Spine Min 4 View; Status:Hold For - Scheduling; Requested for:[id number]; Radiologist to Determine Optimal Study : Y What are the patient's signs and symptoms? : right arm pain SocHx: Current every day smoker Tobacco Use Screening; Status:Complete; Done: [id number] Unlinked Temporarily Stop: Influenza, seasonal, injectable Patient Discussion/Summary Follow-up in 1 month for elbow pain and fatigue, use Prednisone in AM with food and diclofenac gel to elbow as needed, use your brace and get x-ray of neck and nerve testing of the arm done. Provider Impressions Provider Impressions Free Text Note Form: Patient presents to the office today to reestablish as a new patient, had been seen several years ago transferred care due to insurance issues. Patient has chronic issues with aches and pains and was seen by talent consultant several years ago was given a diagnosis of fibromyalgia, presents today with specific pain in her right arm describes numbness and tingling involving the arm, keeping her up at night. We will check an x-ray of her cervical spine along with an EMG nerve conduction study of the right arm, is given a prednisone prescription for the next 10 days to taper along with diclofenac gel to use as needed. We will go ahead and get a set of rheumatologic blood tests along with other baseline blood test, has chronic GI issues including nausea vomiting intermittent diarrhea and bloating, had history of difficult to treat C. difficile colitis in the past. Does have formed stools at times, had a colonoscopy done several years ago, will need to reevaluate for GI issues at follow-up but was advised about probiotics and fiber.'s up-to-date on health screening testing, advised about tobacco use, recheck again in 1 month. Chief Complaint NPV, R ELBOW PAIN WORSENING X 2 MO History of Present Illness Had pap in June No headache, chest pain, shortness of breath, dizziness (prior to emises), lightheadedness, or edema some bloating and gas, no diarrhea, some IBS issues, some nausea gets HF often and dizzy at times right arm N/T mid arm to fingers, sensitive to touch, some swelling at elbow, using a brace, has been an issue for years, worse in the past 2 months, + weakness at times Review of Systems Constitutional: NAD, no fevers, chills, sweats or fatigue Rep: no cough or shortness of breath Cardio: no chest pain, edema, or palpitations GI: no nausea, vomiting, diarrhea, constipation, or heartburn : normal urine flow and stream, no nocturia or dysuria MS: no joint pain or significant limits of function Skin: no visible rashes or suspicious lesions Neuro: alert and oriented X4, no numbness, tingling or issues with balance Psych: no anxiety or depression 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 Normal [facility] Rheumatoid Factor, Serum or Plasmaon 08-19-2021 Rheumatoid factor Nephelometry Qn (S) <10 0 - 15 [facility] Work Phone: SEDIMENTATION RATE, ERYTHROC YTEon 08-19-2021 SEDIMENTATION RATE, ERYTHROCYTE 8 mm/h Normal 0 - 20 [facility] Comment on above: Performed By: #### C ITAB #### [facility] [address] [place] [address] Sedimentation Rate, Erythroc yteon 08-19-2021 ESR (Bld) [Velocity] 8 mm/h 0 - 20 [facility] Work Phone: TSHon 08-19-2021 TSH Qn 1.22 m[IU]/L Normal 0.44 - 3.98 [facility] [place] Comment on above: Result Comment: TSH testing is performed using different testing methodology at [facility] than at other [facility]. Direct result comparisons should only be made within the same method. Performed By: #### T SH2 #### [address] [address] TSH - Thyroid Stimulating Ho rmone, Serumon 08-19-2021 TSH Qn 1.22 m[IU]/L See Below [employer] [employer] [place] [facility] Work Phone: [phone] Comment on above: Reference Range: 0.4 4 - 3.98 TSH testing is performed using different testing methodology at [facility] than at other [facility]. Direct result comparisons should only be made within the same method. Tobacco Screening.on Adult depression screening assessment No [facility] Work Phone: [phone] Fall risk assessment a) No falls within the last year [facility] Work Phone: [phone] Tobacco use status CPHS a) Yes [facility] Work Phone: [phone] Tobacco Screening. Yes [employer] [facility] [place] [facility] Work Phone: VITAMIN B12on 08-19-2021 Cobalamin (Vitamin B12) [Mass/Vol] 126 pg/mL Low 211 - 911 [facility] Comment on above: Performed By: #### V TB12 #### [address] [address] Vitamin B12, Serumon 022 Cobalamin (Vitamin B12) [Mass/Vol] 126 pg/mL below low threshold 211 - 911 [facility] Work Phone: Laboratory - Cytologyon 06-22 Cytology report Cyto stain.thin prep Doc (Cvx/Vag) [facility] [employer] Work Phone: [phone] Tobacco Screening.on Last menstrual period start date 24May2021 [facility] Work Phone: [phone] Tobacco use status CPHS a) Yes [facility] [employer] Work Phone: Tobacco Screening. Yes [facility] Work Phone: Covid 19 Resultson 1 SARS-CoV-2 (COVID-19) RNA ORLY+probe Ql (Unsp spec) NEGATIVE COVID-19 Test Coronaviruses are common world-wide and are the cause of many common colds. SARS-COV2 is a new coronavirus that began circulating worldwide in 2019 so we are calling it COVID-19. It has been estimated that four out of five patients with COVID-19 will recover at home without the need for medical attention. Symptoms of COVID-19 may include cough, fever, shortness of breath, loss of taste or smell and other flu-like symptoms including chills, sore muscles, sore throat, and headache. Severe illness is more common in older people and people with other health problems such as high blood pressure, obesity, and immune system problems. If the test is positive, you have COVID-19. You will be contacted by the ordering physicians office and instructed to remain on home isolation, in accordance with CDC guidelines. You may also be contacted by the [facility] to see if any of your close contacts may have been exposed to the virus and need to quarantine. If the test is negative, you likely do not have COVID-19 at this time, but you still may have a different illness that can spread to other people (like Influenza, or the Flu) and could still be at risk for getting COVID-19. We recommend that you stay away from other people to limit the spread of illness until your symptoms are improving and you are fever-free for 24 hours without the use of fever lowering medications such as acetaminophen or ibuprofen. No test is 100% accurate so if you are still concerned you may have COVID-19, talk to your doctor about the need to continue to stay away from others. Medicines Unless your provider told you not to use the following: Acetaminophen (Tylenol and others) is generally safe. Anti-inflammatory medications, such as Ibuprofen (Advil or Motrin) or Naproxen (Aleve) can also be used. Ouwf-enz-cslxizy cough and cold medicines can be used according to the instructions on the package. Some mcnb-osd-vfyjogn medicines also contain acetaminophen. Make sure you are not taking more than your recommended dose. For those not hospitalized, there is no specific treatment available for this illness. Antibiotics do not treat Coronaviruses. Follow-Up Follow up with your doctor by scheduling a virtual visit or consider follow-up at one of our urgent care fever clinics. If you are having difficulty breathing, or are very weak and having difficulty standing, this is a medical emergency. Call 911 or have someone take you to the nearest emergency room immediately. If possible, wear a facemask. Additional guidance from the CDC for patients who tested POSITIVE for COVID-19 How to isolate: Isolate yourself in a specific room at home and limit your contact with others. Use a separate bathroom from other members of the household, when possible. Leave home only to get essential medical care. Do not go to work, school or public areas. Avoid using public transportation, ride-sharing, or taxis. Restrict contact with pets and other animals. If you must care for your pet or be around animals while you are sick, wash your hands before and after your interaction and wear a facemask. Make sure that shared spaces in the home have good airflow, such as by an air conditioner or an opened window, weather permitting. Personal Hygiene Procedures: Wear a face mask when in the same room as other people or pets. If a face mask interferes with your breathing, others should wear a mask when sharing space with you. Frequent hand-washing: wash your hands with soap and water for at least 20 seconds. If soap and water are not available, use alcohol-based hand gym instructor. Avoid touching your eyes, nose, and mouth with unwashed hands. Household Hygiene Procedures: Avoid sharing personal household items such as dishes, glassware, cups, eating utensils, towels or bedding with other people or pets in your home. After use, these items should be washed with soap and hot water. Disinfect all high-touch surfaces every day with antibacterial cleaning solutions such as Lysol wipes, bleach, cleansers, etc. High-touch surfaces include tabletops, doorknobs, bathroom fixtures, toilets, phones, keyboards, tablets and bedside tables. Immediately clean any surfaces that may have blood, poop or body fluids on them, using antibacterial cleaning solutions such as Lysol wipes, bleach, cleansers, etc. If clothing or bedding come into contact with blood, poop or body fluids, they should be washed immediately. Follow the directions on the laundry detergent and clothing labels but hot water is recommended when possible. Stopping home isolation precautions: If possible, consult your doctor before stopping home isolation precautions. According to the CDC, you can discontinue home isolation precautions when you have met both of these criteria: Your fever and respiratory symptoms have been gone for 24 gal (more content not included)... Normal [facility] CHEST 1 VIEWon 11-24-2020 CHEST 1 VIEW Patient Name: PAULA MCCORMICK STUDY: Chest x-ray INDICATION: sob COMPARISON: 02/05/2013 ACCESSION NUMBER(S): [id number] ORDERING CLINICIAN: LIBBY FRIAS TECHNIQUE: Frontal view of the chest FINDINGS: HARDWARE: None. CARDIOMEDIASTINAL SILHOUETTE: Within normal limits. LUNGS AND COSTOPHRENIC ANGLES: Clear. No pneumothorax. BONES/SOFT TISSUES: No acute abnormality. UPPER ABDOMEN: Unremarkable. IMPRESSION: 1. No acute finding. Electronically signed by: VIDAL STEELE MD Normal [facility] CORONAVIRUS 2019 BY PCRon SARS-CoV-2 (COVID-19) RNA ORLY+probe Ql (Unsp spec) Not detected Normal Not Detected [facility] Comment on above: Result Comment: . This test has received FDA Emergency Use Authorization (EUA) and has been verified by [facility]. This test is only authorized for the duration of time that circumstances exist to justify the authorization of the emergency use of in vitro diagnostic tests for the detection of SARS-CoV-2 virus and/or diagnosis of COVID-19 infection under section 564(b)(1) of the Act, 21 U.S.C. 360bbb-3(b)(1), unless the authorization is terminated or revoked sooner. [facility] is certified under CLIA-88 as qualified to perform high complexity testing. Testing is performed in the [facility] laboratory located at [address] [place] [address]. SARS-CoV-2/Flu/RSV Multiplex Test: Fact sheet for providers: https://www.fda.gov/media/271580/download Fact sheet for patients: https://www.fda.gov/media/593276/download Performed By: #### C OV19 #### [place] [address] Lab Specimen Source Nasal, Nasopharyngeal Normal [facility] Comment on above: Performed By: #### C OV19 #### [place] [address] DATE OF SYMPTOM ONSET [YYYYMMDD]? 20201122 Normal [facility] Comment on above: Performed By: #### C OV19 #### [place] [address] GROUP A STREP,PCRon 11-25-19 GROUP A STREP,PCR Not detected Normal Not Detected [facility] Comment on above: Result Comment: This test was performed utilizing an FDA- cleared rapid nucleic acid amplification by PCR to qualitatively detect Group A Streptococci from throat swab specimens without the need for culture confirmation of negative results. Performed By: #### G APC1 #### [place] [address] Lab Specimen Source Throat Normal [facility] Comment on above: Performed By: #### G APC1 #### [place] [address] Provider Note - ED v2on Provider Note - ED v2 Provider Note - ED v2: Chart Review: ED NOTES ED NOTES: HPI: Patient is a 35-year-old female chief complaint of sore throat cough shortness of breath chills since yesterday. Nausea vomiting yesterday but not today. Does not currently feel nauseous. Has not been vaccinated for COVID-19. Denies any chest pain or radiating symptoms. No known fevers. No abdominal pain or change in bowel bladder habits. No neurologic complaints. ROS: All systems are negative other than as noted in HPI. Physical Exam I have reviewed the triage vital signs. Const: Well nourished, well developed, appears stated age, no acute distress Eyes: PERRL, EOM intact, no conjunctival injection, vision grossly normal HENT: Neck supple without meningismus , Moist mucous membranes, no pharyengeal swelling or exudate CV: Regular rate and rhythm, Warm, well-perfused extremities. Chest non tender RESP: Lungs clear bilaterally, Unlabored respiratory effort GI: soft, non-tender, non-distended, no masses : MSK: No gross deformities appreciated Skin: Warm, dry. No rashes Neuro: Alert and oriented x4, GCS 15 , educational consultant II-XII grossly intact. Sensation and motor function of extremities grossly intact. Psych: Appropriate mood and affect. HISTORY OF PRESENTING ILLNESS PAULA is a 35 year old Female and was seen by me at 24-Nov-2020 20:37 for a chief complaint of multiple medical complaints (pt reports runny nose, sore throat, cough with clear/green sputum, chills, nausea, vomiting x1 yesterday, lightheadedness x 1 day.)(1). Triage Information: Most recent Vital Sign Value Date Temp (F): 98.3 11-24-2020 20:01 Temp (C): 36.8 11-24-2020 20:01 Heart Rate (beats/min): 85 11-24-2020 20:01 Respirations (breaths/min): 16 11-24-2020 20:01 SpO2 (%): 97 11-24-2020 20:01 BP Systolic (mm Hg): 112 11-24-2020 20:01 BP Diastolic (mm Hg): 68 11-24-2020 20:01 PAST MEDICAL HISTORY ATTESTATION: I have reviewed and confirmed nurse's/medic's notes for patient's medications, allergies, and medical, surgical, family and social history ALLERGIES/INTOLERANCES: Allergy Allergen: Ancef Type: Drug Reaction: Unknown Allergen: Flagyl Type: Drug Reaction: Unknown HEALTH HISTORY: No documented data. OUTPATIENT MEDICATIONS: Home Medications Review Status for Reconciliation: N/A Med Status: N/A No documented data. 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 This test has received FDA Emergency Use Authorization (EUA) and has been verified by [facility]. This test is only authorized for the duration of time that circum Date of Symptom Onset 20201122 Radiology Results: Impression: 1. No acute finding. Xray Chest 1 View [Nov 24 2020 9:54PM] VITAL SIGNS: T PRBP SpO2O2(LPM) %FiO2 Method 24-Nov-2020 20:01:[id number] 97 room air, no respiratory support MEDICAL DECISION MAKING/ED COURSE MDM/ED COURSE: Aunts with flulike symptoms. Strep Covid and chest x-ray unremarkable for acute findings. Likely viral process. She did feel some relief with the breathing treatment. Will discharge with prescription for steroids and inhaler. CLINICAL IMPRESSION Diagnosis/Annotation: ED Dx Name:Viral illness Code:B34.9 Disposition: discharged Type: home ATTESTATION CRITICAL CARE TIME Is this a critically ill patient: no Electronic Signatures: Libby Frias () (Signed 24-Nov-2020 22:34) Authored: ED Notes, HPI, PMH, PE, Results/Vital Signs, MDM/ED Course, Clinical Impression, Attestation, Chart Review, Scores Last Updated: 24-Nov-2020 22:34 by Libby Frias () References: 1. Data Referenced From Triage - ED 24-Nov-2020 20:01 [facility] Risk Screen - Adult Emergenc yon 11-24-2020 Risk Screen - Adult Emergency Preferred Language: Preferred Language: Preferred Language for Discussing Health Care (patient/designee)[place] Advanced Directives: Advance Directive/DNRno Advance Directive Information Givenpatient/family declined Family Violence Adult: Abuse Screen: Are you or have you been threatened or abused physically, emotionally, or sexually by anyoneno Learning Assessment (Patient): Learning Assessment (Patient): Patient is Able to be Assessed for Learningyes Factors Influencing Readiness to Learnacuteness of illness; pain Factors that Impact Ability to Learnnone Devices/Methods Used to Communicatenone Learning Preferencesaudio Cultural Considerationsnone Developmental Considerationsnone Worship Considerationsnone Learning Assessment (Other Learner): Learning Assessment (Other Learner): Other learner availableno Pressure Injury/TB/Substance: Pressure Injury: Pressure Injury Present on Admissionno Do you have a coughno Smoking Statusmoderate user (uses 11-30 cig/day, OR 0.5-1.5 ppd, OR 2-3 cans/pouches loose leaf tobacco per week, OR 0.5-1.5 vape pods per day) Tobacco Cessation Education (provide if tobacco use within the last 12 mos) patient declined Alcohol Usedenies Drug Usedenies Drug 2 Usedenies Admission Risk Screen: Significant IndicatorsComplete CAGE: CAGE: Is this an injured patient at a Trauma Center ([facility]/[place]): no Electronic Signatures: Darlene Hood (RN) (Signed 24-Nov-2020 20:05) Authored: Preferred Language, Advanced Directives, Family Violence Adult, Learning Assessment (Patient), Learning Assessment (Other Learner), Pressure Injury/TB/Substance, Pressure Injury, CAGE Last Updated: 24-Nov-2020 20:05 by Darlene Hood (RN) [facility] Triage - EDon 11-24-2020 Triage - ED Quick Triage: Are You no Have You Given In The Last 6 Weeksno Are You Currently Breastfeedingno Chart Review: ARRIVAL INFORMATION Mode of Arrival: private vehicle CHIEF COMPLAINT PAULA MCCORMICK is a Female patient with a chief complaint of multiple medical complaints (pt reports runny nose, sore throat, cough with clear/green sputum, chills, nausea, vomiting x1 yesterday, lightheadedness x 1 day.). Triage Date/Time: 24-Nov-2020 20:01 LIMA: 3 Pain Rating (0-10): 7 = Severe Vital Signs: Temperature: 98.3F ( 36.8C) taken oral Blood Pressure: 112/68 Mean: Heart Rate: 85 Respiratory Rate: 16 Pulse Oximetry: 97% on room air, no respiratory support. Height: 5 feet 10 inches. 177.8 CM Weight: 200.4 pounds. Calculated 90.9 kg. (stated) Calculated BMI (kg/m2): 28.754 Calculated BSA (m2) 2.12 Peabody Coma Scale: Best Eye Response: (E4) spontaneous Best Motor Response: (M6) obeys commands Best Verbal Response: (V5) oriented Jose Manuel Score: 15 Cough lasting greater than 3 weeks: no Allergies: yes Mask applied: no Last menstrual period: 25-Aug-2020 (I am on the every 3 month pill) [employer]OVE [employer] History: control Patient has homicidal thoughts: no Symptoms Are POSITIVE For: chills, headache and nausea Symptoms Are Negative For: anxiety, diaphoresis, dyspnea, loss of consciousness, numbness, pain, tingling and weakness Risk Screens Suicide Risk Screen In the Past Month: Have you wished you were or wished you could go to sleep and not wake up no In the Past Month: Have you had any actual thoughts of killing yourself no In Your Lifetime: Have you ever done anything, started to do anything, or prepared to do anything to end your life no Jones Fall Scale Screening Has the patient fallen before (or is the patient in the ED as a result of a fall) has not had a fall Does the patient have an impaired gait does not have impaired gait Is the patient cognitively impaired not cognitively impaired Interventions: Jones Fall Interventions: LOW INTERVENTIONS: *patient oriented to surroundings and call system, * patient/family falls education completed and documented, *patients fall status communicated during bedside handoff, *whiteboard updated, *mode of toileting discussed with patient, *bed in low position with brakes locked, *call light in reach, * non-skid footwear TRAVEL HISTORY Travel History Coronavirus Screening: positive for symptoms Travel Exposure History: NO travel to International locations in the past 30 days PAIN Pain Scale Used: SHREYA Pain Rating (0-10): 7 = Severe Past Medical History: Past Medical History Reviewedyes Fibromyalgia: Past Medical History, Active Electronic Signatures: Darlene Hood (CANDELARIA) (Signed 24-Nov-2020 20:05) Entered: Risk Screens, Pain, Travel History, Chart Review, Scores, Past Medical History Authored: Quick Triage, Risk Screens, Pain, Travel History, Chart Review, Scores, Past Medical History Last Updated: 24-Nov-2020 20:05 by Darlene Hood) [facility] CLOST DIFF. TOXIN, PCRon C. difficile toxin genes ORLY+probe Ql (Stl) NOT DETECTED See Below [facility] Work Phone: Comment on above: Reference Range: Not Detected This assay detects the presence of the tcdB (toxin B) gene via DNA amplification, and results should be interpreted in the context of the patients history and clinical findings. This test cannot be performed on formed stools or used as a test of cure, and should not be performed more than once per 7 days. IGP W/hpv Rfx [id number] 11-16 Diagnosis: See Ref Lab Report Normal [facility] Comment on above: Order Comment: Thin Prep. LMP 09-17-2017 Performed By: #### 1 [id number] #### [place] [address] HLA B27on 11-14-2017 HLA-B27 Negative Normal [facility]3] Comment on above: Result Comment: (NOT E)HLA-B*27 PfwbiizyR54 allele interpretation for all loci based on IMGT/HLAdatabase version 3.27This test was developed and its performance characteristicsdetermined by [facility]. It has not been cleared or approvedby the Food and Drug Administration.HLA Lab CLIA ID Number [id number] test was performed using PCR (Polymerase Chain Reaction)/SSOP(Sequence Specific Oligonucleotide Probes) technique. SBT(Sequence Based Typing) and/or SSP (Sequence Specific Primers) may beused as supplemental methods when necessary. Please contact HLACustomer Service at if you have any questions.Director of HLA LaboratoryDr Jeffrey Mantilla, PhDPERFORMED AT [facility] DNA Performed By: #### L VD125, LVB1, LACCGA, LVB6 ####Testing performed at [facility]#### LC4, LCYRO, LACEZ, LLWB, LIMEL, LC3, LTTG ####Testing performed at [address] [address]#### ESR, CREACT, CMPF, MG, HEMOG, TSH2, CPK, B12, URIC ####Testing performed at [address] [address]#### LANCA ####Testing performed at [address], [place] [address]Sijscpk performed at [facility] VITAMIN B6on 11-14-2017 VITAMIN B6 LVL 2.8 ug/L Normal 2.0-32.8 [facility]3] Comment on above: Result Comment: PERF ORMED AT [facility] Performed By: #### L VD125, LVB1, LACCGA, LVB6 ####Testing performed at [facility]#### LC4, LCYRO, LACEZ, LLWB, LIMEL, LC3, LTTG ####Testing performed at [address] [place] [address]#### ESR, CREACT, CMPF, MG, HEMOG, TSH2, CPK, B12, URIC ####Testing performed at [address] [address]#### LANCA ####Testing performed at [address], [place] [address]Rptqchp performed at [facility] ANCA PANELon 11-12-2017 3 (CA-3) ABS <3.5 Normal 0.0-3.5 [facility]3] Comment on above: Result Comment: PERF ORMED AT [facility] Performed By: #### L VD125, LVB1, LACCGA, LVB6 ####Testing performed at [facility]#### LC4, LCYRO, LACEZ, LLWB, LIMEL, LC3, LTTG ####Testing performed at [address] [place] [address]#### ESR, CREACT, CMPF, MG, HEMOG, TSH2, CPK, B12, URIC ####Testing performed at [address] [address]#### LANCA ####Testing performed at [address], [place] [address]Sfvcqye performed at [facility] MPO ABS <9.0 Normal 0.0-9.0 [facility]3] Comment on above: Result Comment: PERF ORMED AT [facility] Performed By: #### L VD125, LVB1, LACCGA, LVB6 ####Testing performed at [facility]#### LC4, LCYRO, LACEZ, LLWB, LIMEL, LC3, LTTG ####Testing performed at [address] [address]#### ESR, CREACT, CMPF, MG, HEMOG, TSH2, CPK, B12, URIC ####Testing performed at [place] [id number]#### LANCA ####Testing performed at [address] [address]Hrwtlfj performed at [facility] CCP AB IGG IGAon 11-12-2017 ACC AB IGG IGA 5 units Normal 0-19 [facility]3] Comment on above: Result Comment: (NOT E) Negative <20 Weak positive 20 - 39 Moderate positive 40 - 59 Strong positive >59PER[facility]MED AT [facility] Performed By: #### L VD125, LVB1, LACCGA, LVB6 ####Testing performed at [facility]#### LC4, LCYRO, LACEZ, LLWB, LIMEL, LC3, LTTG ####Testing performed at [address] [place] [address]#### ESR, CREACT, CMPF, MG, HEMOG, TSH2, CPK, B12, URIC ####Testing performed at [place] [id number]#### LANCA ####Testing performed at [address], [place] [address]Lnsjzno performed at [facility] CRYOGLOBULIN QLon 11-12-2017 CRYOGLOBULIN, QL Comment Normal None detected [facility]3] Comment on above: Result Comment: (NOT E)None Detected at 72 hoursThis test was developed and its performance characteristicsdetermined by [facility]. It has not been cleared or approvedby the Food and Drug Administration.PERFORMED AT [facility] Performed By: #### L VD125, LVB1, LACCGA, LVB6 ####Testing performed at [facility]#### LC4, LCYRO, LACEZ, LLWB, LIMEL, LC3, LTTG ####[place] [address]#### ESR, CREACT, CMPF, MG, HEMOG, TSH2, CPK, B12, URIC ####[place] [address]#### LANCA ####Testing performed at [place], [place] [address]Testing performed at [facility] VIT D, 1,25 DIHYDROXon 11-12 VIT. D 1,25 70.5 pg/mL Normal 19.9-79.3 [facility]3] Comment on above: Result Comment: PERF [facility]MED AT [facility] Performed By: #### L VD125, LVB1, LACCGA, LVB6 ####Testing performed at [facility]#### LC4, LCYRO, LACEZ, LLWB, LIMEL, LC3, LTTG ####[place] [address]#### ESR, CREACT, CMPF, MG, HEMOG, TSH2, CPK, B12, URIC ####[place] [address]#### LANCA ####Testing performed at [place], [place] [address]Testing performed at [facility] VIT.B1 THIAMINE-BLDon 2017 VIT.B1 THIAMINE-BLD 115.9 nmol/L Normal 66.5-200.0 [facility]3] Comment on above: Result Comment: PERF ORMED AT [facility] Performed By: #### L VD125, LVB1, LACCGA, LVB6 ####Testing performed at [facility]#### LC4, LCYRO, LACEZ, LLWB, LIMEL, LC3, LTTG ####Testing performed [address] [facility] [place] [address]#### ESR, CREACT, CMPF, MG, HEMOG, TSH2, CPK, B12, URIC ####Testing performed at [address] [address]#### LANCA ####Testing performed at [address], [place] [address]Nztkgsg performed at [facility] ANCA PANELon 11-09-2017 ATYPICAL PANCA <1:20 Normal Neg:<1:20 [facility]3] Comment on above: Result Comment: (NOT E)The atypical pANCA pattern has been observed in a significantpercentage of patients with ulcerative colitis, primary sclerosingcholangitis and autoimmune hepatitis.PERFORMED AT [facility] Performed By: #### L VD125, LVB1, LACCGA, LVB6 ####Testing performed at [facility]#### LC4, LCYRO, LACEZ, LLWB, LIMEL, LC3, LTTG ####Testing performed [address] [place] [address]#### ESR, CREACT, CMPF, MG, HEMOG, TSH2, CPK, B12, URIC ####Testing performed at [address] [address]#### LANCA ####Testing performed at [address], [place] [address]Haoyibb performed at [facility] CYTOPLASMIC (C-ANCA) <1:20 Normal Neg:<1:20 [facility]3] Comment on above: Performed By: #### L VD125, LVB1, LACCGA, LVB6 ####Testing performed at [facility]#### LC4, LCYRO, LACEZ, LLWB, LIMEL, LC3, LTTG ####Testing performed at [facility] [place] [address]#### ESR, CREACT, CMPF, MG, HEMOG, TSH2, CPK, B12, URIC ####Testing performed at [address] [address]#### LANCA ####Testing performed at [address] [address]Mgbejwm performed at [facility] PERINUCLEAR (P-ANCA) <1:20 Normal Neg:<1:20 [facility]3] Comment on above: Result Comment: (NOT E)The presence of positive fluorescence exhibiting P-ANCA or C-ANCApatterns alone is not specific for the diagnosis of Josr'sGranulomatosis (WG) or microscopic polyangiitis. Decisions abouttreatment should not be based solely on ANCA IFA results. TheInternational ANCA Group Consensus recommends follow up testing ofpositive sera with both CA-3 and MPO-ANCA enzyme immunoassays. Asmany as 5% serum samples are positive only by EIA.Ref. AM J Clin Pathol 1999;111:507-513. Performed By: #### L VD125, LVB1, LACCGA, LVB6 ####Testing performed at [facility]#### LC4, LCYRO, LACEZ, LLWB, LIMEL, LC3, LTTG ####Testing performed at [address] [address]#### ESR, CREACT, CMPF, MG, HEMOG, TSH2, CPK, B12, URIC ####Testing performed at [address] [address]#### LANCA ####Testing performed at [address] [address]Cbosvsb performed at [facility] ANGIO-CONVERTING ENZon 11-09 TONNY 31 U/L Normal 14-82 [facility]3] Comment on above: Result Comment: PERF ORMED AT [facility] Performed By: #### L VD125, LVB1, LACCGA, LVB6 ####Testing performed at [facility]#### LC4, LCYRO, LACEZ, LLWB, LIMEL, LC3, LTTG ####Testing performed at [facility], [address] [place] [address]#### ESR, CREACT, CMPF, MG, HEMOG, TSH2, CPK, B12, URIC ####Testing performed at [address] [place] [address]#### LANCA ####Testing performed [address] [place], [place] [address]Fmhlwdx performed at [facility] COMPLEMENT C3on 11-09-2017 C3 130 mg/dL Normal 82-167 [facility]3] Comment on above: Result Comment: PERF ORMED AT [facility] Performed By: #### L VD125, LVB1, LACCGA, LVB6 ####Testing performed at [facility]#### LC4, LCYRO, LACEZ, LLWB, LIMEL, LC3, LTTG ####Testing performed at [address] [place] [address]#### ESR, CREACT, CMPF, MG, HEMOG, TSH2, CPK, B12, URIC ####Testing performed at [address] [address]#### LANCA ####Testing performed at [address], [place] [address]Rzkzqym performed at [facility] COMPLEMENT C4on 11-09-2017 C4 30 mg/dL Normal 14-44 [facility]3] Comment on above: Result Comment: PERF ORMED AT [facility] Performed By: #### L VD125, LVB1, LACCGA, LVB6 ####Testing performed at [facility]#### LC4, LCYRO, LACEZ, LLWB, LIMEL, LC3, LTTG ####Testing performed at [place] [id number] Place[address] [place] [address]#### ESR, CREACT, CMPF, MG, HEMOG, TSH2, CPK, B12, URIC ####Testing performed at [address] [place] [address]#### LANCA ####Testing performed at [place] [address] [address] [facility], [place] [address]Mqbffll performed at [facility] ANA AND , SERUMon 11-10-19 18 Albumin 3.6 g/dL Normal 2.9-4.4 [facility]3] Comment on above: Performed By: #### L VD125, LVB1, LACCGA, LVB6 ####Testing performed at [facility]#### LC4, LCYRO, LACEZ, LLWB, LIMEL, LC3, LTTG ####Testing performed at [address] [place] [address]#### ESR, CREACT, CMPF, MG, HEMOG, TSH2, CPK, B12, URIC ####Testing performed at [place] [id number]#### LANCA ####Testing performed at [address], [place] [address]Vypsfyf performed at [facility] Albumin/Globulin Ratio 1.2 {ratio} Normal 0.7-1.7 [facility]3] Comment on above: Performed By: #### L VD125, LVB1, LACCGA, LVB6 ####Testing performed at [facility]#### LC4, LCYRO, LACEZ, LLWB, LIMEL, LC3, LTTG ####Testing performed at [address] [place] [address]#### ESR, CREACT, CMPF, MG, HEMOG, TSH2, CPK, B12, URIC ####Testing performed at [place] [id number]#### LANCA ####Testing performed at [address], [place] [address]Idawosv performed at [facility] XZBBC-2-DMHGTSOH 0.3 g/dL Normal 0.0-0.4 [facility]3] Comment on above: Performed By: #### L VD125, LVB1, LACCGA, LVB6 ####Testing performed at [facility]#### LC4, LCYRO, LACEZ, LLWB, LIMEL, LC3, LTTG ####Testing performed at [address] [place] [address]#### ESR, CREACT, CMPF, MG, HEMOG, TSH2, CPK, B12, URIC ####Testing performed at [address] [place] [address]#### LANCA ####Testing performed at [address], [place] [address]Edsconp performed at [facility] KAVWT-8-ZEFENMNT 0.9 g/dL Normal 0.4-1.0 [facility]3] Comment on above: Performed By: #### L VD125, LVB1, LACCGA, LVB6 ####Testing performed at [facility]#### LC4, LCYRO, LACEZ, LLWB, LIMEL, LC3, LTTG ####Testing performed at [address] [place] [address]#### ESR, CREACT, CMPF, MG, HEMOG, TSH2, CPK, B12, URIC ####Testing performed at [address] [address]#### LANCA ####Testing performed at [address], [place] [address]Rbujmbp performed at [facility] BETA GLOBULIN 1.1 g/dL Normal 0.7-1.3 [facility]3] Comment on above: Performed By: #### L VD125, LVB1, LACCGA, LVB6 ####Testing performed at [facility]#### LC4, LCYRO, LACEZ, LLWB, LIMEL, LC3, LTTG ####Testing performed at [address] [place] [address]#### ESR, CREACT, CMPF, MG, HEMOG, TSH2, CPK, B12, URIC ####Testing performed at [address] [address]#### LANCA ####Testing performed at [place] [address] [address] [place], [place] [address]Zniqmht performed at [facility] GAMMA GLOBULIN 0.9 g/dL Normal 0.4-1.8 [facility]3] Comment on above: Performed By: #### L VD125, LVB1, LACCGA, LVB6 ####Testing performed at [facility]#### LC4, LCYRO, LACEZ, LLWB, LIMEL, LC3, LTTG ####Testing performed at [place] [address] [address] [facility] [place] [address]#### ESR, CREACT, CMPF, MG, HEMOG, TSH2, CPK, B12, URIC ####Testing performed at [address] [address]#### LANCA ####Testing performed at [address], [place] [address]Uteuzee performed at [facility] Globulin 3.2 g/dL Normal 2.2-3.9 [facility]3] Comment on above: Performed By: #### L VD125, LVB1, LACCGA, LVB6 ####Testing performed at [facility]#### LC4, LCYRO, LACEZ, LLWB, LIMEL, LC3, LTTG ####Testing performed at [address] [place] [address]#### ESR, CREACT, CMPF, MG, HEMOG, TSH2, CPK, B12, URIC ####Testing performed at [address] [address]#### LANCA ####Testing performed at [address], [place] [address]Vqtnkai performed at [facility] IgA 109 mg/dL Normal 87-352 [facility]3] Comment on above: Performed By: #### L VD125, LVB1, LACCGA, LVB6 ####Testing performed at [facility]#### LC4, LCYRO, LACEZ, LLWB, LIMEL, LC3, LTTG ####Testing [facility] [place] [address]#### ESR, CREACT, CMPF, MG, HEMOG, TSH2, CPK, B12, URIC ####Testing performed at [address] [place] [address]#### LANCA ####Testing performed at [facility], [address] [place], [place] [address]Pmufmfy performed at [facility] IgG 786 mg/dL Normal 700-1600 [facility]3] Comment on above: Performed By: #### L VD125, LVB1, LACCGA, LVB6 ####Testing performed at [facility]#### LC4, LCYRO, LACEZ, LLWB, LIMEL, LC3, LTTG ####Testing performed at [facility], [address] [place] [place] [address]#### ESR, CREACT, CMPF, MG, HEMOG, TSH2, CPK, B12, URIC ####Testing performed at [address] [place] [address]#### LANCA ####Testing performed at [facility] [place], [place] [address]Hypxrlc performed at [facility] IgM 53 mg/dL Normal 26-217 [facility]3] Comment on above: Performed By: #### L VD125, LVB1, LACCGA, LVB6 ####Testing performed at [facility]#### LC4, LCYRO, LACEZ, LLWB, LIMEL, LC3, LTTG ####Testing performed at [facility], [address] [place] [address]#### ESR, CREACT, CMPF, MG, HEMOG, TSH2, CPK, B12, URIC ####Testing performed at [address] [place] [address]#### LANCA ####Testing performed at [facility], [address] [place], [place] [address]Ijoybti performed at [facility] IMMUNOFIX: Comment Normal [facility]3] Comment on above: Result Comment: No m onoclonality detected. Performed By: #### L VD125, LVB1, LACCGA, LVB6 ####Testing performed at [facility]#### LC4, LCYRO, LACEZ, LLWB, LIMEL, LC3, LTTG ####Testing performed at [address] [place] [address]#### ESR, CREACT, CMPF, MG, HEMOG, TSH2, CPK, B12, URIC ####Testing performed at [address] [place] [address]#### LANCA ####Testing performed [address] [facility] [place] [address]Jrywmhd performed at [facility] M-SPIKE Not Observed Normal Not Observed [facility]3] Comment on above: Performed By: #### L VD125, LVB1, LACCGA, LVB6 ####Testing performed at [facility]#### LC4, LCYRO, LACEZ, LLWB, LIMEL, LC3, LTTG ####Testing performed at [address] [place] [address]#### ESR, CREACT, CMPF, MG, HEMOG, TSH2, CPK, B12, URIC ####Testing performed at [address] [place] [address]#### LANCA ####Testing performed at [address] [facility], [place] [address]Qthgijt performed at [facility] [facility] PLEASE NOTE: Comment [facility] Comment on above: Result Comment: (NOT E)Protein electrophoresis scan will follow via computer, mail, orcourier delivery.PERFORMED AT [facility] Performed By: #### L VD125, LVB1, LACCGA, LVB6 ####Testing performed at [facility]#### LC4, LCYRO, LACEZ, LLWB, LIMEL, LC3, LTTG ####Testing performed at [facility], [address] [place] [address]#### ESR, CREACT, CMPF, MG, HEMOG, TSH2, CPK, B12, URIC ####Testing performed at [place] [id number]#### LANCA ####Testing performed at [address] [address]Mhzrkuu performed at [facility] Protein 6.8 g/dL Normal 6.0-8.5 [facility] ([facility])[3] Comment on above: Performed By: #### L VD125, LVB1, LACCGA, LVB6 ####Testing performed at [facility]#### LC4, LCYRO, LACEZ, LLWB, LIMEL, LC3, LTTG ####Testing performed at [address] [address]#### ESR, CREACT, CMPF, MG, HEMOG, TSH2, CPK, B12, URIC ####[place] [address]#### LANCA ####Testing performed at [address] [address]Npxgpdu performed at [facility] LYME AB REFLEX TO WESTERN BL OTon 11-09-2017 LYME DISEASE AB QUANT,IGM <0.80 Normal 0.00-0.79 [facility]3] Comment on above: Result Comment: (NOT E) Negative <0.80 Equivocal 0.80 - 1.19 Positive >1.19IgM levels may peak at 3-6 weeks post infection, thengradually decline.PERFORMED AT [facility] Performed By: #### L VD125, LVB1, LACCGA, LVB6 ####Testing performed at [facility]#### LC4, LCYRO, LACEZ, LLWB, LIMEL, LC3, LTTG ####Testing performed at [address] [address]#### ESR, CREACT, CMPF, MG, HEMOG, TSH2, CPK, B12, URIC ####Testing performed at [place] [id number]#### LANCA ####Testing performed at [address] [address]Gxuinsp performed at [facility] LYME IGG/IGM AB <0.91 Normal 0.00-0.90 [facility])[3] Comment on above: Result Comment: (NOT E) Negative <0.91 Equivocal 0.91 - 1.09 Positive >1.09 Performed By: #### L VD125, LVB1, LACCGA, LVB6 ####Testing performed at [facility]#### LC4, LCYRO, LACEZ, LLWB, LIMEL, LC3, LTTG ####Testing performed at [address] [address]#### ESR, CREACT, CMPF, MG, HEMOG, TSH2, CPK, B12, URIC ####[place] [address]#### LANCA ####Testing performed at [address] [address]Mfiufop performed at [facility] R-PILNWFGGW-SIP,IGAon 2017 TTG- IGA <2 Normal 0-3 [facility]3] Comment on above: Result Comment: (NOT E) Negative 0 - 3 Weak Positive 4 - 10 Positive >10Tissue Transglutaminase (tTG) has been identifiedas the endomysial antigen. Studies have demonstr-ated that endomysial IgA antibodies have over 99%specificity for gluten sensitive enteropathy.PERFORMED AT [facility] Performed By: #### L VD125, LVB1, LACCGA, LVB6 ####Testing performed at [facility]#### LC4, LCYRO, LACEZ, LLWB, LIMEL, LC3, LTTG ####Testing performed at [address] [place] [address]#### ESR, CREACT, CMPF, MG, HEMOG, TSH2, CPK, B12, URIC ####Testing performed at [place] [address] [place] [address]#### LANCA ####Testing performed at [facility], [address] [place], [place] [address]Sfoptny performed at [facility] XR SACROILIAC JOINTS MIN 3 V TRACIon 11-08-2017 XR SACROILIAC JOINTS MIN 3 VIEWS XR SPINE LUMBOSACRAL 5 VIEWS, XR SPINE THORACIC 2 VIEWS, XR SACROILIAC JOINTS MIN 3 VIEWSCLINICAL STATEMENT: Back pain. COMPARISON: None.TECHNIQUE: AP and lateral views of the thoracic spine. AP, oblique and lateral views of the lumbar spine with a lateral view of the lumbosacral junction. AP and oblique views of the sacroiliac joints.FINDINGS:THORACIC SPINE: The thoracic vertebral bodies appear normally developed, preserved in height and normally aligned. The pedicles are intact. No obvious osseous destructive lesion. No obvious paravertebral mass.LUMBAR SPINE: There are 5 lumbar type segments. The vertebral bodies and intervertebral disc spaces are maintained in height. The pedicles are intact. There is no listhesis. A few minor Schmorl's nodes are noted along the endplates at L2 through L4.SACROILIAC JOINTS: There is asymmetric sclerosis of the right sacroiliac joint predominantly along the iliac portion of the joint. No obvious osseous erosions.IMPRESSION:1. Asymmetric right-sided sacroiliitis.2. Unremarkable thoracic and lumbar spine series. Normal [facility]3] XR SPINE LUMBOSACRAL 5 VIEWS on 11-08-2017 XR SPINE LUMBOSACRAL 5 VIEWS XR SPINE LUMBOSACRAL 5 VIEWS, XR SPINE THORACIC 2 VIEWS, XR SACROILIAC JOINTS MIN 3 VIEWSCLINICAL STATEMENT: Back pain. COMPARISON: None.TECHNIQUE: AP and lateral views of the thoracic spine. AP, oblique and lateral views of the lumbar spine with a lateral view of the lumbosacral junction. AP and oblique views of the sacroiliac joints.FINDINGS:THORACIC SPINE: The thoracic vertebral bodies appear normally developed, preserved in height and normally aligned. The pedicles are intact. No obvious osseous destructive lesion. No obvious paravertebral mass.LUMBAR SPINE: There are 5 lumbar type segments. The vertebral bodies and intervertebral disc spaces are maintained in height. The pedicles are intact. There is no listhesis. A few minor Schmorl's nodes are noted along the endplates at L2 through L4.SACROILIAC JOINTS: There is asymmetric sclerosis of the right sacroiliac joint predominantly along the iliac portion of the joint. No obvious osseous erosions.IMPRESSION:1. Asymmetric right-sided sacroiliitis.2. Unremarkable thoracic and lumbar spine series. Normal [facility]3] XR SPINE THORACIC 2 VIEWSon 11-08-2017 XR SPINE THORACIC 2 VIEWS XR SPINE LUMBOSACRAL 5 VIEWS, XR SPINE THORACIC 2 VIEWS, XR SACROILIAC JOINTS MIN 3 VIEWSCLINICAL STATEMENT: Back pain. COMPARISON: None.TECHNIQUE: AP and lateral views of the thoracic spine. AP, oblique and lateral views of the lumbar spine with a lateral view of the lumbosacral junction. AP and oblique views of the sacroiliac joints.FINDINGS:THORACIC SPINE: The thoracic vertebral bodies appear normally developed, preserved in height and normally aligned. The pedicles are intact. No obvious osseous destructive lesion. No obvious paravertebral mass.LUMBAR SPINE: There are 5 lumbar type segments. The vertebral bodies and intervertebral disc spaces are maintained in height. The pedicles are intact. There is no listhesis. A few minor Schmorl's nodes are noted along the endplates at L2 through L4.SACROILIAC JOINTS: There is asymmetric sclerosis of the right sacroiliac joint predominantly along the iliac portion of the joint. No obvious osseous erosions.IMPRESSION:1. Asymmetric right-sided sacroiliitis.2. Unremarkable thoracic and lumbar spine series. Normal [facility]3] 25 0H VITAMIN D LEVELon 10-21 25 0H VITAMIN D LEVEL 30.8 NG/ML Normal >30 [facility]3] Comment on above: Result Comment: DEFI CIENT <20 NG/MLINSUFFICIENT 20-<30 NG/MLSUFFICIENT 30-100 NG/MLPOTENTIAL TOXICITY >100 NG/ML Performed By: #### L VD125, LVB1, LACCGA, LVB6 ####Testing performed at [facility]#### LC4, LCYRO, LACEZ, LLWB, LIMEL, LC3, LTTG ####Testing performed at [facility] [place] [address]#### ESR, CREACT, CMPF, MG, HEMOG, TSH2, CPK, B12, URIC ####Testing performed at [address] [address]#### LANCA ####Testing performed at [address], [place] [address]Lnxggpf performed at [facility] C REACTIVE PROTEINon 018 C reactive protein (CRP) 8.3 mg/L Normal 0-10.0 [facility]3] Comment on above: Performed By: #### L VD125, LVB1, LACCGA, LVB6 ####Testing performed at [facility]#### LC4, LCYRO, LACEZ, LLWB, LIMEL, LC3, LTTG ####Testing performed at [address] [place] [address]#### ESR, CREACT, CMPF, MG, HEMOG, TSH2, CPK, B12, URIC ####[place] [address]#### [place] ####Testing performed at [address], [place] [address]Gjhbbiq performed at [facility] CBC(NO DIFF)on 11-07-2017 Erythrocyte distribution width Auto Ratio (RBC) 13.4 % Normal 11.5-14.5 [facility])[3] Comment on above: Performed By: #### L VD125, LVB1, LACCGA, LVB6 ####Testing performed at [facility]#### LC4, LCYRO, LACEZ, LLWB, LIMEL, LC3, LTTG ####Testing performed at [address] [place] [address]#### ESR, CREACT, CMPF, MG, HEMOG, TSH2, CPK, B12, URIC ####Testing performed at [address] [address]#### LANCA ####Testing performed at [address], [place] [address]Vogpdcr performed at [facility] Erythrocytes (RBC) 4.70 /cmm Normal 4.0-5.4 [facility])[3] Comment on above: Performed By: #### L VD125, LVB1, LACCGA, LVB6 ####Testing performed at [facility]#### LC4, LCYRO, LACEZ, LLWB, LIMEL, LC3, LTTG ####Testing performed at [address] [place] [address]#### ESR, CREACT, CMPF, MG, HEMOG, TSH2, CPK, B12, URIC ####Testing performed at [place] [id number]#### LANCA ####Testing performed at [address], [place] [address]Ofkolis performed at [facility] Hematocrit (HCT) 45.4 % Normal 36.0-48.0 [facility])[3] Comment on above: Performed By: #### L VD125, LVB1, LACCGA, LVB6 ####Testing performed at [facility]#### LC4, LCYRO, LACEZ, LLWB, LIMEL, LC3, LTTG ####Testing performed at [address] [place] [address]#### ESR, CREACT, CMPF, MG, HEMOG, TSH2, CPK, B12, URIC ####Testing performed at [address] [address]#### LANCA ####Testing performed at [address], [place] [address]Llihstt performed at [facility] Hemoglobin mass conc (Bld) 15.9 g/dL Normal 12.0-16.0 [facility]3] Comment on above: Performed By: #### L VD125, LVB1, LACCGA, LVB6 ####Testing performed at [facility]#### LC4, LCYRO, LACEZ, LLWB, LIMEL, LC3, LTTG ####Testing performed [address] [facility] [place] [address]#### ESR, CREACT, CMPF, MG, HEMOG, TSH2, CPK, B12, URIC ####Testing performed at [address] [address]#### LANCA ####Testing performed at [place] [id number] [place], [place] [address]Jzullbd performed at [facility] MCH 33.8 pg Normal 26.0-35.0 [facility])[3] Comment on above: Performed By: #### L VD125, LVB1, LACCGA, LVB6 ####Testing performed at [facility]#### LC4, LCYRO, LACEZ, LLWB, LIMEL, LC3, LTTG ####Testing performed at [place] [id number] [place] [place] [address]#### ESR, CREACT, CMPF, MG, HEMOG, TSH2, CPK, B12, URIC ####Testing performed at [address] [place] [address]#### LANCA ####Testing performed at [place] [address] [address] [place], [place] [address]Xwunhgv [facility]C mass conc (RBC) 35.1 g/dL Normal 27.0-37.0 [facility])[3] Comment on above: Performed By: #### L VD125, LVB1, LACCGA, LVB6 ####Testing performed at [facility]#### LC4, LCYRO, LACEZ, LLWB, LIMEL, LC3, LTTG ####Testing performed at [place] [address] [address] [place] [address]#### ESR, CREACT, CMPF, MG, HEMOG, TSH2, CPK, B12, URIC ####Testing performed at [address] [address]#### LANCA ####Testing performed at [place] [address] [address] [place], [place] [address]Kjeukne performed at [facility] MCV 96.4 fL Normal 80.0-100.0 [facility])[3] Comment on above: Performed By: #### L VD125, LVB1, LACCGA, LVB6 ####Testing performed at [facility]#### LC4, LCYRO, LACEZ, LLWB, LIMEL, LC3, LTTG ####Testing performed at [address] [place] [address]#### ESR, CREACT, CMPF, MG, HEMOG, TSH2, CPK, B12, URIC ####Testing performed at [place] [id number]#### LANCA ####Testing performed at [address], [place] [address]Nejfxxr performed at [facility] Platelet mean volume (PMV) 7.5 fL Normal 7.4-11.0 [facility])[3] Comment on above: Performed By: #### L VD125, LVB1, LACCGA, LVB6 ####Testing performed at [facility]#### LC4, LCYRO, LACEZ, LLWB, LIMEL, LC3, LTTG ####Testing performed at [address] [place] [address]#### ESR, CREACT, CMPF, MG, HEMOG, TSH2, CPK, B12, URIC ####Testing performed at [address] [address]#### LANCA ####Testing performed at [address], [place] [address]Tlrwcqk performed at [facility] Platelets 275 /cmm Normal 130.0-400.0 [facility])[3] Comment on above: Performed By: #### L VD125, LVB1, LACCGA, LVB6 ####Testing performed at [facility]#### LC4, LCYRO, LACEZ, LLWB, LIMEL, LC3, LTTG ####Testing performed at [address] [place] [address]#### ESR, CREACT, CMPF, MG, HEMOG, TSH2, CPK, B12, URIC ####Testing performed at [address] [address]#### LANCA ####Testing performed at [place] [id number] PlaceSuite [facility] [place] [address]Pgjmvok performed at [facility] WBC (Leukocytes) 7.7 /cmm Normal 3.6-11.0 [facility]3] Comment on above: Performed By: #### L VD125, LVB1, LACCGA, LVB6 ####Testing performed at [facility]#### LC4, LCYRO, LACEZ, LLWB, LIMEL, LC3, LTTG ####Testing performed at [place] [address] [address] [place] [address]#### ESR, CREACT, CMPF, MG, HEMOG, TSH2, CPK, B12, URIC ####Testing performed at [address], [place] [address]#### LANCA ####Testing performed at [address], [place] [address]Wmepnev performed at [facility] FASTINGon 11-07-2017 A:G RATIO 1.4 RATIO Normal 1.3-2.2 [facility]3] Comment on above: Performed By: #### L VD125, LVB1, LACCGA, LVB6 ####Testing performed at [facility]#### LC4, LCYRO, LACEZ, LLWB, LIMEL, LC3, LTTG ####Testing performed [address] [place] [address]#### ESR, CREACT, CMPF, MG, HEMOG, TSH2, CPK, B12, URIC ####Testing performed at [address] [address]#### LANCA ####Testing performed [address] [facility] [place] [address]Ubimjic performed at [facility] Alanine aminotransferase (ALT) 21 U/L Normal 14-54 [facility]3] Comment on above: Performed By: #### L VD125, LVB1, LACCGA, LVB6 ####Testing performed at [facility]#### LC4, LCYRO, LACEZ, LLWB, LIMEL, LC3, LTTG ####Testing performed [address] [place] [address]#### ESR, CREACT, CMPF, MG, HEMOG, TSH2, CPK, B12, URIC ####Testing performed at [address] [address]#### LANCA ####Testing performed [address] [facility] [place] [address]Ntpsycm performed at [facility] Albumin 4.2 G/dl Normal 3.5-5.0 [facility])[3] Comment on above: Performed By: #### L VD125, LVB1, LACCGA, LVB6 ####Testing performed at [facility]#### LC4, LCYRO, LACEZ, LLWB, LIMEL, LC3, LTTG ####Testing performed at [address] [place] [address]#### ESR, CREACT, CMPF, MG, HEMOG, TSH2, CPK, B12, URIC ####Testing performed at [address] [place] [address]#### LANCA ####Testing performed at [address] [facility] [address]Zreejqm performed at [facility] Alkaline phosphatase (ALP) 44 U/L Normal 38-126 [facility]3] Comment on above: Performed By: #### L VD125, LVB1, LACCGA, LVB6 ####Testing performed at [facility]#### LC4, LCYRO, LACEZ, LLWB, LIMEL, LC3, LTTG ####Testing performed at [address] [facility] [place] [address]#### ESR, CREACT, CMPF, MG, HEMOG, TSH2, CPK, B12, URIC ####Testing performed at [address] [address]#### LANCA ####Testing performed [address] [facility] [facility], [place] [address]Jppimed performed at [facility] Aspartate aminotransferase (AST) 22 U/L Normal 15-41 [facility]3] Comment on above: Performed By: #### L VD125, LVB1, LACCGA, LVB6 ####Testing performed at [facility]#### LC4, LCYRO, LACEZ, LLWB, LIMEL, LC3, LTTG ####Testing performed [address] [facility] [place] [address]#### ESR, CREACT, CMPF, MG, HEMOG, TSH2, CPK, B12, URIC ####[place] [address]#### LANCA ####Testing performed [address] [facility] [address]Tevvnyy performed at [facility] Bilirubin (total) 0.2 mg/dL Normal 0.2-1.2 [facility]3] Comment on above: Performed By: #### L VD125, LVB1, LACCGA, LVB6 ####Testing performed at [facility]#### LC4, LCYRO, LACEZ, LLWB, LIMEL, LC3, LTTG ####Testing performed [address] [place] [address]#### ESR, CREACT, CMPF, MG, HEMOG, TSH2, CPK, B12, URIC ####Testing performed at [address] [address]#### LANCA ####Testing performed [address] [facility], [place] [address]Qosvfqv performed at [facility] BUN (urea nitrogen) 6 mg/dL Low 7-20 [facility]3] Comment on above: Performed By: #### L VD125, LVB1, LACCGA, LVB6 ####Testing performed at [facility]#### LC4, LCYRO, LACEZ, LLWB, LIMEL, LC3, LTTG ####Testing performed at [address] [place] [address]#### ESR, CREACT, CMPF, MG, HEMOG, TSH2, CPK, B12, URIC ####Testing performed at [address] [address]#### LANCA ####Testing performed at [address], [place] [address]Gssucae performed at [facility] Creatinine 0.8 mg/dL Normal 0.52-1.04 [facility]3] Comment on above: Performed By: #### L VD125, LVB1, LACCGA, LVB6 ####Testing performed at [facility]#### LC4, LCYRO, LACEZ, LLWB, LIMEL, LC3, LTTG ####Testing performed at [address] [place] [address]#### ESR, CREACT, CMPF, MG, HEMOG, TSH2, CPK, B12, URIC ####Testing performed at [address] [address]#### LANCA ####Testing performed at [address], [place] [address]Harkjic performed at [facility] eGFR (non-black) Average GFR for 30-3 9 years old = 109. Normal [facility]3] Comment on above: Result Comment: Laundry Route Driver gregor Kidney disease, GFR = <60.Kidney failure, GFR = <15.The GFR estimate is not adjusted for extreme body surface area or acute process, nor has it been validated for women or ethnic groups other than and . Performed By: #### L VD125, LVB1, LACCGA, LVB6 ####Testing performed at [facility]#### LC4, LCYRO, LACEZ, LLWB, LIMEL, LC3, LTTG ####Testing performed at [facility], [address] [place] [address]#### ESR, CREACT, CMPF, MG, HEMOG, TSH2, CPK, B12, URIC ####Testing performed at [address] [place] [address]#### LANCA ####Testing performed at [facility], [address] [place], [place] [address]Gmqwqbx performed at [facility]. GFR, >60 Normal [facility]3] Comment on above: Performed By: #### L VD125, LVB1, LACCGA, LVB6 ####Testing performed at [facility]#### LC4, LCYRO, LACEZ, LLWB, LIMEL, LC3, LTTG ####Testing performed at [facility] [place] [address]#### ESR, CREACT, CMPF, MG, HEMOG, TSH2, CPK, B12, URIC ####Testing performed at [address] [place] [address]#### LANCA ####Testing performed at [place] [address] [address] [place], [place] [address]Hwwuach performed at [facility]. GFR,Non >60 Normal [facility]3] Comment on above: Performed By: #### L VD125, LVB1, LACCGA, LVB6 ####Testing performed at [facility]#### LC4, LCYRO, LACEZ, LLWB, LIMEL, LC3, LTTG ####Testing performed at [facility] [place] [address]#### ESR, CREACT, CMPF, MG, HEMOG, TSH2, CPK, B12, URIC ####Testing performed at [address] [place] [address]#### LANCA ####Testing performed at [facility], [address] [place], [place] [address]Thuvgdg performed at [facility] Protein 7.3 g/dL Normal 6.3-8.2 [facility])[3] Comment on above: Performed By: #### L VD125, LVB1, LACCGA, LVB6 ####Testing performed at [facility]#### LC4, LCYRO, LACEZ, LLWB, LIMEL, LC3, LTTG ####Testing performed at [address] [place] [address]#### ESR, CREACT, CMPF, MG, HEMOG, TSH2, CPK, B12, URIC ####Testing performed at [address] [address]#### LANCA ####Testing performed at [address], [place] [address]Hxjkcgi performed at [facility] Calcium 8.8 mg/dL Normal 8.4-10.2 [facility]3] Comment on above: Performed By: #### L VD125, LVB1, LACCGA, LVB6 ####Testing performed at [facility]#### LC4, LCYRO, LACEZ, LLWB, LIMEL, LC3, LTTG ####Testing performed at [address] [place] [address]#### ESR, CREACT, CMPF, MG, HEMOG, TSH2, CPK, B12, URIC ####Testing performed at [address] [address]#### LANCA ####Testing performed at [address], [place] [address]Jzgokya performed at [facility] Chloride 104 mmol/L Normal 98-107 [facility]3] Comment on above: Performed By: #### L VD125, LVB1, LACCGA, LVB6 ####Testing performed at [facility]#### LC4, LCYRO, LACEZ, LLWB, LIMEL, LC3, LTTG ####Testing performed at [address] [place] [address]#### ESR, CREACT, CMPF, MG, HEMOG, TSH2, CPK, B12, URIC ####Testing performed at [address] [place] [address]#### LANCA ####Testing performed [address] [place], [place] [address]Upzpeoc performed at [facility] CO2 25 mmol/L Normal 22-30 [facility]3] Comment on above: Performed By: #### L VD125, LVB1, LACCGA, LVB6 ####Testing performed at [facility]#### LC4, LCYRO, LACEZ, LLWB, LIMEL, LC3, LTTG ####Testing performed at [address] [place] [address]#### ESR, CREACT, CMPF, MG, HEMOG, TSH2, CPK, B12, URIC ####Testing performed at [place] [id number]#### LANCA ####Testing performed at [address] [facility], [place] [address]Zwauths performed at [facility] Glucose mass conc 96 mg/dL Normal 70-100 [facility]3] Comment on above: Result Comment: NORM AL <100 mg/dLPREDIABETES 101-126 mg/dLDIABETES 126 mg/dL or higher Performed By: #### L VD125, LVB1, LACCGA, LVB6 ####Testing performed at [facility]#### LC4, LCYRO, LACEZ, LLWB, LIMEL, LC3, LTTG ####Testing performed [address] [address]#### ESR, CREACT, CMPF, MG, HEMOG, TSH2, CPK, B12, URIC ####Testing performed at [address] [address]#### LANCA ####Testing performed at [address] [facility], [place] [address]Oyqhjlx performed at [facility] Potassium molar conc 3.5 mmol/L Normal 3.5-5.1 [facility]3] Comment on above: Performed By: #### L VD125, LVB1, LACCGA, LVB6 ####Testing performed at [facility]#### LC4, LCYRO, LACEZ, LLWB, LIMEL, LC3, LTTG ####Testing performed at [address] [place] [address]#### ESR, CREACT, CMPF, MG, HEMOG, TSH2, CPK, B12, URIC ####Testing performed at [address] [address]#### LANCA ####Testing performed at [address], [place] [address]Ntqhruf performed at [facility] Sodium 138 mmol/L Normal 136-145 [facility]3] Comment on above: Performed By: #### L VD125, LVB1, LACCGA, LVB6 ####Testing performed at [facility]#### LC4, LCYRO, LACEZ, LLWB, LIMEL, LC3, LTTG ####Testing performed at [address] [place] [address]#### ESR, CREACT, CMPF, MG, HEMOG, TSH2, CPK, B12, URIC ####Testing performed at [address] [address]#### LANCA ####Testing performed at [address], [place] [address]Dumeogu performed at [facility] CPKon 11-07-2017 CPK 143 IU/L High 30-135 [facility]3] Comment on above: Performed By: #### L VD125, LVB1, LACCGA, LVB6 ####Testing performed at [facility]#### LC4, LCYRO, LACEZ, LLWB, LIMEL, LC3, LTTG ####Testing performed at [address] [place] [address]#### ESR, CREACT, CMPF, MG, HEMOG, TSH2, CPK, B12, URIC ####Testing performed at [address] [place] [address]#### LANCA ####Testing performed at [facility], [address] [place], [place] [address]Aczoqyg performed at [facility] 11-07-2017 Erythrocyte sedimentation rate 15 mm/h Normal 0-15 [facility]3] Comment on above: Performed By: #### L VD125, LVB1, LACCGA, LVB6 ####Testing performed at [facility]#### LC4, LCYRO, LACEZ, LLWB, LIMEL, LC3, LTTG ####Testing performed at [facility] [place] [address]#### ESR, CREACT, CMPF, MG, HEMOG, TSH2, CPK, B12, URIC ####Testing performed at [address] [place] [address]#### LAN[place] ####Testing performed at [facility] [place], [place] [address]Fnadngt performed at [facility] 11-07-2017 Magnesium 2.2 mg/dL Normal 1.6-2.3 [facility]3] Comment on above: Performed By: #### L VD125, LVB1, LACCGA, LVB6 ####Testing performed at [facility]#### LC4, LCYRO, LACEZ, LLWB, LIMEL, LC3, LTTG ####Testing performed at [facility] [place] [address]#### ESR, CREACT, CMPF, MG, HEMOG, TSH2, CPK, B12, URIC ####Testing performed at [address] [place] [address]#### LANCA ####Testing performed at [facility] [place], [place] [address]Rameoch performed at [facility] 11-07-2017 [facility] NOTES Normal [facility]3] TSHon 11-07-2017 Thyroid stimulating hormone (TSH) 1.692 uIU/ML Normal 0.45-5.33 [facility]3] Comment on above: Performed By: #### L VD125, LVB1, LACCGA, LVB6 ####Testing performed at [facility]#### LC4, LCYRO, LACEZ, LLWB, LIMEL, LC3, LTTG ####Testing performed at [address] [place] [address]#### ESR, CREACT, CMPF, MG, HEMOG, TSH2, CPK, B12, URIC ####Testing performed at [place] [id number]#### LANCA ####Testing performed at [address], [place] [address]Xsbrjzp performed at [facility] URIC ACIDon 11-07-2017 Urate 4.9 mg/dL Normal 2.5-6.2 [facility]3] Comment on above: Performed By: #### L VD125, LVB1, LACCGA, LVB6 ####Testing performed at [facility]#### LC4, LCYRO, LACEZ, LLWB, LIMEL, LC3, LTTG ####Testing performed at [address] [place] [address]#### ESR, CREACT, CMPF, MG, HEMOG, TSH2, CPK, B12, URIC ####Testing performed at [address] [address]#### LANCA ####Testing performed at [address], [place] [address]Tumxoor performed at [facility] URINE CULTUREon 11-07-2017 Urine culture, bacteria SPECIMEN DESCRIPTION URINE CLEAN CATCHUA DIPSTICK LEUKOCYTE NEGATIVE * Result Note: NITRITE NEGATIVE *CULTURE NO PATHOGENS ISOLATED * Result Note: Testing performed at [place] [address] *REPORT STATUS 11/09/2017 * Result Note: FINAL * Normal [facility]3] Comment on above: Performed By: #### L VD125, LVB1, LACCGA, LVB6 ####Testing performed at [facility]#### LC4, LCYRO, LACEZ, LLWB, LIMEL, LC3, LTTG ####Testing performed at [facility], [address] [place] [address]#### ESR, CREACT, CMPF, MG, HEMOG, TSH2, CPK, B12, URIC ####Testing performed at [address] [place] [address]#### [place] ####Testing performed at [place] [id number] [place], [place] [address]Jwxkkrw performed at [facility] URINE MACROSCOPICon 11-08-19 18 Bilirubin Ql (U) Negative Normal NEGATIVE [facility]3] Comment on above: Performed By: #### L VD125, LVB1, LACCGA, LVB6 ####Testing performed at [facility]#### LC4, LCYRO, LACEZ, LLWB, LIMEL, LC3, LTTG ####Testing performed at [facility], [address] [place] [address]#### ESR, CREACT, CMPF, MG, HEMOG, TSH2, CPK, B12, URIC ####Testing performed at [address] [place] [address]#### [place] ####Testing performed at [facility] [place], [place] [address]Ftealyr performed at [facility] URINE HEMOGLOBIN SMALL Abnormal NEGATIVE [facility]3] Comment on above: Performed By: #### L VD125, LVB1, LACCGA, LVB6 ####Testing performed at [facility]#### LC4, LCYRO, LACEZ, LLWB, LIMEL, LC3, LTTG ####Testing performed at [facility], [address] [place] [address]#### ESR, CREACT, CMPF, MG, HEMOG, TSH2, CPK, B12, URIC ####Testing performed at [address] [place] [address]#### [place] ####Testing performed at [facility] [place], [place] [address]Xknonbm performed at [facility] URINE KETONE Negative Normal NEGATIVE [facility]3] Comment on above: Performed By: #### L VD125, LVB1, LACCGA, LVB6 ####Testing performed at [facility]#### LC4, LCYRO, LACEZ, LLWB, LIMEL, LC3, LTTG ####Testing performed at [facility] [place] [address]#### ESR, CREACT, CMPF, MG, HEMOG, TSH2, CPK, B12, URIC ####Testing performed at [address] [place] [address]#### [place] ####Testing performed at [place] [id number] [place], [place] [address]Hnxlypk performed at [facility] URINE LEUKOTEST Negative Normal NEGATIVE [facility]3] Comment on above: Performed By: #### L VD125, LVB1, LACCGA, LVB6 ####Testing performed at [facility]#### LC4, LCYRO, LACEZ, LLWB, LIMEL, LC3, LTTG ####Testing performed at [facility] [place] [address]#### ESR, CREACT, CMPF, MG, HEMOG, TSH2, CPK, B12, URIC ####Testing performed at [address] [place] [address]#### [place] ####Testing performed at [place] [address] [place], [place] [address]Ebckksx performed at [facility] URINE NITRATES Negative Normal NEGATIVE [facility]3] Comment on above: Performed By: #### L VD125, LVB1, LACCGA, LVB6 ####Testing performed at [facility]#### LC4, LCYRO, LACEZ, LLWB, LIMEL, LC3, LTTG ####Testing performed at [place] [address] [place] [address]#### ESR, CREACT, CMPF, MG, HEMOG, TSH2, CPK, B12, URIC ####Testing performed at [address] [place] [address]#### [place] ####Testing performed at [place] [id number] [place], [place] [address]Gkdygdd performed at [facility] URINE SPEC GRAVITY 1.015 Normal 1.010-1.025 [facility])[3] Comment on above: Performed By: #### L VD125, LVB1, LACCGA, LVB6 ####Testing performed at [facility]#### LC4, LCYRO, LACEZ, LLWB, LIMEL, LC3, LTTG ####Testing performed at [address] [place] [address]#### ESR, CREACT, CMPF, MG, HEMOG, TSH2, CPK, B12, URIC ####Testing performed at [address] [place] [address]#### [place] ####Testing performed [address] [place], [place] [address]Obihhuc performed at [facility] URINE TOTAL PROTEIN Negative Normal NEGATIVE [facility])[3] Comment on above: Performed By: #### L VD125, LVB1, LACCGA, LVB6 ####Testing performed at [facility]#### LC4, LCYRO, LACEZ, LLWB, LIMEL, LC3, LTTG ####Testing performed at [place] [address] [place] [address]#### ESR, CREACT, CMPF, MG, HEMOG, TSH2, CPK, B12, URIC ####Testing performed at [address] [place] [address]#### [place] ####Testing performed at [place] [id number] [place], [place] [address]Sphntux performed at [facility] Urine, clarity CLEAR Normal CLEAR [facility]3] Comment on above: Performed By: #### L VD125, LVB1, LACCGA, LVB6 ####Testing performed at [facility]#### LC4, LCYRO, LACEZ, LLWB, LIMEL, LC3, LTTG ####Testing performed at [facility], [address] [place] [address]#### ESR, CREACT, CMPF, MG, HEMOG, TSH2, CPK, B12, URIC ####Testing performed at [address] [place] [address]#### [place]CA ####Testing performed at [facility], [address] [place], [place] [address]Hvpzewn performed at [facility] Urine, color YELLOW Normal YELLOW [facility]3] Comment on above: Performed By: #### L VD125, LVB1, LACCGA, LVB6 ####Testing performed at [facility]#### LC4, LCYRO, LACEZ, LLWB, LIMEL, LC3, LTTG ####Testing performed at [facility], [address] [place] [address]#### ESR, CREACT, CMPF, MG, HEMOG, TSH2, CPK, B12, URIC ####Testing performed at [address] [place] [address]#### LANCA ####Testing performed at [place] [address] [place], [place] [address]Ofjcmor performed at [facility] Urine, glucose presence Negative Normal NEGATIVE [facility]3] Comment on above: Performed By: #### L VD125, LVB1, LACCGA, LVB6 ####Testing performed at [facility]#### LC4, LCYRO, LACEZ, LLWB, LIMEL, LC3, LTTG ####Testing performed at [facility], [address] [place] [address]#### ESR, CREACT, CMPF, MG, HEMOG, TSH2, CPK, B12, URIC ####Testing performed at [address] [place] [address]#### [place] ####Testing performed at [place] [address] [place], [place] [address]Iajmtyi performed at [facility] Urine, pH 7.5 [pH] High 5.0-7.0 [facility])[3] Comment on above: Performed By: #### L VD125, LVB1, LACCGA, LVB6 ####Testing performed at [facility]#### LC4, LCYRO, LACEZ, LLWB, LIMEL, LC3, LTTG ####Testing performed at [place] [address] [address]#### ESR, CREACT, CMPF, MG, HEMOG, TSH2, CPK, B12, URIC ####Testing performed at [address] [place] [address]#### LANCA ####Testing performed at [facility], [address] [place], [place] [address]Hbiyvjn performed at [facility] Urine, urobilinogen 0.2 mg/dl Normal 0.2-1.0 [facility])[3] Comment on above: Performed By: #### L VD125, LVB1, LACCGA, LVB6 ####Testing performed at [facility]#### LC4, LCYRO, LACEZ, LLWB, LIMEL, LC3, LTTG ####Testing performed at [place] [address] [place] [address]#### ESR, CREACT, CMPF, MG, HEMOG, TSH2, CPK, B12, URIC ####Testing performed at [address] [place] [address]#### [place] ####Testing performed at [place] [id number] [place], [place] [address]Kgwjjmt performed at [facility] URINE MICROSCOPICon 11-08-19 18 BACTERIA Negative Normal NEGATIVE [facility]3] Comment on above: Performed By: #### L VD125, LVB1, LACCGA, LVB6 ####Testing performed at [facility]#### LC4, LCYRO, LACEZ, LLWB, LIMEL, LC3, LTTG ####Testing performed at [facility] [place] [address]#### ESR, CREACT, CMPF, MG, HEMOG, TSH2, CPK, B12, URIC ####Testing performed at [address] [place] [address]#### LANCA ####Testing performed at [facility] [place], [place] [address]Cbglmkd performed at [facility] NONE Normal [facility] Comment on above: Performed By: #### L VD125, LVB1, LACCGA, LVB6 ####Testing performed at [facility]#### LC4, LCYRO, LACEZ, LLWB, LIMEL, LC3, LTTG ####Testing performed at [facility] [place] [address]#### ESR, CREACT, CMPF, MG, HEMOG, TSH2, CPK, B12, URIC ####Testing performed at [address] [place] [address]#### [place]CA ####Testing performed at [facility] [place], [place] [address]Ywjtpku performed at [facility] CRYSTAL RARE Abnormal [facility] Comment on above: Result Comment: DANIEL PHOUS PHOSPHATES Performed By: #### L VD125, LVB1, LACCGA, LVB6 ####Testing performed at [facility]#### LC4, LCYRO, LACEZ, LLWB, LIMEL, LC3, LTTG ####Testing performed at [facility] [place] [address]#### ESR, CREACT, CMPF, MG, HEMOG, TSH2, CPK, B12, URIC ####Testing performed at [address] [address]#### LANCA ####Testing performed at [facility] [place], [place] [address]Agbbynx performed at [facility] EPITHELIAL CELLS NONE Normal [facility]3] Comment on above: Performed By: #### L VD125, LVB1, LACCGA, LVB6 ####Testing performed at [facility]#### LC4, LCYRO, LACEZ, LLWB, LIMEL, LC3, LTTG ####Testing performed at [facility] [place] [address]#### ESR, CREACT, CMPF, MG, HEMOG, TSH2, CPK, B12, URIC ####Testing performed at [address] [place] [address]#### LANCA ####Testing performed at [facility] [place], [place] [address]Kfhqyuc performed at [facility] MUCUS Negative Normal NEGATIVE [facility]3] Comment on above: Performed By: #### L VD125, LVB1, LACCGA, LVB6 ####Testing performed at [facility]#### LC4, LCYRO, LACEZ, LLWB, LIMEL, LC3, LTTG ####Testing performed at [facility] [place] [address]#### ESR, CREACT, CMPF, MG, HEMOG, TSH2, CPK, B12, URIC ####Testing performed at [address] [address]#### LANCA ####Testing performed at [place] [id number] [place], [place] [address]Tgkbmuj performed at [facility] URINE COMMENT REFLEX CULTURE PER ESTABLISHED CRITERIA. Normal [facility]3] Comment on above: Performed By: #### L VD125, LVB1, LACCGA, LVB6 ####Testing performed at [facility]#### LC4, LCYRO, LACEZ, LLWB, LIMEL, LC3, LTTG ####Testing performed at [facility] [address] [place] [address]#### ESR, CREACT, CMPF, MG, HEMOG, TSH2, CPK, B12, URIC ####Testing performed at [address] [place] [address]#### LANCA ####Testing performed at [facility], [address] [place], [place] [address]Xoihxda performed at [facility] URINE WBC'S Negative Normal NEGATIVE [facility]3] Comment on above: Performed By: #### L VD125, LVB1, LACCGA, LVB6 ####Testing performed at [facility]#### LC4, LCYRO, LACEZ, LLWB, LIMEL, LC3, LTTG ####Testing performed at [facility], [address] [place] [address]#### ESR, CREACT, CMPF, MG, HEMOG, TSH2, CPK, B12, URIC ####Testing performed at [address] [place] [address]#### LANCA ####Testing performed at [place] [id number] [place], [place] [address]Gjsmrhd performed at [facility] Urine, erythrocytes 1 TO 5 Normal NEGATIVE [facility]3] Comment on above: Performed By: #### L VD125, LVB1, LACCGA, LVB6 ####Testing performed at [facility]#### LC4, LCYRO, LACEZ, LLWB, LIMEL, LC3, LTTG ####Testing performed at [facility], [address] [place] [address]#### ESR, CREACT, CMPF, MG, HEMOG, TSH2, CPK, B12, URIC ####Testing performed at [address] [place] [address]#### LANCA ####Testing performed at [facility], [address] [place], [place] [address]Hctnubu performed at [facility] VITAMIN B12on 11-07-2017 Cobalamins (Vitamin B12) 210 pg/mL Normal 180-914 [facility]3] Comment on above: Performed By: #### L VD125, LVB1, LACCGA, LVB6 ####Testing performed at [facility]#### LC4, LCYRO, LACEZ, LLWB, LIMEL, LC3, LTTG ####Testing performed at [facility] [place] [address]#### ESR, CREACT, CMPF, MG, HEMOG, TSH2, CPK, B12, URIC ####Testing performed at [facility]3][address] [place] [address]#### LANCA ####Testing performed at [address] [address]Fynirom performed at [facility] XR CHEST PA AND LATERALon XR CHEST PA AND LATERAL TWO-VIEW CHESTREASON FOR STUDY: Chest pain.COMPARISON: None.REPORT: Trachea, mediastinum and heart size are unremarkable. No infiltrates are noted. No effusion or nodule or pneumothorax is noted. The diaphragm and bony elements are intact.IMPRESSION: Nonacute two-view chest. Normal [facility]3] XR SHOULDER LEFT MIN 2 VIEWS on 11-07-2017 Thyroid stimulating hormone (TSH) LEFT SHOULDERREASON FOR STUDY: Pain and decreased range of motion.COMPARISON: None.REPORT: Three views were done of the left shoulder. The AC joint, coracoid process, and glenohumeral joint are unremarkable. Bone density is normal. The surrounding soft tissues are unremarkable. No foreign bodies are noted.IMPRESSION: Nonacute plain films of the left shoulder. Recommend follow up as needed. Normal [facility]3] XR SHOULDER RIGHT MIN 2 VIEW Son 11-07-2017 Thyroid stimulating hormone (TSH) RIGHT SHOULDERCOMPARISON: None.REASON FOR STUDY: Diffuse pain and decreased range of motion.REPORT: 3 views were done of the right shoulder. The glenohumeral joint and AC joint and coracoid process are unremarkable. Bone density is normal. No fracture or dislocation or bony lesion is noted. Surrounding soft tissues are unremarkable.IMPRESSION: Unremarkable plain films of the right shoulder. Recommend follow-up as needed. Normal [facility]3] Vital Signs Date Time Vital Sign Value Performing Clinician Faci lity 02-25-2025 10:290500 Body height 172.7 cm Tri Suarez MD Work Phone: [facility] 02-25-2025 10:29-0500 Body mass index (BMI) [Ratio] 29.16 kg/m2 Tri Suarez MD Work Phone: [facility] 02-25-2025 10:29-050 Body weight 87 kg Tri Suarez MD Work Phone: [facility] 02-25-2025 10:29-0500 Diastolic blood pressure 70 mm[Hg] Tri Suarez MD Work Phone: [facility] 02-25-2025 10:29-0500 Systolic blood pressure 112 mm[Hg] Tri Suarez MD Work Phone: [facility] 02-17-2025 14:21-0400 Body height 177.8 cm Everett Cutler MD Work Phone: [facility] 02-17-2025 14:21-0400 Body mass index (BMI) [Ratio] 28.3 kg/m2 Everett Cutler MD Work Phone: [facility] 02-17-2025 14:21-0400 Body weight 89.45 kg Everett Cutler MD Work Phone: [facility] 02-17-2025 14:21-0400 Diastolic blood pressure 70 mm[Hg] Everett Cutler MD Work Phone: [facility] 02-17-2025 14:21-0400 Heart rate 68 /min Everett Cutler MD Work Phone: [facility] 02-17-2025 14:21-0400 SaO2% (BldA) [Mass fraction] 99 % Everett Cutler MD Work Phone: [facility] 02-17-2025 14:21-0400 Systolic blood pressure 110 mm[Hg] Everett Cutler MD Work Phone: [facility] 01-26-2025 14:54-0400 Body height 177.[address] Ashkan Cutler MD Work Phone: [facility] 01-26-2025 14:26-0400 Body mass index (BMI) [Ratio] 28.5 kg/m2 Dr. Ashkan Cutler MD Work Phone: [facility] 01-26-2025 14:26-0400 Body weight 90.[address] Ashkan Cutler MD Work Phone: [facility] 01-26-2025 14:26-0400 Diastolic blood pressure 77 mm[Hg] Dr. Ashkan Cutler MD Work Phone: [facility] 01-26-2025 14:26-0400 Systolic blood pressure 116 mm[Hg] Dr. Ashkan Cutler MD Work Phone: [facility] 08-21-2024 10:56-0400 Body height 177.8 cm Geovany Wood 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 Work Phone: [facility] 08-21-2024 10:56-0400 Body mass index (BMI) [Ratio] 28.41 kg/m2 Geovany Wood 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 Work Phone: [facility] 08-21-2024 10:56-0400 Body temperature 98.1 [degF] Geovany Wood 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 Work Phone: [facility] 08-21-2024 10:56-0400 Body weight 89.81 kg Geovany Wood 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 Work Phone: [facility] 08-21-2024 10:56-0400 Diastolic blood pressure 76 mm[Hg] Geovany Wood 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 Work Phone: [facility] 08-21-2024 10:56-0400 SaO2% (BldA) [Mass fraction] 99 % Geovany Wood 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 Work Phone: [facility] 08-21-2024 10:56-0400 Systolic blood pressure 124 mm[Hg] Geovany York APRN-HIGHWAY MAINTAINER Work Phone: [facility] 07-28-2024 09:15-0400 Body height 177.8 cm Samuel Gamez MD Work Phone: [facility] 07-28-2024 09:15-0400 Body mass index (BMI) [Ratio] 28.5 kg/m2 Samuel Gamez MD Work Phone: [facility] 07-28-2024 09:15-0400 Body weight 90.08 kg Samuel Gamez MD Work Phone: [facility] 07-28-2024 09:15-0400 Diastolic blood pressure 64 mm[Hg] Samuel Gamez MD Work Phone: [facility] 07-28-2024 09:15-0400 Systolic blood pressure 108 mm[Hg] Samuel Gamez MD Work Phone: [facility] 06-18-2024 08:59-0500 Body height 177.8 cm Samuel Gamez MD Work Phone: [facility] 06-18-2024 08:59-0500 Body mass index (BMI) [Ratio] 28.73 kg/m2 Samuel Gamez MD Work Phone: [facility] 06-18-2024 08:59-0500 Body weight 90.81 kg Samuel Gamez MD Work Phone: [facility] 06-18-2024 08:59-0500 Diastolic blood pressure 68 mm[Hg] Samuel Gamez MD Work Phone: [facility] 06-18-2024 08:59-0500 Systolic blood pressure 118 mm[Hg] Samuel Gamez MD Work Phone: [facility] 06-05-2024 12:56-0500 Body height 177.8 cm Virginia Joaquin DO Work Phone: [facility] 06-05-2024 12:56-0500 Body mass index (BMI) [Ratio] 28.81 kg/m2 Virginia Thomae DO Work Phone: [facility] 06-05-2024 12:56-0500 Body weight 91.08 kg Virginia Thomae DO Work Phone: [facility] 06-05-2024 12:56-0500 Diastolic blood pressure 73 mm[Hg] Virginia Thomae DO Work Phone: [facility] 06-05-2024 12:56-0500 Heart rate 78 /min Virginia Thomae DO Work Phone: [facility] 06-05-2024 12:56-0500 Respiratory rate 16 /min Virginia Thomae DO Work Phone: [facility] 06-05-2024 12:56-0500 SaO2% (BldA) [Mass fraction] 98 % Virginia Thomae DO Work Phone: [facility] 06-05-2024 12:56-0500 Systolic blood pressure 107 mm[Hg] Virginia Thomae DO Work Phone: [facility] 05-26-2024 10:47-0500 Body height 177.8 cm Everett Cutler MD Work Phone: [facility] 05-26-2024 10:47-0500 Body mass index (BMI) [Ratio] 28.73 kg/m2 Everett Cutler MD Work Phone: [facility] 05-26-2024 10:47-0500 Body weight 90.81 kg Everett Cutler MD Work Phone: [facility] 05-26-2024 10:47-0500 Diastolic blood pressure 70 mm[Hg] Everett Cutler MD Work Phone: [facility] 05-26-2024 10:47-0500 Heart rate 73 /min Everett Cutler MD Work Phone: [facility] 05-26-2024 10:47-0500 SaO2% (BldA) [Mass fraction] 99 % Everett Cutler MD Work Phone: [facility] 05-26-2024 10:47-0500 Systolic blood pressure 140 mm[Hg] Everett Cutler MD Work Phone: [facility] 05-20-2024 15:23-0500 Diastolic blood pressure 74 mm[Hg] Virginia Thomae DO Work Phone: [facility] 05-20-2024 15:23-0500 Heart rate 75 /min Virginia Thomae DO Work Phone: [facility] 05-20-2024 15:23-0500 Respiratory rate 18 /min Virginia Thomae DO Work Phone: [facility] 05-20-2024 15:23-0500 SaO2% (BldA) [Mass fraction] 97 % Virginia Thomae DO Work Phone: [facility] 05-20-2024 15:23-0500 Systolic blood pressure 106 mm[Hg] Virginia Thomae DO Work Phone: [facility] 05-20-2024 14:38-0500 Body temperature 98.2 [degF] Virginia Thomae DO Work Phone: [facility] 05-05-2024 13:50-0500 Body height 177.8 cm Everett Cutler MD Work Phone: [facility] 05-05-2024 13:50-0500 Body mass index (BMI) [Ratio] 29.5 kg/m2 Everett Cutler MD Work Phone: [facility] 05-05-2024 13:50-0500 Body weight 93.26 kg Everett Cutler MD Work Phone: [facility] 05-05-2024 13:50-0500 Diastolic blood pressure 80 mm[Hg] Everett Cutler MD Work Phone: [facility] 05-05-2024 13:50-0500 Heart rate 70 /min Everett Cutler MD Work Phone: [facility] 05-05-2024 13:50-0500 SaO2% (BldA) [Mass fraction] 99 % Everett Cutler MD Work Phone: [facility] 05-05-2024 13:50-0500 Systolic blood pressure 120 mm[Hg] Everett Cutler MD Work Phone: [facility] 04-10-2024 10:33-0500 Body height 177.8 cm Everett Cutler MD Work Phone: [facility] 04-10-2024 10:33-0500 Body mass index (BMI) [Ratio] 29.5 kg/m2 Everett Cutler MD Work Phone: [facility] 04-10-2024 10:33-0500 Body weight 93.26 kg Everett Cutler MD Work Phone: [facility] 04-10-2024 10:33-0500 Diastolic blood pressure 70 mm[Hg] Everett Cutler MD Work Phone: [facility] 04-10-2024 10:33-0500 Heart rate 69 /min Everett Cutler MD Work Phone: [facility] 04-10-2024 10:33-0500 SaO2% (BldA) [Mass fraction] 99 % Everett Cutler MD Work Phone: [facility] 04-10-2024 10:33-0500 Systolic blood pressure 122 mm[Hg] Everett Cutler MD Work Phone: [facility] 07-23-2023 09:56-0400 Body height 177.8 cm Samuel Gamez MD Work Phone: [facility] 07-23-2023 09:56-0400 Body mass index (BMI) [Ratio] 28.24 kg/m2 Samuel Gamez MD Work Phone: [facility] 07-23-2023 09:56-0400 Body weight 89.27 kg Samuel Gamez MD Work Phone: [facility] 07-23-2023 09:56-0400 Diastolic blood pressure 74 mm[Hg] Samuel Gamez MD Work Phone: [facility] 07-23-2023 09:56-0400 Systolic blood pressure 120 mm[Hg] Samuel Gamez MD Work Phone: [facility] 07-19-2022 10:01-0400 Body height 177.8 cm Everett Cutler Work Phone: [employer] Work Phone: 07-19-2022 10:01-0400 Body mass index (BMI) [Ratio] 28.25 kg/m2 Everett Cutler Work Phone: [employer] Work Phone: 07-19-2022 10:01-0400 Body surface area Derived from formula 2.07 m2 Everett Cutler Work Phone: [employer] [address] Work Phone: 07-19-2022 10:01-0400 Body weight 89.3 kg Everett Cutler Work Phone: [employer] [address] Work Phone: 07-19-2022 10:01-0400 Diastolic blood pressure 68 mm[Hg] Everett Cutler Work Phone: [facility] [address] Work Phone: 07-19-2022 10:01-0400 Systolic blood pressure 116 mm[Hg] Everett Cutlre Work Phone: [facility] [address] Work Phone: 03-21-2022 14:55-0500 Body height 177.8 cm Everett Cutler Work Phone: [facility] Work Phone: 03-21-2022 14:55-0500 Body mass index (BMI) [Ratio] 28.63 kg/m2 Everett Cutler Work Phone: [employer] [place] [facility] Work Phone: 03-21-2022 14:55-0500 Body surface area Derived from formula 2.09 m2 Everett Cutler Work Phone: [employer] [place] [facility] Work Phone: 03-21-2022 14:55-0500 Body weight 90.52 kg Everett Cutler Work Phone: [facility] Work Phone: 03-21-2022 14:55-0500 Diastolic blood pressure 70 mm[Hg] Everett Cutler Work Phone: [facility] Work Phone: 03-21-2022 14:55-0500 Heart rate 71 /min Everett Cutler Work Phone: [facility] Work Phone: 03-21-2022 14:55-0500 SaO2% (BldA) [Mass fraction] 98 % Everett Cutler Work Phone: [facility] Work Phone: 03-21-2022 14:55-0500 Systolic blood pressure 108 mm[Hg] Everett Cutler Work Phone: [employer] [facility] Work Phone: 12-29-2021 16:12-0400 Body height 177.8 cm Everett Gant Cutler Work Phone: [facility] Work Phone: 12-29-2021 16:12-0400 Body mass index (BMI) [Ratio] 28.47 kg/m2 [employer] Work Phone: [facility] Work Phone: 12-29-2021 16:12-0400 Body surface area Derived from formula 2.08 m2 Everett Cutler Work Phone: [facility] Work Phone: 12-29-2021 16:12-0400 Body weight 90.01 kg Everett Cutler Work Phone: [facility] Work Phone: 12-29-2021 16:12-0400 Diastolic blood pressure 70 mm[Hg] Everett Gant Cutler Work Phone: [facility] Work Phone: 12-29-2021 16:12-0400 Heart rate 70 /min Everett Cutler Work Phone: [facility] Work Phone: 12-29-2021 16:12-0400 SaO2% (BldA) [Mass fraction] 99 % [employer] Stalin Cutler Work Phone: [facility] Work Phone: 12-29-2021 16:12-0400 Systolic blood pressure 120 mm[Hg] Everett Cutler Work Phone: [facility] Work Phone: 08-19-2021 14:55-0400 Body height 177.8 cm Everett Cutler Work Phone: [facility] Work Phone: 08-19-2021 14:55-0400 Body mass index (BMI) [Ratio] 28.01 kg/m2 Everett Cutler Work Phone: -[facility] Work Phone: 08-19-2021 14:55-0400 Body surface area Derived from formula 2.07 m2 Everett Cutler Work Phone: -[facility] Work Phone: 08-19-2021 14:55-0400 Body weight 88.54 kg Everett Cutler Work Phone: [facility] [place] Work Phone: 08-19-2021 14:55-0400 Diastolic blood pressure 70 mm[Hg] Everett Cutler Work Phone: [facility] [place] Work Phone: 08-19-2021 14:55-0400 Heart rate 73 /min Everett Cutler Work Phone: [facility] [place] Work Phone: 08-19-2021 14:55-0400 SaO2% (BldA) [Mass fraction] 98 % Everett Cutler Work Phone: [facility] [place] Work Phone: 08-19-2021 14:55-0400 Systolic blood pressure 120 mm[Hg] Everett Cutler Work Phone: [facility] [place] Work Phone: 07-18-2021 10:05-0400 Body height 177.8 cm [employer] Work Phone: [employer] Work Phone: 07-18-2021 10:05-0400 Body mass index (BMI) [Ratio] 28.34 kg/m2 [employer] Work Phone: [employer] Work Phone: 07-18-2021 10:05-0400 Body surface area Derived from formula 2.08 m2 [employer] Work Phone: [employer] Work Phone: 07-18-2021 10:05-0400 Body weight 89.6 kg [employer] Work Phone: [employer] Work Phone: 07-18-2021 10:05-0400 Diastolic blood pressure 68 mm[Hg] Aneta S [place] Work Phone: [employer] Work Phone: 07-18-2021 10:05-0400 Systolic blood pressure 124 mm[Hg] Aneta S [place] Work Phone: [employer] Work Phone: 11-25-2020 00:38-0400 Diastolic blood pressure 65 mm[Hg] Aneta [place] Other Phone: [facility] 11-25-2020 00:38-0400 Heart rate 75 /min Aneta [place] Other Phone: [facility] 11-25-2020 00:38-0400 Respiratory rate 18 /min Aneta [place] Other Phone: [facility] 11-25-2020 00:38-0400 SaO2% (BldA) [Mass fraction] 93 % Aneta [place] Other Phone: [facility] 11-25-2020 00:38-0400 Systolic blood pressure 129 mm[Hg] Aneta [place] Other Phone: [facility] 11-24-2020 22:01-0400 Body height 177.8 cm Aneta [place] Other Phone: [facility] 11-24-2020 22:01-0400 Body temperature 98.24 [degF] Aneta [place] Other Phone: [facility] 11-24-2020 22:01-0400 Body weight 90.9 kg Aneta [place] Other Phone: [facility] Encounters Encounter Date Encounter Type Care Provider Facility Start: 03-31-2025 ambulatory Katharina Archuleta lity:[facility] Start: 02-25-2025 End: 02-25-2025 Office outpatient visit 15 minutes Tri Suarez MD Work Phone: [facility] Comment on above: Acute cystitis with hematuria (Primary Dx); Dysuria Start: 02-25-2025 End: 02-25-2025 ambulatory TRI Woods [facility] Start: 02-17-2025 End: 02-17-2025 Office outpatient visit 15 minutes Everett Cutler MD Work Phone: [facility] Comment on above: Irritable bowel synd edward with diarrhea (Primary Dx); PCOD (polycystic ovarian disease) Start: 02-17-2025 End: 02-17-2025 ambulatory EVERETT CUTLER [facility] Start: 01-26-2025 End: 01-26-[address] Katharina Rubio MD -[facility] Work Phone: Start: 01-26-2025 End: 01-26-[address] Ashkan Cutler MD Work Phone: [facility] Start: 08-22-2024 End: 08-22-2024 Subsequent hospital visit by physician Topher Ultrasound 1 [facility] Comment on above: Lower abdominal pain Start: 08-22-2024 End: 08-22-2024 ambulatory [facility] Start: 08-22-2024 End: 08-22-2024 Subsequent hospital visit by physician Topher X-Ray Fluoro 1 [facility] Comment on above: Lower abdominal pain Start: 08-22-2024 End: 08-22-2024 ambulatory [facility] Start: 08-21-2024 End: 08-21-2024 Office outpatient visit 25 minutes [facility] 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 Work Phone: [facility] Comment on above: Microscopic hematuri a (Primary Dx); Suprapubic abdominal pain; Other microscopic hematuria; Lower abdominal pain Start: 08-21-2024 End: 08-21-2024 ambulatory [facility] Start: 07-28-2024 End: 07-28-2024 Patient encounter procedure Samuel Gamez MD Work Phone: [facility] Start: 07-28-2024 End: 07-28-2024 Periodic preventive med est patient 18-39 yrs Samuel Gamez MD Work Phone: [facility] Comment on above: Encounter for annual routine gynecological examination; Encounter for screening for cervical cancer; Encounter for surveillance of contraceptive pills Start: 07-28-2024 End: 07-28-2024 ambulatory [facility] Start: 07-28-2024 End: 07-28-2024 Encounter for gynecological examination (general) (routine) without abnormal findings [facility] Start: 06-18-2024 End: 06-18-2024 Office outpatient visit 15 minutes Samuel Gamez MD Work Phone: [facility] Comment on above: Menometrorrhagia (Pr imary Dx); Encounter for surveillance of contraceptive pills Start: 06-18-2024 End: 06-18-2024 ambulatory [facility] Start: 06-05-2024 End: 06-05-2024 Office outpatient visit 25 minutes Virginia Joaquin DO Work Phone: [facility] Comment on above: Irritable bowel synd edward with diarrhea (Primary Dx) Start: 06-05-2024 End: 06-05-2024 ambulatory [facility] Start: 06-02-2024 End: 06-02-[address] [facility] Start: 05-26-2024 End: 05-26-2024 Office outpatient visit 25 minutes Everett Cutler MD Work Phone: [facility] Comment on above: Chronic fatigue (Debra kenton Dx); Diarrhea, unspecified type; Rectal bleeding; Irritable bowel syndrome with diarrhea Start: 05-26-2024 End: 05-26-2024 ambulatory [facility] Start: 05-20-2024 End: 05-20-2024 Subsequent hospital visit by physician Virginia Joaquin DO Work Phone: [facility] Comment on above: Functional diarrhea (Primary Dx); Diarrhea, functional; Flushing; Carcinoid syndrome Start: 05-20-2024 End: 05-20-2024 ambulatory VIRGINIA JOAQUIN [facility] Start: 05-20-2024 End: 05-20-2024 ambulatory VIRGINIA Ward [facility] Start: 05-05-2024 End: 05-05-2024 Office outpatient visit 15 minutes Everett Cutler MD Work Phone: [facility] Comment on above: Rectal bleeding (Debra kenton Dx); Irritable bowel syndrome with diarrhea Start: 05-05-2024 End: 05-05-2024 ambulatory [facility] Start: 04-30-2024 End: 04-30-2024 [facility] Start: 04-14-2024 End: 04-14-2024 Subsequent hospital visit by physician Topher [id number] X-Ray [facility] Comment on above: Pain in left foot; Pain in right foot Start: 04-14-2024 End: 04-14-2024 ambulatory BEV Woods TUSHARLORE [facility] Start: 04-11-2024 End: 04-11-[address] 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); Low vitamin B12 level; Chronic fatigue; Right foot pain Start: 04-10-2024 End: 04-10-2024 ambulatory DARWIN Stalin [facility] Start: 01-30-2024 End: 01-30-2024 Emergency department patient visit DARWIN [facility] Start: 07-23-2023 End: 07-23-2023 Patient encounter status Samuel Gamez MD Work Phone: [facility] Start: 07-23-2023 End: 07-23-2023 Periodic preventive med est patient 18-39 yrs Samuel Gamez MD Work Phone: [facility] Comment on above: Encounter for survei llance of contraceptive pills (Primary Dx); Encounter for gynecological examination without abnormal finding; Encounter for screening for cervical cancer Start: 07-27-2022 AUDIT Everett Cutler Work Phone: [employer] Work Phone: Start: 07-26-2022 Chart Update Everett Cutler Work Phone: [facility] [employer] Work Phone: Start: 07-19-2022 Encounter for gynecological examination (general) (routine) without abnormal findings Samuel Gamez [facility] Start: 07-19-2022 Encounter for gynecological examination (general) (routine) without abnormal findings Dr. Everett Cutler Facility:[facility] Start: 07-19-[address] Ashkan Cutler Facility:[facility] Start: 03-22-2022 Chart Update Everett Cutler Work Phone: [facility] Work Phone: Start: 03-21-2022 Office outpatient vi sit 15 minutes Everett Cutler Work Phone: [facility] Work Phone: Start: 03-21-[address] Ashkan Cutler Facility:[id number] Start: 01-30-[address] Ashkan Cutler Facility:[id number] Start: 01-30-2022 Patient encounter procedure Everett Cutler Work Phone: [facility] Work Phone: Start: 01-02-2022 Chart Update Everett Cutler Work Phone: [facility] Work Phone: Start: 12-29-2021 Office outpatient vi sit 25 minutes Everett Cutler Work Phone: [facility] Work Phone: Start: 12-29-[address] Ashkan Cutler Facility:[id number] Start: 12-01-[address] Ashkan Cutler Facility:[id number] Start: 10-18-2021 Patient encounter procedure Everett Cutler Work Phone: [facility] Work Phone: Start: 10-18-[address] Ashkan Cutler Facility:[id number] Start: 09-16-2021 NURSEVST, Provider: [facility] ASH RN 1,[id number], Status: Pen, Time: 4:00 PM Everett Cutler Work Phone: [facility] Work Phone: Start: 09-16-2021 EPV, Provider: Everett Cutler, Status: Pen, Time: 2:40 PM Everett Cutler Work Phone: [facility] Work Phone: Start: 09-16-[address] Ashkan Cutler Facility:[id number] Start: 09-15-2021 Chart Update Everett Cutler Work Phone: [facility] Work Phone: Start: 09-09-2021 Patient encounter procedure Everett Cutler Work Phone: [facility] Work Phone: Start: 09-09-[address] Ashkan Cutler Facility:[id number] Start: 09-02-2021 Patient encounter procedure Everett Cutler Work Phone: [facility] Work Phone: Start: 09-02-[address] Ashkan Cutler Facility:[id number] Start: 08-26-2021 Patient encounter procedure Everett Cutler Work Phone: [facility] Work Phone: Start: 08-26-[address] Ashkan Cutler Facility:[id number] Start: 08-22-2021 Transcribe Orders Everett Cutler MD Work Phone: [facility] Comment on above: Numbness and tinglin g of right arm (Primary Dx) Start: 08-19-2021 Office outpatient vi sit 25 minutes Everett Cutler Work Phone: [facility] Work Phone: Start: 08-19-[address] Ashkan Cutler Facility:[id number] Start: 08-03-2021 Chart Update Aneta grissom Work Phone: [employer] Work Phone: Start: 07-18-2021 Periodic preventive med est patient 18-39 yrs Aneta Collins Work Phone: [employer] Work Phone: Start: 11-24-2020 End: 11-25-2020 Emergency department patient visit Libby Frias [facility] Emergency 14 Start: 08-19-2019 Patient encounter procedure Samuel Gamez [facility] Work Phone: Start: 07-07-2019 Patient encounter procedure Samuel Gamez [facility] Work Phone: Start: 07-03-2019 Patient encounter procedure Samuel Gamez [facility] Work Phone: Start: 05-30-2019 Patient encounter procedure Samuel Gamez [facility] Work Phone: Start: 05-22-2019 Patient encounter procedure Samuel Gamez [facility] Work Phone: Start: 05-12-2019 Patient encounter procedure Samuel Gamez [facility] Work Phone: Start: 05-07-2019 Patient encounter procedure Samuel Gamez [facility] Work Phone: Start: 05-01-2019 Patient encounter procedure Samuel Gamez [facility] Work Phone: Start: 11-07-2017 Patient encounter AURORA ROMAN [facility] Start: 11-07-2017 Patient encounter [place] [facility] Encounter for gynecological examination (general) (routine) without abnormal findings Aneta Collins [employer] Phone: [address] Work Phone: Comment on above: 07/16/2020: Negative 05/30/2019-ASCUS HPV -11/20/2017 13:Zara Palmer LPN, JenniferNegative; 07/18/2021; ASCUS, HP V [id number]: Tccckqfj59/07/2020-ASCUS HPV -11/20/2017 13:Zara Palmer LPN, JenniferNegative; 07/19/2022: ASC-US, HPV negative07/18/2021; ASCUS, HPV [id number]: Tyscyxmq32/07/2020-ASCUS HPV -11/20/2017 13:Zara Palmer LPN, JenniferNegative; Patient encounter procedure Aneta Collins Work Phone: [address] Work Phone: Procedures Date Procedure Procedure Detail Performing Clinician Start: 02-25-2025 POCT UA AUTOMATED MANUALLY RESULTED Tri Suarez MD Work Phone: Start: 08-21-2024 Urnls dip stick/tabl et rgnt auto w/o microscopy Geovany York 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 Work Phone: Start: 07-28-2024 Microscopic observat ion [Identifier] in Cervix by Cyto stain Geovany York 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 Work Phone: Start: 06-05-2024 Follow-up visit Follow-up VIRGINIA JOAQUIN Start: 05-20-2024 Colonoscopy w/biopsy single/multiple Virginia Joaquin DO Work Phone: Start: 05-20-2024 Level iv surg pathol ogy gross&microscopic exam Virginia Joaquin DO Work Phone: Start: 05-20-2024 Colonoscopy Virginia correa DO Work Phone: Start: 07-23-2023 Microscopic observat ion [Identifier] in Cervix by Cyto stain Everett Cutler MD Work Phone: Start: 07-19-2022 Microscopic observat ion [Identifier] in Cervix by Cyto stain Samuel Gamez MD Work Phone: Start: 08-19-2019 Inf agent det nuclei c acid clostridium amp probe Samuel Gamez Biopsy of breast Samuel diaz Comment on above: 09/11/2016; 09/11/2016 (cyst); section Samuel diaz Comment on above: 06/07/11; Colonoscopy Samuel Gamez Comment on above: 09/21/2015; Plan of Treatment Date Care Activity Detail Author Start: 11-02-2037 Zoster Vaccines (1 o f 2) Zoster Vaccines (1 of 2) [facility] Start: 05-19-2029 Screening for malign ant neoplasm of colon [facility] Start: 07-22-2028 Screening for malign ant neoplasm of cervix [facility] Start: 07-29-2027 Screening for malign ant neoplasm of cervix Pap Smear [facility] Start: 07-22-2026 Screening for malign ant neoplasm of cervix Pap Smear [facility] Start: 07-31-2025 End: 07-31-2025 Patient encounter procedure [facility] Start: 07-29-2025 Yearly Adult Physical Yearly Adult P hysical [facility] Start: 07-19-2025 Screening for malign ant neoplasm of cervix [facility] Start: 04-13-2025 End: 04-13-2025 Patient encounter procedure 04/13/2025 3:20 PM EST Office Visit [place] [id number] [id number] Everett Cutler MD Formerly [facility] [address] [id number] [facility] Start: 04-10-2025 Diabetes mellitus screening Diabetes Screening [facility] Start: 01-26-2025 Thyroid stimulating hormone measurement [facility] Start: 12-22-2024 COVID-19 Vaccine ( season) COVID-19 Vaccine ( season) [facility] Start: 12-22-2024 COVID-19 Vaccine ( season) COVID-19 Vaccine ( season) [facility] Start: 12-22-2024 Influenza vaccination [facility] Start: 11-21-2024 Influenza vaccination Influenza Vacc ine (#1) [facility] Start: 08-22-2024 End: 08-22-2024 Patient encounter procedure 08/22/2024 11:45 AM EDT Appointment [address] [phone] [facility] Start: 08-21-2024 End: 08-28-2024 Bacteria identified in Urine by Culture Urine Culture Microbiology Routine Suprapubic abdominal pain Other microscopic hematuria Expected: 08/21/2024 (Approximate), Expires: 08/28/2024 [facility] Work Phone: Comment on above: Expected: 08/21/2024 (Approximate), Expires: 08/28/2024 Start: 08-21-2024 End: 08-21-2025 US Pelvis US pelvis Imaging Routine Lower abdominal pain Expected: 08/21/2024, Expires: 08/21/2025 [facility] Work Phone: Comment on above: Expected: 08/21/2024 , Expires: 08/21/2025 Start: 08-21-2024 End: 08-21-2025 XR Abdomen Supine and Lateral-decubitus XR abdomen 2 views supine and erect or decub Imaging Routine Lower abdominal pain Expected: 08/21/2024, Expires: 08/21/2025 [facility] Work Phone: Comment on above: Expected: 08/21/2024 , Expires: 08/21/2025 Start: 07-28-2024 End: 07-28-2025 Cytology Cervical or vaginal smear or scraping study [facility] Work Phone: Comment on above: Expected: 07/28/2024 (Approximate), Expires: 07/28/2025 Start: 07-28-2024 End: 07-28-2024 Patient encounter procedure [facility] Building Start: 07-23-2024 Yearly Adult Physical Yearly Adult P hysical [facility] Start: 05-26-2024 End: 05-26-2025 5-Hydroxyindoleacetate [Mass/volume] in Serum or Plasma 5-Hydroxyindoleacetic Acid,Plasma Lab Routine Chronic fatigue Diarrhea, unspecified type Expected: 05/26/2024 (Approximate), Expires: 05/26/2025 [facility] Work Phone: Comment on above: Expected: 05/26/2024 (Approximate), Expires: 05/26/2025 Start: 05-26-2024 End: 05-26-2025 CBC W Auto Differential panel - Blood CBC and Auto Differential Lab Routine Chronic fatigue Diarrhea, unspecified type Expected: 05/26/2024 (Approximate), Expires: 05/26/2025 [facility] Work Phone: Comment on above: Expected: 05/26/2024 (Approximate), Expires: 05/26/2025 Start: 05-26-2024 End: 05-26-2025 Comprehensive metabolic 2000 panel - Serum or Plasma Comprehensive Metabolic Panel Lab Routine Chronic fatigue Diarrhea, unspecified type Expected: 05/26/2024 (Approximate), Expires: 05/26/2025 [facility] Work Phone: Comment on above: Expected: 05/26/2024 (Approximate), Expires: 05/26/2025 Start: 05-26-2024 End: 05-26-2025 Erythrocyte sedimentation rate Sedimentation Rate Lab Routine Chronic fatigue Diarrhea, unspecified type Expected: 05/26/2024 (Approximate), Expires: 05/26/2025 [facility] Work Phone: Comment on above: Expected: 05/26/2024 (Approximate), Expires: 05/26/2025 Start: 05-26-2024 End: 05-26-2025 Serotonin [Mass/volume] in Serum Serotonin, Serum Lab Routine Chronic fatigue Diarrhea, unspecified type Expected: 05/26/2024 (Approximate), Expires: 05/26/2025 [facility] Work Phone: Comment on above: Expected: 05/26/2024 (Approximate), Expires: 05/26/2025 Start: 05-26-2024 End: 05-26-2025 TSH with reflex to Free T4 if abnormal TSH with reflex to Free T4 if abnormal Lab Routine Chronic fatigue Diarrhea, unspecified type Expected: 05/26/2024 (Approximate), Expires: 05/26/2025 [facility] Work Phone: Comment on above: Expected: 05/26/2024 (Approximate), Expires: 05/26/2025 Start: 05-20-2024 End: 05-20-2025 5-Hydroxyindoleacetate [Mass/volume] in Serum or Plasma 5-Hydroxyindoleacetic Acid,Plasma Lab Routine Carcinoid syndrome Expected: 05/20/2024 (Approximate), Expires: 05/20/2025 [facility] Work Phone: Comment on above: Expected: 05/20/2024 (Approximate), Expires: 05/20/2025 Start: 05-20-2024 End: 05-20-2025 Serotonin [Mass/volume] in Serum Serotonin, Serum Lab Routine Carcinoid syndrome Expected: 05/20/2024 (Approximate), Expires: 05/20/2025 [facility] Work Phone: Comment on above: Expected: 05/20/2024 (Approximate), Expires: 05/20/2025 Start: 04-10-2024 End: 04-10-2025 CBC W Auto Differential panel - Blood [facility] Work Phone: Comment on above: Expected: 04/10/2024 (Approximate), Expires: 04/10/2025 Start: 04-10-2024 End: 04-17-2024 Clostridioides difficile toxin A+B tcdA+tcdB genes [Presence] in Stool by ORLY with probe detection C. difficile, PCR Microbiology Routine Recurrent colitis due to Clostridioides difficile Expected: 04/10/2024 (Approximate), Expires: 04/17/2024 [facility] Work Phone: Comment on above: Expected: 04/10/2024 (Approximate), Expires: 04/17/2024 Start: 04-10-2024 End: 04-10-2025 Cobalamin (Vitamin B12) [Mass/volume] in Serum or Plasma [facility] Work Phone: Comment on above: Expected: 04/10/2024 (Approximate), Expires: 04/10/2025 Start: 04-10-2024 End: 04-10-2025 Comprehensive metabolic 2000 panel - Serum or Plasma [facility] Work Phone: Comment on above: Expected: 04/10/2024 (Approximate), Expires: 04/10/2025 Start: 12-23-2023 COVID-19 Vaccine ( season) COVID-19 Vaccine () [facility] Start: 12-23-[address] [facility] Start: 07-23-2023 End: 07-22-2024 Cytology Cervical or vaginal smear or scraping study [facility] Work Phone: Comment on above: Expected: 07/23/2023 (Approximate), Expires: 07/22/2024 Start: 07-23-2023 Patient encounter procedure ANNUAL, Provider: Samuel Gamez, Status: Pen, Time: 10:00 AM [employer] Work Phone: Start: 09-19-2022 EPV, Provider: Everett Cutler, Status: Pen, Time: 3:00 PM EPV, Provider: Everett Cutler, Status: Pen, Time: 3:00 PM [facility] Work Phone: Start: 07-19-2022 Patient encounter procedure ANNUAL, Provider: Samuel Gamez, Status: Pen, Time: 9:45 AM [employer] Work Phone: Start: 03-23-2022 NPV, Provider: Virginia Joaquin, Status: Pen, Time: 10:15 AM NPV, Provider: Virginia Joaquin, Status: Pen, Time: 10:15 AM [facility] Work Phone: Start: 03-21-2022 EPV, Provider: Everett Cutler, Status: Pen, Time: 3:00 PM EPV, Provider: Everett Cutler, Status: Pen, Time: 3:00 PM -[facility] Work Phone: Start: 01-30-2022 NURSEVST, Provider: [facility] ASHL1 RN 1,[id number], Status: Pen, Time: 3:30 PM NURSEVST, Provider: [facility] ASHL1 RN 1,[id number], Status: Pen, Time: 3:30 PM [facility] Work Phone: Start: 11-17-2021 NURSEVST, Provider: [facility] ASHL1 RN 1,[id number], Status: Pen, Time: 2:30 PM NURSEVST, Provider: [facility] ASHL1 RN 1,[id number], Status: Pen, Time: 2:30 PM -[facility] Work Phone: Start: 09-16-2021 NURSEVST, Provider: [facility] ASHL1 RN 1,[id number], Status: Pen, Time: 4:00 PM NURSEVST, Provider: [facility] ASHL1 RN 1,[id number], Status: Pen, Time: 4:00 PM [facility] Work Phone: Start: 09-16-2021 EPV, Provider: Everett Cutler, Status: Pen, Time: 2:40 PM EPV, Provider: Everett Cutler, Status: Pen, Time: 2:40 PM [facility] Work Phone: Start: 09-09-2021 NURSEVST, Provider: [facility] ASHL1 RN 1,[id number], Status: Pen, Time: 3:00 PM NURSEVST, Provider: [facility] ASHL1 RN 1,[id number], Status: Pen, Time: 3:00 PM [facility] Work Phone: Start: 09-02-2021 NURSEVST, Provider: [facility] ASHL1 RN 1,[id number], Status: Pen, Time: 3:00 PM NURSEVST, Provider: [facility] ASHL1 RN 1,[id number], Status: Pen, Time: 3:00 PM -[facility] Work Phone: Start: 08-15-2021 NPV, Provider: Everett Cutler, Status: Pen, Time: 2:40 PM NPV, Provider: Everett Cutler, Status: Pen, Time: 2:[address] Work Phone: Start: 07-18-2021 Patient encounter procedure Outpatient [facility] Start: 18-Jul-2021 10:00 Samuel Gamez Intent [facility] Start: 06-08-2021 DTaP/Tdap/Td Vaccine s (3 - Td or Tdap) DTaP/Tdap/Td Vaccines (3 - Td or Tdap) [facility] Start: 11-02-2014 HPV Vaccines (1 - 3-dose standard series) HPV Vaccines (1 - 3-dose standard series) [facility] Start: 07-06-2011 Varicella vaccination [facility] Start: 11-02-2008 Screening for malign ant neoplasm of cervix HPV/Cotest [facility] Start: 11-02-2006 Hepatitis B Vaccines (1 of 3 - 19+ 3-dose series) Hepatitis B Vaccines (1 of 3 - 19+ 3-dose series) [facility] Start: 11-02-2006 Pneumococcal Vaccine : Pediatrics and At-Risk Adult Patients (1 of 2 - PCV) Pneumococcal Vaccine: Pediatrics and At-Risk Adult Patients (1 of 2 - PCV) [facility] Start: 11-02-2005 Diabetes mellitus screening Diabetes Screening [facility] Start: 11-02-2005 [facility]atitis [facility] Start: 05-05-1988 COVID-19 Vaccine (#1) COVID-19 Vacci ne (#1) [facility] Start: 1987 Hepatitis B Vaccines (1 of 3 - 3-dose series) Hepatitis B Vaccines (1 of 3 - 3-dose series) [facility] Start: 1987 HIV screening HIV Screening [facility] Start: 1987 Lipid panel Lipid Panel [facility] Start: 1987 Screening for malign ant neoplasm of colon [facility] Start: 1987 Yearly Adult Physical Yearly Adult P hysical [facility] CBC W Auto Different ial panel - Blood [facility] Surgical pathology study [facility] Work Phone: Comment on above: Release Upon Orderin g for 1 Occurrences starting 05/20/2024 End: 08-22-2024 US Pelvis transvaginal [facility] Work Phone: Comment on above: Once for 1 Occurrenc es starting 08/22/2024 until 08/22/2024 End: 08-22-2024 XR Abdomen Supine and Lateral-decubitus [facility] Work Phone: Comment on above: Once for 1 Occurrenc es starting 08/22/2024 until 08/22/2024 End: 04-14-2024 XR Foot - left 3 Views [facility] Work Phone: Comment on above: Once for 1 Occurrenc es starting 04/14/2024 until 04/14/2024 End: 04-14-2024 XR Foot - right 3 Views XR foot right 3+ views Imaging Routine Pain in right foot Once for 1 Occurrences starting 04/14/2024 until 04/14/2024 [facility] Work Phone: Comment on above: Once for 1 Occurrenc es starting 04/14/2024 until 04/14/2024 [facility] Work Phone: NEGATED: Highlighted row has been ruled out! Planned Goals not documented [facility] [facility] Work Phone: Immunizations Immunization Date Immunization Notes Care Provider Larry pritchett 06-08-2011 diphtheria, tetanus toxoids and acellular pertussis vaccine Samuel Gamez [facility] Work Phone: Comment on above: Series: 06-08-2011 measles, mumps and r ubella virus vaccine Samuel Gamez [facility] Work Phone: Comment on above: Series: 06-08-2011 tetanus toxoid, redu andreia diphtheria toxoid, and acellular pertussis vaccine, adsorbed Samuel Gamez [facility] Work Phone: Comment on above: Series: Payers Date Payer Category Payer Self-pay 2024 Managed Care (Private) [id number] 2024 Unknown [id number] 2023 Private Health Insurance [facility] [id number] 2023-Present [address] [place] [address] [id number] 2022 Unknown [id number] 2021 Unknown 1987 Unknown [id number] 2..840.1.353660.3.579.2.3 1987 Unknown [id number] 2.16.840.1.444121.3.579.2.3 1987 Unknown [id number] 2.16.840.1.357806.3.579.2.3 56 1987 Unknown [id number] 2.16.840.1.376031.3.579.2.3 1987 Unknown [id number] 2.16.840.1.550204.3.579.2.3 56 1987 Unknown [id number] 2.16.840.1.201376.3.579.2.3 1987 Unknown [id number] 2.16.840.1.478343.3.579.2.3 56 1987 Unknown [id number] 2.16.840.1.249213.3.579.2.3 56 1987 Unknown [id number] 2.16.840.1.574516.3.579.2.3 56 1987 Unknown [id number] 2.16.840.1.288749.3.579.2.3 56 1987 Unknown [id number] 2.16.840.1.384764.3.579.2.3 56 1987 Unknown [id number] 2.16.840.1.352070.3.579.2.3 56 1987 Unknown [id number] 2.16.840.1.433090.3.579.2.9 02 1987 Unknown [id number] 2.16.840.1.890774.3.579.2.9 02 1987 Unknown [id number] 2.16.840.1.863885.3.579.2.1 245 1987 Unknown [id number] 2.16.840.1.461783.3.579.2.1 245 1987 Unknown [id number] 2.16.840.1.576826.3.579.2.1 245 1987 Unknown [id number] 2.16.840.1.099191.3.579.2.1 243 1987 Unknown [id number] 2.16.840.1.192502.3.579.2.1 243 1987 Unknown [id number] 2.16.840.1.131369.3.579.2.1 1987 Unknown [id number] 2.16.840.1.288560.3.579.2.1 243 1987 Unknown [id number] 2.16.840.1.418173.3.579.2.1 243 1987 Unknown [id number] 2.16.840.1.196720.3.579.2.1 244 1987 Unknown [id number] 2.16.840.1.045991.3.579.2.1 244 1987 Unknown [id number] 2.16.840.1.536689.3.579.2.1 244 1987 Unknown [id number] 2.16.840.1.756685.3.579.2.1 244 1987 Unknown [id number] 2.16.840.1.925159.3.579.2.1 244 1987 Unknown [id number] 2.16.840.1.943393.3.579.2.1 244 1987 Unknown [id number] 2.16.840.1.636050.3.579.2.1 244 1987 Unknown [id number] 2.16.840.1.633260.3.579.2.1 244 1987 Unknown [id number] 2.16.840.1.921958.3.579.2.1 244 Unknown [id number] Unknown [id number] 2.16.840.1.843535.3.579.2.4 62 Unknown [id number] 2.16.840.1.616820.3.579.2.4 62 Unknown [id number] 2.16.840.1.261852.3.579.2.4 62 Social History Date Type Detail Facility Tobacco smoking consumption unknown [facility] Start: 07-23-2023 End: 07-28-2024 Occasional alcohol use Occasional alcohol use [facility] [employer] Phone: Comment on above: 10 cigs. per day; 3/4 ppd since 17 yo; Start: 1985 Sex Assigned At Not on file [facility] Start: 07-23-2023 End: 01-28-2025 Tobacco smoking status NHIS Smokes tobacco daily [facility] Work Phone: Start: 04-23-2024 History of tobacco use Cigarette Smoker [facility] Work Phone: Start: 07-23-2023 End: 05-20-2024 Tobacco use and exposure Smokeless tobacco non-user [facility] Work Phone: Start: 07-23-2023 End: 02-25-2025 Alcohol intake Lifetime non-drinker (finding) [facility] Work Phone: Start: 07-23-2023 End: 07-28-2024 Tobacco use panel [facility] Work Phone: Start: 07-13-2023 End: 08-22-2024 Exposure to SARS-CoV-2 (event) Not sure [facility] History of tobacco use Passive smoker [facility] Work Phone: Start: 1985 [facility] Start: 05-07-2024 Gender identity Identifies as female gender (finding) [facility] Work Phone: Start: 05-07-2024 Sexual orientation Heterosexual (fin ding) [facility] Work Phone: Within the last year , have you been afraid of your partner or ex-partner? No [facility] Work Phone: How often to you hav e a drink containing alcohol? Never [facility] Work Phone: Start: 03-18-2022 How many standard drinks containing alcohol do you have on a typical day? Patient does not drink [facility] Work Phone: Do you feel stress - tense, restless, nervous, or anxious, or unable to sleep at night because your mind is troubled all the time - these days [OSQ] Not at all [facility] Work Phone: (I/We) worried whether (my/our) food would run out before (I/we) got money to buy more. Never true [facility] Work Phone: Start: 03-18-2022 Sex Female (finding) [facility] NEGATED: Highlighted row - - [facility] Work Phone: Functional Status Date Assessment Result Facility 02-25-2025 Generalized anxiety disorder 7 item (PENNY-7) [facility] Work Phone: 02-25-2025 Patient Health Questionnaire 2 item (PHQ-2) [Reported] [facility] Work Phone: 02-25-2025 [place] - suicide severity rating scale screener - recent [C-SSRS] [facility] Work Phone: 02-25-2025 Functional status 112/70 025 10:29 AM EST Kimberlyn Arias MA 112/70 [facility] Work Phone: 02-17-2025 Functional status 110/70 [facility] 02-17-2025 Vital signs 68 02/17/2025 2: 21 PM EDT Sherron Palomo MA [facility] Work Phone: 02-17-2025 [facility] Work Phone: 08-21-2024 Patient Health Questionnaire 2 item (PHQ-2) [Reported] [facility] Work Phone: 08-21-2024 Functional status 124/76 025 10:56 AM EDT Mariposa Fermin CMA 124/76 [facility] Work Phone: 07-28-2024 Patient Health Questionnaire 2 item (PHQ-2) [Reported] [facility] Work Phone: 06-05-2024 Vital signs 78 06/05/2024 12 :56 PM EST Paula Huitron MA [facility] 05-20-2024 [facility] 05-20-2024 [facility] Work Phone: 05-20-2024 [place] - suicide severity rating scale screener - recent [C-SSRS] [facility] Work Phone: 05-20-2024 Functional status [facility] Work Phone: [facility] Work Phone: [facility] Work Phone: [facility] Work Phone: [facility] Work Phone: NEGATED: Highlighted row Functional performance Functional status health issues are not documented Disease [facility] Work Phone: Mental Status Date Assessment Result Facility 05-20-2024 Cognitive function finding Negative 05/20/2024 3:23 PM Nicole Wyman RN Negative [facility] Work Phone: NEGATED: Highlighted row Cognitive function [Interpretation] Cognitive status health issues are not documented Disease [facility] Work Phone: Clinical Notes 06-21-2021 to 02-25-2025 Tri Suarez MD - 02/25/2025 10:20 AM ESTAssessment & Plan Note - Everett Cutler MD - 02/17/2025 5:23 PM EDTAssessment & Plan Note - Everett Cutler MD - 02/17/2025 5:23 PM EDT Note Date & Type Note Facility 02-25-2025 History of Presen t illness Narrative Subjective: Paula Mccormick is a 39 y.o. female who presents to clinic today for No chief complaint on file. She's having dysuria, pain before and after urination. Did have an episode of incontinence 3 days of symptoms Tried increased fluids She's had UTI in the past, had one 13 months ago. She has seen Dr. Muse in [place] for persistent hematuria and had negative workup. Review of Systems Assessment/Plan: Paula Mccormick is a 39 y.o. female who presents to clinic today to address the following issues: 1. Dysuria POCT UA Automated manually resulted 2. Acute cystitis with hematuria nitrofurantoin, macrocrystal-monohydrate, (Macrobid) 100 mg capsule - Acute problem, unresolved, new to this provider, requires further workup and treatment - classic UTI symptoms with positive UA for 3+ blood and 3+ leukocytes - no systemic symptoms - macrobid 100mg BID for 5 days Problem List Items Addressed This Visit None Visit Diagnoses Dysuria - Primary Relevant Orders POCT UA Automated manually resulted Acute cystitis with hematuria Relevant Medications nitrofurantoin, macrocrystal-monohydrate, (Macrobid) 100 mg capsule There are no Patient Instructions on file for this visit. Follow up: as needed Return precautions discussed. An After Visit Summary was given to the patient. All questions were answered and patient in agreement with plan. Objective: BP 112/70 Ht 1.727 m (5' 8) Wt 87 kg (191 lb 12.8 oz) LMP 02/10/2025 BMI 29.16 kg/m Physical Exam Vitals and nursing note reviewed. Constitutional: General: She is not in acute distress. Appearance: Normal appearance. HENT: Head: Normocephalic and atraumatic. Mouth/Throat: Mouth: Mucous membranes are moist. Eyes: General: No scleral icterus. Right eye: No discharge. Left eye: No discharge. Extraocular Movements: Extraocular movements intact. Conjunctiva/sclera: Conjunctivae normal. Pulmonary: Effort: No respiratory distress. Abdominal: General: Abdomen is flat. Palpations: Abdomen is soft. Tenderness: There is abdominal tenderness (suprapubic tenderness). There is no right CVA tenderness or left CVA tenderness. Skin: General: Skin is warm and dry. Neurological: General: No focal deficit present. Mental Status: She is alert and oriented to person, place, and time. Psychiatric: Attention and Perception: Attention normal. Mood and Affect: Mood normal. Speech: Speech normal. Behavior: Behavior normal. Cognition and Memory: Cognition and memory normal. Judgment: Judgment normal. I spent 6 minutes in total time for this visit including all related clinical activities before, during, and after the visit excluding other billable activities/procedure time. Tri Suarez MD documented in this encounter [facility] Work Phone: 02-17-2025 Evaluation + Plan note Associated Problem(s): IBS (irritable bowel syndrome) Has seen gastroenterology, had extensive evaluation including scopes and blood test that did not reveal any source of the patient's persistent intermittent nausea and vomiting and abdominal pain. [facility] Work Phone: 02-17-2025 Miscellaneous Notes Associate d Problem(s): IBS (irritable bowel syndrome) Has seen gastroenterology, had extensive evaluation including scopes and blood test that did not reveal any source of the patient's persistent intermittent nausea and vomiting and abdominal pain. Associated Problem(s): PCOD (polycystic ovarian disease) Following with a different sap security architect, I have no records of her office visit, planning to do possible laparoscopy in March concerned about possible endometriosis as a cause of her abdominal and pelvic pain. Patient requested [facility] paperwork filled out today which we did to allow her to have periodic absences for doctors appointments and illnesses. Typically she misses anywhere from 2 to 3 days to work a month due to being ill. The [facility] paperwork was filed for 1 year. documented in this encounter [facility] Work Phone: 02-17-2025 Evaluation + Plan note Associated Problem(s): PCOD (polycystic ovarian disease) Following with a different sap security architect, I have no records of her office visit, planning to do possible laparoscopy in March concerned about possible endometriosis as a cause of her abdominal and pelvic pain. Patient requested [facility] paperwork filled out today which we did to allow her to have periodic absences for doctors appointments and illnesses. Typically she misses anywhere from 2 to 3 days to work a month due to being ill. The [facility] paperwork was filed for 1 year. [facility] Work Phone: 02-17-2025 History of Presen t illness Narrative Subjective Patient ID: Paula Mccormick is a 39 y.o. female who presents for [facility] PAPERWORK. HPI In the past year, having more issues with abdominal pain and diarrhea Needs [facility] for doctor's appointments and illness periodically Has to miss work 3 times a month on average, usually a day at a time Seeing [facility] in [place], has not tried medicines or done blood testing Uses APAP periodically, is supposed to have surgery 03/31 Review of Systems Constitutional: Negative for activity change, appetite change and fatigue. Respiratory: Negative for cough, chest tightness and shortness of breath. Cardiovascular: Negative for chest pain, palpitations and leg swelling. Gastrointestinal: Positive for abdominal pain, diarrhea and nausea. Negative for constipation and vomiting. Neurological: Negative for dizziness, light-headedness and headaches. Psychiatric/Behavioral: Negative for dysphoric mood and sleep disturbance. The patient is not nervous/anxious. Objective BP 110/70 Pulse 68 Ht 1.778 m (5' 10) Wt 89.4 kg (197 lb 3.2 oz) SpO2 99% BMI 28.30 kg/m Physical Exam Vitals and nursing note reviewed. Constitutional: General: She is not in acute distress. Appearance: Normal appearance. She is not toxic-appearing. HENT: Head: Normocephalic and atraumatic. Right Ear: Tympanic membrane, ear canal and external ear normal. Left Ear: Tympanic membrane, ear canal and external ear normal. Nose: Nose normal. Mouth/Throat: Mouth: Mucous membranes are moist. Pharynx: Oropharynx is clear. Eyes: Extraocular Movements: Extraocular movements intact. Conjunctiva/sclera: Conjunctivae normal. Pupils: Pupils are equal, round, and reactive to light. Cardiovascular: Rate and Rhythm: Normal rate and regular rhythm. Pulses: Normal pulses. Heart sounds: Normal heart sounds. Pulmonary: Effort: Pulmonary effort is normal. Breath sounds: Normal breath sounds. Abdominal: General: Abdomen is flat. Bowel sounds are normal. There is no distension. Palpations: Abdomen is soft. There is no mass. Tenderness: There is no abdominal tenderness. There is no guarding or rebound. Musculoskeletal: Cervical back: Normal range of motion and neck supple. Skin: General: Skin is warm and dry. Capillary Refill: Capillary refill takes less than 2 seconds. Neurological: General: No focal deficit present. Mental Status: She is alert and oriented to person, place, and time. Mental status is at baseline. Psychiatric: Mood and Affect: Mood normal. Behavior: Behavior normal. Assessment/Plan Problem List Items Addressed This Visit ICD-10-CM IBS (irritable bowel syndrome) - Primary K58.9 Has seen gastroenterology, had extensive evaluation including scopes and blood test that did not reveal any source of the patient's persistent intermittent nausea and vomiting and abdominal pain. PCOD (polycystic ovarian disease) E28.2 Following with a different sap security architect, I have no records of her office visit, planning to do possible laparoscopy in March concerned about possible endometriosis as a cause of her abdominal and pelvic pain. Patient requested [facility] paperwork filled out today which we did to allow her to have periodic absences for doctors appointments and illnesses. Typically she misses anywhere from 2 to 3 days to work a month due to being ill. The [facility] paperwork was filed for 1 year. documented in this encounter [facility] Work Phone: 01-26-2025 Progress note [facility] 01-26-2025 Progress note Note Date/Time January 26, 2025 3:08pm [facility] [address] [place] [address], [address] [place] [address] OFFICE VISIT Date of Service: 01/26/25 MR#: [id number] Acct: [id number] Name: PAULA MCCORMICK SUMMER Rep #: [id number] : 1985 Provider: Dr. Chet Rubio MD Age/Sex: 39/F Location: [facility] Status: Signed Intake Vital Signs 01/26/25 14:26 01/26/25 14:54 Height 5 ft 10 in 5 ft 10 in Weight: 199 lb BMI 28.5 BP 116/77 Intake Visit Reasons: IRREGULAR CYCLES/ARON-MENOPAUSE CONCERNS Allergies cefazolin (From Ancef) Allergy (Severe, Verified 01/26/25 14:29) Hives metronidazole (From Flagyl) Allergy (Intermediate, Verified 01/26/25 14:29) heart palpitations Medications ?Medication ?Instructions ?Recorded ?Confirmed ?Type NK 01/26/25 01/26/25 History rifaximin 550 mg tablet (Xifaxan) 550 mg PO TID 14 day s #42 tabs 01/26/25 01/26/25 Rx PFSH Medical History (Updated 01/26/25 @ 15:[address] Katharina Rubio MD) Fibromyalgia Cyst of right breast PCOS (polycystic ovarian syndrome) Osteoarthritis IBS (irritable bowel syndrome) Gastrointestinal problem Bone fracture History of back problems Arthritis Surgical History (Updated 01/26/25 @ 15:[address] Katharina Rubio MD) H/O section Family History Sister Asthma Cervical cancer Seizures Mother Arthritis Father Arthritis Diabetes Myocardial infarction, Onset Age: 59 Heart disease Brother Seizures Colon cancer Social History (Updated 01/26/25 @ 14:32 by Bhavana Ray) household members: spouse and children housing: house number of children: 1 current occupational status: employed current occupation: [employer] Smoking Status: Current every day smoker tobacco type: cigarettes Smoking packsper day: 4 Smoking cigarettes per day: 80.0 alcohol intake: never substance use type: does not use what type of physical activity do you participate in: none seatbelt use: always do you feel safe at home: Yes additional social history: Maurice GERARDO IRREGULAR CYCLES/ARON-MENOPAUSE CONCERNS Details: The patient is a 39-year-old female presenting with severe abdominal pain, bowelirregularities, and abnormal menstrual bleeding. Following a section, the patient contracted Clostridioides difficile infection, which remained undiagnosed for a year and a half, causing significantbowel damage. Despite treatment, she continues to experience bowel issues, including frequent bowel movements, abdominal pain, and rectal bleeding. The patient reports daily hot flashes, vomiting, and severe bowel pain, which significantly impacts her ability to work. She has attempted various interventions, including dietary changes and cessation of medications, without relief. The patient has a history of fibromyalgia, contributing to her chronic pain symptoms. She also reports abnormal Pap tests for the past five years and microhematuria. The patient suspects endometriosis due to her symptoms and has not responded to previous hormonal treatments. She has a history of polycystic ovarian syndrome diagnosed at age 24. Attestation: Documentation on this patient encounter was supported using ambient scribe technology/ voice AI technology. The patient consented to recording for the purpose of documenting the encounter. Provider reviewed content of the generatednote prior to signature. History 1 Elective abortions Hx Para 1 Spontaneous abortions Hx # Term Pregnancies Ectopic pregnancies Hx # Pregnancies Multiple births # of living children 1 Past Pregnancies Del. Date Name GA/Weeks Outcome Route Bth Weight Gen Labor Lgth Anesthesia Del Locatn Provider FOB Unknown 2011 Lu live - full term ROS Const Constitutional: Reports fatigue; Denies weight gain or weight loss ENT ENT: Reports system reviewed and no additional complaints, except as documented Cardio Card: Denies chest pain Resp Resp: Denies cough or dyspnea GI GI: Reports as per HPI and nausea; Denies constipation or vomiting : Reports as per HPI and vaginal discharge; Denies nipple discharge, vaginal dryness, vaginal odor or vaginal pruritus Musc Musc: Reports arthralgias and back pain; Denies muscle weakness Skin Skin/Breast: Denies alopecia, change in hair, dry skin, breast mass, breast pain, breast skin changes or nipple discharge Neuro Neuro: Reports system reviewed and no additional complaints, except as documented Psych Psych: Reports system reviewed and no additional complaints, except as documented Endo Endo: Reports cold intolerance; Denies excessive sweating, heat intolerance or polydipsia Harvey/Lymph Hematologic/Lymphatic: Reports easy bleeding, Reports easy bruising and Denies lymphadenopathy Exam Const General: cooperative, healthy appearing, comfortable, no acute distress and welldeveloped Orientation: alert HENMT Head: normal to inspection and normocephalic Ears: hearing grossly normal bilaterally and external ears normal Nose: external nose normal and nares normal Face and sinus: normal facial exam Neck Neck: normal visual inspection and no lymphadenopathy Thyroid: thyroid normal Chest Chest palpation & inspection: normal inspection of the chest Resp Effort & Inspection: normal respiratory effort Auscultation: clear to auscultation bilaterally Cardio Rate: regular rate Rhythm: regular rhythm Heart Sounds: S1 normal and S2 normal GI Inspection: normal to inspection and non-distended Palpation: soft and no hepatosplenomegaly General: bladder normal to palpation External Female Exam: normal external appearance and normal appearance of the urethra Urethra: normal appearance of the urethra, normal palpation and no discharge Speculum Exam - Vagina: normal appearance of the vagina and normal vaginal discharge Speculum Exam - Cervix: normal appearance of the cervix and nontender Bimanual Exam- Vagina & Uterus: normal bimanual exam, uterine size normal, bladder normal to palpation, uterine shape normal, No tender, uterine mobility normal, consistency normal, normal palpation and non-tender Bimanual Exam- Adnexa, other: normal adnexae, adnexae mobile, no masses and normal Pelvic Support: normal Musc Other: gross motor intact no deficits, full bilateral strength Skin General: no rashes or lesions noted Neuro General: patient alert, patient awake, moves all extremities and no focal motor deficits Motor: muscle tone normal throughout Extrem General: normal to inspection and no pedal edema Psych Appearance: grossly normal Mental Status: mental status grossly normal Affect: normal affect Speech and Movement: speech and movement normal Coding Level of Care Code Off vis,new,level 4 Diagnoses IBS (irritable bowel syndrome) K58.9 Dysmenorrhea N94.6 Chronic pelvic pain in female R10.20; G89.29 Abnormal uterine bleeding N93.9 Assessment and Plan Assessment and Plan (1) IBS (irritable bowel syndrome): Status: Acute Comment: Xifaxin trial. (2) Dysmenorrhea: Status: Acute Comment: plan diagnostic laparosocpy. obtain us report from [facility]. failed progestin pill. (3) Chronic pelvic pain in female: Status: Chronic Comment: nl cystoscopy with [place]. d and c hysteroscopy diagnostic laparoscopy. trial of Xifaxan for IBS D (4) Abnormal uterine bleeding: Status: Acute Comment: obtain records from [facility]. plan d ad c hysteroscopy Orders: Orders CBC W/Diff, Automated Today G89.29 - Other chronic pain, N94.6 - Dysmenorrhea, unspecified, R10.20 - Pelvic and perineal pain unspecified side Thyroid Stim Hormone (TSH) Today G89.29 - Other chronic pain, N94.6 - Dysmenorrhea, unspecified, R10.20 - Pelvic and perineal pain unspecified side Medications: New rifaximin (Xifaxan) 550 mg PO TID 42 tabs 0RF 14 days Plan Assessment and Plan 39-year-old female with a history of Clostridioides difficile infection, irritable bowel syndrome, fibromyalgia, and polycystic ovarian syndrome presenting with severe abdominal pain, bowel irregularities, and abnormal menstrual bleeding. The patient's bowel symptoms, including frequent bowel movements and rectal bleeding, are consistent with irritable bowel syndrome, possibly exacerbated by previous C. difficile infection. The presence of fibromyalgia may contribute to her chronic pain experience. The abnormal menstrual bleeding and suspected endometriosis warrant further investigation, as these symptoms have not improved with previous hormonal treatments. The history of polycystic ovarian syndrome may also play a role in her menstrual irregularities. 1. Irritable Bowel Syndrome The patient will be prescribed Xifaxan to address symptoms of irritable bowel syndrome, particularly diarrhea and abdominal pain, potentially due to bacterialovergrowth. The patient is advised to take the medication three times daily, with reminders set to ensure adherence. 2. Suspected Endometriosis A diagnostic laparoscopy is recommended to confirm the presence of endometriosisand allow for immediate treatment if identified. The procedure will include a D&C hysteroscopy and examination of the bladder to rule out other causes of pelvic pain. 3. Polycystic Ovarian Syndrome The patient's history of polycystic ovarian syndrome will be considered in the management of her menstrual irregularities. 4. Fibromyalgia The patient's fibromyalgia will be managed as part of her chronic pain treatmentplan, acknowledging its contribution to her overall pain experience. Patient Instructions: - Take Xifaxan three times daily as prescribed, using phone reminders to ensure adherence. - Prepare for a diagnostic laparoscopy to investigate potential endometriosis. - Follow up with the doctor if symptoms persist or worsen. Plan Details Additional Comments: I discussed with the patient the potential diagnosis of irritable bowel syndromeand the role of Xifaxan in managing symptoms related to bacterial overgrowth. Wealso explored the possibility of endometriosis and the benefits of a diagnostic laparoscopy, including the ability to treat any findings immediately. The patient was informed about the low risks associated with the procedure and the importance of addressing her chronic pain and menstrual irregularities. 01/26/25 1509 <Electronically signed by Katharina vargas MD> Date _ Katharina Rubio MD Cosign Signature: Date (if applicable) CC: ~ [facility] Work Phone: 1(719) 855-580005-01-2025 History of Present illness Narrative* Geovany York, 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 - 08/21/2024 11:00 AM EDT Subjective Patient ID: Paula Mccormick is a 38 y.o. female who presents for Abdominal Pain (Pain x Sunday , worsening over time. Frequent urination ). Paula comes to the office for complaints of pubic pressure and urinary concerns. On Sunday she started with LLQ pain and this morning the pain started moving across the lower abdomen + suprapubic pressure and a dull ache to lower abdomen OTC: none No obvious blood in urine Bowels moving daily, no change than her usual No painful urination, no burning, + freq. + urgency over the last MO Some occasional stress incontinence [place] chilled this AM & shaky Last UTI Jan 2024; previous urinalysis show blood in the urine Chged to progesterone control September last year, last period in May some spotting since then IO UA: Glucose negative, bilirubin negative, ketones negative, specific gravity 1.020, blood small,pH 7.5, protein negative, URO E.U/dl, Nit negative, Sandra: negative. Review of Systems Constitutional: Positive for chills and fever. Gastrointestinal: Positive for abdominal pain. Negative for blood in stool, constipation, diarrhea,nausea and vomiting. Genitourinary: Positive for frequency, menstrual problem, pelvic pain and urgency. Negative for decreased urine volume, dysuria, flank pain, hematuria, vaginal bleeding, vaginal discharge and vaginalpain. Objective BP 124/76 Temp 36.7 C (98.1 F) (Oral) Ht 1.778 m (5' 10) Wt 89.8 kg (198 lb) LMP 07/24/2024 (Approximate) SpO2 99% BMI 28.41 kg/m Physical Exam Vitals reviewed. Constitutional: General: She is not in acute distress. Appearance: Normal appearance. She is not ill-appearing. Cardiovascular: Rate and Rhythm: Normal rate and regular rhythm. Heart sounds: Normal heart sounds. Pulmonary: Effort: Pulmonary effort is normal. Breath sounds: Normal breath sounds. Abdominal: General: Abdomen is flat. Bowel sounds are decreased. Palpations: Abdomen is soft. Tenderness: There is abdominal tenderness in the right lower quadrant, suprapubic area and left lower quadrant. There is no right CVA tenderness or left CVA tenderness. Musculoskeletal: Cervical back: Normal range of motion. Lymphadenopathy: Cervical: No cervical adenopathy. Neurological: Mental Status: She is alert. Assessment/Plan Problem List Items Addressed This Visit None Visit Diagnoses Codes Microscopic hematuria - Primary R31.29 Relevant Orders Referral to Urology Suprapubic abdominal pain R10.2 Relevant Orders POCT UA Automated manually resulted (Completed) Urine Culture Referral to Urology Other microscopic hematuria R31.29 Relevant Orders Urine Culture Referral to Urology Lower abdominal pain R10.30 Relevant Orders XR abdomen 2 views supine and erect or decub US pelvis [facility] Work Phone: 1(168) 822-907505-01-2025 Instructions* Patient Instructions* NICOLE Madsen - 08/21/2024 11:00 AM EDT Referral to urology in [place] for ongoing microscopic hematuria Send urine for culture Schedule pelvic ultrasound and KUB [facility] Work Phone: 1(326) 367-211104-07-2025 History of Present illness Narrative* Samuel Gamez MD - 07/28/2024 9:00 AM EDT Paula Mccormick is a 38 y.o. female who is here for a routine exam. PCP = Everett Cutler MD Chief Complaint Patient presents with Gynecologic Exam Patient is here for yearly exam and pap test. Patient does do regular self breast exams and has no concerns at this time. LMP: 07/24/24. Presents for annual exam. She voices no complaints and is doing well. Denies any bowel or bladder problems. Denies any breast problems. She has noticed some occasional episodes of irregular vaginal bleeding since being switched over to the progesterone only control pill due to her smoking. She had a colonoscopy several months ago due to persistent diarrhea. OB History 1 Para 1 Term 1 0 AB 0 Living 1 SAB 0 IAB 0 Ectopic 0 Multiple 0 Live Births 1 Social History Substance and Sexual Activity Sexual Activity Yes Partners: Male control/protection: OCP Past Medical History: Diagnosis Date Encounter for delivery without indication ([facility]) Delivery of by section Encounter for gynecological examination (general) (routine) without abnormal findings Pap test, as part of routine gynecological examination Fibromyalgia, primary GERD (gastroesophageal reflux disease) Nausea and vomiting 09/14/2022 Other conditions influencing health status Menstruation Other specified health status Date of last menstrual period (LMP) unknown Personal history of other specified conditions 05/01/2019 History of diarrhea Past Surgical History: Procedure Laterality Date BREAST BIOPSY 09/11/2016 cyst SECTION, LOW TRANSVERSE 05/2011 COLONOSCOPY 05/20/2024 Past med hx and past surg hx reviewed and notable for: none Review of Systems: Constitutional: No fever or chills Respiratory: No shortness of breath, or cough Cardiovascular: No chest pain or syncope Breasts: No breast pain, no masses, no nipple discharge Gastrointestinal: No nausea, vomiting, or diarrhea, no abdominal pain Genitourinary: No dysuria or frequency Gynecology: Negative except as noted in history of present illness All other: All other systems reviewed and negative for complaint Objective BP 108/64 Ht 1.778 m (5' 10) Wt 90.1 kg (198 lb 9.6 oz) LMP 07/24/2024 (Approximate) BMI 28.50 kg/m PHYSICAL EXAMINATION: Tankage Supervisor present for exam: Inocencia Palmer LPN Well-developed, well nourished, in no acute distress, alert and oriented x three, is pleasant and cooperative. HEENT: Clear. Pupils equal, round and reactive to light and accommodation. Extraocular muscles are intact. Oral mucosa pink without exudate. NECK: No lymphadenopathy, no thyromegaly. BREASTS: Symmetric, no palpable masses. No nipple discharge or retraction. LUNGS: Clear bilaterally. HEART: Regular rate and rhythm without murmurs. ABDOMEN: Normoactive bowel sounds, soft and nontender, no guarding or rebound tenderness, no CVA tenderness. EXTREMITIES: No clubbing, cyanosis or edema. NEUROLOGIC: Cranial nerves II-XII grossly intact. : Normal external female genitalia, normal vulva, normal vagina. Normal urethral meatus, urethra and bladder. Normal appearing cervix. Normal-sized uterus, no adnexal masses or tenderness. Pap smear performed today. Actions performed during this visit include: - Clinical breast exam - Clinical pelvic exam - No orders of the defined types were placed in this encounter. Problem List Items Addressed This Visit None Visit Diagnoses Encounter for annual routine gynecological examination Relevant Orders THINPREP PAP TEST Encounter for screening for cervical cancer Relevant Orders THINPREP PAP TEST Encounter for surveillance of contraceptive pills Relevant Medications norethindrone (Micronor) 0.35 mg tablet Provider Impression: 1. Annual 2. Contraceptive counseling We will renew the control pills. Patient reassured that irregular bleeding can occur with theprogesterone only control pills. Thank you for coming to your annual exam. Your findings during the exam were normal. Please return for your next visit in 1 year. [facility] Work Phone: 1(483) 976-155902-26-2025 History of Present illness Narrative* Samuel Gamez MD - 06/18/2024 8:45 AM EST Images from the original note were not included. Paula Mccormick is a 38 y.o. year old female patient. PCP = Everett Cutler MD Chief Complaint Patient presents with Vaginal Bleeding Patient is here with c/o spotting bleeding for 2 weeks after not having a period since August of last year due to her control. Patient also c/o sweating, vomiting almost every morning and increased bowel movements. HPI Presents stating that she has had vaginal spotting for the last 2 weeks. Her previous menstrual flow was in August. She smokes three quarters of a pack a day. She is currently on Jolessa for contraception. She has been noticing some sweating and vomiting episodes every morning and increased bowel movements. Patient was seen by Dr. Joaquin for her GI symptoms. He had a CT scan in April 2024. OB History 1 Para 1 Term 1 0 AB 0 Living 1 SAB 0 IAB 0 Ectopic 0 Multiple 0 Live Births 1 Past Medical History: Diagnosis Date Encounter for delivery without indication ([facility]) Delivery of by section Encounter for gynecological examination (general) (routine) without abnormal findings Pap test, as part of routine gynecological examination Fibromyalgia, primary GERD (gastroesophageal reflux disease) Nausea and vomiting 09/14/2022 Other conditions influencing health status Menstruation Other specified health status Date of last menstrual period (LMP) unknown Personal history of other specified conditions 05/01/2019 History of diarrhea Past Surgical History: Procedure Laterality Date BREAST BIOPSY 09/11/2016 cyst SECTION, LOW TRANSVERSE 05/2011 COLONOSCOPY OTHER SURGICAL HISTORY 01/15/2019 Colonoscopy Review of Systems: Constitutional: No fever or chills Respiratory: No shortness of breath, or cough Cardiovascular: No chest pain or syncope Breasts: No breast pain, no masses, no nipple discharge Gastrointestinal: No nausea, vomiting, or diarrhea, no abdominal pain Genitourinary: No dysuria or frequency Gynecology: Negative except as noted in history of present illness All other: All other systems reviewed and negative for complaint Medication Documentation Review Audit Reviewed by Inocencia Palmer LPN (Licensed Nurse) on 06/18/24 at 0904 Medication Order Taking? Sig Documenting Provider Last Dose Status dicyclomine (Bentyl) 10 mg capsule [id number] No 1 CAPSULE BY MOUTH EVERY 6 HOURS X 10 DAYS Historical ProviderMD Past Week Evening Active levonorgestreL-ethinyl estrad (Jolessa) 0.15 mg-30 mcg (91) tablet [id number] No Take by mouth once daily. Historical ProviderMD 05/19/2024 Evening Active rifAXIMin (Xifaxan) 550 mg tablet [id number] Take 1 tablet (550 mg) by mouth 3 times a day for 28 days. Virginia Joaquin, Active BP 118/68 Ht 1.778 m (5' 10) Wt 90.8 kg (200 lb 3.2 oz) LMP 08/22/2023 (Approximate) Comment: has not had a period since starting new control pills. Signed waiver BMI 28.73 kg/m PHYSICAL EXAMINATION: General: No acute distress Eye: Intraocular movements are intact HEENT: Normocephalic Respiratory: Respirations are nonlabored Gastrointestinal: Nondistended Musculoskeletal: Normal range of motion Neurologic: Alert and oriented x3 Psychiatric: Cooperative, appropriate mood and affect. CT abdomen pelvis w IV contrast Order: [id number] Impression 1. No acute findings in the abdomen or pelvis. 2. Previously seen bladder wall thickening has improved. 3. No hydronephrosis. [employer] Workstation ID: [id number] Narrative EXAMINATION: CT ABDOMEN PELVIS WITH IV CONTRAST ONLY HISTORY: ORDERING SYSTEM PROVIDED HISTORY: Abdominal pain, TECHNOLOGIST PROVIDED HISTORY: Illness/Other Reason for exam: pain Encounter Type: Initial Additional signs and symptoms: pain ORDERING SYSTEM PROVIDED DIAGNOSIS CODES: COMPARISON: CT abdomen and pelvis without contrast, 01/30/2024. TECHNIQUE: Dose reduction techniques were achieved by using automated exposure control and/or adjustment of mAand/or kV according to patient size and/or use of iterative reconstruction technique. Postcontrast axial CT images obtained through the abdomen and pelvis. Reconstructions obtained in the sagittal and coronal planes. CONTRAST: IOPAMIDOL 370 MG IODINE/ML (76 %) INTRAVENOUS SOLUTION - 75 mL, FINDINGS: Lung bases clear. No pleural effusion. Heart size normal. Liver unremarkable. Gallbladder is unremarkable. No abnormal bile duct dilatation. The pancreas appears normal. Spleen normal. The adrenal glands are normal. Kidneys are normal. No hydronephrosis. Stomach normal. Duodenum normal. No bowel obstruction. No bowel wall thickening. Normal appendix. No abnormal thickening or inflammation of the colon. Abdominal aorta normal. Inferior vena cava normal. No lymphadenopathy. No ascites. No free air. In the pelvis, the bladder is normal. Uterus normal. Ovaries normal. Rectum normal. No free fluid in the pelvis. No pelvic lymphadenopathy. No acute compression fracture. No suspicious osseous lesions. Images on Order [id number] Image Retrieve The full-size image has not yet been retrieved from an outside organization. To retrieve, click thelink below. External Radiology and Imaging - Scan on 04/30/2024: CT Abdomen Pelvis With IV Contrast Only Exam End: 04/30/24 12:50 Specimen Collected: 04/30/24 12:52 Last Resulted: 04/30/24 15:59 Received From: [facility] Result Received: 05/05/24 08:09 Problem List Items Addressed This Visit None Visit Diagnoses Menometrorrhagia - Primary Encounter for surveillance of contraceptive pills Relevant Medications norethindrone (Micronor) 0.35 mg tablet Provider Impression: 1. Menometrorrhagia 2. Contraceptive counseling Reviewed the CT scan obtained in April showing normal uterus and ovaries. No evidence of any pelvic masses. Is felt that her infrequent menstrual flows is related to being on the Jolessa for which a menstrual flow occurs every 3 months. Her sweating and GI symptoms are not felt to be gynecologic in nature. Her recent irregular bleeding is probably a combination of the Jolessa and the fact that she did not have her scheduled withdrawal bleed at the end of the Jolessa pill pack. Since she is over 35 and smokes recommend switching to a progestin only control. Patient to return in severalmonths for annual exam. [facility] Work Phone: [phone]) 964-463702-13-2025 History of Present illness Narrative* Virginia Joaquin, - 06/05/2024 1:00 PM EST Subjective Patient ID: Paula Mccormick is a 38 y.o. female who presents for Follow-up (Pt presents today as afollow up to discuss recent colonoscopy (done on 05/20/24). Pt states no changes since procedure, symptoms all present the same way as before. ). HPI Paula is seen today in follow-up. Biopsies from colonoscopy are unremarkable. Testing for celiac disease has been negative. No improvement with FODMAP diet recent test for carcinoid syndrome are negative. Suspect IBS diarrhea predominant. Has not trialed Xifaxan. Has been using Imodium with li ttle results. Discussed beginning Xifaxan versus Lomotil versus Alost are known. After discussing treatment options elected Xifaxan which is a good choice. Review of Systems Constitutional: Negative. HENT: Negative. Eyes: Negative. Respiratory: Negative. Cardiovascular: Negative. Gastrointestinal: Positive for diarrhea. Endocrine: Negative. Genitourinary: Negative. Neurological: Negative. Hematological: Negative. Objective Physical Exam Vitals and nursing note reviewed. Constitutional: Appearance: Normal appearance. HENT: Head: Normocephalic. Mouth/Throat: Mouth: Mucous membranes are moist. Pharynx: Oropharynx is clear. Eyes: Conjunctiva/sclera: Conjunctivae normal. Pupils: Pupils are equal, round, and reactive to light. Cardiovascular: Rate and Rhythm: Normal rate and regular rhythm. Heart sounds: Normal heart sounds. Pulmonary: Effort: Pulmonary effort is normal. Breath sounds: Normal breath sounds. Abdominal: General: Abdomen is flat. Bowel sounds are normal. Palpations: Abdomen is soft. Musculoskeletal: General: Normal range of motion. Cervical back: Normal range of motion and neck supple. Skin: General: Skin is warm and dry. Neurological: General: No focal deficit present. Mental Status: She is alert and oriented to person, place, and time. Psychiatric: Behavior: Behavior normal. Assessment/Plan Diagnoses and all orders for this visit: Irritable bowel syndrome with diarrhea - rifAXIMin (Xifaxan) 550 mg tablet; Take 1 tablet (550 mg) by mouth 3 times a day for 28 days. Follow-up 3 months Virginia Joaquin DO 06/05/24 1:14 PM [facility] Work Phone: 1([phone] Evaluation + Plan note* Assessment & Plan Note - Everett Cutler MD - 05/26/2024 12:51 PM ESTAssociated Problem(s): IBS (irritable bowel syndrome) Colonoscopy essentially negative, was unable to tolerate cholestyramine, will try colestipol granules instead, discussed case with GI consider treatment for diarrhea predominant IBS if pathology results and labs come back normal. [facility] Work Phone: [phone]) [phone] Evaluation + Plan note* Assessment & Plan Note - Everett Cutler MD - 05/26/2024 12:51 PM ESTAssociated Problem(s): Fatigue Check blood testing today including thyroid testing, talked about the case with gastroenterology, recommended checking 5 HIAA and serotonin levels as well to rule out possible carcinoid. Pathology from recent EGD still pending. [facility] Work Phone: [phone] Miscellaneous Notes* Assessment & Plan Note - Everett Cutler MD - 05/26/2024 12:51 PM ESTAssociated Problem(s): IBS (irritable bowel syndrome) Colonoscopy essentially negative, was unable to tolerate cholestyramine, will try colestipol granules instead, discussed case with GI consider treatment for diarrhea predominant IBS if pathology results and labs come back normal. * Assessment & Plan Note - Everett Cutler MD - 05/26/2024 12:51 PM EST Associated Problem(s): Fatigue Check blood testing today including thyroid testing, talked about the case with gastroenterology, recommended checking 5 HIAA and serotonin levels as well to rule out possible carcinoid. Pathology from recent EGD still pending. documented in this [facility]Un[facility] Work Phone: [phone] History of Present illness Narrative* Everett Cutler MD - 05/26/2024 10:40 AM EST Subjective Patient ID: Paula Mccormick is a 38 y.o. female who presents for F/U Colonoscopy. HPI Had colonoscopy done last week, pathology pending Still has diarrhea (5 times already today), sweating and throwing up, feels like might pass out Occ blood in stool GI had tried cholestyramine (can not tolerate) Lump anterior neck, no dysphagia or change in voice + fatigue all the time, headaches all the time, uses APAP, no NSAIDs Review of Systems Constitutional: Positive for fatigue. Negative for activity change and appetite change. Respiratory: Negative for cough, chest tightness and shortness of breath. Cardiovascular: Negative for chest pain, palpitations and leg swelling. Gastrointestinal: Positive for blood in stool, diarrhea, nausea and vomiting. Negative for abdominal pain and constipation. Objective BP 140/70 Pulse 73 Ht 1.778 m (5' 10) Wt 90.8 kg (200 lb 3.2 oz) LMP 08/22/2023 (Approximate) Comment: has not had a period since starting new control pills. Signed waiver SpO2 99% BMI 28.73 kg/m Physical Exam Vitals and nursing note reviewed. Constitutional: Appearance: Normal appearance. HENT: Head: Normocephalic and atraumatic. Right Ear: Tympanic membrane, ear canal and external ear normal. Left Ear: Tympanic membrane, ear canal and external ear normal. Nose: Nose normal. Mouth/Throat: Mouth: Mucous membranes are moist. Pharynx: Oropharynx is clear. Cardiovascular: Rate and Rhythm: Normal rate and regular rhythm. Pulses: Normal pulses. Heart sounds: Normal heart sounds. Pulmonary: Effort: Pulmonary effort is normal. Breath sounds: Normal breath sounds. Abdominal: General: Abdomen is flat. Bowel sounds are normal. There is no distension. Palpations: Abdomen is soft. There is no mass. Tenderness: There is no abdominal tenderness. There is no guarding or rebound. Musculoskeletal: Cervical back: Normal range of motion and neck supple. Skin: General: Skin is warm and dry. Capillary Refill: Capillary refill takes less than 2 seconds. Neurological: Mental Status: She is alert. Psychiatric: Mood and Affect: Mood normal. Behavior: Behavior normal. Assessment/Plan Problem List Items Addressed This Visit ICD-10-CM Fatigue - Primary R53.83 Check blood testing today including thyroid testing, talked about the case with gastroenterology, recommended checking 5 HIAA and serotonin levels as well to rule out possible carcinoid. Pathology from recent EGD still pending. Relevant Medications colestipol (Colestid) 5 gram granules Other Relevant Orders CBC and Auto Differential Comprehensive Metabolic Panel 5-Hydroxyindoleacetic Acid,Plasma Serotonin, Serum TSH with reflex to Free T4 if abnormal Sedimentation Rate IBS (irritable bowel syndrome) K58.9 Colonoscopy essentially negative, was unable to tolerate cholestyramine, will try colestipol granules instead, discussed case with GI consider treatment for diarrhea predominant IBS if pathology results and labs come back normal. Rectal bleeding K62.5 Other Visit Diagnoses Codes Diarrhea, unspecified type R19.7 Relevant Medications colestipol (Colestid) 5 gram granules Other Relevant Orders CBC and Auto Differential Comprehensive Metabolic Panel 5-Hydroxyindoleacetic Acid,Plasma Serotonin, Serum TSH with reflex to Free T4 if abnormal Sedimentation Rate documented in this [facility] Work Phone: 1([phone]) 989-375101-28-2025 Hospital Discharge instructions* Discharge Instructions* Nicole Thompson RN - 05/20/2024 2:50 PM EST Patient Instructions after a Colonoscopy The anesthetics, sedatives or narcotics which were given to you today will be acting in your body for the next 24 hours, so you might feel a little sleepy or groggy. This feeling should slowly wear off. Carefully read and follow the instructions. You received sedation today: - Do not drive or operate any machinery or power tools of any kind. - No alcoholic beverages today, not even beer or wine. - Do not make any important decisions or sign any legal documents. - No over the counter medications that contain alcohol or that may cause drowsiness. - Do not make any important decisions or sign any legal documents. - Make sure you have someone with you for first 24 hours. While it is common to experience mild to moderate abdominal distention, gas, or belching after yourprocedure, if any of these symptoms occur following discharge from the GI Lab or within one week ofhaving your procedure, call the [facility] to be advised whether a visit to your nearest Urgent Care or Emergency Department is indicated. Take this paper with you if you go. - If you develop an allergic reaction to the medications that were given during your procedure suchas difficulty breathing, rash, hives, severe nausea, vomiting or lightheadedness. - If you experience chest pain, shortness of breath, severe abdominal pain, fevers and chills. -If you develop signs and symptoms of bleeding such as blood in your spit, if your stools turn black, tarry, or bloody - If you have not urinated within 8 hours following your procedure. - If your IV site becomes painful, red, inflamed, or looks infected. If you received a biopsy/polypectomy/sphincterotomy the following instructions apply below: _X_ Do not use Aspirin containing products, non-steroidal medications or anti- coagulants for one week following your procedure. (Examples of these types of medications are: Advil, Arthrotec, Aleve, Coumadin, Ecotrin, Heparin, Ibuprofen, Indocin, Motrin, Naprosyn, Nuprin, Plavix, Vioxx, and Voltarin, or their generic forms. This list is not all-inclusive. Check with your physician or pharmacist before resuming medications.) _X_ Eat a soft diet today. Avoid foods that are poorly digested for the next 24 hours. These foods would include: nuts, beans, lettuce, red meats, and fried foods. Start with liquids and advance yourdiet as tolerated, gradually work up to eating solids. _X_ Do not have a Barium Study or Enema for one week. Your physician recommends the additional following instructions: -You have a contact number available for emergencies. The signs and symptoms of potential delayed complications were discussed with you. You may return to normal activities tomorrow. -Resume your previous diet. -Continue your present medications. -We are waiting for your pathology results. -Your physician has recommended a repeat colonoscopy (date to be determined after pending pathologyresults are reviewed) for surveillance based on pathology results. -The findings and recommendations have been discussed with you. -The findings and recommendations were discussed with your family. - Please see Medication Reconciliation Form for new medication/medications prescribed. If you experience any problems or have any questions following discharge from the GI Lab, please call: [phone] documented in this [facility] Work Phone: [phone]) 764-129801-28-2025 Hospital Discharge instructions* Discharge Instructions* Nicole Thompson RN - 05/20/2024 2:50 PM EST Patient Instructions after a Colonoscopy The anesthetics, sedatives or narcotics which were given to you today will be acting in your body for the next 24 hours, so you might feel a little sleepy or groggy. This feeling should slowly wear off. Carefully read and follow the instructions. You received sedation today: - Do not drive or operate any machinery or power tools of any kind. - No alcoholic beverages today, not even beer or wine. - Do not make any important decisions or sign any legal documents. - No over the counter medications that contain alcohol or that may cause drowsiness. - Do not make any important decisions or sign any legal documents. - Make sure you have someone with you for first 24 hours. While it is common to experience mild to moderate abdominal distention, gas, or belching after yourprocedure, if any of these symptoms occur following discharge from the GI Lab or within one week ofhaving your procedure, call the [facility] to be advised whether a visit to your nearest Urgent Care or Emergency Department is indicated. Take this paper with you if you go. - If you develop an allergic reaction to the medications that were given during your procedure suchas difficulty breathing, rash, hives, severe nausea, vomiting or lightheadedness. - If you experience chest pain, shortness of breath, severe abdominal pain, fevers and chills. -If you develop signs and symptoms of bleeding such as blood in your spit, if your stools turn black, tarry, or bloody - If you have not urinated within 8 hours following your procedure. - If your IV site becomes painful, red, inflamed, or looks infected. If you received a biopsy/polypectomy/sphincterotomy the following instructions apply below: _X_ Do not use Aspirin containing products, non-steroidal medications or anti- coagulants for one week following your procedure. (Examples of these types of medications are: Advil, Arthrotec, Aleve, Coumadin, Ecotrin, Heparin, Ibuprofen, Indocin, Motrin, Naprosyn, Nuprin, Plavix, Vioxx, and Voltarin, or their generic forms. This list is not all-inclusive. Check with your physician or pharmacist before resuming medications.) _X_ Eat a soft diet today. Avoid foods that are poorly digested for the next 24 hours. These foods would include: nuts, beans, lettuce, red meats, and fried foods. Start with liquids and advance yourdiet as tolerated, gradually work up to eating solids. _X_ Do not have a Barium Study or Enema for one week. Your physician recommends the additional following instructions: -You have a contact number available for emergencies. The signs and symptoms of potential delayed complications were discussed with you. You may return to normal activities tomorrow. -Resume your previous diet. -Continue your present medications. -We are waiting for your pathology results. -Your physician has recommended a repeat colonoscopy (date to be determined after pending pathologyresults are reviewed) for surveillance based on pathology results. -The findings and recommendations have been discussed with you. -The findings and recommendations were discussed with your family. - Please see Medication Reconciliation Form for new medication/medications prescribed. If you experience any problems or have any questions following discharge from the GI Lab, please call: [phone] documented in this [facility] Work Phone: 1(435) 910-560501-13-2025 History of Present illness Narrative* Everett Cutler MD - 05/05/2024 2:00 PM EST Subjective Patient ID: Paula Mccormick is a 38 y.o. female who presents for ER F/U ABD Pain. HPI Passing blood with stool, seen in ER at [facility] 04/30, gave dicyclomine for pain, CT negative Soft stool, blood worse in the past week, + cramping and bloating/gas, belching and pain in abdomen, sweating when goes to toilet, afraid may pass out, some pain with BM Has been going on for a month, getting worse, BM 8-10 times a day, lots of bowel noise, pain some better after defecation. Was on antibiotics in January for UTI Review of Systems Constitutional: Negative for activity change, appetite change, chills, fatigue and fever. Respiratory: Negative for cough, chest tightness and shortness of breath. Cardiovascular: Negative for chest pain, palpitations and leg swelling. Gastrointestinal: Positive for abdominal distention, abdominal pain, blood in stool and diarrhea. Negative for constipation, nausea and vomiting. Objective BP 120/80 Pulse 70 Ht 1.778 m (5' 10) Wt 93.3 kg (205 lb 9.6 oz) SpO2 99% BMI 29.50 kg/m Physical Exam Vitals and nursing note reviewed. Constitutional: Appearance: Normal appearance. HENT: Head: Normocephalic and atraumatic. Right Ear: Tympanic membrane, ear canal and external ear normal. Left Ear: Tympanic membrane, ear canal and external ear normal. Nose: Nose normal. Mouth/Throat: Mouth: Mucous membranes are moist. Pharynx: Oropharynx is clear. Cardiovascular: Rate and Rhythm: Normal rate and regular rhythm. Pulses: Normal pulses. Heart sounds: Normal heart sounds. Pulmonary: Effort: Pulmonary effort is normal. Breath sounds: Normal breath sounds. Abdominal: General: Abdomen is flat. Bowel sounds are normal. There is no distension. Palpations: There is no mass. Tenderness: There is abdominal tenderness. There is guarding. There is no rebound. Comments: Left lower quadrant guarding and tenderness to palpation. Musculoskeletal: Cervical back: Normal range of motion and neck supple. Neurological: Mental Status: She is alert. Psychiatric: Mood and Affect: Mood normal. Behavior: Behavior normal. Assessment/Plan Problem List Items Addressed This Visit ICD-10-CM IBS (irritable bowel syndrome) K58.9 Rectal bleeding - Primary K62.5 Patient with persistent rectal bleeding and diarrhea abdominal pain for a month, emergency room report was reviewed, CBC is stable from prior, persistent 8-10 loose bowel movements a day with blood, discussed the case with local GI, will arrange for colonoscopy in the next week. [facility] Work Phone: 1([phone]) 329-131301-13-2025 Instructions* Patient Instructions* Everett Cutler MD - 05/05/2024 2:[address] Joaquin's office will call you to arrange for a colonoscopy. Use the medicine from the ER as needed for pain and increase fluids [facility] Work Phone: 1([phone]) [phone] Evaluation + Plan note* Assessment & Plan Note - Everett Cutler MD - 04/10/2024 12:41 PM ESTAssociated Problem(s): Recurrent colitis due to Clostridioides difficile Has had diarrhea for the past several weeks after taking Macrobid for a urinary tract infection, recheck stool testing, he is having some intermittent blood with stool, check CBC and CMP. [facility] Work Phone: [phone]) 471-341412-19-2024 Evaluation + Plan note* Assessment & Plan Note - Everett Cutler MD - 04/10/2024 12:41 PM ESTAssociated Problem(s): Low vitamin B12 level Check labs today. [facility] Work Phone: [phone]) [phone] Miscellaneous Notes* Assessment & Plan Note - Everett Cutler MD - 04/10/2024 12:41 PM ESTAssociated Problem(s): Recurrent colitis due to Clostridioides difficile Has had diarrhea for the past several weeks after taking Macrobid for a urinary tract infection, recheck stool testing, he is having some intermittent blood with stool, check CBC and CMP. * Assessment & Plan Note - Everett Cutler MD - 04/10/2024 12:41 PM EST Associated Problem(s): Low vitamin B12 level Check labs today. documented in this [facility] Work Phone: [phone] History of Present illness Narrative* Everett Cutler MD - 04/10/2024 10:20 AM EST Subjective Patient ID: Paula Mccormick is a 38 y.o. female who presents for Annual Exam. HPI Follows with [facility] annually last seen in 2021 Had UTI in January, was seen in ER Having diarrhea, for the past month, some blood in stool, watery stool, cramping and bloating, + smell, + dry heaves Some F/C/S, feeling dizzy and LH at times Some vaginal discharge at times (mucous) since had son Review of Systems Constitutional: Negative for activity change, appetite change and fatigue. Respiratory: Negative for cough, chest tightness and shortness of breath. Cardiovascular: Negative for chest pain, palpitations and leg swelling. Gastrointestinal: Positive for abdominal distention, abdominal pain, diarrhea and nausea. Negative for constipation and vomiting. Genitourinary: Positive for vaginal discharge. Neurological: Positive for light-headedness. Negative for dizziness and headaches. Objective BP 122/70 Pulse 69 Ht 1.778 m (5' 10) Wt 93.3 kg (205 lb 9.6 oz) SpO2 99% BMI 29.50 kg/m Physical Exam Vitals and nursing note reviewed. Constitutional: General: She is not in acute distress. Appearance: Normal appearance. She is not toxic-appearing. HENT: Head: Normocephalic and atraumatic. Right Ear: Tympanic membrane, ear canal and external ear normal. Left Ear: Tympanic membrane, ear canal and external ear normal. Nose: Nose normal. Mouth/Throat: Mouth: Mucous membranes are moist. Pharynx: Oropharynx is clear. Eyes: Extraocular Movements: Extraocular movements intact. Conjunctiva/sclera: Conjunctivae normal. Pupils: Pupils are equal, round, and reactive to light. Cardiovascular: Rate and Rhythm: Normal rate and regular rhythm. Pulses: Normal pulses. Heart sounds: Normal heart sounds. Pulmonary: Effort: Pulmonary effort is normal. Breath sounds: Normal breath sounds. Abdominal: General: Abdomen is flat. Bowel sounds are normal. There is distension. Palpations: Abdomen is soft. There is no mass. Tenderness: There is abdominal tenderness. There is guarding. There is no rebound. Comments: Tender along the right and left lower quadrant, mildly distended to palpation. Musculoskeletal: Cervical back: Normal range of motion and neck supple. Skin: General: Skin is warm and dry. Capillary Refill: Capillary refill takes less than 2 seconds. Neurological: General: No focal deficit present. Mental Status: She is alert and oriented to person, place, and time. Mental status is at baseline. Psychiatric: Mood and Affect: Mood normal. Behavior: Behavior normal. Assessment/Plan Problem List Items Addressed This Visit ICD-10-CM Fatigue R53.83 Relevant Orders Comprehensive Metabolic Panel CBC and Auto Differential Vitamin B12 Low vitamin B12 level R79.89 Check labs today. Relevant Orders CBC and Auto Differential Vitamin B12 Recurrent colitis due to Clostridioides difficile - Primary A04.71 Has had diarrhea for the past several weeks after taking Macrobid for a urinary tract infection, recheck stool testing, he is having some intermittent blood with stool, check CBC and CMP. Relevant Orders C. difficile, PCR Other Visit Diagnoses Codes Right foot pain M79.671 Relevant Orders [facility]erral to [facility] Work Phone: [phone]) 220-190004-01-2024 History of Present illness Narrative* Samuel Gamez MD - 07/23/2023 10:00 AM EDT Paula Mccormick is a 37 y.o. female who is here for a routine exam. PCP = Everett Cutler MD Chief Complaint Patient presents with Gynecologic Exam PT is here today for yearly exam. Does her own self breast exams. Reports her LMP was 05/24/23. No other issues or concerns today. Presents for annual exam. She voices no complaints and is doing well. Denies any bowel or bladder problems. Denies any breast problems. She is doing well on the hormonal contraceptive. She smokes daily. OB History 1 Para 1 Term 1 0 AB 0 Living 1 SAB 0 IAB 0 Ectopic 0 Multiple 0 Live Births 1 Social History Substance and Sexual Activity Sexual Activity Yes Past Medical History: Diagnosis Date Encounter for delivery without indication Delivery of by section Encounter for gynecological examination (general) (routine) without abnormal findings Pap test, as part of routine gynecological examination Nausea and vomiting 09/14/2022 Other conditions influencing health status Menstruation Other specified health status Date of last menstrual period (LMP) unknown Personal history of other specified conditions 05/01/2019 History of diarrhea Past Surgical History: Procedure Laterality Date BREAST BIOPSY 09/11/2016 cyst SECTION, LOW TRANSVERSE 05/2011 OTHER SURGICAL HISTORY 01/15/2019 Colonoscopy Past med hx and past surg hx reviewed and notable for: none Review of Systems: Constitutional: No fever or chills Respiratory: No shortness of breath, or cough Cardiovascular: No chest pain or syncope Breasts: No breast pain, no masses, no nipple discharge Gastrointestinal: No nausea, vomiting, or diarrhea, no abdominal pain Genitourinary: No dysuria or frequency Gynecology: Negative except as noted in history of present illness All other: All other systems reviewed and negative for complaint Objective BP 120/74 Ht 1.778 m (5' 10) Wt 89.3 kg (196 lb 12.8 oz) BMI 28.24 kg/m PHYSICAL EXAMINATION: Well-developed, well nourished, in no acute distress, alert and oriented x three, is pleasant and cooperative. HEENT: Clear. Pupils equal, round and reactive to light and accommodation. Extraocular muscles are intact. Oral mucosa pink without exudate. NECK: No lymphadenopathy, no thyromegaly. BREASTS: Symmetric, no palpable masses. No nipple discharge or retraction. LUNGS: Clear bilaterally. HEART: Regular rate and rhythm without murmurs. ABDOMEN: Normoactive bowel sounds, soft and nontender, no guarding or rebound tenderness, no CVA tenderness. EXTREMITIES: No clubbing, cyanosis or edema. NEUROLOGIC: Cranial nerves II-XII grossly intact. : Normal external female genitalia, normal vulva, normal vagina. Normal urethral meatus, urethra and bladder. Normal appearing cervix. Normal-sized uterus, no adnexal masses or tenderness. Pap smear performed today. Actions performed during this visit include: - Clinical breast exam - Clinical pelvic exam - No orders of the defined types were placed in this encounter. Problem List Items Addressed This Visit None Visit Diagnoses Encounter for surveillance of contraceptive pills - Primary Relevant Medications norethindrone (Iman) 0.35 mg tablet Encounter for gynecological examination without abnormal finding Relevant Orders THINPREP PAP TEST Encounter for screening for cervical cancer Relevant Orders THINPREP PAP TEST Provider Impression: 1. Annual 2. Contraceptive counseling Since she smokes daily, recommend switch her to a progesterone only contraceptive since she is now 37 years old. Thank you for coming to your annual exam. Your findings during the exam were normal. Please return for your next visit in 1 year. [facility] Work Phone: 1(480) 780-850503-29-2023 NoteAccession #: [id number] Date of Procedure: 07/19/2022 Pathologist: GRADY REILLY M.D. Date Reported: 07/26/2022 Date Received: 07/19/2022 Submitting Physician: SAMUEL GAMEZ MD FINAL CYTOLOGICAL INTERPRETATION Squamous and/or Glandular Abnormality A. THINPREP PAP CERVICAL: Specimen adequacy: SATISFACTORY FOR EVALUATION. Quality Indicator: Endocervical/transformation zone component is present. General Categorization: EPITHELIAL CELL ABNORMALITY - SQUAMOUS CELL. See Interpretation. Descriptive Interpretation: ATYPICAL SQUAMOUS CELLS OF UNDETERMINED SIGNIFICANCE (ASC-US) - CERVIX. HIGH RISK HPV TEST RESULT: HPV GENOTYPE 16 NEGATIVE HPV GENOTYPE 18 NEGATIVE HPV GENOTYPE OTHER NEGATIVE Reference Range: Negative Slide(s) initially screened by a Emergency Department Rn at [facility], [address] [place] [address] Testing for high-risk (HR) type of human papilloma virus (HPV) is performed by the [facility] fred HPV Test. The fred HPV Test is a qualitative polymerase chain reaction that amplifies DNA of HPV16, HPV18 and 12 other high-risk HPV types (31, 33, 35, 39, 45, 51, 52, 56, 58, 59, 66, and 68) associated with cervical cancer and its precursor lesions. A positive result indicates the presence of HPV DNA due to one or more of the 14 genotypes: 16, 18, 31, 33, 35, 39, 45, 51, 52, 56, 58, 59, 66, and 68. Negative results indicate HPV DNA concentrations are undetectable or below the pre-set threshold for detection. False negative results may be associated with unoptimized sampling. A negative HR HPV result does not exclude the possibility of future cytologic HSIL or underlying CIN2-3 or cancer. This test is approved for cervical specimens by the [place] Food and Drug Administration. Results of this test should be interpreted in conjunction with the patient?s Pap test results. Please refer to ASCCP current guidelines for the use of HPV DNA testing, result interpretation, and patient management. The performance of this test was verified by the Molecular Diagnostic Laboratory at [facility]. The lab is certified under the Clinical Laboratory Amendments of 1988 (CLIA 88) as qualified to perform high complexity clinical laboratory testing. This specimen has been analyzed by the ThinPrep Imaging System ([employer] an automated imaging and review system, which assists the laboratory in evaluating cells on ThinPrep Pap tests. Following automated imaging, selected ramos from every slide were reviewed by a sales correspondent and/or pathologist. Electronically Signed Out By GRADY REILLY M.D./JAVI/MARYJO By the signature on this report, the individual or group listed as making the Final Interpretation/Diagnosis certifies that they have reviewed this case. Diagnostic interpretation performed at [facility] [address] [place] [address] Educational Note: Cervical cytology is a screening procedure primarily for squamous cancers and precursors and has associated false-negative and false-positive results as evidenced by published data. Your patient?s test should be interpreted in this context, together with patient?s history and clinical findings. Regular sampling and follow-up of unexplained clinical signs and symptoms are recommended to minimize false negative results. Clinical History Date of Last Menstrual Period: 05/23/2022 Other Clinical Conditions: COTEST HPV(Genotype) except for ASC-H, HSIL, Carcinoma - Include HPV Genotype testing Annual Clinical Diagnosis History: Encounter for Papanicolaou smear of cervix - (Z12.4); Women's annual routine gynecological examination - (Z01.419) Source of Specimen A: THINPREP PAP CERVICAL [facility] Department of Pathology [id number] [place] [id number] [facility]look [facility] CenterComment on above:Performed By: #### CITAB #### [address] [place], [place] [id number] History of Present illness Narrative* Had pap in June * No headache, chest pain, shortness of breath, dizziness (prior to emises), lightheadedness, or edema * some bloating and gas, no diarrhea, some IBS issues, some nausea * gets HF often and dizzy at times * right arm N/T mid arm to fingers, sensitive to touch, some swelling at elbow, using a brace, has been an issue for years, worse in the past 2 months, + weakness at times [facility] Work Phone: evaluation note* Diagnosis Numbness and tingling of right arm- Primary [facility] Diagnosis Encounter for surveillance of contraceptive pills- Primary Encounter for gynecological examination without abnormal finding Encounter for screening for cervical cancer documented in this encounter [facility] Work Phone: Evaluation note* Diagnosis Recurrent colitis due to Clostridioides difficile- Primary Low vitamin B12 level Chronic fatigue Other malaise and fatigue Right foot pain Pain in soft tissues of limb documented in this encounter [facility] Work Phone: Evaluation note* Diagnosis Recurrent colitis due to Clostridioides difficile- Primary Low vitamin B12 level Chronic fatigue Other malaise and fatigue Right foot pain Pain in soft tissues of limb Pain in left foot Pain in soft tissues of limb Pain in right foot Pain in soft tissues of limb documented in this encounter [facility] Work Phone: Evaluation note* Diagnosis Recurrent colitis due to Clostridioides difficile- Primary Low vitamin B12 level Chronic fatigue Other malaise and fatigue Right foot pain Pain in soft tissues of limb Rectal bleeding- Primary Hemorrhage of rectum and anus Irritable bowel syndrome with diarrhea Irritable bowel syndrome documented in this encounter [facility] Work Phone: Evaluation note* Diagnosis Recurrent colitis due to Clostridioides difficile- Primary Low vitamin B12 level Chronic fatigue Other malaise and fatigue Right foot pain Pain in soft tissues of limb Functional diarrhea- Primary Diarrhea, functional Functional diarrhea Flushing Carcinoid syndrome documented in this encounter [facility] Work Phone: Evaluation note* Diagnosis Recurrent colitis due to Clostridioides difficile- Primary Low vitamin B12 level Chronic fatigue Other malaise and fatigue Right foot pain Pain in soft tissues of limb Chronic fatigue- Primary Other malaise and fatigue Diarrhea, unspecified type Rectal bleeding Hemorrhage of rectum and anus Irritable bowel syndrome with diarrhea Irritable bowel syndrome documented in this encounter [facility] Work Phone: Evaluation note* Diagnosis Recurrent colitis due to Clostridioides difficile- Primary Low vitamin B12 level Chronic fatigue Other malaise and fatigue Right foot pain Pain in soft tissues of limb Chronic fatigue- Primary Other malaise and fatigue Diarrhea, unspecified type Rectal bleeding Hemorrhage of rectum and anus Irritable bowel syndrome with diarrhea Irritable bowel syndrome Irritable bowel syndrome with diarrhea- Primary Irritable bowel syndrome documented in this encounter [facility] Work Phone: Evaluation note* Diagnosis Recurrent colitis due to Clostridioides difficile- Primary Low vitamin B12 level Chronic fatigue Other malaise and fatigue Right foot pain Pain in soft tissues of limb Chronic fatigue- Primary Other malaise and fatigue Diarrhea, unspecified type Rectal bleeding Hemorrhage of rectum and anus Irritable bowel syndrome with diarrhea Irritable bowel syndrome Menometrorrhagia- Primary Excessive or frequent menstruation Encounter for surveillance of contraceptive pills documented in this encounter [facility] Work Phone: Evaluation note* Diagnosis Recurrent colitis due to Clostridioides difficile- Primary Low vitamin B12 level Chronic fatigue Other malaise and fatigue Right foot pain Pain in soft tissues of limb Chronic fatigue- Primary Other malaise and fatigue Diarrhea, unspecified type Rectal bleeding Hemorrhage of rectum and anus Irritable bowel syndrome with diarrhea Irritable bowel syndrome Encounter for annual routine gynecological examination Encounter for screening for cervical cancer Encounter for surveillance of contraceptive pills documented in this encounter [facility] Work Phone: Evaluation note* Diagnosis Recurrent colitis due to Clostridioides difficile- Primary Low vitamin B12 level Chronic fatigue Other malaise and fatigue Right foot pain Pain in soft tissues of limb Chronic fatigue- Primary Other malaise and fatigue Diarrhea, unspecified type Rectal bleeding Hemorrhage of rectum and anus Irritable bowel syndrome with diarrhea Irritable bowel syndrome Microscopic hematuria- Primary Suprapubic abdominal pain Other microscopic hematuria Lower abdominal pain Abdominal pain, other specified site documented in this encounter [facility] Work Phone: Evaluation note* Diagnosis Recurrent colitis due to Clostridioides difficile- Primary Low vitamin B12 level Chronic fatigue Other malaise and fatigue Right foot pain Pain in soft tissues of limb Chronic fatigue- Primary Other malaise and fatigue Diarrhea, unspecified type Rectal bleeding Hemorrhage of rectum and anus Irritable bowel syndrome with diarrhea Irritable bowel syndrome Lower abdominal pain Abdominal pain, other specified site documented in this encounter [facility] Work Phone: Evaluation note* Diagnosis Recurrent colitis due to Clostridioides difficile- Primary Low vitamin B12 level Chronic fatigue Other malaise and fatigue Right foot pain Pain in soft tissues of limb Chronic fatigue- Primary Other malaise and fatigue Diarrhea, unspecified type Rectal bleeding Hemorrhage of rectum and anus Irritable bowel syndrome with diarrhea Irritable bowel syndrome Lower abdominal pain Abdominal pain, other specified site documented in this encounter [facility] Work Phone: Evaluation note* Diagnosis Onset Date Resolution Status Admit Date Abnormal uterine bleeding acute January 26, 2025 2:21pm Dysmenorrhea acute January 26, 2025 2:21pm IBS (irritable bowel syndrome) acute January 26, 2025 2:21pm Chronic pelvic pain in female chroni c January 26, 2025 2:21pm [facility] Work Phone: Evaluation note* Diagnosis Recurrent colitis due to Clostridioides difficile- Primary Low vitamin B12 level Chronic fatigue Other malaise and fatigue Right foot pain Pain in soft tissues of limb Functional diarrhea- Primary Diarrhea, functional Functional diarrhea Flushing Carcinoid syndrome Carcinoid syndrome Chronic fatigue- Primary Other malaise and fatigue Diarrhea, unspecified type Rectal bleeding Hemorrhage of rectum and anus Irritable bowel syndrome with diarrhea Irritable bowel syndrome documented in this encounter [facility] Work Phone: Evaluation note* Diagnosis Recurrent colitis due to Clostridioides difficile- Primary Low vitamin B12 level Chronic fatigue Other malaise and fatigue Right foot pain Pain in soft tissues of limb Chronic fatigue- Primary Other malaise and fatigue Diarrhea, unspecified type Rectal bleeding Hemorrhage of rectum and anus Irritable bowel syndrome with diarrhea Irritable bowel syndrome Irritable bowel syndrome with diarrhea- Primary Irritable bowel syndrome PCOD (polycystic ovarian disease) Polycystic ovaries documented in this encounter [facility] Work Phone: Evaluation note* Diagnosis Recurrent colitis due to Clostridioides difficile- Primary Low vitamin B12 level Chronic fatigue Other malaise and fatigue Right foot pain Pain in soft tissues of limb Chronic fatigue- Primary Other malaise and fatigue Diarrhea, unspecified type Rectal bleeding Hemorrhage of rectum and anus Irritable bowel syndrome with diarrhea Irritable bowel syndrome Irritable bowel syndrome with diarrhea- Primary Irritable bowel syndrome PCOD (polycystic ovarian disease) Polycystic ovaries Acute cystitis with hematuria- Primary Dysuria documented in this encounter [facility] Work Phone: History of Present illness NarrativePresents for annual exam. She voices no complaints and is doing well. Denies any bowel or bladder problems. Denies any breast problems. She is doing well on the control pills.[address] Work Phone: Reason for referral (narrative)No reason for referral information availableHenry [facility] Work Phone: Reason for visit Narrative* Imaging (Routine) - Authorized Specialty Diagnoses / Procedures Referred By Kati pickering Referred To Contact Radiology Diagnoses Pain in left foot Procedures XR foot left 3+ views Bev Enriquez, DPM [address] [place] [address] Phone: tel: fax: Referral ID Status Reason Start Date Expiration Date Visits Requested Visits Authorized [id number] Authorized Perform Procedure 4 04/14/2025 1 1 [facility] Work Phone: Reason for visit Narrative* Auth/Cert (Routine) Specialty Diagnoses / Procedures Referred By Kati pickering Referred To Contact Diagnoses Diarrhea, unspecified Hemorrhage of anus and rectum Procedures CA COLONOSCOPY FLX DX W/COLLJ SPEC WHEN PFRMD CA COLONOSCOPY W/BIOPSY SINGLE/MULTIPLE CA COLSC FLX W/REMOVAL LESION BY HOT BX FORCEPS CA COLSC FLX W/RMVL OF TUMOR POLYP LESION SNARE TQ [place] [id number] [facility] [address] [place] [address] Phone: tel: [phone] fax: Referral ID Status Reason Start Date Expiration Date Visits Re quested Visits Authorized [id number] 1 1 [facility] Work Phone: Rejkfs for visit Narrative* Imaging (Routine) - Authorized Specialty Diagnoses / Procedures Referred By Kati pickering Referred To Contact Radiology Diagnoses Lower abdominal pain Procedures XR abdomen 2 views supine and erect or decub Geovany York, 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 [address] [place] [address] Phone: tel: fax: Referral ID Status Reason Start Date Expiration Date Visits Requested Visits Authorized [id number] Authorized Perform Procedure 08/21/2024 08/21/2025 1 1 [facility] Work Phone: Reason for visit Narrative* Imaging (Routine) - Pending Review Specialty Diagnoses / Procedures Referred By Kati pickering Referred To Contact Radiology Diagnoses Lower abdominal pain Procedures US PELVIS TRANSABDOMINAL WITH TRANSVAGINAL US pelvis Geovany York, 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 [address] [place] [address] Phone: tel: fax: Referral ID Status Reason Start Date Expiration Date Visits Requested Visits Authorized [id number] Pending Review Perform Procedure 08/21/2024 08/21/2025 1 1 [facility] Work Phone: Summary Purpose Family History No Family History Records Found Mother Name Dates Details Family history of diabetes m ellitus(V18.0, Z83.3) Status:Active Father Name Dates Details Family history of diabetes m ellitus(V18.0, Z83.3) Status:Active Family history of myocardial infarction(V17.3, Z82.49) Status:Active Sister Name Dates Details Family history of Primary ma lignant neoplasm of female genital organ(184.9, C57.9) Status:Active Brother Name Dates Details Family history of colonic po lyps(V18.51, Z83.71) Status:Active Mother Name Dates Details Family history of diabetes m ellitus(V18.0, Z83.3) Status:Active Father Name Dates Details Family history of diabetes m ellitus(V18.0, Z83.3) Status:Active Family history of myocardial infarction(V17.3, Z82.49) Status:Active Sister Name Dates Details Family history of Primary ma lignant neoplasm of female genital organ(184.9, C57.9) Status:Active Brother Name Dates Details Family history of colonic po lyps(V18.51, Z83.71) Status:Active Unknown Family Member Name Dates Details Family history of diabetes m ellitus: Mother, Father(V18.0, Z83.3) Status:Active Family history of myocardial infarction: Father(V17.3, Z82.49) Status:Active Primary malignant neoplasm o f female genital organ: Sister Status:Active Family history of colonic po lyps: Brother(V18.51, Z83.71) Status:Active Unknown Family Member Name Dates Details Family history of diabetes m ellitus: Mother, Father(V18.0, Z83.3) Status:Active Family history of myocardial infarction: Father(V17.3, Z82.49) Status:Active Primary malignant neoplasm o f female genital organ: Sister Status:Active Family history of colonic po lyps: Brother(V18.51, Z83.71) Status:Active Unknown Family Member Name Dates Details Family history of diabetes m ellitus: Mother, Father(V18.0, Z83.3) Status:Active Family history of myocardial infarction: Father(V17.3, Z82.49) Status:Active Primary malignant neoplasm o f female genital organ: Sister Status:Active Family history of colonic po lyps: Brother(V18.51, Z83.71) Status:Active Unknown Family Member Name Dates Details Family history of diabetes m ellitus: Mother, Father(V18.0, Z83.3) Status:Active Family history of myocardial infarction: Father(V17.3, Z82.49) Status:Active Primary malignant neoplasm o f female genital organ: Sister Status:Active Family history of colonic po lyps: Brother(V18.51, Z83.71) Status:Active Unknown Family Member Name Dates Details Family history of diabetes m ellitus: Mother, Father(V18.0, Z83.3) Status:Active Family history of myocardial infarction: Father(V17.3, Z82.49) Status:Active Primary malignant neoplasm o f female genital organ: Sister Status:Active Family history of colonic po lyps: Brother(V18.51, Z83.71) Status:Active Unknown Family Member Name Dates Details Family history of diabetes m ellitus: Mother, Father(V18.0, Z83.3) Status:Active Family history of myocardial infarction: Father(V17.3, Z82.49) Status:Active Primary malignant neoplasm o f female genital organ: Sister Status:Active Family history of colonic po lyps: Brother(V18.51, Z83.71) Status:Active Unknown Family Member Name Dates Details Family history of diabetes m ellitus: Mother, Father(V18.0, Z83.3) Status:Active Family history of myocardial infarction: Father(V17.3, Z82.49) Status:Active Primary malignant neoplasm o f female genital organ: Sister Status:Active Family history of colonic po lyps: Brother(V18.51, Z83.71) Status:Active Unknown Family Member Name Dates Details Family history of diabetes m ellitus: Mother, Father(V18.0, Z83.3) Status:Active Family history of myocardial infarction: Father(V17.3, Z82.49) Status:Active Primary malignant neoplasm o f female genital organ: Sister Status:Active Family history of colonic po lyps: Brother(V18.51, Z83.71) Status:Active Unknown Family Member Name Dates Details Family history of diabetes m ellitus: Mother, Father(V18.0, Z83.3) Status:Active Family history of myocardial infarction: Father(V17.3, Z82.49) Status:Active Primary malignant neoplasm o f female genital organ: Sister Status:Active Family history of colonic po lyps: Brother(V18.51, Z83.71) Status:Active Unknown Family Member Name Dates Details Family history of diabetes m ellitus: Mother, Father(V18.0, Z83.3) Status:Active Family history of myocardial infarction: Father(V17.3, Z82.49) Status:Active Primary malignant neoplasm o f female genital organ: Sister Status:Active Family history of colonic po lyps: Brother(V18.51, Z83.71) Status:Active Unknown Family Member Name Dates Details Family history of colonic po lyps: Brother(V18.51, Z83.71) Status:Active Primary malignant neoplasm o f female genital organ: Sister Status:Active Family history of myocardial infarction: Father(V17.3, Z82.49) Status:Active Family history of diabetes m ellitus: Mother, Father(V18.0, Z83.3) Status:Active Unknown Family Member Name Dates Details Family history of diabetes m ellitus: Mother, Father(V18.0, Z83.3) Status:Active Family history of myocardial infarction: Father(V17.3, Z82.49) Status:Active Primary malignant neoplasm o f female genital organ: Sister Status:Active Family history of colonic po lyps: Brother(V18.51, Z83.71) Status:Active Unknown Family Member Name Dates Details Family history of diabetes m ellitus: Mother, Father(V18.0, Z83.3) Status:Active Family history of myocardial infarction: Father(V17.3, Z82.49) Status:Active Primary malignant neoplasm o f female genital organ: Sister Status:Active Family history of colonic po lyps: Brother(V18.51, Z83.71) Status:Active Unknown Family Member Name Dates Details Family history of diabetes m ellitus: Mother, Father(V18.0, Z83.3) Status:Active Family history of myocardial infarction: Father(V17.3, Z82.49) Status:Active Primary malignant neoplasm o f female genital organ: Sister Status:Active Family history of colonic po lyps: Brother(V18.51, Z83.71) Status:Active Unknown Family Member Name Dates Details Family history of diabetes m ellitus: Mother, Father(V18.0, Z83.3) Status:Active Family history of myocardial infarction: Father(V17.3, Z82.49) Status:Active Primary malignant neoplasm o f female genital organ: Sister Status:Active Family history of colonic po lyps: Brother(V18.51, Z83.71) Status:Active Unknown Family Member Name Dates Details Family history of cervical c ancer: Sister(V16.49, Z80.49) Status:Active Family history of colonic po lyps: Brother(V18.51, Z83.71) Status:Active Family history of myocardial infarction: Father(V17.3, Z82.49) Status:Active Family history of diabetes m ellitus: Mother, Father(V18.0, Z83.3) Status:Active Unknown Family Member Name Dates Details Family history of diabetes m ellitus: Mother, Father(V18.0, Z83.3) Status:Active Family history of myocardial infarction: Father(V17.3, Z82.49) Status:Active Family history of colonic po lyps: Brother(V18.51, Z83.71) Status:Active Family history of cervical c ancer: Sister(V16.49, Z80.49) Status:Active Relationship Condition Age at Onset Recorded Date/T earl sister Asthma Unknown Malignant neoplasm of cervix Unknown Seizure Unknown mother Arthritis Unknown father Arthritis Unknown Diabetes mellitus Unknown Myocardial infarction 59 Cardiac disease Unknown brother Seizure Unknown Malignant neoplasm of colon Unknown Advance Directives No Advanced Directives Records FoundNo Advanced Directives Records FoundNo Advanced Directives Records FoundNo Advanced Directives Records FoundNo Advanced Directives Records FoundNo Advanced Directives Records FoundNo Advanced Directives Records FoundNo Advanced Directives Records FoundNo Advanced Directives Records FoundNo Advanced Directives Records FoundNo Advanced Directives Records Found Chief Complaint Patient is here for her yearly exam and pap test. LMP: 05/24/2021. Patient does not do regular selfbreast exams and has no concerns at this time.NPV, R ELBOW PAIN WORSENING X 2 MO* INJECTED 1ML B12 IM, LEFT DELTOID. NO COMPLICATIONS * LOT: [id number] EXP: 01/13 * INJECTED 1ML B12 IM, RIGHT DELTOID. NO COMPLICATIONS * LOT: [id number] EXP: 01/13 * #2 * INJECTED 1 ML B12 IM LEFT DELTOID. NO COMPLICATIONS * LOT # [id number] EXP 01/13 * INJECTED 1 ML B12 IM, LT DELTOID. NO COMPLICATIONS * LOT [id number] * EXP. 12/2022 * INJECTED 1ML B12 IM, LT DELTOID. NO COMPLICATIONS * LOT [id number] EXP 06/2022 * INJECTED 1ML B12 IM, LT DELTOID. NO COMPLICATIONS * LOT 06/2022 * INJECTED 1ML B12 IM, RIGHT DELTOID. NO COMPLICATIONS * LOT: [id number] EXP: 07/14 * Injected 1ML B12 IM, LT Deltoid. No Complications * Lot [id number]. Exp 08/2023 * INJECTED 1ML B12 IM, LT DELTOID. NO COMPLICATIONS * LOT 06/2022 Reason for Referral Specialty Diagnoses / Procedures Referred By Kati pickering Referred To Contact Neurology Diagnoses Numbness and tingling of right arm Everett Cutler MD [address] [place] [address] Venita Lopez MD [facility]ate Carrillo [address] [address] Referral ID Status Reason Start Date Expiration Date V isits Requested Visits Authorized [id number] Authorized 08/22/2021 08/22/2022 1 1 Chief Complaint and Reason for Visit Chief Complaint Admit Date IRREGULAR CYCLES/ARON-MENOPAUSE CONCERNS January 26, 2025 2:21pm Reason for Visit Admit Date Abnormal uterine bleeding January 26 025 2:21pm Dysmenorrhea January 26, 2025 2: 21pm IBS (irritable bowel syndrome) January 262024 2:21pm Chronic pelvic pain in female January 2:21pm Additional Source Comments INFORMATION SOURCE (unrecogn ized section and content) DATE CREATED AUTHOR 11/15/2017 [facility] DATE CREATED AUTHOR AUTHOR'S ORGANIZ ATION 09/25/2018 [facility] DATE CREATED AUTHOR AUTHOR'S ORGANIZ ATION 09/17/2021 [facility] DATE CREATED AUTHOR AUTHOR'S ORGANIZ ATION 07/23/2022 [facility] DATE CREATED AUTHOR AUTHOR'S ORGANIZ ATION 07/28/2022 [facility] DATE CREATED AUTHOR AUTHOR'S ORGANIZ ATION 05/06/2024 [facility] DATE CREATED AUTHOR AUTHOR'S ORGANIZ ATION 06/08/2024 [facility] DATE CREATED AUTHOR AUTHOR'S ORGANIZ ATION 08/27/2024 [facility] DATE CREATED AUTHOR AUTHOR'S ORGANIZ ATION 08/28/2024 [facility] DATE CREATED AUTHOR AUTHOR'S ORGANIZ ATION 02/27/2025 [facility] DATE CREATED AUTHOR AUTHOR'S ORGANIZ ATION 03/02/2025 [facility] <item> Privacy Markings (unrecogniz ed section and content) Section Author: Jesica Hemphill PROHIBITION ON REDISCLOSURE OF CONFIDENTIAL INFORMATION This notice accompanies a disclosure of information concerning a client made to you with the consent of such client. Care Teams (unrecognized sec tion and content) Rating Examiner Relationship Specialty Start Date End Date Everett Cutler MD [address] [place] [address] PCP - General Family Medicine 08/22/21 Rating Examiner Relationship Specialty Start Date End Date Everett Cutler MD PCP - General 08/19/21 Aneta Collins DO 1 [facility] [place], [place] [id number] PCP - [place] Medicaid PCP 04/23/22 Everett Cutler MD [address] [place] [address] PCP - [facility] Medicaid PCP 07/22/22 Rating Examiner Relationship Specialty Start Date End Date Everett Cutler MD [address] [address] PCP - General 08/19/21 Rating Examiner Relationship Specialty Start Date End Date Everett Cutler MD [address] [address] PCP - General 08/19/21 Rating Examiner Relationship Specialty Start Date End Date Everett Cutler MD [address] [address] PCP - General 08/19/21 Rating Examiner Relationship Specialty Start Date End Date Everett Cutler MD [address] [address] PCP - General 08/19/21 Rating Examiner Relationship Specialty Start Date End Date Everett Cutler MD [address] [place] [address] PCP - General 08/19/21 Rating Examiner Relationship Specialty Start Date End Date Everett Cutler MD [address] [place] [address] PCP - General 08/19/21 Rating Examiner Relationship Specialty Start Date End Date Everett Cutler MD [address] [place] [address] PCP - General 08/19/21 Everett Cutler MD [address] [place] [address] PCP - [facility] [facility] PCP 04/23/24 Rating Examiner Relationship Specialty Start Date End Date Everett Cutler MD [address] [place] [address] PCP - General 08/19/21 Everett Cutler MD [address] [place] [address] PCP - [facility] PCP 04/23/24 Rating Examiner Relationship Specialty Start Date End Date Everett Cutler MD [address] [place] [address] PCP - General 08/19/21 Everett Cutler MD [address] [place] [address] PCP - [facility] PCP 04/23/24 Rating Examiner Relationship Specialty Start Date End Date Everett Cutler MD [address] [address] PCP - General 08/19/21 Everett Cutler MD [address] [address] PCP - [facility] PCP 04/23/24 Rating Examiner Relationship Specialty Start Date End Date Everett Cutler MD [address] [address] PCP - General 08/19/21 Everett Cutler MD [address] [address] PCP - [facility] PCP 04/23/24 Team Status: Active Member Role/Relationship Status Dates Dr. Ashkan Cutler MD Primary care physician Active Team Status: Inactive Member Role/Relationship Status Dates Dr. Ashkan Cutler MD Primary care physician Active Start: January 26, 2025 End: January 26, 2025 Dr. Ashkan Cutler MD Referring Provider Active Start: January 26, 2025 End: January 26, 2025 Dr. Katharina Rubio MD Attending physician Active Start: January 26, 2025 End: January 26, 2025 Rating Examiner Relationship Specialty Start Date End Date Everett Cutler MD [address] [address] PCP - General 08/19/21 Everett Cutler MD [address] [address] PCP - [facility] PCP 04/23/24 Rating Examiner Relationship Specialty Start Date End Date Everett Cutler MD [address] [address] PCP - General 08/19/21 Everett Cutler MD [address] [address] PCP - [facility] PCP 04/23/24 Reason for Visit (unrecogniz ed section and content) Reason Comments Gynecologic Exam PT is here today for yearly exam. Does her own self breast exams. Reports her LMP was 05/24/23. No other issues or concerns today. Reason Comments Annual Exam Reason Comments ER F/U ABD Pain Reason Comments F/U Colonoscopy Reason Comments Follow-up Pt presents today as a follow up to discuss recent colonoscopy (done on 05/20/24). Pt states no changes since procedure, symptoms all present the same way as before. Reason Comments Vaginal Bleeding Patient is here with c/o spotting bleeding for 2 weeks after not having a period since August of last year due to her control. Patient also c/o sweating, vomiting almost every morning and increased bowel movements. Reason Comments Gynecologic Exam Patient is here for yearly exam and pap test. Patient does do regular self breast exams and has no concerns at this time. LMP: 07/24/24. Reason Comments Abdominal Pain Pain x Sunday , wors ening over time. Frequent urination Reason Comments [employer] Goals (unrecognized section and content) Goals may be documented in a n alternate section FOR RECORDS PERTAINING TO PATIENTS WHO ARE OR HAVE BEEN ENROLLED IN A CHEMICAL DEPENDENCY/SUBSTANCEABUSE PROGRAM, SOME INFORMATION MAY BE OMITTED. This clinical summary was aggregated from multiple sources. Caution should be exercised in using it in the provision of clinical care. This summary normalizes information from multiple sources, and as a consequence, information in this document may materially change the coding, format and clinical context of patient data. In addition, data may be omitted in some cases. CLINICAL DECISIONS SHOULD BE BASED ON THE PRIMARY CLINICAL RECORDS. [employer] provides no warranty or guarantee of the accuracy or completeness of information in this document.
== END | disposition home or self-care (01) ==
LOC: LABSPEC 10:46
PROVIDERS: PCP Family Medicine; Visit Provider Obstetrics & Gynecology
DX: R10.20 Pelvic and perineal pain unspecified side (principal)
CPT/HCPCS: 87086

== ENCOUNTER 2025-03-31 11:30 | Day surgery (SDC) | payer OTHER, SELFPAY ==
[2025-03-31] VITALS (10 sets, daily range): BP systolic 102–135; BP diastolic 54–100; PULSE 52–90; RESP 12–16; TEMP 36.1–36.8; O2SAT 100; BMI 27.1
[2025-03-31 11:59] LABS: Internal QC Validated? YES +Cl - CLEAR BKGD; Pregnancy, Urine Negative Negative
[2025-03-31] MEDS: Lactated Ringers 1,000 ML 15 ML IV (12:01)
--- NOTE | 2025-03-31 12:21 | PRE.ANES_ITS ---
ASA Classification* ASA Classification ASA Classification: 2 Assessment & Plan Anesthesia* Anesthesia Assessment Anesthesia Assessment: Discussed sedation and/or anesthesia options, risks, benefits, and alternatives with patient/parents/legal guardian/POA. Questions invited. The patient/parents/legal guardian/POA seems to understand and agrees to proceed with anesthesia plan. Reviewed the physical assessment, medical history, allergy history and patient home medications list prior to surgery/procedure/anesthetic and documented any changes. Performed airway and anesthesia risk assessments. Anesthesia Type Anesthesia Type: General History Source History Obtained from:: Patient and Chart Anesthesia Focused Assessment* Temperature: 98.3 F Pulse Rate: 71 Blood Pressure: 102/73 Respiratory Rate: 16 Pulse Ox: 100 Oxygen Delivery Method: Room Air Airway Assessment Mouth opens: >3 cm Mallampati Score: II Teeth Condition: Intact Neck Range of motion (ROM): Full ROM Labs Anesthesia Preop lab: CBC CHEMISTRY COAG Urine Test Negative Negative Today, 11:50 Pre-Assessment Diagnosis/Proposed Procedure Planned Operative Procedure(s): Diagnostic Laparoscopy, Dilation and Curettage Hysteroscopy (N/A) Hysteroscopy,Dilation and Curettage Anesthesia History Anesthesia History - catering and events manager: Anesthesia History - catering and events manager Hx Hospitalization No 03/20/25 14:03 Any Problems With Anesthesia Yes: reaction to ancef They 03/20/25 14:03 had to bring me back Cholinesterase deficiency No 03/20/25 14:03 You/Your Family Experience No 03/20/25 14:03 fever (hyperthermia) with Relationship Recent Exposure to Contagious No 03/31/25 11:56 Disease Does patient have nerve No 03/20/25 14:03 stimulator Patient instructed to have device shut off --Does patient have Pacemaker No 03/31/25 11:56 or ICD? When Was Last Pacemaker Check QUESTION #4 FULL TEXT: You/Your Family Experience fever (hyperthermia) with Anesthesia Last Oral Intake Last Oral intake: Last Oral Intake NPO since 06:00 03/31/25 11:56 Meds taken in AM with sips of No 03/31/25 11:56 water? Meds patient instructed to take am of surgery PONV PONV - catering and events manager: PONV - catering and events manager Female Yes 03/20/25 14:03 HX of Motion Sickness Yes 03/20/25 14:03 HX of N/V After Surgery No 03/20/25 14:03 Non-Smoker No 03/20/25 14:03 Duration of Surgery greater No 03/20/25 14:03 than 60 minutes Number of Risk Factors 2 03/20/25 14:03 PONV Score Moderate Risk 03/20/25 14:03 Height & Weight Height & Weight: Anesthesia: Height & Weight Height 5 ft 10 in 03/31/25 11:56 Weight: 85.8 kg 03/31/25 11:56 Body Mass Index (BMI) 27.1 03/31/25 11:56 Respiratory Assessment Respiratory Assessment - catering and events manager: Respiratory Tract Infection Hx - catering and events manager Hx Respiratory Tract Infection No 03/20/25 14:03 STOP Sleep Apnea STOP Sleep Apnea - catering and events manager: STOP Sleep Apnea - catering and events manager Hx Hypertension No 03/20/25 14:03 Hx Sleep Apnea No 03/20/25 14:03 CPAP BIPAP Do you snore loudly (louder No 03/20/25 14:03 than talking or can be heard Do you often feel tired/ No 03/20/25 14:03 fatigued/ sleepy during daytime? Has anyone observed you stop No 03/20/25 14:03 breathing during sleep? STOP Results Negative 03/20/25 14:03 QUESTION #5 FULL TEXT : Do you snore loudly (louder than talking or can be heard through closed doors)? Tobacco Use History Tobacco Use History - catering and events manager: Tobacco Use History - catering and events manager Tobacco Use Smoking Status Heavy Smoker (>10/day) 03/20/25 14:03 Hx Tobacco Use No 03/20/25 14:03 Years Smoking Packs Smoked per Day Smoking Cessation Date was within the last 15 years Hx Smoking Cessation Date Hx Smoking Cessation No 03/20/25 14:03 Counseling Hematologic Medial History Hematologic Hx - catering and events manager: Hematologic Medical Hx - grades 9 12 tutor Hx of Blood Transfusion No 03/20/25 14:03 Hx of Transfusion in last 3 No 03/20/25 14:03 Months Date of Last Transfusion (if within last 3 months) Ever experience any problems No 03/20/25 14:03 with transfusion(s)? Specify any problems Hx of Preganancy in last 3 No 03/20/25 14:03 Months Nurse Filling Out Transfusion JZOLLINGE 03/20/25 14:03 & Questions: Date: 03/20/25 03/20/25 14:03 Time: 14:05 03/20/25 14:03 Patient unable to answer at this time (ie. confused, unrespo /Reproduction History /Reproductive History - catering and events manager: /Reproductive Hx- catering and events manager Hx Now No 03/20/25 14:03 Gestational Age (in weeks): EDC: Hx Hx Para Hx Section SAB No 03/20/25 14:03 Does the father of the baby or his family experience fever w Father of the baby Malignant Hypertension history comment Active Medications Active Medications: Current Medications Generic Name Dose Route Start Last Admin Trade Name Freq PRN Reason Stop Dose Admin Lactated Ringer's 1,000 mls @ 15 mls/hr 03/31/25 11:45 03/31/25 12:01 IV 15 mls/hr .Q48H JULIO Administration PFSH Medical History History of IBS Smoker Fibromyalgia Cyst of right breast PCOS (polycystic ovarian syndrome) Osteoarthritis IBS (irritable bowel syndrome) Gastrointestinal problem Bone fracture History of back problems Arthritis Home Medications ?Medication ?Instructions ?Recorded ?Last Taken ?Type NK 01/26/25 Unknown History Allergy/AdvReac Type Severity Reaction Status Date / Time cefazolin (From Ancef) Allergy Severe Hives Verified 03/31/25 11:55 metronidazole (From Flagyl) Allergy Intermediate heart Verified 03/31/25 11:55 palpitations Family History Sister Asthma Cervical cancer Seizures Mother Arthritis Father Arthritis Diabetes Myocardial infarction, Onset Age: 59 Heart disease Brother Seizures Colon cancer Surgical History Hx of colonoscopy with polypectomy H/O section Social History household members: spouse and children housing: house number of children: 1 current occupational status: employed current occupation: [employer] Smoking Status: Current every day smoker tobacco type: cigarettes alcohol intake: never substance use type: does not use what type of physical activity do you participate in: none seatbelt use: always do you feel safe at home: Yes additional social history: Maurice Review of Systems (Anesthesia) ROS Narrative System reviewed and no additional complaints, except as documented.
--- NOTE | 2025-03-31 13:15 | EMB_PTH ---
PATIENT: PAULA ALEGRIA [place] [facility] [id number] AGE/SX: 39/F ROOM: RE03/31/[address]: Dr. Katharina Rubio MD : 1985 BED: DIS: 03/31/2025 SPEC #: [id number] RECD: 03/31/25 18:01 STATUS: VIKTOR REJovanni #: [id number] BONNIE: 03/31/25 13:[address]: Katharina Rubio DEPT: SURGICAL PATHOLOGY RECD BY: Joshua Funk ENTERED: 04/01/25 10:29 SP TYPE: ENDOM BX/C MIGUEL DR: Dr. Ashkan More MD Tissues: A - Endometrium, NOS Procedures: Surgery Specimen Level IV HEADER OPERATION: Laparoscopic ablation of endometriosis, Lysis of Adhesions PRE-OP DIAGNOSIS: Abnormal uterine bleeding, irritable bowel syndrome, dysmenorrhea, chronic pelvic pain in female TISSUE SUBMITTED: A- Endometrial curettings MICROSCOPIC DIAGNOSIS A. Endometrium, curettage: - Secretory phase. MICROSCOPIC DESCRIPTION Slides are reviewed. GROSS DESCRIPTION A. Received in formalin labeled with the patient's name and date of . Designated as endometrial curettings is a 2.7 x 2.5 x 0.3 cm aggregate of dark red clotted blood and flecks of apparent tissue. Entirely submitted in 2 cassettes. [place] 04/01/2025 CPT:46590
--- NOTE | 2025-03-31 14:48 | PCM.HP.BLA ---
History and Physical Date of Admission: 03/31/25 Vital Signs 01/26/2514:54 03/11/2509:35 03/11/2509:37 Height 5 ft 10 in 5 ft 10 in 5 ft 10 in Weight: 190 lb BMI 27.2 BP 121/80 H Intake Visit Reasons: Preop D&C diag. lap. Practice Support Specialist Required: No Is patient in pain?: No Allergies cefazolin (From Ancef) Allergy (Severe, Verified 03/11/25 09:35) Hives metronidazole (From Flagyl) Allergy (Intermediate, Verified 03/11/25 09:35) heart palpitations Medications ?Medication ?Instructions ?Recorded ?Confirmed ?Type NK 01/26/25 03/11/25 History Is last menstrual period known: Yes Last Menstrual Period: 03/09/25 Post menopausal: No Patient : No : No PFSH Medical History Fibromyalgia Cyst of right breast PCOS (polycystic ovarian syndrome) Osteoarthritis IBS (irritable bowel syndrome) Gastrointestinal problem Bone fracture History of back problems Arthritis Surgical History H/O section Family History Sister Asthma Cervical cancer Seizures Mother Arthritis Father Arthritis Diabetes Myocardial infarction, Onset Age: 59 Heart disease Brother Seizures Colon cancer Social History household members: spouse and children housing: house number of children: 1 current occupational status: employed current occupation: [employer] Smoking Status: Current every day smoker tobacco type: cigarettes alcohol intake: never substance use type: does not use what type of physical activity do you participate in: none seatbelt use: always do you feel safe at home: Yes additional social history: Maurice GERARDO Preop D&C diag. lap. Details: PAULA ALEGRIA is a 39 year old who presents for preop visit The patient is a 39-year-old female presenting with severe abdominal pain, bowel irregularities, and abnormal menstrual bleeding. Following a section, the patient contracted Clostridioides difficile infection, which remained undiagnosed for a year and a half, causing significant bowel damage. Despite treatment, she continues to experience bowel issues, including frequent bowel movements, abdominal pain, and rectal bleeding. The patient reports daily hot flashes, vomiting, and severe bowel pain, which significantly impacts her ability to work. She has attempted various interventions, including dietary changes and cessation of medications, without relief. The patient has a history of fibromyalgia, contributing to her chronic pain symptoms. She also reports abnormal Pap tests for the past five years and microhematuria. The patient suspects endometriosis due to her symptoms and has not responded to previous hormonal treatments. She has a history of polycystic ovarian syndrome diagnosed at age 24. Female Reproductive History Last Menstrual Period: 03/09/25 History 1 Elective abortions Hx Para 1 Spontaneous abortions Hx # Term Pregnancies Ectopic pregnancies Hx # Pregnancies Multiple births # of living children 1 Past Pregnancies Del. Date Name GA/Weeks Outcome Route Bth Weight Infant Gen Labor Lgth Anesthesia Del Locatn Provider FOB Unknown 2011 Lu live - full term ROS Const Constitutional: Reports fatigue; Denies weight gain or weight loss ENT ENT: Reports system reviewed and no additional complaints, except as documented Cardio Card: Denies chest pain Resp Resp: Denies cough or dyspnea GI GI: Reports as per HPI and nausea; Denies constipation or vomiting : Reports as per HPI and vaginal discharge; Denies nipple discharge, vaginal dryness, vaginal odor or vaginal pruritus Musc Musc: Reports arthralgias and back pain; Denies muscle weakness Skin Skin/Breast: Denies alopecia, change in hair, dry skin, breast mass, breast pain, breast skin changes or nipple discharge Neuro Neuro: Reports system reviewed and no additional complaints, except as documented Psych Psych: Reports system reviewed and no additional complaints, except as documented Endo Endo: Reports cold intolerance; Denies excessive sweating, heat intolerance or polydipsia Harvey/Lymph Hematologic/Lymphatic: Reports easy bleeding, Reports easy bruising and Denies lymphadenopathy Exam Const General: cooperative, healthy appearing, comfortable and no acute distress Orientation: alert HENMT Head: normal to inspection and normocephalic Ears: hearing grossly normal bilaterally and external ears normal Nose: external nose normal and nares normal Face and sinus: normal facial exam Neck Neck: normal visual inspection and no lymphadenopathy Thyroid: thyroid normal Chest Chest palpation & inspection: normal inspection of the chest Resp Effort & Inspection: normal respiratory effort Auscultation: clear to auscultation bilaterally Cardio Rate: regular rate Rhythm: regular rhythm Heart Sounds: S1 normal and S2 normal GI Inspection: normal to inspection and non-distended Palpation: soft and no hepatosplenomegaly Musc Other: gross motor intact no deficits, full bilateral strength Skin General: no rashes or lesions noted Neuro General: patient alert, patient awake, moves all extremities and no focal motor deficits Motor: muscle tone normal throughout Extrem General: normal to inspection and no pedal edema Psych Appearance: grossly normal Mental Status: mental status grossly normal Affect: normal affect Speech and Movement: speech and movement normal Coding Level of Care Code No Charge Diagnoses Abnormal uterine bleeding N93.9 IBS (irritable bowel syndrome) K58.9 Dysmenorrhea N94.6 Chronic pelvic pain in female R10.20; G89.29 Assessment and Plan Assessment and Plan (1) Abnormal uterine bleeding: Status: Acute Comment: obtain records [facility]. plan d ad c hysteroscopy (2) IBS (irritable bowel syndrome): Status: Acute Comment: Xifaxin trial. (3) Dysmenorrhea: Status: Acute Comment: plan diagnostic laparosocpy. obtain us report from [facility]. failed progestin pill. (4) Chronic pelvic pain in female: Status: Chronic Comment: nl cystoscopy with [facility]. d and c hysteroscopy diagnostic laparoscopy. trial of Xifaxan for IBS D Plan Assessment and Plan 39-year-old female with a history of Clostridioides difficile infection, irritable bowel syndrome, fibromyalgia, and polycystic ovarian syndrome presenting with severe abdominal pain, bowel irregularities, and abnormal menstrual bleeding. The patient's bowel symptoms, including frequent bowel movements and rectal bleeding, are consistent with irritable bowel syndrome, possibly exacerbated by previous C. difficile infection. The presence of fibromyalgia may contribute to her chronic pain experience. The abnormal menstrual bleeding and suspected endometriosis warrant further investigation, as these symptoms have not improved with previous hormonal treatments. The history of polycystic ovarian syndrome may also play a role in her menstrual irregularities. 1. Irritable Bowel Syndrome The patient will be prescribed Xifaxan to address symptoms of irritable bowel syndrome, particularly diarrhea and abdominal pain, potentially due to bacterial overgrowth. The patient is advised to take the medication three times daily, with reminders set to ensure adherence. 2. Suspected Endometriosis A diagnostic laparoscopy is recommended to confirm the presence of endometriosis and allow for immediate treatment if identified. The procedure will include a D&C hysteroscopy and examination of the bladder to rule out other causes of pelvic pain. 3. Polycystic Ovarian Syndrome The patient's history of polycystic ovarian syndrome will be considered in the management of her menstrual irregularities. 4. Fibromyalgia The patient's fibromyalgia will be managed as part of her chronic pain treatment plan, acknowledging its contribution to her overall pain experience. Plan Details Additional Comments: I discussed with the patient the potential diagnosis of irritable bowel syndrome and the role of Xifaxan in managing symptoms related to bacterial overgrowth. We also explored the possibility of endometriosis and the benefits of a diagnostic laparoscopy, including the ability to treat any findings immediately. The patient was informed about the low risks associated with the procedure and the importance of addressing her chronic pain and menstrual irregularities. UPDATE- I have seen the patient and performed any clinically relevant updates to the history and physical exam. Katharina Rubio MD
[2025-03-31] MEDS: Midazolam 2 MG/2 ML Syringe IV (15:13)
[2025-03-31] MEDS: Lidocaine 1% (5 ml sdv) 5 ML Vial IV (15:18)
--- NOTE | 2025-03-31 15:18 | OP.PCM_ITS ---
Problems Associated Problem List Diagnoses (1) Endometriosis determined by laparoscopy: Multi Select Codes Urinary/Genital Urinary/Genital CPT Codes: 14595 Laproscopic BS/O Operative Report (Standard) Operative Information Date of Procedure: 03/31/25 Pre-Operative Diagnosis: Abnormal uterine bleeding dysmenorrhea chronic pelvic pain Post-Operative Diagnosis: same Surgery/Procedure Performed: D&C hysteroscopy laparoscopic ablation of endometriosis well logging mud analysis captain: Yes Accounting Lecturer: Catrachito Oconnor Tasks completed by teachers assistant: Opening & closing, Altering tissue and Insert Trochanter Additional assistant federal public defender?: No Type of Anesthesia: General RN Documented Start/Stop Times: Operation Date: 03/31/25 13:15 Case Time Into Pre-Op 03/31/25 11:39 Out of Pre-Op 03/31/25 15:09 Anesthesia Start 03/31/25 15:12 Into Room 03/31/25 15:12 Procedure Start 03/31/25 15:42 Procedure End 03/31/25 16:26 Anesthesia End 03/31/25 16:34 Out of Room 03/31/25 16:34 Into Recovery 03/31/25 16:35 Into Phase II Recovery 03/31/25 17:21 Out of Recovery 03/31/25 17:21 Out of Phase II 03/31/25 17:54 Procedure Start Time: 15:42 Procedure Stop Time: 16:26 Select all DRAINS/GRAFTS/IMPLANTS that apply: None Estimated Blood Loss: 50 Specimen collected: Yes Description of specimen(s) removed: Endometrial curettings Description of surgery: Patient was taken in the operating room and was placed under general anesthesia was prepped and draped in normal sterile fashion in the dorsal lithotomy position. Bladder was drained of clear urine and SCDs were on preoperatively. Uterus was sounded and a uterine manipulator was placed after dilating. Attention was then paid to the abdominal portion of the procedure and the umbilicus was elevated with towel clamps and injected with Marcaine and after a 5 mm incision was made and the Veress needle was entered into the abdomen confirmed to be intra-abdominal with a low opening pressure of less than 5 mmHg. Abdomen was insufflated with CO2 gas and a 5 mm optical trocar was placed under direct visualization. Left and right lower quadrant 5 mm ports were placed under direct visualization. Uterus was well visualized and upon inspection of the pelvis numerous endometriosis lesions were noted as well as pelvic adhesions were seen. The sigmoid colon was adherent to the left pelvic sidewall which was taken down with the Lige sure without complication. Endometriosis implants were seen along the left abdominal and pelvic sidewall which were ablated with LigaSure device and monopolar energy. Additional endometriosis implants were seen along the ovarian fossa and the right fallopian tube with the anterior cul-de-sac and along the bilateral ovarian fossa's. All areas were treated and the entire pelvis and abdomen were inspected. Some right sigmoid colon ad hesions were also taken down for the pelvic sidewall to normalize anatomy.. Excellent hemostasis was noted in the pelvis. Liver and upper abdomen were visualized notably within normal limits and no other gross abnormalities were seen in the abdomen. All instruments removed from the abdomen after gas was desufflated. Port sites were closed with 3-0 Monocryl Steri's and op sites were applied. A weighted speculum was placed in the vagina and the anterior lip of the cervix was grasped with a single-tooth tenaculum. Cervix was progressively dilated to allow passage of a 5 mm hysteroscope. The lining was fully visualized and noted to have mild thickening but no overall gross abnormalities. Uterine sounded to 8 cm. Curettage was performed and moderate manage tissue removed, sent to pathology. All instruments were removed from the vagina and excellent hemostasis was noted. Patient was awoken and taken to recovery in stable condition. Surgical Findings: stage II endometriosis Complications Complications: No
--- NOTE | 2025-03-31 15:21 | DCINST_ITS ---
Discharge Instructions DC O2, CPAP, BIPAP needs Home O2 Discharge instructions: No Dressing / Incision Discharge Activity: Return to Normal Activity, May Not Drive ( while taking narcotic pain meds, when pain free), May Shower and May Take a Tub Bath (in 7 days) May resume sexual activity in: 1 week Weight Bearing Status: Full weight bearing Dressing / Incision Call your doctor if your incision/area has: Continuous Slow Oozing, Sudden Increased Bleeding, Increased Pain/ Swelling, Increased Redness and Foul Smelling Discharge Call your doctor if you observe: Fever of 101 or Higher, Using more than 1 pad per hour, Shortness of breath, Chest pain and Uncontrolled pain Suture Line Care: Avoid Pulling/Pushing and Avoid Pinching/Bending Remove Dressing in: 1 week (if present) Cleanse incision/area with: Soap & Water and Keep Dressing Clean & Dry Follow Up Care When: Call to make an appointment with your doctor for a fu/incision check in 1- 2 weeks. Test Results: Test results from this visit will be discussed in further detail at your follow- up appointment, if applicable. Discharge Plan Admission Attending Provider: Katharina Rubio Primary Care Provider: Ashkan More Instructions Print Language: [place]ese Discharge Orders/Prescriptions Prescriptions: New oxycodone-acetaminophen [Percocet] 5-325 mg tablet 1 tab PO Q4H PRN (Reason: pain) 7 Days Qty: 20 0RF naproxen 500 mg tablet 500 mg PO BID PRN PRN (Reason: Pain) Qty: 30 1RF Referrals / Follow Up: Ashkan More MD [Primary Care Provider, Family Practice] Disposition Disposition (needs filled in before D/C Order can be placed): Home, Self Care
[2025-03-31] MEDS: fentaNYL 100 MCG/2 ML Ampul 200 MCG IV (15:51)
[2025-03-31] MEDS: Ketorolac 30 MG/ML Syringe IV (16:28)
--- NOTE | 2025-03-31 16:44 | PCM.POST.ANE ---
Anesthesia: Postop Eval I Current Vital Signs Temperature: 97 F Pulse Rate: 90 Blood Pressure: 122/100 Respiratory Rate: 12 Pulse Ox: 100 Oxygen Delivery Method: Room Air Assessment Airway patent: Yes Spontaneous unlabored respirations: Yes Mental status: Awake nausea: No Vomiting: No Anesthesia Complication: No Fluid Hydration Crystalloid volume administer (ml): 1,400 Total IV fluid infused: 1,400 Progress Note Anesthesia document: Postop Eval 1 completed: Yes
--- NOTE | 2025-03-31 17:07 | POSTOPAN2_ITS ---
Anesthesia Postop Eval I Sum Postop Eval Completion status Anesthesia document: Postop Eval 1 completed: Yes Anesthesia Postop Eval I Summary Anesthesia Postop Eval I Summary: Anesthesia Postop Eval I: Assessment Summary Airway patent Yes 03/31/25 16:45 REFINED SYRUP OPERATOR.SHOF Spontaneous unlabored Yes 03/31/25 16:45 REFINED SYRUP OPERATOR.SHOF respirations Mental status Awake 03/31/25 16:45 REFINED SYRUP OPERATOR.SHOF nausea No 03/31/25 16:45 REFINED SYRUP OPERATOR.SHOF Vomiting No 03/31/25 16:45 REFINED SYRUP OPERATOR.SHOF Anesthesia Postop Eval I: Fluid Summary Crystalloid volume administer 1,400 03/31/25 16:45 REFINED SYRUP OPERATOR.SHOF (ml) Colloids volume administered ( ml) Blood Product volume administered (ml) Total IV fluid infused 1,400 03/31/25 16:45 REFINED SYRUP OPERATOR.SHOF Anesthesia Postop Eval I: Summary Notes Anesthesia Complication No 03/31/25 16:45 REFINED SYRUP OPERATOR.SHOF Anesthesia Complication Comment: Post-operative progress note Anesthesia: Postop Eval II Evaluation Mental status: Awake and Calm Pain Level: 1 nausea: No Vomiting: No
--- NOTE | 2025-03-31 17:07 | PCM.POSTANE2 ---
Anesthesia Postop Eval I Sum Postop Eval Completion status Anesthesia document: Postop Eval 1 completed: Yes Anesthesia Postop Eval I Summary Anesthesia Postop Eval I Summary: Anesthesia Postop Eval I: Assessment Summary Airway patent Yes 03/31/25 16:45 LATHE WINDER.SHOF Spontaneous unlabored Yes 03/31/25 16:45 LATHE WINDER.SHOF respirations Mental status Awake 03/31/25 16:45 LATHE WINDER.SHOF nausea No 03/31/25 16:45 LATHE WINDER.SHOF Vomiting No 03/31/25 16:45 LATHE WINDER.SHOF Anesthesia Postop Eval I: Fluid Summary Crystalloid volume administer 1,400 03/31/25 16:45 LATHE WINDER.SHOF (ml) Colloids volume administered ( ml) Blood Product volume administered (ml) Total IV fluid infused 1,400 03/31/25 16:45 LATHE WINDER.SHOF Anesthesia Postop Eval I: Summary Notes Anesthesia Complication No 03/31/25 16:45 LATHE WINDER.SHOF Anesthesia Complication Comment: Post-operative progress note Anesthesia: Postop Eval II Evaluation Mental status: Awake and Calm Pain Level: 1 nausea: No Vomiting: No
== END 2025-03-31 17:54 | disposition home or self-care (01) ==
LOC: SDC 11:31 → AC 11:32
PROVIDERS: Anesthesiology; PCP Family Medicine; Referring Provider Obstetrics & Gynecology; Visit Provider Obstetrics & Gynecology
PROC: (CPT 49320; principal; 2025-03-31 13:00)
DX: N80.C0 Endometriosis of the abdomen, unspecified (principal); N93.9 Abnormal uterine and vaginal bleeding, unspecified; F17.210 Nicotine dependence, cigarettes, uncomplicated; M79.7 Fibromyalgia; N94.6 Dysmenorrhea, unspecified; E28.2 Polycystic ovarian syndrome; K58.0 Irritable bowel syndrome with diarrhea; Z79.899 Other long term (current) drug therapy; N80.352 Endometriosis of the left pelvic sidewall, unspecified depth; N80.103 Endometriosis of bilateral ovaries, unspecified depth; N80.201 Endometriosis of right fallopian tube, unspecified depth; N80.319 Endometriosis of the anterior cul-de-sac, unspecified depth
CPT/HCPCS: 58662; 58558; 81025; 88305; J2405